=== PATIENT | female | born 2005 | race Caucasian/White ===

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

== ENCOUNTER → 2023-04-06 13:23 | Outpatient (BNVA) | payer OTHER, SELFPAY | PROVIDERS: Family Provider Family Medicine; Visit Provider Nurse Practitioner Family | DX: Z34.90 Encounter for supervision of normal pregnancy, unspecified, unspecified trimester (principal) | CPT/HCPCS: 81000; 81025 ==

== ENCOUNTER → 2023-04-10 14:50 | Outpatient (BNVA) | payer OTHER, SELFPAY | PROVIDERS: Family Provider Family Medicine; Visit Provider Obstetrics & Gynecology | DX: Z34.90 Encounter for supervision of normal pregnancy, unspecified, unspecified trimester (principal) | CPT/HCPCS: 84315; 84702 ==

== ENCOUNTER 2023-04-11 13:20 | Emergency (ER) | payer OTHER, SELFPAY ==
[2023-04-11 13:36] VITALS: BP 162/80; PULSE 99; RESP 15; TEMP 36.9; O2SAT 98
[2023-04-11 14:45] LABS: Basophils % 0.2 %; Eosinophils # 0.1 10^3/uL (0.0-0.8); Hematocrit 36.1 % (36-47); Lymphocytes # 2.1 10^3/uL (1.5-6.5); Lymphocytes % 22.2 %; Mean Corpuscular HGB Conc 30.5 g/dL (30-55); Mean Platelet Volume 10.9 fL (7.4-10.4); Monocytes # 0.6 10^3/uL (0.2-0.9); Monocytes % 6.4 %; Neutrophils # 6.56 10^3/uL (1.8-8.0); Neutrophils % 69.9 %; Nucleated Red Blood Cells % 0 %; Platelet Count 234 10^3/cmm (157-399); Red Cell Distribution Width 14.6 % (12.1-15.1); White Blood Count 9.38 10^3/uL (4.5-13.0)
[2023-04-11 15:22] LABS: Alanine Aminotransferase 22 U/L (0-33); Albumin Level 4.3 g/dL (3.5-5.2); Alkaline Phosphatase 117 U/L (35-105); Anion Gap 13.6 (5-19); Aspartate Amino Transferase 21 U/L (0-32); Blood Urea Nitrogen 9 mg/dL (6-20); Calcium 8.9 mg/dL (8.5-10.5); Carbon Dioxide 25 mmol/L (22-29); Chloride 103 mmol/L (98-107); Globulin 2.5 g/dL (1.3-4.6); Glomerular Filtration Rate 128.8 mL/min (90-130); Glucose 122 mg/dL (65-115); Osmolality Calculated 286 mOsm/kg (285-295); Potassium 3.6 mmol/L (3.5-5.1); Sodium 138 mmol/L (136-145); Total Bilirubin 0.2 mg/dL (0.15-1.2); Total Protein 6.8 g/dL (6.6-8.7)
[2023-04-11 17:58] VITALS: BP 153/109; PULSE 96; O2SAT 99
--- NOTE | 2023-04-11 18:07 | W.ED.PREGNAN ---
HPI - General: Chief complaint: Vaginal Bleeding Stated complaint: , bleeding, abd pain Time Seen by Provider: 04/11/23 17:59 History of Present Illness: 17-year-old female comes in today with vaginal bleeding in early . Patient reports has been spotting for about 1 week but bleeding has increased today. Patient still reports that the bleeding is less than 1 pad an hour. Patient was seen at [facility] yesterday and had a hCG done which review of the records noted that it was at 200. Patient was recommended to come to the ER due to increased bleeding. Patient denies any other complaints except some lower pelvic cramping. This is patient's first with no prior miscarriages or intentional abortions. Patient denies any chronic medical problems. Related Data: : 1 Review of Systems Const: Denies: fever(s) : Reports: vaginal bleeding (Less than 1 pad an hour) and pelvic pain PFS ED PFSH: Family History Denies family history of Cervical cancer Colon cancer Ovarian cancer Diabetes Breast cancer Hypertension Uterine cancer Thyroid disease Stroke Social History Smoking and tobacco status: never smoked Female Reproductive History: : 1 Physical Exam Const: COMMON NORMALS: alert HENMT: COMMON NORMALS: normocephalic HEAD & SCALP: normocephalic Neck/C-Spine: COMMON NORMALS: full ROM Resp: COMMON NORMALS: normal respiratory effort Cardio: COMMON NORMALS: regular rate RATE: regular rate Back/Pelvis: COMMON NORMALS: thoracic and lumbar spine normal to inspection Extremity: COMMON NORMALS: normal to inspection Neuro: SENSORIUM/ORIENTATION: Yes alert Skin: COMMON NORMALS: turgor normal GENERAL SKIN EXAM: turgor normal Course Vital Signs: Vital signs: Vital Signs Temperature 98.4 F 04/11/23 13:36 Pulse Rate 96 04/11/23 17:58 Respiratory Rate 15 04/11/23 13:36 Blood Pressure 153/109 04/11/23 17:58 Pulse Oximetry 99 04/11/23 17:58 Oxygen Delivery Me thod Room Air 04/11/23 17:58 MDM - OB/Uterine Contractions Medical Decision Making 17-year-old female comes in today with increased vaginal bleeding in early . Patient reports spotting for about 1 week that has increased today but remains less than 1 pad an hour. Patient had hCG done yesterday that showed a level of 200. Patient denies any fever and mild abdominal cramping. Differential diagnosis includes miscarriage, threatened , urinary tract infection, subchorionic bleed. hCG levels have declined since yesterday dropping from 200 to 109. This is most likely a miscarriage and patient should follow-up with [facility] in 3 days for recheck of lab levels. Discussed need to return to the ER for worsening bleeding or fever. Patient reported understanding and agreed to plan and need for follow-up appointment. Lab Data 04/11/23 14:28 04/11/23 14:28 Laboratory Results WBC 9.38 10^3/uL (4.5-13.0) 04/11/23 14: RBC 4.40 10^6/uL (3.85-5.65) 04/11/23 14: Hgb 11.00 g/dL (12.4-14.8) L 04/11/23 14:28 Hct 36.1 % (36-47) 04/11/23 14:28 MCV 82.0 fl (85-98) L 04/11/23 14: MCH 25.0 pg (27-33) L 04/11/23 14:28 MCHC 30.5 g/dL (30-55) 04/11/23 14: RDW 14.6 % (12.1-15.1) 04/11/23 14: Plt Count 234 10^3/cmm (157-399) 04/11/23 14:28 MPV 10.9 fL (7.4-10.4) H 04/11/23 14:28 Neut % (Auto) 69.9 % 04/11/23 14:28 Lymph % (Auto) 22.2 % 04/11/23 14:28 Harding % (Auto) 6.4 % 04/11/23 14:28 Eos % (Auto) 1.0 % 04/11/23 14:28 Baso % (Auto) 0.2 % 04/11/23 14:28 Neut # (Auto) 6.56 10^3/uL (1.8-8.0) 04/11/23 14:28 Lymph # (Auto) 2.1 10^3/uL (1.5-6.5) 04/11/23 14:28 Harding # (Auto) 0.6 10^3/uL (0.2-0.9) 04/11/23 14:28 Eos # (Auto) 0.1 10^3/uL (0.0-0.8) 04/11/23 14:28 Baso # (Auto) 0.0 10^3/uL (0.0-0.1) 04/11/23 14:28 Nucleated RBC % (auto) 0 % 04/11/23 14:28 Nucleated RBCs # 0.0 /100WBC 04/11/23 14:28 Sodium 138 mmol/L (136-145) 04/11/23 14:28 Potassium 3.6 mmol/L (3.5-5.1) 04/11/23 14:28 Chloride 103 mmol/L (98-107) 04/11/23 14:28 Carbon Dioxide 25 mmol/L (22-29) 04/11/23 14:28 Anion Gap 13.6 (5-19) 04/11/23 14:28 BUN 9 mg/dL (6-20) 04/11/23 14:28 Creatinine 0.6 mg/dL (0.5-0.9) 04/11/23 14:28 GFR Calculation 128.8 mL/min (90-130) 04/11/23 14:28 Glucose 122 mg/dL (65-115) H 04/11/23 14:28 Calculated Osmolality 286 mOsm/kg (285-295) 04/11/23 14:28 Calcium 8.9 mg/dL (8.5-10.5) 04/11/23 14:28 Total Bilirubin 0.2 mg/dL (0.15-1.2) 04/11/23 14:28 AST 21 U/L (0-32) 04/11/23 14:28 ALT 22 U/L (0-33) 04/11/23 14:28 Alkaline Phosphatase 117 U/L (35-105) H 04/11/23 14:28 Total Protein 6.8 g/dL (6.6-8.7) 04/11/23 14:28 Albumin 4.3 g/dL (3.5-5.2) 04/11/23 14:28 Globulin 2.5 g/dL (1.3-4.6) 04/11/23 14:28 Ser , Semi-Qnt 109.70 mIU/mL 04/11/23 14:28 Discharge Plan Discharge Patient Disposition: Home Clinical Impression: Miscarriage Condition: Stable Prescriptions: No Action Gummies 400 mcg-35 mg- 25 mg-5 mg tablet,chewable PO DAILY Discharge Orders: Discharge ED (Routine); Ordered 04/11/23 Ordered By: Bryce Fisher Discharge Diet: Usual diet Discharge Activity: Increase activity as tolerated Patient Instructions: Miscarriage (ED) Activity Restrictions/Additional Instructions: Drink plenty of water and fluids. Healthy diet. Use acetaminophen and ibuprofen for pain. Return to ER for worsening symptoms such as a high fever greater than 100.4, bleeding greater than 1 pad an hour, or feeling of passing out. Follow-up with [facility] in 2 to 3 days for recheck. Coding Level of Care Code ED [employer] Specialist for Jose Solano
[2023-04-11 18:18] VITALS: BP 138/99; PULSE 86; O2SAT 99
== END 2023-04-11 18:20 | disposition home or self-care (01) ==
PROVIDERS: Physician Assistant; Emergency Provider Nurse Practitioner Family
DX: O03.9 Complete or unspecified spontaneous abortion without complication (principal)
CPT/HCPCS: 36415; 80053; 84702; 85025; 99283

== ENCOUNTER → 2023-04-13 08:00 | Outpatient (BNVA) | payer OTHER, SELFPAY | PROVIDERS: Visit Provider Obstetrics & Gynecology | DX: O03.9 Complete or unspecified spontaneous abortion without complication (principal) | CPT/HCPCS: 84702 ==

== ENCOUNTER → 2024-12-12 08:40 | Outpatient (BNVA) | payer OTHER, SELFPAY | PROVIDERS: Visit Provider Nurse Practitioner Women's Health | DX: N91.2 Amenorrhea, unspecified (principal) | CPT/HCPCS: 81025 ==

== ENCOUNTER → 2024-12-16 08:43 | Outpatient (BNVA) | payer OTHER, SELFPAY | PROVIDERS: Visit Provider Nurse Practitioner Women's Health | DX: Z36.87 Encounter for antenatal screening for uncertain dates (principal) | CPT/HCPCS: 76817; 84702; 85025; 86850; 86900 ==

== ENCOUNTER → 2024-12-30 08:03 | Outpatient (BNVA) | payer OTHER, SELFPAY | PROVIDERS: Visit Provider Nurse Practitioner Women's Health | DX: Z36.9 Encounter for antenatal screening, unspecified (principal); N83.12 Corpus luteum cyst of left ovary | CPT/HCPCS: 76817 ==

== ENCOUNTER → 2025-01-27 10:15 | Outpatient (BNVA) | payer OTHER, SELFPAY | PROVIDERS: Visit Provider Nurse Practitioner Women's Health | DX: Z34.90 Encounter for supervision of normal pregnancy, unspecified, unspecified trimester (principal) | CPT/HCPCS: 80307; 84315; 87086 ==

== ENCOUNTER → 2025-01-28 10:12 | Outpatient (BNVA) | payer OTHER, SELFPAY | PROVIDERS: Visit Provider Nurse Practitioner Women's Health | DX: Z34.90 Encounter for supervision of normal pregnancy, unspecified, unspecified trimester (principal); E66.01 Morbid (severe) obesity due to excess calories; Z34.80 Encounter for supervision of other normal pregnancy, unspecified trimester | CPT/HCPCS: 83036; 85025; 86592; 86762; 86803; 87340; 87806 ==

== ENCOUNTER → 2025-02-04 10:26 | Outpatient (BNVA) | payer OTHER, SELFPAY | PROVIDERS: Visit Provider Nurse Practitioner Women's Health | DX: Z34.80 Encounter for supervision of other normal pregnancy, unspecified trimester (principal); Z34.90 Encounter for supervision of normal pregnancy, unspecified, unspecified trimester | CPT/HCPCS: 80307; 84315; 87086; 87491; 87591; 87624; 87661 ==

== ENCOUNTER 2025-03-05 20:35 | Inpatient (IN) | payer OTHER, SELFPAY ==
--- OUTSIDE RECORDS SUMMARY | 2025-03-01 06:56 | XMS_ITS | Encounter Summary ---
Author Organization [facility] Address [address] [place] [address] Care Team Providers Care Office Automation Clerk Name Role Phone Unavailable Primary Care Provider Unavailabl e Reason for Visit * Reason Comments Flank Pain Right Vomiting Encounter Details Date Type Department Care Team ([facility] st Contact Info) Description 03/01/2025 6:56 AM CDT - 03/01/2025 10:27 AM CDT Emergency [facility] Emergency Medicine [address] [phone] Alissa Winter MD [address] [phone] Acute right flank pain (Primary Dx); Intractable vomiting with nausea; Dede-Nunes tear; 15 weeks gestation of ; Acute cystitis with hematuria Discharge Disposition: Short term general hospital Social History Tobacco Use Types Packs/Day Years Used Date Smoking Tobacco: Never Smokeless Tobacco: Never Alcohol Use Standard Drinks/Week Comments Not Currently 0 (1 standard drink = 0.6 oz pur e alcohol) Estimated Date of Delivery Comme nts Yes 08/18/2025 Sex and Gender Information Value Date Recorded Sex Assigned at Not on file Legal Sex Female 4:32 PM CDT Gender Identity Not on file Sexual Orientation Not on file documented as of this encounter Last Filed Vital Signs Vital Sign Reading Time Taken Comments Blood Pressure 124/86 03/01/2025 10:23 AM CDT Pulse 58 03/01/2025 10:23 AM CDT Temperature 36.6 C (97.8 F) 03/01/2025 10:23 AM CDT Respiratory Rate 16 03/01/2025 10:2 3 AM CDT Oxygen Saturation 98% 03/01/2025 10: 15 AM CDT Inhaled Oxygen Concentration - - Weight 129.5 kg (285 lb 9.6 oz) 03/01/2025 7:05 AM CDT Height 167.6 cm (5' 6 ) 03/01/2025 7:05 AM CDT Body Mass Index 46.1 03/01/2025 7:05 AM CDT documented in this encounter Medications at Time of Discharge famotidine (PEPCID) 20 mg tablet Take 1 Tablet (20 mg) by mouth 2 times daily for 14 days. 28 Tablet 03/03/2025 03/17/2025 cefdinir (OMNICEF) 300 mg capsule Take 1 Capsule (300 mg) by mouth every 12 hours for 12 days. 24 Capsule 03/03/2025 03/15/2025 escitalopram oxalate (LEXAPRO) 5 mg tablet Take 5 mg by mouth daily. vits15/iron/folic /dss ( VIT 73-LXRG-NERGN-DSS ORAL) Take by mouth. cefdinir (OMNICEF) 300 mg capsule Take 1 Capsule (300 mg) by mouth every 12 hours for 10 days. 20 Capsule 03/03/2025 03/03/2025 documented as of this encounter ED Notes * Clay Thornton RN - 03/01/2025 10:27 AM CDT POV transfer information and directions provided to patient and spouse. IV removed. Patient exited ED with and all belongings at 1027. Update called to LUZ MARIA Bernabe at [facility] at 1028. * Clay Thornton RN - 03/01/2025 10:08 AM CDT Report called to LUZ MARIA Bernabe at [facility] at 1000. * Clay Thornton RN - 03/01/2025 7:17 AM CDT Hemalatha De La Torre 19 y.o. female, arrived to the ED via TRANSPORTATION: private vehicle for complaints of Chief Complaint Patient presents with Flank Pain Right Vomiting This patient arrives with her for complaints of Right Flank Pain and Vomiting. Patient ambulates well to room without signs of distress, is holding a bucket with emesis in it. States she wokeup at 0400 this morning with Right Flank Pain without radiation and then began Vomiting after. Reports taking Tylenol around 0430 without any relief. Reports she is 15 weeks and 5 days , seeBrittanyr Suzanne Jaramillo at [facility] in [place]. Denies any injury or history of stones. Vitals taken, patient placed on monitor, clothing removed as needed per policy, privacy provided to patient. Respiratory: WDL - Regular rhythm, symmetrical chest expansion, no dyspnea , Cardiac/Circulatory: WDL - No numbness or tingling, no chest pain , Skin: WDL - Normal color for ethnicity, skin intact, patient isAlert and Oriented x4, pain scale: 9/10, findings; bleeding: without any bleeding noted. Behavior during evaluation: appropriate. Belongings secured, patient Weapons assessment: denied possession of any weapons or firearms at this time. Patient comforted, all questions answered to the best of the staff's ability, education performed, and left patient in the room with the call light in reach, bed in lowest position, wheels locked, side rails up. * Alissa Winter MD - 03/01/2025 6:55 AM CDT HISTORY OF PRESENT ILLNESS Hemalatha De La Torre, a 19 y.o. female presents to the ED with a Chief Complaint of Flank Pain and Vomiting Subjective Patient is a at approximately 15w 5d GA, presented to ED with complaint of severe right flank pain associated with nausea and vomiting that started around 4:30am this morning. Denied any pelvic pain, vaginal bleeding, contractions or discharge. Denies any medical conditions or allergies. Denies any history of nephrolithiasis. History provided by: The patient and the spouse Arrived by: Private vehicle Arrived from: Home REVIEW OF SYSTEMS Review of Systems All other systems reviewed and are negative. PAST MEDICAL HISTORY REVIEWED MEDICAL: Patient has a past medical history of Depression. SURGICAL: Patient has a past surgical history that includes knee surgery. FAMILY: Patient's family history is not on file. SOCIAL: reports that she has never smoked. She has never used smokeless tobacco. She reports that she does not currently use alcohol. She reports that she does not use drugs. No history on file. Social History Other Topics Concern Not on file ALLERGIES Patient has no known allergies. HOME MEDICATIONS Patient's Home Medications Current Home Medications ESCITALOPRAM OXALATE (LEXAPRO) 5 MG TABLET VITS15/IRON/FOLIC/DSS ( VIT 80-WNCI-PCBJJ-DSS ORAL) Medications Modified during this Encounter No medications on file Medications Discontinued during this Encounter No medications on file Objective PHYSICAL EXAM INITIAL VS BP: 121/55 (03/01/25704), Heart Rate: 71 bpm (03/01/25704), Resp: 18 (03/01/25704), Pulse: (!) 59 (03/01/25729), Temp: 97.1 ??F (36.2 ??C) (03/01/25704), Temp src: Temporal (03/01/25704),SpO2: 98 % (03/01/25704), Height: 5' 6 (167.6 cm) (03/01/25704), Weight: 129.5 kg (285 lb 9.6 oz) (03/01/25704), BMI (Calculated): (!) 46.1 (03/01/25704) No LMP recorded. Patient is . Physical Exam Vitals and nursing note reviewed. Constitutional: General: She is in acute distress. Appearance: She is obese. She is ill-appearing. HENT: Mouth/Throat: Mouth: Mucous membranes are moist. Eyes: Extraocular Movements: Extraocular movements intact. Pupils: Pupils are equal, round, and reactive to light. Cardiovascular: Rate and Rhythm: Normal rate and regular rhythm. Pulses: Normal pulses. Heart sounds: Normal heart sounds. Pulmonary: Effort: Pulmonary effort is normal. No respiratory distress. Breath sounds: Normal breath sounds. Abdominal: Palpations: Abdomen is soft. Tenderness: There is no abdominal tenderness. There is right CVA tenderness. There is no left CVA tenderness, guarding or rebound. Skin: General: Skin is warm and dry. Capillary Refill: Capillary refill takes less than 2 seconds. Coloration: Skin is not pale. Findings: No erythema or rash. Neurological: General: No focal deficit present. Mental Status: She is alert and oriented to person, place, and time. Mental status is at baseline. Cranial Nerves: No cranial nerve deficit. Psychiatric: Mood and Affect: Mood normal. Behavior: Behavior normal. DIAGNOSTICS LAB: URINALYSIS WITH REFLEX MICROSCOPIC - Abnormal Result Value COLOR UA Yellow CLARITY UA Cloudy (*) SPECIFIC GRAVITY UA >=1.030 PH UA 6.0 LEUKOCYTE ESTERASE UA 1+ (*) NITRITE UA Negative PROTEIN UA 2+ (*) GLUCOSE UA Negative KETONES UA Negative UROBILINOGEN UA 0.2 BILIRUBIN UA Negative BLOOD UA 3+ (*) CBC WITH DIFFERENTIAL - Abnormal WBC 13.2 (*) RBC 4.10 HEMOGLOBIN 11.3 HEMATOCRIT 34.4 MCV 83.9 MCH 27.6 MCHC 32.8 RDW 18.3 (*) RDW-STDEV 55.3 PLATELETS 169 MPV 11.9 NEUTROPHILS 79 (*) LYMPHOCYTES 14 (*) MONOCYTES 5 EOSINOPHILS 0 (*) BASOPHILS 0 IMMATURE GRANULOCYTES 1 NEUTROPHIL ABSOLUTE 10.45 (*) LYMPHOCYTE ABSOLUTE 1.86 MONOCYTE ABSOLUTE 0.67 (*) EOSINOPHIL ABSOLUTE 0.04 BASOPHILS ABSOLUTE 0.02 IMMATURE GRANULOCYTES ABSOLUTE 0.13 COMPREHENSIVE METABOLIC PANEL - Abnormal SODIUM 136 POTASSIUM 3.7 CHLORIDE 103 CO2 21 (*) CALCIUM 9.6 BUN 8 CREATININE 0.61 GLUCOSE 112 (*) TOTAL PROTEIN 6.4 (*) ALBUMIN 3.7 BILIRUBIN TOTAL <0.2 ALKALINE PHOSPHATASE 108 (*) AST 22 ALT 34 GFR >60 ANION GAP 12 C-REACTIVE PROTEIN - Abnormal CRP 16.0 (*) SEDIMENTATION RATE - Abnormal ESR (SEDIMENTATION RATE) 31 (*) URINALYSIS MICROSCOPY ONLY - Abnormal WBC UA 26-50 (*) RBC UA >100 (*) BACTERIA UA 2+ (*) EPITHELIAL CELLS, URINE >25 (*) HYALINE CAST 0-2 OCCULT BLOOD, GASTRIC FLUID - Abnormal OCCULT BLOOD, GASTRIC FLUID Positive (*) PH, GASTRIC FLD <1 (*) URINALYSIS WITH REFLEX MICROSCOPIC - Abnormal COLOR UA Yellow CLARITY UA Cloudy (*) SPECIFIC GRAVITY UA >=1.030 PH UA 6.0 LEUKOCYTE ESTERASE UA 1+ (*) NITRITE UA Negative PROTEIN UA 2+ (*) GLUCOSE UA Negative KETONES UA Negative UROBILINOGEN UA 0.2 BILIRUBIN UA Negative BLOOD UA 3+ (*) URINALYSIS MICROSCOPY ONLY - Abnormal WBC UA 26-50 (*) RBC UA 51-100 (*) BACTERIA UA 2+ (*) EPITHELIAL CELLS, URINE 6-10 (*) HYALINE CAST 0-2 CALCIUM OXALATE, URINE Present (*) LIPASE - Normal LIPASE 31 LACTIC ACID - Normal LACTIC ACID 1.9 URINE CULTURE RADIOLOGY: No orders to display EKG: PROCEDURES Procedures MEDICAL DECISION MAKING AND PLAN OF CARE Medical Decision Making Patient who is currently with GA of 15w5d, presented to ED with nausea and vomiting that started suddenly. Provided with initial SL zofran, which didn't work at all, as unsure if patient has kept the medication in mouth long enough to let it absorb. Placed IV and provided with 1L IV NS fluid bolus, reglan, benadryl, which didn't help either. Provided with morphine 1mg Ivpush that helped slightly, but patient wasn't able to tolerate taking PO acetaminophen. Provided also with IV Zofran dose 4mg. UA initially was contaminated, so will obtain another one, however 3+ blood noted. Higher suspicion for Urolithiasis, however don't have US or MRI here for further evaluation. Will obtain another UA and provide with Ceftriaxone 2g IVPB once right now. Will likely need to transfer to an able facility for US/MRI for evaluation, and where there is Urologist/Ob, GI possibly available as well. Blood work revealed leukocytosis. Renal function, lipase, LFTs, and electrolytes are wnl. Patient also began to have bloody streaks in her vomit and provided with Pantoprazole 40mg Ivpush to start with and check gastric occult. Concern for dede debby tear. Continue on PPI drip. Will attempt to transfer to [facility] ED for further evaluation. Discussed the case with ER physician in [facility] and patient has been accepted for ER to ER transfer. Prior to patient's departure from the emergency department provided patient with dose of IV acetaminophen 500 mg, morphine 1 mg IV push, Compazine 5 mg and Benadryl 12.5 mg IV push. Due to shortage of ambulances in the area and no ability to fly due to weather conditions, patient opting that she will go by POV directly to [facility]. Patient's will be driving. Amount and/or Complexity of Data Reviewed Labs: ordered. Risk OTC drugs. Prescription drug management. Clinical Scoring & Consults Medications Administered During the ED Stay from 03/01/2025 0655 to 03/01/2025 1002 Date/Time Order Dose Route Action 03/01/2025 0716 CDT ondansetron (ZOFRAN ODT) tablet 4 mg 4 mg Sublingual Given 03/01/2025 0829 CDT sodium chloride flush injection 10 mL 10 mL IV Given 03/01/2025 0946 CDT sodium chloride flush injection 10 mL 10 mL IV Given 03/01/2025 0921 CDT sodium chloride flush injection 10 mL 10 mL IV Given 03/01/2025 0749 CDT sodium chloride flush injection 10 mL 10 mL IV Given 03/01/2025 0817 CDT sodium chloride 0.9 % bolus solution 1,000 mL 0 mL IV Stopped 03/01/2025 0747 CDT sodium chloride 0.9 % bolus solution 1,000 mL 1,000 mL IV New Bag 03/01/2025 0748 CDT metoclopramide (REGLAN) 5 mg/mL injection 5 mg 5 mg IV Given 03/01/2025 0749 CDT diphenhydrAMINE (BENADRYL) injection 12.5 mg 12.5 mg IV Given 03/01/2025 0828 CDT morphine 2 mg/mL injection 1 mg 1 mg IV Given 03/01/2025 0829 CDT acetaminophen (TYLENOL) tablet 650 mg 650 mg Oral Not Given 03/01/2025 0834 CDT ondansetron (ZOFRAN) 4 mg/2 mL injection 4 mg 4 mg IV Given 03/01/2025 0950 CDT cefTRIAXone (ROCEPHIN) 2,000 mg in sodium chloride 0.9% 50 mL IVPB (MBP) 0 mg IV Stopped 03/01/2025 0920 CDT cefTRIAXone (ROCEPHIN) 2,000 mg in sodium chloride 0.9% 50 mL IVPB (MBP) 2,000 mg IV New Bag 03/01/2025 0918 CDT pantoprazole (PROTONIX) 40 mg in sodium chloride 0.9% 10 mL injection 40 mg IV Given 03/01/2025 0947 CDT pantoprazole (PROTONIX) 40 mg in sodium chloride 0.9% 50 mL infusion (MBP) 8 mg/hr IV New Bag . New Prescriptions for this Encounter LAST VS BP: 130/78 (03/01/25944), Heart Rate: 71 bpm (03/01/25704), Resp: 16 (03/01/25917), Pulse: (!) 58 (03/01/25944), Temp: 97.1 ??F (36.2 ??C) (03/01/25704), Temp src: Temporal (03/01/25704),SpO2: 97 % (03/01/25944) CLINICAL IMPRESSION Final diagnoses: [R11.2] Intractable vomiting with nausea [K22.6] Dede-Nunes tear [R10.9] Acute right flank pain (Primary) [Z3A.15] 15 weeks gestation of [N30.01] Acute cystitis with hematuria DISPOSITION, EDUCATION AND MEDICATION RECONCILIATION Medications reconciled. See after visit summary for patient education on discharged patients. ED Disposition ED Disposition Transfer Condition Stable User Alissa Winter MD Date/Time Sun Mar 01, 2025 9:58 AM Comment -- ATTESTATION STATEMENTS Diagnoses Diagnosis Comment Added By Time Added Intractable vomiting with nausea [R11.2] Alissa Winter MD 03/01/2025 9:43 AM Dede-Nunes tear [K22.6] Alissa Winter MD 03/01/2025 9:43 AM Acute right flank pain [R10.9] Alissa Winter MD 03/01/2025 9:43 AM 15 weeks gestation of [Z3A.15] Alissa Winter MD 03/01/2025 9:44 AM Acute cystitis with hematuria [N30.01] Alissa Winter MD 03/01/2025 10:00 AM documented in this encounter Plan of Treatment Not on file documented as of this encounter Procedures Procedure Name Priority Date/Time Associated Diagnosis Comments URINALYSIS MICROSCOPY ONLY Stat 03/01/2025 9:14 AM CDT URINALYSIS W/REFLEX MICROSCOPIC Stat 03/01/2025 9:14 AM CDT URINE CULTURE Stat 03/01/2025 9:14 AM CDT OCCULT BLOOD, GASTRIC FLUID Stat 03/01/2025 9:10 AM CDT LACTIC ACID Stat 03/01/2025 7:38 AM CDT CBC WITH DIFFERENTIAL Stat 03/01/2025 7:38 AM CDT SEDIMENTATION RATE Stat 03/01/2025 7: 38 AM CDT C-REACTIVE PROTEIN Stat 03/01/2025 7: 38 AM CDT LIPASE Stat 03/01/2025 7:38 AM CDT COMPREHENSIVE METABOLIC PANEL Stat 03/01/2025 7:38 AM CDT URINALYSIS MICROSCOPY ONLY Stat 03/01/2025 7:10 AM CDT URINALYSIS W/REFLEX MICROSCOPIC Stat 03/01/2025 7:10 AM CDT documented in this encounter Results * (ABNORMAL) URINE CULTURE (03/01/2025 9:14 AM CDT) [facility] CULTURE ESCHERICHIA COLI(A) CHYNA MCG/ML 03/03/2025 7:21 AM CDT [facility] Urine URINE SPECIMEN OBTAINED BY CLEAN CATCH PROCEDURE / Unknown 03/01/2025 9:14 AM CDT 03/01/2025 9:28 AM CDT Narrative Organism Antibiotic Method Susceptibility Escherichia coli CEFAZOLIN CHYNA MCG/ML <=4 mcg/mL: Susceptible Comment:Cefazolin beltrán sceptible interpretation applies to uncomplicated urinary tract infections (UTI) only. If patient has a complicated UTI consider either using a 3rd generation cephalosporin (ie- ceftriaxone). If cefazolin susceptibility testing is necessary for treatment of this patient, contact Microbiology for additional testing. Escherichia coli CEFTRIAXONE CHYNA MCG/ML <=1 mcg/mL: Susceptible Escherichia coli GENTAMICIN CHYNA MCG/ML <=1 mcg/mL: Susceptible Escherichia coli TOBRAMYCIN CHYNA MCG/ML <=1 mcg/mL: Susceptible Escherichia coli CIPROFLOXACIN CHYNA MCG/ML <=0.25 mcg/mL: Susceptible Escherichia coli LEVOFLOXACIN CHYNA MCG/ML <=0.12 mcg/mL: Susceptible Escherichia coli TRIMETHOPRIM/ SULFAMETHOXAZOLE CHYNA MCG/ML <=20 mcg/mL: Susceptible Escherichia coli NITROFURANTOIN CHYNA MCG/ML 32 mcg/mL: Susceptible Escherichia coli AMPICILLIN CHYNA MCG/ML >=32 mcg/mL: Resistant Escherichia coli AMPICILLIN/ SULBACTAM CHYNA MCG/ML 16 mcg/mL: Intermediate Escherichia coli PIPERACILLIN/ TAZOBACTAM CHYNA MCG/ML <=4 mcg/mL: Susceptible Comment:Aminoglycosides shou ld not be used as monotherapy for infections outside the urinary tract. Consultation with an infectious diseases specialist is recommended. us Alissa Winter MD MICROBIOLOGY - GENERAL ORDERABL ES Final Result [facility] # [id number] [address] [place] [address] * (ABNORMAL) URINALYSIS MICROSCOPY ONLY (03/01/2025 9:14 AM CDT) WBC UA 26-50(A) 0 - 2 /hpf 03/01/2025 9:51 AM CDT [facility] RBC UA 51-100(A) 0 - 2 /hpf 03/01/2025 9:51 AM [facility] BACTERIA UA 2+(A) Negative /hpf [facility] EPIT[facility] URINE 6-10(A) 0 - 5 /hpf 03/01/2025 9:51 AM T [facility] HYALINE CAST 0-2 None Seen, 0-2 /lpf 03/01/2025 9:51 AM [facility] CALCIUM OXALATE, URINE Present(A ) Absent 03/01/2025 9:51 AM [facility] Urine URINE SPECIMEN OBTAINED BY CLEAN CATCH PROCEDURE / Unknown 03/01/2025 9:14 AM CDT 03/01/2025 9:28 AM CDT us Alissa Winter MD URINE ORDERABLES Final Result [facility] CLIA # [id number] [address] [place] [address] * (ABNORMAL) URINALYSIS WITH REFLEX MICROSCOPIC (03/01/2025 9:14 AM CDT) COLOR UA Yellow Pale to Dark Yellow 03/01/2025 9:51 AM CDT [facility] CLARITY UA Cloudy(A) Clear 03/01/2025 9:51 AM T [facility] SPECIFIC GRAVITY UA >=1.030 1.003 - 1.035 03/01/2025 9:51 AM T [facility] PH UA 6.0 5.0 - 8.0 03/01/2025 9:51 AM T [facility] LEUKOCYTE ESTERASE UA 1+(A) Negative 03/01/2025 9:51 AM T [facility] NITRITE UA Negative Negative 03/01/2025 9:51 AM T [facility] PROTEIN UA 2+(A) Negative 03/01/2025 9:51 AM T [facility] GLUCOSE UA Negative Negative 03/01/2025 9:51 AM T [facility] KETONES UA Negative Negative 03/01/2025 9:51 AM T [facility] UROBILINOGEN UA 0.2 <2.0 mg/dL 9:51 AM T [facility] BILIRUBIN UA Negative Negative 03/01/2025 9:51 AM T [facility] BLOOD UA 3+(A) Negative 03/01/2025 9:51 AM T [facility] Urine URINE SPECIMEN OBTAINED BY CLEAN CATCH PROCEDURE / Unknown 03/01/2025 9:14 AM CDT 03/01/2025 9:28 AM CDT us Alissa Winter MD URINE ORDERABLES Final Result [facility] CLIA # [id number] [address] [place] [address] * (ABNORMAL) OCCULT BLOOD, GASTRIC FLUID (03/01/2025 9:10 AM CDT) OCCULT BLOOD, GASTRIC FLUID Positive(A ) Negative 03/01/2025 9:43 AM CDT [facility] PH, GASTRIC FLD <1(L) 2 - 4 03/01/2025 9:43 AM CDT [facility] Body fluid ENTIRE STOMACH / Unknown Collection / Unknown 03/01/2025 9:10 AM CDT 03/01/2025 9:28 AM CDT [facility] - 03/01/2025 9:43 AM CDT Lot exp 03-13 Developer [id number] exp 425 us Alissa Winter MD BODY FLUIDS AND STOOLS Final Re sult [facility] CLIA # [id number] [address] [place] [address] * (ABNORMAL) SEDIMENTATION RATE (03/01/2025 7:38 AM CDT) ESR (SEDIMENTATION RATE) 31(H) 0 - 20 mm/Hr 03/01/2025 8:52 AM CDT [facility] Blood Venipuncture / Unknown 03/01/2025 7:38 AM CDT 03/01/2025 8:27 AM CDT [facility] - 03/01/2025 8:52 AM CDT Tube Lot: #[id number] Exp Date: 08/19/2026 QC1 LOT [id number] EXP.08/24/2025 QC2 LOT [id number] EXP.08/24/2025 us Alissa Winter MD HEMATOLOGY ORDERABLES Final Res ult Performing Organization Address [facility] Co de Phone Number [facility] CLIA # [id number] [address] [place] [address] * (ABNORMAL) C-REACTIVE PROTEIN (03/01/2025 7:38 AM CDT) CRP 16.0(H) <5.0 mg/L 03/01/2025 8:51 AM CDT [facility] Blood Venipuncture / Unknown 03/01/2025 7:38 AM CDT 03/01/2025 8:27 AM CDT us Alissa Winter MD CHEMISTRY ORDERABLES Final Resu lt Performing Organization Address [facility] Co de Phone Number [facility] CLIA # [id number] [address] [place] [address] * LACTIC ACID (03/01/2025 7:38 AM CDT) LACTIC ACID 1.9 <=2.0 mmol/L 03/01/2025 8:51 AM CDT [facility] Blood BLOOD SPECIMEN / Unknown Venipuncture / Unknown 03/01/2025 7:38 AM CDT 03/01/2025 8:27 AM CDT us Alissa Winter MD CHEMISTRY ORDERABLES Final Resu lt Performing Organization Address City/[facility]/ZIP Co de Phone Number [facility] CLIA # [id number] [address] [place] [address] * LIPASE (03/01/2025 7:38 AM CDT) LIPASE 31 13 - 60 U/L 03/01/2025 8:51 AM CDT [facility] Blood Venipuncture / Unknown 03/01/2025 7:38 AM CDT 03/01/2025 8:27 AM CDT us Alissa Winter MD CHEMISTRY ORDERABLES Final Resu lt [facility] # [id number] [address] [place] [address] * (ABNORMAL) COMPREHENSIVE METABOLIC PANEL (03/01/2025 7:38 AM CDT) SODIUM 136 136 - 145 mmol/L 03/01/2025 8:51 AM [facility] POTASSIUM 3.7 3.5 - 5.1 mmol/L 03/01/2025 8:51 AM [facility] CHLORIDE 103 98 - 107 mmol/L 03/01/2025 8:51 AM [facility] CO2 21(L) 22 - 29 mmol/L 03/01/2025 8:51 AM [facility] CALCIUM 9.6 8.6 - 10.0 mg/dL 03/01/2025 8:51 AM [facility] BUN 8 6 - 20 mg/dL 03/01/2025 8:51 AM [facility] CREATININE 0.61 0.51 - 0.95 mg/dL 03/01/2025 8:51 AM [facility] GLUCOSE 112(H) 74 - 99 mg/dL 03/01/2025 8:51 AM [facility] TOTAL PROTEIN 6.4(L) 6.6 - 8.7 g/dL 03/01/2025 8:51 AM [facility] ALBUMIN 3.7 3.5 - 5.2 g/dL 03/01/2025 8:51 AM [facility] BILIRUBIN TOTAL <0.2 0.0 - 1.2 mg/dL 03/01/2025 8:51 AM [facility] ALKALINE PHOSPHATASE 108(H) 35 - 104 U/L 03/01/2025 8:51 AM [facility] AST 22 0 - 35 U/L 03/01/2025 8:51 AM [facility] ALT 34 0 - 35 U/L 03/01/2025 8:51 AM [facility] GFR >60 >=60 mL/min/1.7 3 sq meter 03/01/2025 8:51 AM [facility] Comment:eGFR calculated with 2020 CKD-EPI equation. Vegetarian diet, extremely high or low muscle mass, and may affect results. Cystatin C with Glomerular Filtration Rate is a suitable alternative for these patients. ANION GAP 12 5 - 20 mmol/L 03/01/2025 8:51 AM [facility] Blood Venipuncture / Unknown 03/01/2025 7:38 AM CDT 03/01/2025 8:27 AM CDT us Alissa Winter MD CHEMISTRY ORDERABLES Final Resu lt [facility] CLIA # [id number] [address] [place] [address] * (ABNORMAL) CBC WITH DIFFERENTIAL (03/01/2025 7:38 AM CDT) WBC 13.2(H) 4.0 - 10.0 K/uL 03/01/2025 8:44 AM [facility] RBC 4.10 3.93 - 5.22 M/uL 03/01/2025 8:44 AM [facility] HEMOGLOBIN 11.3 11.2 - 15.7 g/dL 03/01/2025 8:44 AM [facility] HEMATOCRIT 34.4 34.1 - 44.9 % 03/01/2025 8:44 AM [facility] MCV 83.9 79.4 - 94.8 fL 03/01/2025 8:44 AM [facility] MCH 27.6 25.6 - 32.2 pg 03/01/2025 8:44 AM [facility] MCHC 32.8 32.2 - 35.5 g/dL 03/01/2025 8:44 AM [facility] RDW 18.3(H) 11.0 - 14.5 % 03/01/2025 8:44 AM [facility] RDW-STDEV 55.3 36.9 - 56.9 fL 03/01/2025 8:44 AM [facility] PLATELETS 169 163 - 337 K/uL 03/01/2025 8:44 AM [facility] - [place] MPV 11.9 10.0 - 14.8 fL 03/01/2025 8:44 AM [facility] NEUTROPHILS 79(H) 34 - 71 % 03/01/2025 8:44 AM [facility] LYMPHOCYTES 14(L) 19 - 52 % 03/01/2025 8:44 AM [facility] MONOCYTES 5 5 - 13 % 03/01/2025 8:44 AM [facility] EOSINOPHILS 0(L) 1 - 6 % 03/01/2025 8:44 AM [facility] BASOPHILS 0 0 - 1 % 03/01/2025 8:44 AM [facility] IMMATURE GRANULOCYTES 1 % 03/01/2025 8:44 AM [facility] NEUTROPHIL ABSOLUTE 10.45(H) 1.56 - 6.13 K/uL 03/01/2025 8:44 AM [facility] LYMPHOCYTE ABSOLUTE 1.86 1.20 - 3.40 K/uL 03/01/2025 8:44 AM [facility] MONOCYTE ABSOLUTE 0.67(H) 0.24 - 0.36 K/uL 03/01/2025 8:44 AM [facility] EOSINOPHIL ABSOLUTE 0.04 0.04 - 0.36 K/uL 03/01/2025 8:44 AM [facility] BASOPHILS ABSOLUTE 0.02 0.01 - 0.08 K/uL 03/01/2025 8:44 AM [facility] IMMATURE GRANULOCYTES ABSOLUTE 0.13 K/uL 03/01/2025 8:44 AM [facility] Blood Venipuncture / Unknown 03/01/2025 7:38 AM CDT 03/01/2025 8:27 AM CDT us Alissa Winter MD HEMATOLOGY ORDERABLES Final Res ult Performing Organization Address [facility]/ZIP Co de Phone Number [facility] CLIA # [id number] [address] [place] [phone] * (ABNORMAL) URINALYSIS MICROSCOPY ONLY (03/01/2025 7:10 AM CDT) WBC UA 26-50(A) 0 - 2 /hpf 03/01/2025 8:51 AM CDT [facility] RBC UA >100(A) 0 - 2 /hpf 03/01/2025 8:51 AM CDT [facility] BACTERIA UA 2+(A) Negative /hpf 03/01/2025 8:51 AM CDT [facility] EPITHELIAL CELLS, URINE >25(A) 0 - 5 /hpf 03/01/2025 8:51 AM CDT [facility] Comment:Specimen not suitabl e for culture HYALINE CAST 0-2 None Seen, 0-2 /lpf 03/01/2025 8:51 AM T [facility] Urine URINE SPECIMEN OBTAINED BY CLEAN CATCH PROCEDURE / Unknown Collection / Unknown 03/01/2025 7:10 AM CDT 03/01/2025 8:30 AM CDT us Alissa Winter MD URINE ORDERABLES Final Result Performing Organization Address [facility]/ZIP Co de Phone Number [facility] CLIA # [id number] [address] [place] [phone] * (ABNORMAL) URINALYSIS WITH REFLEX MICROSCOPIC (03/01/2025 7:10 AM CDT) COLOR UA Yellow Pale to Dark Yellow 03/01/2025 8:51 AM CDT [facility] CLARITY UA Cloudy(A) Clear 03/01/2025 8:51 AM CDT [facility] SPECIFIC GRAVITY UA >=1.030 1.003 - 1.035 03/01/2025 8:51 AM CDT [facility] PH UA 6.0 5.0 - 8.0 03/01/2025 8:51 AM [facility] LEUKOCYTE ESTERASE UA 1+(A) Negative 03/01/2025 8:51 AM T [facility] NITRITE UA Negative Negative 03/01/2025 8:51 AM T [facility] PROTEIN UA 2+(A) Negative 03/01/2025 8:51 AM T [facility] GLUCOSE UA Negative Negative 03/01/2025 8:51 AM T [facility] KETONES UA Negative Negative 03/01/2025 8:51 AM T [facility] UROBILINOGEN UA 0.2 <2.0 mg/dL 8:51 AM [facility] BILIRUBIN UA Negative Negative 03/01/2025 8:51 AM [facility] BLOOD UA 3+(A) Negative 03/01/2025 8:51 AM [facility] Urine URINE SPECIMEN OBTAINED BY CLEAN CATCH PROCEDURE / Unknown Collection / Unknown 03/01/2025 7:10 AM CDT 03/01/2025 8:30 AM CDT Alissa Winter MD URINE ORDERABLES Final Result [facility] # [id number] [address] [place] [id number] documented in this encounter Visit Diagnoses Diagnosis Acute right flank pain- Primary Abdominal pain, unspecified site Intractable vomiting with nausea Dede-Nunes tear Gastroesophageal laceration-hemorrhage syndrome Acute right flank pain Abdominal pain, unspecified site 15 weeks gestation of state, incidental Acute cystitis with hematuria Acute cystitis 15 weeks gestation of state, incidental Dede-Nunes tear Gastroesophageal laceration-hemorrhage syndrome Intractable vomiting with nausea Acute cystitis with hematuria Acute cystitis documented in this encounter Administered Medications Inactive Administered Medications - up to 3 most recent administrations Medication Order MAR Action Action Date Dose Rate Site acetaminophen (OFIRMEV) 10 mg/mL injection 500 mg 500 mg, IV, ONE TIME ONLY, 1 dose, On 03/01/25 at 1000, Routine New Bag 03/01/2025 10:09 AM CDT 500 mg 200 mL/hr cefTRIAXone (ROCEPHIN) 2,000 mg in sodium chloride 0.9% 50 mL IVPB (MBP) 2,000 mg, IV, ONE TIME ONLY, 1 dose, On 03/01/25 at 0915, Routine, Antibiotic Indication: Urinary Tract Infection(UTI) / Infection New Bag 03/01/2025 9:20 AM CDT 2,000 mg 118 mL/hr diphenhydrAMINE (BENADRYL) injection 12.5 mg 12.5 mg, IV, ONE TIME ONLY, 1 dose, On 03/01/25 at 0745, Routine Given 03/01/2025 7:49 AM CDT 12.5 mg diphenhydrAMINE (BENADRYL) injection 12.5 mg 12.5 mg, IV, ONE TIME ONLY, 1 dose, On 03/01/25 at 1000, Routine Given 03/01/2025 10:03 AM CDT 12.5 mg metoclopramide (REGLAN) 5 mg/mL injection 5 mg 5 mg, IV, ONE TIME ONLY, 1 dose, On 03/01/25 at 0745, Routine Given 03/01/2025 7:48 AM CDT 5 mg morphine 2 mg/mL injection 1 mg 1 mg, IV, ONE TIME ONLY, 1 dose, On 03/01/25 at 0830, Routine Given 03/01/2025 8:28 AM CDT 1 mg morphine 2 mg/mL injection 1 mg 1 mg, IV, ONE TIME ONLY, 1 dose, On 03/01/25 at 1000, Routine Given 03/01/2025 10:24 AM CDT 1 mg ondansetron (ZOFRAN ODT) tablet 4 mg 4 mg, Sublingual, ONE TIME ONLY, 1 dose, On 03/01/25 at 0715, Routine Given 03/01/2025 7:16 AM CDT 4 mg ondansetron (ZOFRAN) 4 mg/2 mL injection 4 mg 4 mg, IV, ONE TIME ONLY, 1 dose, On 03/01/25 at 0845, Routine Given 03/01/2025 8:34 AM CDT 4 mg pantoprazole (PROTONIX) 40 mg in sodium chloride 0.9% 10 mL injection 40 mg, IV, ONE TIME ONLY, 1 dose, On Sun03/01/25 at 0915, Routine, For vial+diluent: 10 mL NS is needed to reconstitute pantoprazole vial. For doses less than 40 mg Epic may default less than 10 mL NS. Pharmacist to change NS dispense amount to 10 mL., Indication: Upper gastrointestinal (GI) bleed Given 03/01/2025 9:18 AM CDT 40 mg pantoprazole (PROTONIX) 40 mg in sodium chloride 0.9% 50 mL infusion (MBP) 8 mg/hr (10 mL/hr), IV, CONTINUOUS, Starting on Sun03/01/25 at 0945, Until Sun03/01/25 at 1216, Indication: Upper gastrointestinal (GI) bleed New Bag 03/01/2025 9:47 AM CDT 8 mg/hr 10 mL/hr prochlorperazine (COMPAZINE) injection 5 mg 5 mg, IV, ONE TIME ONLY, 1 dose, On Sun03/01/25 at 1000, Routine Given 03/01/2025 10:06 AM CDT 5 mg sodium chloride 0.9 % bolus solution 1,000 mL 1,000 mL, IV, ONE TIME ONLY, 1 dose, On Sun03/01/25 at 0745, at 2,000 mL/hr, Administer over 30 Minutes, Routine New Bag 03/01/2025 7:47 AM CDT 1,000 mL 2000 mL/hr sodium chloride flush injection 10 mL 10 mL, IV, EVERY 12 HOURS (BlD), First dose on Sun03/01/25 at 0900, Until Discontinued, Routine Given 03/01/2025 8:29 AM CDT 10 mL sodium chloride flush injection 10 mL 10 mL, IV, SEE ADMIN INSTRUCTIONS, Starting on Sun03/01/25 at 0730, Until Sun03/01/25 at 1216, Routine Given 03/01/2025 10:22 AM CDT 10 mL Given 03/01/2025 10:09 AM CDT 10 mL Given 03/01/2025 10:06 AM CDT 10 mL documented in this encounter Active and Recently Administered Medications Times are shown in CDT. Scheduled Medication Order 02/27/2025 02/28/2025 03/01/2025 acetaminophen (OFIRMEV) 10 mg/mL injection 500 mg (COMPLETED) 500 mg, IV, ONE TIME ONLY, 1 dose, On 03/01/25 at 1000, Routine 1009 (New Bag - Prov ider: Phyllis Maldonado, LUZ MARIA)1024 (Stopped - Provider: Clay Thornton RN) acetaminophen (TYLENOL) tablet 650 mg 650 mg, Oral, ONE TIME ONLY, 1 dose, On 03/01/25 at 0830, Routine 0829 (Not Given - Pr ovider: Clay Thornton RN - Reason: Patient nauseated - Comment: Attempted to administer, patient nauseous/vomiting. Not given.) cefTRIAXone (ROCEPHIN) 2,000 mg in sodium chloride 0.9% 50 mL IVPB (MBP) (COMPLETED) 2,000 mg, IV, ONE TIME ONLY, 1 dose, On 03/01/25 at 0915, Routine, Antibiotic Indication: Urinary Tract Infection(UTI) / Infection 0920 (New Bag - Prov ider: Clay Thornton RN)0950 (Stopped - Provider: Clay Thornton RN) diphenhydrAMINE (BENADRYL) injection 12.5 mg (COMPLETED) 12.5 mg, IV, ONE TIME ONLY, 1 dose, On 03/01/25 at 0745, Routine 0749 (Given - Provid er: Clay Thornton RN) diphenhydrAMINE (BENADRYL) injection 12.5 mg (COMPLETED) 12.5 mg, IV, ONE TIME ONLY, 1 dose, On 03/01/25 at 1000, Routine 1003 (Given - Provid er: Phyllis Maldonado, LUZ MARIA) metoclopramide (REGLAN) 5 mg/mL injection 5 mg (COMPLETED) 5 mg, IV, ONE TIME ONLY, 1 dose, On 03/01/25 at 0745, Routine 0748 (Given - Provid er: Clay Thornton RN) morphine 2 mg/mL injection 1 mg (COMPLETED) 1 mg, IV, ONE TIME ONLY, 1 dose, On 03/01/25 at 0830, Routine 0828 (Given - Provid er: Clay Thornton RN) morphine 2 mg/mL injection 1 mg (COMPLETED) 1 mg, IV, ONE TIME ONLY, 1 dose, On 03/01/25 at 1000, Routine 1024 (Given - Provid er: Clay Thornton RN) ondansetron (ZOFRAN ODT) tablet 4 mg (COMPLETED) 4 mg, Sublingual, ONE TIME ONLY, 1 dose, On 03/01/25 at 0715, Routine 0716 (Given - Provid er: Clay Thornton RN) ondansetron (ZOFRAN) 4 mg/2 mL injection 4 mg (COMPLETED) 4 mg, IV, ONE TIME ONLY, 1 dose, On 03/01/25 at 0845, Routine 0834 (Given - Provid er: Clay Thornton RN) pantoprazole (PROTONIX) 40 mg in sodium chloride 0.9% 10 mL injection (COMPLETED) 40 mg, IV, ONE TIME ONLY, 1 dose, On 03/01/25 at 0915, Routine, For vial+diluent: 10 mL NS is needed to reconstitute pantoprazole vial. For doses less than 40 mg Epic may default less than 10 mL NS. Pharmacist to change NS dispense amount to 10 mL., Indication: Upper gastrointestinal (GI) bleed 0918 (Given - Provid er: Clay Thornton RN) prochlorperazine (COMPAZINE) injection 5 mg (COMPLETED) 5 mg, IV, ONE TIME ONLY, 1 dose, On 03/01/25 at 1000, Routine 1006 (Given - Provid er: Phyllis Maldonado RN) sodium chloride 0.9 % bolus solution 1,000 mL (COMPLETED) 1,000 mL, IV, ONE TIME ONLY, 1 dose, On 03/01/25 at 0745, at 2,000 mL/hr, Administer over 30 Minutes, Routine 0747 (New Bag - Prov ider: Clay Thornton RN)0817 (Stopped - Provider: Clay Thornton RN) sodium chloride flush injection 10 mL 10 mL, IV, EVERY 12 HOURS (BlD), First dose on 03/01/25 at 0900, Until Discontinued, Routine 0829 (Given - Provid er: Clay Thornton RN) sodium chloride flush injection 10 mL 10 mL, IV, SEE ADMIN INSTRUCTIONS, Starting on 03/01/25 at 0730, Until 03/01/25 at 1216, Routine 0749 (Given - Provid er: Clay Thornton RN)0921 (Given - Provider: Clay Thornton RN)0946 (Given - Provider: Clay Thornton RN)1006 (Given - Provider: Phyllis Maldonado, LUZ MARIA)1009 (Given - Provider: Phyllis Maldonado, RN)1022 (Given - Provider: Clay Thornton RN) Continuous Medication Order 02/27/2025 02/28/2025 03/01/2025 pantoprazole (PROTONIX) 40 mg in sodium chloride 0.9% 50 mL infusion (MBP) 8 mg/hr (10 mL/hr), IV, CONTINUOUS, Starting on 03/01/25 at 0945, Until 03/01/25 at 1216, Indication: Upper gastrointestinal (GI) bleed 0947 (New Bag - Prov ider: Clay Thornton RN)1003 (Stopped - Provider: Phyllis Maldonado, LUZ MARIA) documented in this encounter Additional Health Concerns Assessment Noted Time PHQ-9 Depression Total Score: 4 03/01/20 25 11:00 PM CDT documented as of this encounter
--- OUTSIDE RECORDS SUMMARY | 2025-03-01 06:56 | XMS_ITS | Encounter Summary ---
Author Organization [facility] Address [address] [place] [address] Care Team Providers Care Buggy Ladle Tender Name Role Phone Unavailable Primary Care Provider Unavailabl e Reason for Visit * Reason Comments Flank Pain Right Vomiting Encounter Details Date Type Department Care Team ([facility] st Contact Info) Description 03/01/2025 6:56 AM CDT - 03/01/2025 10:27 AM CDT Emergency [facility] Emergency Medicine [address] [phone] Alissa Winter MD [address] [phone] Acute right flank pain (Primary Dx); Intractable [...] by mouth daily. vits15/iron/folic /dss ( VIT 37-SRMY-HPIHT-DSS ORAL) Take by mouth. cefdinir (OMNICEF) 300 [...] Update called to LUZ MARIA Bernabe at [facility] at 1028. * Clay Thornton RN - 03/01/2025 10:08 AM CDT Report called to LUZ MARIA Bernabe at [facility] at 1000. * Clay Thornton RN - [...] 5 days , seeBrittanyr Suzanne Jaramillo at [facility] in [place]. Denies any injury or history of stones. [...] (LEXAPRO) 5 MG TABLET VITS15/IRON/FOLIC/DSS ( VIT 74-VKXU-XFEGA-DSS ORAL) Medications Modified during this Encounter No [...] PPI drip. Will attempt to transfer to [facility] ED for further evaluation. Discussed the case with ER physician in [facility] and patient has been accepted for ER [...] she will go by POV directly to [facility]. Patient's will be driving. Amount and/or Complexity [...] (ABNORMAL) URINE CULTURE (03/01/2025 9:14 AM CDT) [facility] CULTURE ESCHERICHIA COLI(A) CHYNA MCG/ML 03/03/2025 7:21 AM CDT [facility] Urine URINE SPECIMEN OBTAINED BY CLEAN CATCH [...] MICROBIOLOGY - GENERAL ORDERABL ES Final Result [facility] # [id number] [address] [place] [address] * (ABNORMAL) URINALYSIS MICROSCOPY ONLY (03/01/2025 9:14 AM CDT) WBC UA 26-50(A) 0 - 2 /hpf 03/01/2025 9:51 AM CDT [facility] RBC UA 51-100(A) 0 - 2 /hpf 03/01/2025 9:51 AM [facility] BACTERIA UA 2+(A) Negative /hpf 03/[facility], [facility]INE 6-10(A) 0 - 5 /hpf 03/01/2025 9:51 AM T [facility] HYALINE CAST 0-2 None Seen, 0-2 /lpf 03/01/2025 9:51 AM [facility] CALCIUM OXALATE, URINE Present(A ) Absent 03/01/2025 9:51 AM [facility] Urine URINE SPECIMEN OBTAINED BY CLEAN CATCH PROCEDURE / Unknown 03/01/2025 9:14 AM CDT 03/01/2025 9:28 AM CDT us Alissa Winter MD URINE ORDERABLES Final Result [facility] CLIA # [id number] [address] [place] [address] * (ABNORMAL) URINALYSIS WITH REFLEX MICROSCOPIC (03/01/2025 9:14 AM CDT) COLOR UA Yellow Pale to Dark Yellow 03/01/2025 9:51 AM CDT [facility] CLARITY UA Cloudy(A) Clear 03/01/2025 9:51 AM T [facility] SPECIFIC GRAVITY UA >=1.030 1.003 - 1.035 03/01/2025 9:51 AM T [facility] PH UA 6.0 5.0 - 8.0 03/01/2025 9:51 AM T [facility] LEUKOCYTE ESTERASE UA 1+(A) Negative 03/01/2025 9:51 AM T [facility] NITRITE UA Negative Negative 03/01/2025 9:51 AM T [facility] PROTEIN UA 2+(A) Negative 03/01/2025 9:51 AM T [facility] GLUCOSE UA Negative Negative 03/01/2025 9:51 AM T [facility] KETONES UA Negative Negative 03/01/2025 9:51 AM T [facility] UROBILINOGEN UA 0.2 <2.0 mg/dL 9:51 AM T [facility] BILIRUBIN UA Negative Negative 03/01/2025 9:51 AM T [facility] BLOOD UA 3+(A) Negative 03/01/2025 9:51 AM T [facility] Urine URINE SPECIMEN OBTAINED BY CLEAN CATCH PROCEDURE / Unknown 03/01/2025 9:14 AM CDT 03/01/2025 9:28 AM CDT us Alissa Winter MD URINE ORDERABLES Final Result [facility] CLIA # [id number] [address] [place] [address] * (ABNORMAL) OCCULT BLOOD, GASTRIC FLUID (03/01/2025 9:10 AM CDT) OCCULT BLOOD, GASTRIC FLUID Positive(A ) Negative 03/01/2025 9:43 AM CDT [facility] PH, GASTRIC FLD <1(L) 2 - 4 03/01/2025 9:43 AM CDT [facility] Body fluid ENTIRE STOMACH / Unknown Collection / Unknown 03/01/2025 9:10 AM CDT 03/01/2025 9:28 AM CDT [facility] - 03/01/2025 9:43 AM CDT Lot exp 03-13 Developer [id number] exp 425 us Alissa Winter MD BODY FLUIDS AND STOOLS Final Re sult [facility] CLIA # [id number] [address] [place] [address] * (ABNORMAL) SEDIMENTATION RATE (03/01/2025 7:38 AM CDT) ESR (SEDIMENTATION RATE) 31(H) 0 - 20 mm/Hr 03/01/2025 8:52 AM CDT [facility] Blood Venipuncture / Unknown 03/01/2025 7:38 AM CDT 03/01/2025 8:27 AM CDT [facility] - 03/01/2025 8:52 AM CDT Tube Lot: [id number] Exp Date: 08/19/2026 QC1 LOT [id number] EXP.08/24/2025 QC2 LOT [id number] EXP.08/24/2025 us Alissa Winter MD HEMATOLOGY ORDERABLES Final Res ult Performing Organization Address [facility] Co de Phone Number [facility] CLIA # [id number] [address] [place] [address] * (ABNORMAL) C-REACTIVE PROTEIN (03/01/2025 7:38 AM CDT) CRP 16.0(H) <5.0 mg/L 03/01/2025 8:51 AM CDT [facility] Blood Venipuncture / Unknown 03/01/2025 7:38 AM CDT 03/01/2025 8:27 AM CDT us Alissa Winter MD CHEMISTRY ORDERABLES Final Resu lt Performing Organization Address [facility] Co de Phone Number [facility] CLIA # [id number] [address] [place] [phone] * LACTIC ACID (03/01/2025 7:38 AM CDT) LACTIC ACID 1.9 <=2.0 mmol/L 03/01/2025 8:51 AM CDT [facility] Blood BLOOD SPECIMEN / Unknown Venipuncture / Unknown 03/01/2025 7:38 AM CDT 03/01/2025 8:27 AM CDT us Alissa Winter MD CHEMISTRY ORDERABLES Final Resu lt Performing Organization Address City/[facility]/ZIP Co de Phone Number [facility] CLIA # [id number] [address] [place] [phone] * LIPASE (03/01/2025 7:38 AM CDT) LIPASE 31 13 - 60 U/L 03/01/2025 8:51 AM CDT [facility] Blood Venipuncture / Unknown 03/01/2025 7:38 AM CDT 03/01/2025 8:27 AM CDT us Alissa Winter MD CHEMISTRY ORDERABLES Final [facility] lt [facility] # [id number] [address] [place] [address] * (ABNORMAL) COMPREHENSIVE METABOLIC PANEL (03/01/2025 7:38 AM CDT) SODIUM 136 136 - 145 mmol/L 03/01/2025 8:51 AM [facility] POTASSIUM 3.7 3.5 - 5.1 mmol/L 03/01/2025 8:51 AM [facility] CHLORIDE 103 98 - 107 mmol/L 03/01/2025 8:51 AM [facility] CO2 21(L) 22 - 29 mmol/L 03/01/2025 8:51 AM [facility] CALCIUM 9.6 8.6 - 10.0 mg/dL 03/01/2025 8:51 AM [facility] BUN 8 6 - 20 mg/dL 03/01/2025 8:51 AM [facility] CREATININE 0.61 0.51 - 0.95 mg/dL 03/01/2025 8:51 AM [facility] GLUCOSE 112(H) 74 - 99 mg/dL 03/01/2025 8:51 AM [facility] TOTAL PROTEIN 6.4(L) 6.6 - 8.7 g/dL 03/01/2025 8:51 AM [facility] ALBUMIN 3.7 3.5 - 5.2 g/dL 03/01/2025 8:51 AM [facility] BILIRUBIN TOTAL <0.2 0.0 - 1.2 mg/dL 03/01/2025 8:51 AM [facility] ALKALINE PHOSPHATASE 108(H) 35 - 104 U/L 03/01/2025 8:51 AM [facility] AST 22 0 - 35 U/L 03/01/2025 8:51 AM [facility] ALT 34 0 - 35 U/L 03/01/2025 8:51 AM [facility] GFR >60 >=60 mL/min/1.7 3 sq meter 03/01/2025 8:51 AM [facility] Comment:eGFR calculated with 2020 CKD-EPI equation. Vegetarian diet, extremely high or low muscle mass, and may affect results. Cystatin C with Glomerular Filtration Rate is a suitable alternative for these patients. ANION GAP 12 5 - 20 mmol/L 03/01/2025 8:51 AM [facility] Blood Venipuncture / Unknown 03/01/2025 7:38 AM CDT 03/01/2025 8:27 AM CDT us Alissa Winter MD CHEMISTRY ORDERABLES Final Resu lt [facility] CLIA # [id number] [address] [place] [address] * (ABNORMAL) CBC WITH DIFFERENTIAL (03/01/2025 7:38 AM CDT) WBC 13.2(H) 4.0 - 10.0 K/uL 03/01/2025 8:44 AM [facility] RBC 4.10 3.93 - 5.22 M/uL 03/01/2025 8:44 AM [facility] HEMOGLOBIN 11.3 11.2 - 15.7 g/dL 03/01/2025 8:44 AM [facility] HEMATOCRIT 34.4 34.1 - 44.9 % 03/01/2025 8:44 AM [facility] MCV 83.9 79.4 - 94.8 fL 03/01/2025 8:44 AM [facility] MCH 27.6 25.6 - 32.2 pg 03/01/2025 8:44 AM [facility] MCHC 32.8 32.2 - 35.5 g/dL 03/01/2025 8:44 AM [facility] RDW 18.3(H) 11.0 - 14.5 % 03/01/2025 8:44 AM [facility] RDW-STDEV 55.3 36.9 - 56.9 fL 03/01/2025 8:44 AM [facility] PLATELETS 169 163 - 337 K/uL 03/01/2025 8:44 AM [facility] MPV 11.9 10.0 - 14.8 fL 03/01/2025 8:44 AM [facility] NEUTROPHILS 79(H) 34 - 71 % 03/01/2025 8:44 AM [facility] LYMPHOCYTES 14(L) 19 - 52 % 03/01/2025 8:44 AM [facility] MONOCYTES 5 5 - 13 % 03/01/2025 8:44 AM [facility] EOSINOPHILS 0(L) 1 - 6 % 03/01/2025 8:44 AM [facility] BASOPHILS 0 0 - 1 % 03/01/2025 8:44 AM [facility] IMMATURE GRANULOCYTES 1 % 03/01/2025 8:44 AM [facility] NEUTROPHIL ABSOLUTE 10.45(H) 1.56 - 6.13 K/uL 03/01/2025 8:44 AM [facility] LYMPHOCYTE ABSOLUTE 1.86 1.20 - 3.40 K/uL 03/01/2025 8:44 AM [facility] MONOCYTE ABSOLUTE 0.67(H) 0.24 - 0.36 K/uL 03/01/2025 8:44 AM [facility] EOSINOPHIL ABSOLUTE 0.04 0.04 - 0.36 K/uL 03/01/2025 8:44 AM [facility] BASOPHILS ABSOLUTE 0.02 0.01 - 0.08 K/uL 03/01/2025 8:44 AM [facility] IMMATURE GRANULOCYTES ABSOLUTE 0.13 K/uL 03/01/2025 8:44 AM [facility] Blood Venipuncture / Unknown 03/01/2025 7:38 AM CDT 03/01/2025 8:27 AM CDT us Alissa Winter MD HEMATOLOGY ORDERABLES Final Res ult Performing Organization Address [facility]/ZIP Co de Phone Number [facility] CLIA # [id number] [address] [place] [phone] * (ABNORMAL) URINALYSIS MICROSCOPY ONLY (03/01/2025 7:10 AM CDT) WBC UA 26-50(A) 0 - 2 /hpf 03/01/2025 8:51 AM CDT [facility] RBC UA >100(A) 0 - 2 /hpf 03/01/2025 8:51 AM CDT [facility] BACTERIA UA 2+(A) Negative /hpf 03/01/2025 8:51 AM CDT [facility] EPITHELIAL CELLS, URINE >25(A) 0 - 5 /hpf 03/01/2025 8:51 AM CDT [facility] Comment:Specimen not suitabl e for culture HYALINE CAST 0-2 None Seen, 0-2 /lpf 03/01/2025 8:51 AM T [facility] Urine URINE SPECIMEN OBTAINED BY CLEAN CATCH PROCEDURE / Unknown Collection / Unknown 03/01/2025 7:10 AM CDT 03/01/2025 8:30 AM CDT us Alissa Winter MD URINE ORDERABLES Final Result Performing Organization Address [facility]/ZIP Co de Phone Number [facility] CLIA # [id number] [address] [place] [phone] * (ABNORMAL) URINALYSIS WITH REFLEX MICROSCOPIC (03/01/2025 7:10 AM CDT) COLOR UA Yellow Pale to Dark Yellow 03/01/2025 8:51 AM CDT [facility] CLARITY UA Cloudy(A) Clear 03/01/2025 8:51 AM CDT [facility] SPECIFIC GRAVITY UA >=1.030 1.003 - 1.035 03/01/2025 8:51 AM CDT [facility] PH UA 6.0 5.0 - 8.0 03/01/2025 8:51 AM [facility] LEUKOCYTE ESTERASE UA 1+(A) Negative 03/01/2025 8:51 AM T [facility] NITRITE UA Negative Negative 03/01/2025 8:51 AM T [facility] PROTEIN UA 2+(A) Negative 03/01/2025 8:51 AM T [facility] GLUCOSE UA Negative Negative 03/01/2025 8:51 AM T [facility] KETONES UA Negative Negative 03/01/2025 8:51 AM T [facility] UROBILINOGEN UA 0.2 <2.0 mg/dL 8:51 AM [facility] BILIRUBIN UA Negative Negative 03/01/2025 8:51 AM [facility] BLOOD UA 3+(A) Negative 03/01/2025 8:51 AM [facility] Urine URINE SPECIMEN OBTAINED BY CLEAN CATCH PROCEDURE / Unknown Collection / Unknown 03/01/2025 7:10 AM CDT 03/01/2025 8:30 AM CDT Alissa Winter MD URINE ORDERABLES Final Result [facility] # [id number] [address] [place] [phone] documented in this encounter Visit Diagnoses [...]
--- OUTSIDE RECORDS SUMMARY | 2025-03-01 16:18 | XMS_ITS | Encounter Summary ---
Author Organization [facility] Address [address] [place] [address] Care Team Providers Care Freight Handler Name Role Phone Unavailable Primary Care Provider Unavailabl e Reason for Visit * Reason Comments Flank Pain Vomiting Right flank pain, he maturia, and vomiting. Patient is 15 weeks . Patient sent from [place]. * Auth/Cert (Routine) Specialty Diagnoses / Procedures Referred By Contac t Referred To Contact Obstetrics and Gynecology Diagnoses Right flank pain GI Bleed Brigido Hines MD [address] [place] [phone] Phone: tel: fax: [address] Gynecology [address] [place] [phone] Phone: tel: fax: Referral ID Status Reason Start Date Expiration Date Visits Re quested Visits Authorized [id number] 1 1 Encounter Details Date Type Department Care Team (Latest Contact Info) Description 03/01/2025 4:18 PM CDT - 03/03/2025 6:31 PM CDT Hospital Encounter [address] Gyne[address] [place] [id number] May Dobbins MD [facility] [place] [address] Brigido Hines MD [facility] [place] [address] Mela Flores MD [address] [place] [id number] Acute pyelonephritis Discharge Disposition: Home or Self Care Social History Tobacco Use Types Packs/Day Years [...] Sign Reading Time Taken Comments Blood Pressure 122/80 03/03/2025 11:40 AM CDT Pulse 67 03/03/2025 11:40 AM CDT Temperature 36.2 C (97.2 F) 03/03/2025 11:40 AM CDT Respiratory Rate 18 03/03/2025 11:4 0 AM CDT Oxygen Saturation 97% 03/03/2025 11: 40 AM CDT Inhaled Oxygen Concentration - - Weight 101 kg (222 lb 10.6 oz) 03/01/2025 11:33 PM CDT bed zeroed will verify with standing Height 167.6 cm (5' 6 ) 03/01/2025 12:2 4 PM CDT Body Mass Index 35.94 03/01/2025 12:24 PM CDT documented in this encounter Discharge Summaries * Mela Flores MD - 03/03/2025 5:40 PM CDT [facility]- Discharge Summary Hemalatha De La Torre 19 y.o. female 2005 CSN: [id number] Date of Admission: 03/01/2025 Date of Discharge: 03/03/2025 LOS: 2 days Discharging Physician: Mela Flores MD PCP: No primary care provider on file. Code Status at Discharge: Prior Dispo: Home Labs and studies from this hospitalization needing follow up: CBC and Basic Metabolic Panel (BMP) in 3-5 days Pending Labs Order Current Status BLOOD CULTURE Preliminary result BLOOD CULTURE Preliminary result BLOOD CULTURE Preliminary result BLOOD CULTURE Preliminary result Abnormal Imaging: MRI abdomen and pelvis: IMPRESSION: 1. No evidence of acute appendicitis. 2.. Right adnexal trace free fluid, nonspecific 3. Mild right renal pelvocaliectasis without overt hydroureter, nonspecific. This may be secondary to compression of the right ureter by the gravid uterus. However, clinical correlation is requested as an obstructing calculus cannot be completely excluded. Follow up with PCP: Follow-up: You must follow up with No primary care provider on file. in 3-5 days Follow up with Consultants: With OB- Motor Vehicle License Clerk in 1 weeks. Discharge Condition: improved to baseline Primary Discharge Diagnosis: Acute pyelonephritis Other Active medical issues also addressed during this admission: Active Hospital Problems Diagnosis 15 weeks gestation of Intractable vomiting with nausea Acute pyelonephritis Morbid obesity with body mass index of 40.0-49.9 (CMS/[facility]) Resolved Hospital Problems No resolved problems to display. HOSPITAL COURSE: Please see H and P for full details on admission, symptoms and initial care. Hemalatha De La Torre is a 19 y.o. female who is being admitted for further evaluation of vomiting and flankpain. She is a direct admit from [facility] ED. She presented to outside facility complaining of nausea, vomiting and right flank pain. She was found to have a urinary tract infection, leukocytosis of 13.2, ultrasound renal was unremarkable. She was given IV fluids, analgesics, antiemeticsand Rocephin. She is being transferred to [facility] for higher level of care. Took over patient's care today 03/02: Nausea and vomiting improved. Remains on IV Rocephin. OB consulted. - Start oxycodone as needed for pain along with Tylenol. Next 24 hours: The patient continued to do well. No further episodes of nausea or vomiting. Tolerating oral intake well. Did not require any oxycodone for pain. Hemoglobin remained fairly stable. Discussed with GI and OB. At this time, would not recommend EGD unless absolutely indicated. Okay to use Pepcid for 2 weeks-discussed with Dr. Virk. Urine culture grew 10,000-50,000 E. coli sensitive to cephalosporins. Blood cultures negative at 48hours. The patient be discharged on Omnicef to complete the treatment for 2 weeks. The patient feels comfortable with the discharge plan. The patient states that she does not want pain medication upon discharge and can use Tylenol as needed. She is not having any abdominal pain, nausea or vomiting for more than 24 hours now. -Advised to eat yogurt with antibiotics. Also check with OB and start probiotics which is safe in . She verbalized understanding. PCP COMMUNICATION : No primary care provider on file. via [employer] communication MEDICATION CHANGES (significant): See below MEDICATION RECONCILIATION: Current and discharge medications reviewed and reconciled: Yes Consultants: IP CONSULT TO IV TEAM Procedures performed: 03/02 1641 Note By: Kathrin Martinez DISCHARGE MEDICATIONS: Medication List START taking these medications cefdinir 300 mg capsule Commonly known as: OMNICEF Take 1 Capsule (300 mg) by mouth every 12 hours for 12 days. Signed by: Dr. Edson Flores Quantity: 24 Capsule Refills: 0 famotidine 20 mg tablet Commonly known as: PEPCID Take 1 Tablet (20 mg) by mouth 2 times daily for 14 days. Signed by: Dr. Edson Flores Quantity: 28 Tablet Refills: 0 CONTINUE taking these medications escitalopram oxalate 5 mg tablet Commonly known as: LEXAPRO Take 5 mg by mouth daily. Refills: 0 VIT [id number] ORAL Take by mouth. Refills: 0 Where to Get Your Medications These medications were sent to [id number] - [place], [place] - [address] [facility] [address], [facility] [id number] Hours: M-F 1620-2877 Sat [id number] Sun 7531-3044 cefdinir 300 mg capsule famotidine 20 mg tablet No future appointments. Activity level: up as tolerated Diet: No diet orders on file Wound Care: Not Applicable DISCHARGE EXAM: BP 122/80 (BP Location: Right arm, Patient Position (BP): Sitting) Pulse 67 Temp 97.2 ??F (36.2??C) (Temporal) Resp 18 Ht 5' 6 (1.676 m) Wt 101 kg (222 lb 10.6 oz) Comment: bed zeroed will verify with standing SpO2 97% BMI 35.94 kg/m?? Last documented weight: Weight: 101 kg (222 lb 10.6 oz) (bed zeroed will verify with standing) (03/01/25 9283) General: alert, in no distress Neurologic: Grossly normal HEENT: atraumatic, Normocephalic, without obvious abnormality Lungs: clear to auscultation bilaterally, normal respiratory effort Heart: normal rate, regular rhythm, normal S1, S2, no murmurs, rubs, clicks or gallops Abdomen: Soft, non-tender. Bowel sounds normal. No masses, no organomegaly. Extremities: intact distal pulses, moves all extremities equally, no edema, redness or tenderness in the calves or thighs Skin: negative Home Healthcare Is this patient being discharged with Home Health? No Total time spent on discharge services today including examining and educating the patient and available family members, writing prescriptions and reviewing the discharge medication list, documentingthis discharge summary and coordinating outpatient care and follow up required more than 30 minutes. documented in this encounter Discharge Instructions * Discharge Instructions* Casie Mccann RN - 03/03/2025 11:59 AM CDT [facility] Discharge Instructions Discharge & Transfer patient to: Home Symptoms/Diagnosis: Acute pyelonephritis Procedures Performed, if any: 03/02 1641 Note By: Kathrin Martinez Follow up PCP Your physician, No primary care provider on file., has been notified of this hospitalization. Follow-up: You must follow up with No primary care provider on file. in 3-5 days. Follow up consultants With SPANISH LECTURER as scheduled on March 06. No future appointments. If the office does not reach you to make a follow up appointment, please call [phone]. Activity level: up as tolerated DIET: DIET GENERAL Effective Now Follow up in the Emergency Room For any recurrence or worsening of admission concerns, chest pain, palpitations, shortness of breath, coughing blood, nausea, vomiting, diarrhea, pain, fever, chills, bleeding, bloody or tarry stools, change to urine or bowel output, Contact hospitalist office [phone] for questions if patients are [facility]. On 5B???..We care about Your care!!! Our team believes we provide EXCELLENT care! We hope you agree! Share your opinion by completing our important survey. In the near future you may receive a survey from [employer]. This survey helps us plan care so that we can better meet the expectations of our patients. Thank you for allowing us to participate in your healthcare and we hope you the best in your recovery. * Attachments The following attachments cannot be sent through Care Everywhere. * Pyelonephritis (Georgian) * : Weeks 14 to 18 (Georgian) * : When to Call (Up to 20 Weeks): General Info (Georgian) * Cefdinir (Georgian) * Famotidine (Georgian) documented in this encounter Medications at Time [...] by mouth daily. vits15/iron/folic /dss ( VIT [id number]-DSS ORAL) Take by mouth. documented as of this encounter Progress Notes * Mela Flores MD - 03/04/2025 5:44 PM CDT Notified by charge nurse on 5B, the patient called on the floor, requesting oxycodone to be called for pain. - I called the patient. She stated that she started complaining of abdominal pain at the same location in the last 1 to 2 hours. Some nausea but denies any vomiting. -Advised the patient to go to nearest emergency room for further evaluation. The patient stated that she may come to [facility] in [place] as she forgot her purse here. I have spoken with yoko Hairston over the phone and advised that it would be in her best interest to go to the nearestemergency room instead of driving to [facility] in [place] which is almost 90 minutes away.He verbalized understanding. * Gloria Louis GN - 03/03/2025 6:30 PM CDT Hemalatha De La Torre will be discharged via ambulatory to home. Hemalatha De La Torre is accompanied by family member(s) and will be transported via private vehicle. Provided verbal and written home care, medications(including side effects), and follow up instructions. Patient verbalized understanding. * Drea Eldridge RN - 03/03/2025 4:13 PM CDT This RN precepting LUZ MARIA Fraser. Reviewed and agree with charting and assessments. * Drea Eldridge RN - 03/02/2025 5:46 PM CDT This RN precepting LUZ MARIA Fraser. Reviewed and agree with charting and assessments. * Mela Flores MD - 03/02/2025 5:05 PM CDT Images from the original note were not included. Your life is our life's work [facility] Hospitalist/Hospital Medicine Progress Note LOS: 1 day Room/Bed: [facility]/ Patient name: Hemalatha De La Torre Date of : 2005 HOSPITAL COURSE SUMMARY: Hemalatha De La Torre is a 19 y.o. female who is being admitted for further evaluation of vomiting and flankpain. She is a direct admit from [facility] ED. She presented to outside facility complaining of nausea, vomiting and right flank pain. She was found to have a urinary tract infection, leukocytosis of 13.2, ultrasound renal was unremarkable. She was given IV fluids, analgesics, antiemeticsand Rocephin. She is being transferred to [facility] for higher level of care. Took over patient's care today 03/02: Nausea and vomiting improved. Remains on IV Rocephin. OB consulted. - Start oxycodone as needed for pain along with Tylenol. Consultants: IP CONSULT TO ACTIVITY COORDINATOR IP CONSULT TO IV TEAM SUBJECTIVE: The patient is seen and examined at bedside. OBJECTIVE: Temp (24hrs), Av.3 ??F (36.8 ??C), Min:97.9 ??F (36.6 ??C), Max:98.7 ??F (37.1 ??C) BP 131/70 (BP Location: Right arm, Patient Position (BP): Supine) Pulse 88 Temp 98.2 ??F (36.8 ??C) (Temporal) Resp 18 Ht 5' 6 (1.676 m) Wt 101 kg (222 lb 10.6 oz) Comment: bed zeroed willverify with standing SpO2 97% BMI 35.94 kg/m?? Intake/Output Summary (Last 24 hours) at 03/02/2025 1805 Last data filed at 03/02/2025 1700 Gross per 24 hour Intake 678.07 ml Output 1550 ml Net -871.93 ml Last documented weight: Weight: 101 kg (222 lb 10.6 oz) (bed zeroed will verify with standing) (03/01/25 5153) EXAM: General: alert, in no distress Neurologic: Grossly normal HEENT: atraumatic, Normocephalic, without obvious abnormality Lungs: clear to auscultation bilaterally, normal respiratory effort Heart: normal rate, regular rhythm, normal S1, S2, no murmurs, rubs, clicks or gallops Abdomen: Soft, non-tender. Bowel sounds normal. No masses, no organomegaly. Extremities: intact distal pulses, moves all extremities equally, no edema, redness or tenderness in the calves or thighs Skin: negative LABORATORY: Recent Labs 03/01/25 0738 03/01/25 1353 03/02/25 0626 WBC 13.2* 17.1* 12.3* HGB 11.3 10.9* 10.9* HCT 34.4 33.5* 33.7* PLT 169 177 149 Recent Labs 03/01/25 0738 03/01/25 1353 03/02/25 0626 NA 136 138 138 K 3.7 4.5 3.9 CL 103 107 105 CO2 21* 19* 21* CA 9.6 9.1 9.0 BUN 8 8 7 CREAT 0.61 0.73 0.89 GLUCOSE 112* 106* 100* Recent Labs 03/01/25 0738 03/01/25 1353 TOTALPROTEIN 6.4* 6.3* ALBUMIN 3.7 3.4* BILITOTAL <0.2 <0.2 ALKPHOS 108* 115* AST 22 23 ALT 34 34 No results for input(s): INR , PT in the last 72 hours. Invalid input(s): PTT No results for input(s): BASETROP , 2HRTROP , DELTA , 6HRTROP in the last 72 hours. Diagnostic testing reviewed by me: Medications were reviewed by me. Current Facility-Administered Medications: [COMPLETED] morphine 4 mg/mL injection 2 mg, 2 mg, IV, ONE time only, Kristy Rdz, FELT COVERER, 2mg at 03/02/25 0511 [COMPLETED] LORazepam (ATIVAN) tablet 0.5 mg, 0.5 mg, Oral, ONE time only, Kristy Rdz FNP, 0.5 mg at 03/02/25 0512 oxyCODONE (ROXICODONE) tablet 5 mg, 5 mg, Oral, every 6 hours PRN, Mela Flores MD, 5 mg at 03/02/25 1251 [COMPLETED] ondansetron (ZOFRAN) 4 mg/2 mL injection 4 mg, 4 mg, IV, ONE time only, Carito Zapien FELT COVERER, 4 mg at 03/02/25 0305 [COMPLETED] LORazepam (ATIVAN) tablet 0.5 mg, 0.5 mg, Oral, ONE time only, May Dobbins MD, 0.5 mg at 03/02/25 0442 sodium chloride flush injection 10 mL, 10 mL, IV, every 12 hours (2 times daily), Brigido Hines MD,10 mL at 03/02/25 0829 sodium chloride flush injection 10 mL, 10 mL, IV, see admin instructions, Brigido Hines MD, 10 mL at 03/02/25 1159 sodium chloride 0.9 % flush bag 25 mL, 25 mL, IV, see admin instructions, Brigido Hines MD dextrose 5 % in water 250 mL flush bag 25 mL, 25 mL, IV, see admin instructions, Brigido Hines MD naloxone (NARCAN) 0.4 mg/mL injection 0.1-0.4 mg, 0.1-0.4 mg, IV, see admin instructions, Brigido Hines MD acetaminophen (TYLENOL) tablet 650 mg, 650 mg, Oral, every 6 hours PRN, Brigido Hines MD, 650 mg at03/02/25 0823 ondansetron (ZOFRAN) 4 mg/2 mL injection 4 mg, 4 mg, IV, every 6 hours PRN, Brigido Hines MD, 4 mg at 03/02/25 1158 enoxaparin (LOVENOX) injection 40 mg, 40 mg, subCUT, every 24 hours, 40 mg at 03/02/25 0829 ANDPlace Intermittent Pneumatic Compression Device, , , Ongoing, Brigido Hines MD [COMPLETED] morphine 4 mg/mL injection 2 mg, 2 mg, IV, ONE time PRN, Brigido Hines MD, 2 mg at 03/01/25 1945 cefTRIAXone (ROCEPHIN) 2,000 mg in sodium chloride 0.9% 50 mL IVPB (MBP), 2,000 mg, IV, every 24 hours (daily), Brigido Hines MD, Stopped at 03/02/25 0908 [DISCONTINUED] lactated ringers infusion, , IV, continuous, Brigido Hines MD, Stopped at 03/02/25 1545 Primary discharge diagnosis: Acute pyelonephritis Other active medical issues also addressed during this admission: Active Hospital Problems Diagnosis 15 weeks gestation of Intractable vomiting with nausea Acute pyelonephritis Morbid obesity with body mass index of 40.0-49.9 ([facility]) Resolved Hospital Problems No resolved problems to display. ASSESSMENT AND PLAN: Acute pyelonephritis Leukocytosis Intractable nausea and vomiting - Secondary to above. White count is slightly worse today at 17. - Continue empiric antibiotics IV Rocephin. - Follow-up on urine culture and blood culture. - MRI abdomen results reviewed. No signs of stones. - OB following Gastric occult blood positive - The patient reported throwing up dark blood after intractable vomiting for several hours. - Likely ? Dede-Nunes tear versus minimal esophagitis. - No further episodes of vomiting or hematemesis. Hemoglobin is stable. - Discussed with GI, no indication for endoscopy at this point. - Will start H2 nehemias versus PPI based on risk after consulting with OB. 15 weeks gestation - Plan per OB. DVT prophylaxis: SCDs Code status: Full Code Anticipated Disposition Location: Home Timeframe: 03/03/2025 MDM complexity: [] Mild [x] Moderate [] High Mela Flores MD 03/02/2025, 6:05 PM * Gabriela Dietz PA - 03/02/2025 4:56 PM CDT GI PROGRESS NOTE Hospitalist Dr. Flores called to discuss patient. Reports that patient is currently 15 weeks and has been admitted for right pyelonephritis with associated N/V. OB hospitalist on board. Reports that patient has been having nausea and vomiting frequently and has had some dark colored emesis, no kwan blood. Gastric occult yesterday was positive. Hemoglobin 11.3 on arrival yesterday and is stable today at 10.9. BUN is not elevated and within normal limits. Patient possibly with some esophagitis, minor Dede-Nunes tear that could be contributing to dark emesis and gastric occult being positive. This nausea, vomiting likely related to pyelonephritis. However given patient is without kwan hematemesis, hemoglobin is stable no indication for endoscopic evaluation. Especially would defer endoscopic evaluation given she is in her second trimester. Would manage medically at this time with antiemetics (as approved by OB) and consider course of H2 nehemias or perhaps PPI given these medications are deemed appropriate for this 2nd trimester patient. Trend H&H. Keepactive type and screen. Transfuse to keep Hgb >7. Promptly page GI hauling contractor if patient experiences any brisk GI bleeding, especially if accompanied by hemodynamic compromise. Cosigned by Mariano Nielsen MD at 03/02/2025 5:06 PM CDT * Mayuri Gamble PHARMACIST - 03/01/2025 6:00 PM CDT RX ANTICOAG MONITORING ORDERS Pharmacy to order, review, and report clinically significant changes in lab per [facility] Anticoagulation Protocol as follows: Orders for dosing changes and follow-up labs will be signed ???Per Protocol?? in Epic. The name ofthe provider signed on the follow-up orders for cosignature will be assigned as follows: Orders placed by members of the Hearing Dog Trainer or Hospitalist physician groups: If the original ordering provider is no longer the attending physician for the patient, responsibility for cosignature of the follow-up medication orders and labs will transfer from the original ordering provider to the current attending physician. Orders placed by any other provider: Responsibility for cosignature of the follow-up medication orders and labs will remain with the original ordering provider of the anticoagulant order. Pharmacy will order appropriate labs as indicated by the [facility] Anticoagulation Monitoring policy located on [facility] intranet, unless already ordered. The medications that will be monitored include (but are not limited to): Low molecular weight heparin, heparin, and fondaparinux Direct Thrombin Inhibiors (argatroban, bivalirudin dabigatran lepirudin) Warfarin Direct oral anticoagulants (rivaroxaban, apixaban, edoxaban) Pharmacy will order labs for patients not on a heparin protocol, warfarin protocol, or anticoagulant protocol. Nursing to order labs required as indicated by those protocols. This policy is in compliance with the [employer] National Patient Safety Goal 3E and authorized by the [facility] Pharmacy and Therapeutics Committee. Cosigned by Brigido Hines MD at 03/01/2025 6:05 PM CDT documented in this encounter H&P Notes * Brigido Hines MD - 03/01/2025 5:54 PM CDT [facility] Hospitalist-Brigido Hines MD History and physical- date of admission: 03/01/2025 Patient name: Hemalatha De La Torre Date of : 2005 CSN number: [id number] PCP: No primary care provider on file. Chief Complaint: Chief Complaint Patient presents with Flank Pain Vomiting Right flank pain, hematuria, and vomiting. Patient is 15 weeks . Patient sent from [place]. History of present illness: Pt seen and examined at the bedside Hemalatha De La Torre is a 19 y.o. female who is being admitted for further evaluation of vomiting and flankpain. She is a direct admit from [facility] ED. She presented to outside facility complaining of nausea, vomiting and right flank pain. She was found to have a urinary tract infection, leukocytosis of 13.2, ultrasound renal was unremarkable. She was given IV fluids, analgesics, antiemeticsand Rocephin. She is being transferred to [facility] for higher level of care. Past medical history: Past Medical History: Diagnosis Date Depression Active chronic medical issues that patient has been followed for as outpatient: Patient Active Problem List Diagnosis Code 15 weeks gestation of Z3A.15 Acute right flank pain R10.9 Intractable vomiting with nausea R11.2 Acute cystitis with hematuria N30.01 Acute pyelonephritis N10 Morbid obesity with body mass index of 40.0-49.9 ([facility]) E66.01 Past surgical history: Past Surgical History: Procedure Laterality Date HX KNEE SURGERY Current medications: Prior to Admission Medications Prescriptions Last Dose Informant Patient Reported? Taking? escitalopram oxalate (LEXAPRO) 5 mg tablet Yes No Sig: Take 5 mg by mouth daily. vits15/iron/folic/dss ( VIT [id number]-DSS ORAL) Yes No Sig: Take by mouth. Facility-Administered Medications: None Allergies and intolerances: No Known Allergies Social history: Social History Socioeconomic History Marital status: Spouse name: Not on file Number of children: Not on file Years of education: Not on file Highest education level: Not on file Occupational History Not on file Tobacco Use Smoking status: Never Smokeless tobacco: Never Vaping Use Vaping status: Never Used Substance and Sexual Activity Alcohol use: Not Currently Drug use: Never Sexual activity: Not on file Other Topics Concern Not on file Social History Narrative Not on file Social Drivers of Health Financial Resource Strain: Not on file Food Insecurity: Not on file Transportation Needs: Not on file Social Connections: Not on file Feeling Safe: Not At Risk (03/01/2025) Feeling Safe Patient has indicated abuse: : No Housing Stability: Not on file Family History: No family history on file. ROS: Negative except as mentioned in HPI OBJECTIVE: Temp (24hrs), Av.8 ??F (36.6 ??C), Min:97.1 ??F (36.2 ??C), Max:98.6 ??F (37 ??C) BP (!) 133/91 (BP Location: Left arm, Patient Position (BP): Sitting) Temp 98.6 ??F (37 ??C) (Oral) Resp 16 Ht 5' 6 (1.676 m) Wt 129.3 kg (285 lb) SpO2 97% BMI 46.00 kg/m?? No intake or output data in the 24 hours ending 03/01/25 1755 Last documented weight: Weight: 129.3 kg (285 lb) (03/01/25 1224) EXAM: General: Lying in bed, not in distress Mental exam: Alert oriented x 3 Neurologic: Grossly normal HEENT: Normocephalic, atraumatic Lungs: Normal respiratory effort Heart: Normal rate and regular rhythm Abdomen: right CVA tenderness Extremities: No edema Lab Data: Recent Labs 03/01/25 0738 03/01/25 1353 WBC 13.2* 17.1* HGB 11.3 10.9* HCT 34.4 33.5* PLT 169 177 Recent Labs 03/01/25 0738 03/01/25 1353 NA 136 138 K 3.7 4.5 CL 103 107 CO2 21* 19* CA 9.6 9.1 BUN 8 8 CREAT 0.61 0.73 GLUCOSE 112* 106* Recent Labs 03/01/25 0738 03/01/25 1353 TOTALPROTEIN 6.4* 6.3* ALBUMIN 3.7 3.4* BILITOTAL <0.2 <0.2 ALKPHOS 108* 115* AST 22 23 ALT 34 34 No results for input(s): INR , PT in the last 72 hours. Invalid input(s): PTT No results for input(s): CPK , CKMB , TROPONIN in the last 72 hours. Primary diagnosis: Acute pyelonephritis Other active medical issues Active Hospital Problems Diagnosis 15 weeks gestation of Intractable vomiting with nausea Acute pyelonephritis Morbid obesity with body mass index of 40.0-49.9 ([facility]) Resolved Hospital Problems No resolved problems to display. ASSESSMENT AND PLAN: Acute pyelonephritis UA is positive for UTI Follow blood and urine cultures Continue with Rocephin empirically Intractable nausea and vomiting As needed Zofran for nausea/vomiting Monitor electrolytes and replace as needed Start on clear liquid diet, advance as tolerated 15 weeks gestation US OB fetus is done, result is pending Obesity BMI is 46.0 DVT Pharmacologic Prophylaxis: enoxaparin (LOVENOX) injection 40 mg [[id number]] Current diet : DIET CLEAR LIQUID Code Status: Full Code Admission status -admit to telemetry This patient is admitted as inpatient. I have a reasonable expectation that this patient requires hospital care that crosses 2 midnights supported by complex medical factors documented in the medicalrecord. Brigido Hines MD 03/01/2025 5:55 PM documented in this encounter Procedure Notes * Kathrin Martinez - 03/02/2025 4:41 PM CDT VASCULAR ACCESS TEAM Peripheral IV insertion PATIENT NAME: Hemalatha De La Torre DATE OF : 2005 CSN: [id number] DATE: 03/02/2025 Room: [address] [place] [address] Admit Date: 03/01/2025 Hospital day: LOS: 1 day PERIPHERAL IV INSERTION Ultrasound assessment was performed to assess adequacy of vascular anatomy Adequate vessel was located Insertion site cleansed for 30 seconds with Chlora-prep. Allowed to dry before initial needle stick. A 20 Gauge 2 Inch peripheral IV was successfully placed using ultrasound guidance in the left, lower Arm Secure port adhesive used Yes 1 attempts 30 minutes required to complete procedure Positive blood return noted Neutral pressure cap applied Catheter Flushed with 5ml of Normal Saline Transparent dressing applied with date, time and initials of cowoker inserting. LDA documentation is contained in EMR flowsheet Patient tolerated well. Kathrin Martinez documented in this encounter Consult Notes * Debra Virk MD - 03/02/2025 12:34 PM CDT Obstetrics Consult 03/02/2025 Consult requested by: Brigido Hines MD for OPINION & ADVICE Chief Complaint: Right pyelo History: Hemalatha De La Torre is a 19 y.o. female at 15w6d with Estimated Date of Delivery: 08/18/25. The patient has received care from [place], Suzanne Jaramillo NP The is complicated by new diagnosis of right pyelonephritis.She started with sudden right flank pain at 0400 yesterday then started with N/V. OB History Para Term AB Living 2 1 SAB IAB Ectopic Multiple Live Births # Outcome Date GA Lbr Rakesh/2nd Weight Sex Type Anes PTL Lv 2 Current 1 AB Patient Active Problem List Diagnosis Code 15 weeks gestation of Z3A.15 Acute right flank pain R10.9 Intractable vomiting with nausea R11.2 Acute cystitis with hematuria N30.01 Acute pyelonephritis N10 Morbid obesity with body mass index of 40.0-49.9 (CMS/HCC) E66.01 Past Medical History: Diagnosis Date Depression Past Surgical History: Procedure Laterality Date HX KNEE SURGERY No family history on file. Social History Socioeconomic History Marital status: Spouse name: Not on file Number of children: Not on file Years of education: Not on file Highest education level: Not on file Occupational History Not on file Tobacco Use Smoking status: Never Smokeless tobacco: Never Vaping Use Vaping status: Never Used Substance and Sexual Activity Alcohol use: Not Currently Drug use: Never Sexual activity: Not on file Other Topics Concern Not on file Social History Narrative Not on file Social Drivers of Health Financial Resource Strain: Not on file Food Insecurity: Not on file (03/01/2025) Transportation Needs: No Transportation Needs (03/01/2025) Transportation Needs Patient needs follow up regarding:: 1 Social Connections: Not on file Feeling Safe: Not At Risk (03/01/2025) Feeling Safe Patient has indicated abuse: : No Housing Stability: Not on file Current Facility-Administered Medications: [COMPLETED] morphine 4 mg/mL injection 2 mg, 2 mg, IV, ONE time only, Kristy Rdz, FELT COVERER, 2mg at 03/02/25 0511 [COMPLETED] LORazepam (ATIVAN) tablet 0.5 mg, 0.5 mg, Oral, ONE time only, Kristy Rdz, FELT COVERER, 0.5 mg at 03/02/25 0512 oxyCODONE (ROXICODONE) tablet 5 mg, 5 mg, Oral, every 6 hours PRN, Mela Flores MD [COMPLETED] ondansetron (ZOFRAN) 4 mg/2 mL injection 4 mg, 4 mg, IV, ONE time only, Carito Zapien FELT COVERER, 4 mg at 03/02/25 0305 [COMPLETED] lactated ringers bolus solution 1,000 mL, 1,000 mL, IV, ONE time only, May Dobbins MD, Stopped at 03/01/25 1727 [COMPLETED] morphine 4 mg/mL injection 4 mg, 4 mg, IV, ONE time only, May Dobbins MD, 4 mg at 03/01/25 1657 [COMPLETED] LORazepam (ATIVAN) tablet 0.5 mg, 0.5 mg, Oral, ONE time only, May Dobbins MD, 0.5 mg at 03/02/25 0442 sodium chloride flush injection 10 mL, 10 mL, IV, every 12 hours (2 times daily), Brigido Hines MD,10 mL at 03/02/25 0829 sodium chloride flush injection 10 mL, 10 mL, IV, see admin instructions, Brigido Hines MD, 10 mL at 03/02/25 1159 sodium chloride 0.9 % flush bag 25 mL, 25 mL, IV, see admin instructions, Brigido Hines MD dextrose 5 % in water 250 mL flush bag 25 mL, 25 mL, IV, see admin instructions, Brigido Hines MD naloxone (NARCAN) 0.4 mg/mL injection 0.1-0.4 mg, 0.1-0.4 mg, IV, see admin instructions, Brigido Hines MD acetaminophen (TYLENOL) tablet 650 mg, 650 mg, Oral, every 6 hours PRN, Brigido Hines MD, 650 mg at03/02/25 0823 ondansetron (ZOFRAN) 4 mg/2 mL injection 4 mg, 4 mg, IV, every 6 hours PRN, Brigido Hines MD, 4 mg at 03/02/25 1158 enoxaparin (LOVENOX) injection 40 mg, 40 mg, subCUT, every 24 hours, 40 mg at 03/02/25 0829 ANDPlace Intermittent Pneumatic Compression Device, , , Ongoing, Brigido Hines MD lactated ringers infusion, , IV, continuous, Brigido Hines MD, Last Rate: 100 mL/hr at 03/02/25 1200, New Bag at 03/02/25 1200 [COMPLETED] morphine 4 mg/mL injection 2 mg, 2 mg, IV, ONE time PRN, Brigido Hines MD, 2 mg at 03/01/25 1945 cefTRIAXone (ROCEPHIN) 2,000 mg in sodium chloride 0.9% 50 mL IVPB (MBP), 2,000 mg, IV, every 24 hours (daily), Brigido Hines MD, Stopped at 03/02/25 0908 [DISCONTINUED] sodium chloride 0.9 % bolus solution 500 mL, 500 mL, IV, ONE time only, Carito Zapien FNP [DISCONTINUED] ketorolac (TORADOL) injection 15 mg, 15 mg, IV, ONE time only, Carito Zapien, FELT COVERER Allergies: No Known Allergies Review of Systems: General: negative for unexpected weight change, fever, chills Psychological: negative for anxiety and depressive symptoms Breast: negative for breast lumps or pain Respiratory: negative for cough, shortness of breath, wheezing Cardiovascular: negative for chest pain or dyspnea on exertion Gastrointestinal: as above Genitourinary: hematuria Musculoskeletal : negative for back pain, neck pain, joint pain or swelling + flank pain Neurological ROS: negative for TIA or stroke symptoms Physical Exam: BP 133/70 (BP Location: Right arm, Patient Position (BP): Supine) Pulse 70 Temp 98.2 ??F (36.8 ??C) (Temporal) Resp 18 Ht 5' 6 (1.676 m) Wt 101 kg (222 lb 10.6 oz) Comment: bed zeroed willverify with standing SpO2 97% BMI 35.94 kg/m?? General: alert, well appearing, in no apparent distress Psych: Alert, oriented, thought content appropriate; mood and affect appropriate HEENT: external ears and nose normal appearance, conjuctiva normal to inspection Dentition good Chest: clear to auscultation, no wheezes, rales, or rhonchi; normal respiratory effort Heart: regular rate and rhythm, no murmurs Abdomen: soft, gravid, non-tender/no masses, no hepatosplenomegaly FHT present Extremities: no redness or tenderness in the calves or thighs, no edema Radiology/Laboratory: Hospital Encounter on 03/01/25 (from the past 72 hours) US RENAL AND BLADDER Collection Time: 03/01/25 1:16 PM Impression IMPRESSION: Please see below. Exam: US RENAL AND BLADDER Date/Time of Exam: 03/01/2025 1:16 PM Reason For Exam: Other - Please see comments. Diagnosis: See Reason for Exam. Comparison: None. FINDINGS: Right Kidney: The right kidney measures 14.6 cm in length. The renal cortical thickness and echogenicity are within normal limits. There are no focal renal lesions. There is no hydronephrosis. Left Kidney: The left kidney measures 11.8 cm in length. The renal cortical thickness and echogenicity are within normal limits. There are no focal renal lesions. There is no hydronephrosis. Bladder: There is no evidence of significant wall thickening or focal mass. IMPRESSION: Normal sonographic appearance of the kidneys and bladder. CBC WITH DIFFERENTIAL Collection Time: 03/01/25 1:53 PM Result Value Ref Range WBC 17.1 (H) 4.5 - 11.0 K/uL RBC 3.94 (L) 4.20 - 5.40 M/uL HEMOGLOBIN 10.9 (L) 12.0 - 16.0 g/dL HEMATOCRIT 33.5 (L) 36.0 - 46.0 % MCV 85.0 84.0 - 103.0 fL MCH 27.7 27.0 - 34.0 pg MCHC 32.5 30.0 - 35.0 g/dL PLATELETS 177 140 - 440 K/uL MPV 11.3 8.9 - 12.8 fL RDW 18.4 (H) 11.0 - 14.5 % RDW-STDEV 57.1 (H) 37.0 - 54.0 fL NEUTROPHILS 88 (H) 42 - 75 % LYMPHOCYTES 7 (L) 24 - 44 % MONOCYTES 4 2 - 10 % EOSINOPHILS 0 0 - 7 % BASOPHILS 0 0 - 1 % IMMATURE GRANULOCYTES 1 0 - 2 % NEUTROPHIL ABSOLUTE 15.09 (H) 2.00 - 8.00 K/uL LYMPHOCYTE ABSOLUTE 1.13 (L) 1.20 - 4.00 K/uL MONOCYTE ABSOLUTE 0.72 (H) 0.10 - 0.60 K/uL EOSINOPHIL ABSOLUTE 0.01 0.00 - 0.70 K/uL BASOPHILS ABSOLUTE 0.03 0.00 - 0.20 K/uL IMMATURE GRANULOCYTES ABSOLUTE 0.10 0.00 - 0.10 K/uL SMEAR REVIEWED: NA - Not Applicable COMPREHENSIVE METABOLIC PANEL Collection Time: 03/01/25 1:53 PM Result Value Ref Range SODIUM 138 136 - 145 mmol/L POTASSIUM 4.5 3.5 - 5.1 mmol/L CHLORIDE 107 98 - 107 mmol/L CO2 19 (L) 22 - 29 mmol/L CALCIUM 9.1 8.6 - 10.0 mg/dL BUN 8 6 - 20 mg/dL CREATININE 0.73 0.51 - 0.95 mg/dL GLUCOSE 106 (H) 74 - 99 mg/dL TOTAL PROTEIN 6.3 (L) 6.4 - 8.3 g/dL ALBUMIN 3.4 (L) 3.5 - 5.2 g/dL BILIRUBIN TOTAL <0.2 0.0 - 1.0 mg/dL ALKALINE PHOSPHATASE 115 (H) 35 - 104 U/L AST 23 10 - 35 U/L ALT 34 <=35 U/L GFR >60 >=60 mL/min/1.73 sq meter ANION GAP 12 9 - 20 mmol/L LIPASE Collection Time: 03/01/25 1:53 PM Result Value Ref Range LIPASE 25 13 - 60 U/L BLOOD CULTURE Collection Time: 03/01/25 4:42 PM Specimen: Peripheral; Blood Narrative The following orders were created for panel order BLOOD CULTURE. Procedure Abnormality Status --------- ------ BLOOD CULTURE[[id number]] In process Please view results for these tests on the individual orders. BLOOD CULTURE Collection Time: 03/01/25 4:51 PM Specimen: Peripheral; Blood Narrative The following orders were created for panel order BLOOD CULTURE. Procedure Abnormality Status --------- ------ BLOOD CULTURE[[id number]] In process Please view results for these tests on the individual orders. LACTIC ACID Collection Time: 03/01/25 4:51 PM Result Value Ref Range LACTIC ACID 1.2 <=2.0 mmol/L US OB LTD 1 OR MORE FETUSES Collection Time: 03/01/25 6:08 PM Narrative [facility] Pat. Name: HEMALATHA DE LA TORRE Study Date: 03/01/2025 5:39pm Pat. NO: [id number] Referring MD: Site: [facility] [employer] Machine Operator: Nataliia Mckeon : 2005 Age: 19 INDICATION Other Specified Complications of viability scan through the ER CODING Diagnoses Z3A.15: Weeks of gestation Z3A.15: Weeks of gestation O26.892: Other specified related conditions Procedures 29689: Ultrasound, uterus, real time with image documentation, limited one or more fetuses HISTORY OB History 2. Para 0 METHOD Transabdominal ultrasound examination Monge . Number of fetuses: 1 DATING LMP on: 10/26/2024 GA by LMP 18 w + 0 d MICHELL by LMP: 08/02/2025 Method of dating: based on stated MICHELL GA by prior assessment 15 w + 5 d MICHELL by prior assessment: 08/18/2025 Assigned: based on stated MICHELL, selected on 03/01/2025 Assigned GA 15 w + 5 d Assigned MICHELL: 08/18/2025 GENERAL EVALUATION Cardiac activity present. FHR 149 bpm. movements: visualized. Presentation: cephalic Placenta: anterior IMPRESSION Findings Comment Intrauterine Limited examination URINALYSIS WITH REFLEX MICROSCOPIC Collection Time: 03/01/25 7:08 PM Result Value Ref Range COLOR UA Yellow Pale to Dark Yellow CLARITY UA Cloudy (A) Clear SPECIFIC GRAVITY UA 1.025 1.003 - 1.035 PH UA 5.5 5.0 - 8.0 LEUKOCYTE ESTERASE UA 3+ (A) Negative NITRITE UA Negative Negative PROTEIN UA Negative Negative GLUCOSE UA Negative Negative KETONES UA 3+ (A) Negative UROBILINOGEN UA <2.0 <2.0 mg/dL BILIRUBIN UA Negative Negative BLOOD UA Negative Negative WBC UA 11-25 (A) 0 - 2 /hpf RBC UA 0-2 0 - 2 /hpf BACTERIA UA 1+ (A) Negative /hpf EPITHELIAL CELLS, URINE 11-25 (A) 0 - 5 /hpf MRI ABDOMEN PELVIS WO CONTRAST Collection Time: 03/02/25 6:21 AM Narrative THIS IS A PRELIMINARY REPORT FROM [facility] PROCEDURE INFORMATION: Exam: MR Abdomen Without Contrast And MR Pelvis Without Contrast Exam date and time: 03/02/2025 5:13 AM Age: 19 years old Clinical indication: Acute pyelonephritis; Unspecified abdominal pain; 15 weeks gestation of ; Additional info: Right flank pain, ? stone, preg TECHNIQUE: Imaging protocol: Magnetic resonance imaging of the abdomen and pelvis without contrast. COMPARISON: US RENAL AND BLADDER 03/01/2025 12:56 PM FINDINGS: ABDOMEN: Liver: No mass. Gallbladder and biliary ducts: Unremarkable. No stones. No ductal dilation. Pancreas: Unremarkable. No ductal dilation. Spleen: The spleen measures approximately 14 cm in span (image 18, series 3). No focal splenic lesion. Adrenal glands: Unremarkable. No mass. Kidneys and ureters: Mild right-sided hydronephrosis with right perinephric edema. No perinephric collection. No left-sided hydronephrosis. Stomach and bowel: Unremarkable. Intraperitoneal space: No significant free fluid. No collection. PELVIS: Appendix: A normal appendix is visualized. Urinary bladder: Unremarkable as visualized. Reproductive: A gravid uterus with single intrauterine gestation in breech presentation right fundal placenta. Unremarkable right ovary. A 2.9 cm left ovarian simple cyst (image 35, series 19). Lymph nodes: No enlarged nodes. Vasculature: No abdominal aortic aneurysm. Bones/joints: Unremarkable. No suspicious lesions. Soft tissues: Unremarkable. IMPRESSION: 1. Mild right-sided hydronephrosis with right perinephric edema. No perinephric collection. Please correlate with urinalysis. 2. No evidence of appendicitis. DICTATED BY: Gayr Cai on Sunday03/02/2025 06:35AM CDT CBC WITH DIFFERENTIAL Collection Time: 03/02/25 6:26 AM Result Value Ref Range WBC 12.3 (H) 4.5 - 11.0 K/uL RBC 3.95 (L) 4.20 - 5.40 M/uL HEMOGLOBIN 10.9 (L) 12.0 - 16.0 g/dL HEMATOCRIT 33.7 (L) 36.0 - 46.0 % MCV 85.3 84.0 - 103.0 fL MCH 27.6 27.0 - 34.0 pg MCHC 32.3 30.0 - 35.0 g/dL PLATELETS 149 140 - 440 K/uL MPV 10.9 8.9 - 12.8 fL RDW 18.5 (H) 11.0 - 14.5 % RDW-STDEV 57.8 (H) 37.0 - 54.0 fL NEUTROPHILS 78 (H) 42 - 75 % LYMPHOCYTES 13 (L) 24 - 44 % MONOCYTES 8 2 - 10 % EOSINOPHILS 0 0 - 7 % BASOPHILS 0 0 - 1 % IMMATURE GRANULOCYTES 1 0 - 2 % NEUTROPHIL ABSOLUTE 9.61 (H) 2.00 - 8.00 K/uL LYMPHOCYTE ABSOLUTE 1.63 1.20 - 4.00 K/uL MONOCYTE ABSOLUTE 0.92 (H) 0.10 - 0.60 K/uL EOSINOPHIL ABSOLUTE 0.02 0.00 - 0.70 K/uL BASOPHILS ABSOLUTE 0.02 0.00 - 0.20 K/uL IMMATURE GRANULOCYTES ABSOLUTE 0.08 0.00 - 0.10 K/uL SMEAR REVIEWED: NA - Not Applicable MAGNESIUM LEVEL Collection Time: 03/02/25 6:26 AM Result Value Ref Range MAGNESIUM 1.6 1.6 - 2.6 mg/dL BASIC METABOLIC PANEL Collection Time: 03/02/25 6:26 AM Result Value Ref Range SODIUM 138 136 - 145 mmol/L POTASSIUM 3.9 3.5 - 5.1 mmol/L CHLORIDE 105 98 - 107 mmol/L CO2 21 (L) 22 - 29 mmol/L CALCIUM 9.0 8.6 - 10.0 mg/dL BUN 7 6 - 20 mg/dL CREATININE 0.89 0.51 - 0.95 mg/dL GLUCOSE 100 (H) 74 - 99 mg/dL GFR >60 >=60 mL/min/1.73 sq meter ANION GAP 12 9 - 20 mmol/L Hospital Encounter on 03/01/25 (from the past 72 hours) URINALYSIS WITH REFLEX MICROSCOPIC Collection Time: 03/01/25 7:10 AM Result Value Ref Range COLOR UA Yellow Pale to Dark Yellow CLARITY UA Cloudy (A) Clear SPECIFIC GRAVITY UA >=1.030 1.003 - 1.035 PH UA 6.0 5.0 - 8.0 LEUKOCYTE ESTERASE UA 1+ (A) Negative NITRITE UA Negative Negative PROTEIN UA 2+ (A) Negative GLUCOSE UA Negative Negative KETONES UA Negative Negative UROBILINOGEN UA 0.2 <2.0 mg/dL BILIRUBIN UA Negative Negative BLOOD UA 3+ (A) Negative URINALYSIS MICROSCOPY ONLY Collection Time: 03/01/25 7:10 AM Result Value Ref Range WBC UA 26-50 (A) 0 - 2 /hpf RBC UA >100 (A) 0 - 2 /hpf BACTERIA UA 2+ (A) Negative /hpf EPITHELIAL CELLS, URINE >25 (A) 0 - 5 /hpf HYALINE CAST 0-2 None Seen, 0-2 /lpf CBC WITH DIFFERENTIAL Collection Time: 03/01/25 7:38 AM Result Value Ref Range WBC 13.2 (H) 4.0 - 10.0 K/uL RBC 4.10 3.93 - 5.22 M/uL HEMOGLOBIN 11.3 11.2 - 15.7 g/dL HEMATOCRIT 34.4 34.1 - 44.9 % MCV 83.9 79.4 - 94.8 fL MCH 27.6 25.6 - 32.2 pg MCHC 32.8 32.2 - 35.5 g/dL RDW 18.3 (H) 11.0 - 14.5 % RDW-STDEV 55.3 36.9 - 56.9 fL PLATELETS 169 163 - 337 K/uL MPV 11.9 10.0 - 14.8 fL NEUTROPHILS 79 (H) 34 - 71 % LYMPHOCYTES 14 (L) 19 - 52 % MONOCYTES 5 5 - 13 % EOSINOPHILS 0 (L) 1 - 6 % BASOPHILS 0 0 - 1 % IMMATURE GRANULOCYTES 1 % NEUTROPHIL ABSOLUTE 10.45 (H) 1.56 - 6.13 K/uL LYMPHOCYTE ABSOLUTE 1.86 1.20 - 3.40 K/uL MONOCYTE ABSOLUTE 0.67 (H) 0.24 - 0.36 K/uL EOSINOPHIL ABSOLUTE 0.04 0.04 - 0.36 K/uL BASOPHILS ABSOLUTE 0.02 0.01 - 0.08 K/uL IMMATURE GRANULOCYTES ABSOLUTE 0.13 K/uL COMPREHENSIVE METABOLIC PANEL Collection Time: 03/01/25 7:38 AM Result Value Ref Range SODIUM 136 136 - 145 mmol/L POTASSIUM 3.7 3.5 - 5.1 mmol/L CHLORIDE 103 98 - 107 mmol/L CO2 21 (L) 22 - 29 mmol/L CALCIUM 9.6 8.6 - 10.0 mg/dL BUN 8 6 - 20 mg/dL CREATININE 0.61 0.51 - 0.95 mg/dL GLUCOSE 112 (H) 74 - 99 mg/dL TOTAL PROTEIN 6.4 (L) 6.6 - 8.7 g/dL ALBUMIN 3.7 3.5 - 5.2 g/dL BILIRUBIN TOTAL <0.2 0.0 - 1.2 mg/dL ALKALINE PHOSPHATASE 108 (H) 35 - 104 U/L AST 22 0 - 35 U/L ALT 34 0 - 35 U/L GFR >60 >=60 mL/min/1.73 sq meter ANION GAP 12 5 - 20 mmol/L LIPASE Collection Time: 03/01/25 7:38 AM Result Value Ref Range LIPASE 31 13 - 60 U/L LACTIC ACID Collection Time: 03/01/25 7:38 AM Result Value Ref Range LACTIC ACID 1.9 <=2.0 mmol/L C-REACTIVE PROTEIN Collection Time: 03/01/25 7:38 AM Result Value Ref Range CRP 16.0 (H) <5.0 mg/L SEDIMENTATION RATE Collection Time: 03/01/25 7:38 AM Result Value Ref Range ESR (SEDIMENTATION RATE) 31 (H) 0 - 20 mm/Hr Narrative Tube Lot: #[id number] Exp Date: 08/19/2026 QC1 LOT [id number] EXP.08/24/2025 QC2 LOT [id number] EXP.08/24/2025 OCCULT BLOOD, GASTRIC FLUID Collection Time: 03/01/25 9:10 AM Result Value Ref Range OCCULT BLOOD, GASTRIC FLUID Positive (A) Negative PH, GASTRIC FLD <1 (L) 2 - 4 Narrative Lot [id number] 042 URINALYSIS WITH REFLEX MICROSCOPIC Collection Time: 03/01/25 9:14 AM Result Value Ref Range COLOR UA Yellow Pale to Dark Yellow CLARITY UA Cloudy (A) Clear SPECIFIC GRAVITY UA >=1.030 1.003 - 1.035 PH UA 6.0 5.0 - 8.0 LEUKOCYTE ESTERASE UA 1+ (A) Negative NITRITE UA Negative Negative PROTEIN UA 2+ (A) Negative GLUCOSE UA Negative Negative KETONES UA Negative Negative UROBILINOGEN UA 0.2 <2.0 mg/dL BILIRUBIN UA Negative Negative BLOOD UA 3+ (A) Negative URINALYSIS MICROSCOPY ONLY Collection Time: 03/01/25 9:14 AM Result Value Ref Range WBC UA 26-50 (A) 0 - 2 /hpf RBC UA 51-100 (A) 0 - 2 /hpf BACTERIA UA 2+ (A) Negative /hpf EPITHELIAL CELLS, URINE 6-10 (A) 0 - 5 /hpf HYALINE CAST 0-2 None Seen, 0-2 /lpf CALCIUM OXALATE, URINE Present (A) Absent Impression: 15w6d . Admitted for r pyelo, diagnosis seems appropriate. Established care with outside provider Discussion and Recommendations: 1. at 15w6d with pyelo - 48 hrs iv abx, symptoms should improve then out pt treatment to complete 2 weeks 2. FU her provider 7-10 days after discharge Debra Virk MD Approximately 30 minutes and the majority of the patient visit is spent reviewing the findings and direct patient counseling. documented in this encounter ED Notes * Moris Bernal RN - 03/01/2025 9:09 PM CDT Attempted to call report to , report sent, transport arranged * Moris Bernal RN - 03/01/2025 5:38 PM CDT MRI form faxed * Carito Zapien FNP - 03/01/2025 12:34 PM CDT Pt was evaluated in triage at 12:34 PM with complaint of right flank pain. Pt is a 19 y.o. female who presented today with a complaint of right flank pain that started 0 400.Patient is a G2, P0 that is approximately 15 weeks 5 days gestation. Pain reportedly woke her up. She was evaluated at [facility] emergency department and given IV fluids and pain medication. Discharged home. At 0 630 patient returned to the ER and it was recommended she transfer to [facility] for further evaluation via private vehicle. Significant medical history includes flank pain, Dede-Nunes tear, IV, labs, ultrasound obtained were ordered at this time. Vitals: Vitals: 03/01/25 1224 BP: (!) 133/91 BP Location: Left arm Patient Position (BP): Sitting Resp: 16 Temp: 98.6 ??F (37 ??C) TempSrc: Oral SpO2: 97% Weight: 129.3 kg (285 lb) Height: 5' 6 (1.676 m) Pain Scale: 10 Physical Exam: General appearance: Alert, in moderate to severe distress Neck: supple, trachea midline Lungs: normal respiratory effort Abdomen: Right flank pain. No radiation. Extremities: moves all extremities Skin: pink, warm, dry Neurologic: Grossly normal Discussed patient's pain and/or nausea management. Offered oral medication per triage protocols. Zofran given at triage A medical screening exam was initiated in our triage area tailored to the patient's chief complaint. Focused diagnostics and therapies have been initiated, will continue and expand as appropriate to help identify any life or limb threatening conditions while awaiting an exam room in the main area of the ED. Continued care, evaluation and management of this patient will be performed throughout their stay. The patient's evaluation and anticipated ongoing care plan was discussed in detail with them to make sure they are aware of what to expect during their stay. Portions of this documentation may have been created by an artificial neurology teacher software. Effort has been done to assure accuracy of neurology teacher. Any obvious errors or omissions should be clarified with the author of the document. REINALDO Holcomb * May Dobbins MD - 03/01/2025 12:15 PM CDT History of Present Illness This is a patient presenting with vomiting and back pain. The patient began experiencing back pain around 4:00 AM on 03/01/2025, which was intense enough to disrupt her sleep. The pain extends slightly to the front. She also reported an episode of sweating followed by cooling down during a hospital visit. She has no history of kidney stones but reports that her father had them. The patient has been experiencing vomiting since the morning of 03/01/2025. Her has been progressing well without any complications. She has a history of urinary tract infections and kidneyinfections. She reports no current urinary symptoms such as burning, stinging, or pain during urination. She has been started on antibiotics. FAMILY HISTORY Her father had kidney stones. PAST MEDICAL HISTORY REVIEWED MEDICAL: Patient has a past medical history of Depression. SURGICAL: Patient has a past surgical history that includes knee surgery. ALLERGIES Patient has no known allergies. PHYSICAL EXAM INITIAL VS BP: (!) 133/91 (03/01/25 1224), Heart Rate: 74 bpm (03/01/25 122), Resp: 16 (03/01/25 122), Pulse: (not recorded), Temp: 98.6 ??F (37 ??C) (03/01/25 1224), Temp src: Oral (03/01/25 122), SpO2: 97 % (03/01/25 122), Height: 5' 6 (167.6 cm) (03/01/25 122), Weight: 129.3 kg (285 lb) (03/01/25 122), BMI (Calculated): (!) 46.03 (03/01/25 122) No LMP recorded. Patient is . Physical Exam Vitals and nursing note reviewed. Constitutional: General: She is not in acute distress. Appearance: She is not diaphoretic. HENT: Head: Normocephalic and atraumatic. Right Ear: External ear normal. Left Ear: External ear normal. Eyes: Conjunctiva/sclera: Conjunctivae normal. Pupils: Pupils are equal, round, and reactive to light. Cardiovascular: Rate and Rhythm: Normal rate and regular rhythm. Heart sounds: Normal heart sounds. No murmur heard. No friction rub. No gallop. Pulmonary: Effort: Pulmonary effort is normal. No respiratory distress. Breath sounds: Normal breath sounds. No wheezing or rales. Abdominal: General: Abdomen is flat. Palpations: Abdomen is soft. Tenderness: There is no abdominal tenderness. There is no guarding or rebound. Comments: Right CVA TTP Musculoskeletal: General: Normal range of motion. Cervical back: Normal range of motion and neck supple. Skin: General: Skin is warm and dry. Findings: No rash. Neurological: Mental Status: She is alert and oriented to person, place, and time. Cranial Nerves: No cranial nerve deficit. Psychiatric: Mood and Affect: Mood normal. Behavior: Behavior normal. Thought Content: Thought content normal. Judgment: Judgment normal. DIAGNOSTICS LAB: CBC WITH DIFFERENTIAL - Abnormal Result Value WBC 17.1 (*) RBC 3.94 (*) HEMOGLOBIN 10.9 (*) HEMATOCRIT 33.5 (*) MCV 85.0 MCH 27.7 MCHC 32.5 PLATELETS 177 MPV 11.3 RDW 18.4 (*) RDW-STDEV 57.1 (*) NEUTROPHILS 88 (*) LYMPHOCYTES 7 (*) MONOCYTES 4 EOSINOPHILS 0 BASOPHILS 0 IMMATURE GRANULOCYTES 1 NEUTROPHIL ABSOLUTE 15.09 (*) LYMPHOCYTE ABSOLUTE 1.13 (*) MONOCYTE ABSOLUTE 0.72 (*) EOSINOPHIL ABSOLUTE 0.01 BASOPHILS ABSOLUTE 0.03 IMMATURE GRANULOCYTES ABSOLUTE 0.10 SMEAR REVIEWED: NA - Not Applicable COMPREHENSIVE METABOLIC PANEL - Abnormal SODIUM 138 POTASSIUM 4.5 CHLORIDE 107 CO2 19 (*) CALCIUM 9.1 BUN 8 CREATININE 0.73 GLUCOSE 106 (*) TOTAL PROTEIN 6.3 (*) ALBUMIN 3.4 (*) BILIRUBIN TOTAL <0.2 ALKALINE PHOSPHATASE 115 (*) AST 23 ALT 34 GFR >60 ANION GAP 12 URINALYSIS WITH REFLEX MICROSCOPIC - Abnormal COLOR UA Yellow CLARITY UA Cloudy (*) SPECIFIC GRAVITY UA 1.025 PH UA 5.5 LEUKOCYTE ESTERASE UA 3+ (*) NITRITE UA Negative PROTEIN UA Negative GLUCOSE UA Negative KETONES UA 3+ (*) UROBILINOGEN UA <2.0 BILIRUBIN UA Negative BLOOD UA Negative WBC UA 11-25 (*) RBC UA 0-2 BACTERIA UA 1+ (*) EPITHELIAL CELLS, URINE 11-25 (*) LIPASE - Normal LIPASE 25 LACTIC ACID - Normal LACTIC ACID 1.2 BLOOD CULTURE BLOOD CULTURE BLOOD CULTURE BLOOD CULTURE RADIOLOGY: US OB LTD 1 OR MORE FETUSES Radiologist Impression US RENAL AND BLADDER Radiologist Impression IMPRESSION: Please see below. Exam: US RENAL AND BLADDER Date/Time of Exam: 03/01/2025 1:16 PM Reason For Exam: Other - Please see comments. Diagnosis: See Reason for Exam. Comparison: None. FINDINGS: Right Kidney: The right kidney measures 14.6 cm in length. The renal cortical thickness and echogenicity are within normal limits. There are no focal renal lesions. There is no hydronephrosis. Left Kidney: The left kidney measures 11.8 cm in length. The renal cortical thickness and echogenicity are within normal limits. There are no focal renal lesions. There is no hydronephrosis. Bladder: There is no evidence of significant wall thickening or focal mass. IMPRESSION: Normal sonographic appearance of the kidneys and bladder. EKG: PROCEDURES Procedures MEDICAL DECISION MAKING AND PLAN OF CARE Please see above for interpretations of EKG and/or XRAY if performed. Additional Information obtained (if noted): Outside records are reviewed. If reviewed, they are summarized in the HPI or below. Hx of obesity, , migraine, anxiety 12/08/2024: Patient seen at an outside ED for shoulder pain Emergency Department Course and DDx: SUMMARY: The patient presents with right flank pain and vomiting. DDX: (includes but is not limited to) Pyelonephritis, kidney stone, dehydration, sepsis, UTI, electrolyte disturbance ER PLAN: Labs, imaging REVIEW OF DATA: UA 3+ leukocyte esterase, 3+ ketones, 11-25 white blood cells, 1+ bacteria, 0-2 redblood cells, lactate 1.2, CBC with a white count of 17.1, hemoglobin is 10.9, CMP with a bicarb of 19, alk phos is mildly elevated, lipase is normal, ultrasound of the fetus reveals a 15-week 5-day fetus, there is cardiac activity present and movements present, ultrasound of the kidneys do not reveal hydronephrosis REVIEW OF ED COURSE AND DECISION MAKING: The patient is a 19-year-old female who presents with right flank pain and vomiting. She is approximately 15 weeks 5 days . Her right flank pain beganovernight and woke her up out of sleep. No fevers. She had persistent vomiting until she went to [facility] ED and received antiemetics, IV fluids and IV Rocephin. Due to their limited ability to evaluate for kidney stones in , the patient was sent to our ED for further workup and evaluation. My exam as detailed above. Ultrasound of the kidneys does not reveal hydronephrosis. I discussedoptions with the patient. It is unclear to me at this point whether or not she has a kidney stone. She does have some blood in her urine and her flank pain was somewhat sudden in onset. She also has an elevated white blood cell count and persistent vomiting to suggest pyelonephritis. Given the unclear etiology at this time, I think it is reasonable to admit the patient while we obtain MRI imagingof her abdomen to rule in or rule out kidney stone. She has already received Rocephin. Will continue IV fluids. The case was discussed with the hospitalist will admit for further care. DISPOSITION: Admit to telemetry Medical Decision Making Amount and/or Complexity of Data Reviewed Labs: ordered. Radiology: ordered. Risk Prescription drug management. Decision regarding hospitalization. Clinical Scoring & Consults Medications Administered During the ED Stay from 03/01/2025 1216 to 03/01/2025 2211 Date/Time Order Dose Route Action 03/01/2025 1727 CDT lactated ringers bolus solution 1,000 mL 0 mL IV Stopped 03/01/2025 1657 CDT lactated ringers bolus solution 1,000 mL 1,000 mL IV New Bag 03/01/2025 1657 CDT morphine 4 mg/mL injection 4 mg 4 mg IV Given 03/01/2025 1945 CDT morphine 4 mg/mL injection 2 mg 2 mg IV Given . New Prescriptions for this Encounter LAST VS BP: 128/72 (03/01/252016), Heart Rate: 78 bpm (03/01/252016), Resp: 16 (03/01/252016), Pulse: (not recorded), Temp: 98.6 ??F (37 ??C) (03/01/25 1224), Temp src: Oral (03/01/25 1224), SpO2: 98 % (03/01/252016) CLINICAL IMPRESSION Final diagnoses: [N10] Acute pyelonephritis (Primary) [R10.9] Acute right flank pain [Z3A.15] 15 weeks gestation of DISPOSITION, EDUCATION AND MEDICATION RECONCILIATION Medications reconciled. See after visit summary for patient education on discharged patients. ED Disposition ED Disposition Admit Condition Stable User May Dobbins MD Date/Time Sun Mar 01, 2025 5:35 PM Comment -- ATTESTATION STATEMENTS Diagnoses Diagnosis Comment Added By Time Added Acute pyelonephritis [N10] May Dobbins MD 03/01/2025 10:06 PM Acute right flank pain [R10.9] May Dobbins MD 03/01/2025 10:06 PM 15 weeks gestation of [Z3A.15] May Dobbins MD 03/01/2025 10:06 PM documented in this encounter Miscellaneous Notes * Gen AI ED Handoff - GENERATIVE AI HANDOFF NOTE - 03/01/2025 10:14 PM CDT SITUATION: Patient ( ) is a 19-year-old female who has been in the ER for 9 hours. She came to the ER due to flank pain vomiting. The patient's most recent care team on record included: Moris Bernal. BACKGROUND: This patient has no known allergies. ASSESSMENT: Patient's most recent vitals recorded in flowsheets were as follows: BP: 128/72 T: 98.6 F RR: 16 SPO2: 98% HR: 78 WT: 285.0 LBS BMI: 46.0 Lines most recently placed include: angiocath at 2025-03-01 13:53. Last recorded oxygen source was room air. The patient is a 19-year-old female, 15 weeks , presenting with acute pyelonephritis, right flank pain, hematuria, and intractable vomiting. She has a history of depression, morbid obesity with a BMI of 46.0, and past knee surgery. Lab results show leukocytosis, anemia, and abnormal urinalysis indicating a urinary tract infection. The patient has no known allergies. RECOMMENDATION: Admit to telemetry for further evaluation and management. Continue IV fluids and Rocephin empirically for pyelonephritis. Monitor electrolytes and replace as needed. Administer Zofran for nausea/vomiting as needed. Start on a clear liquid diet and advance as tolerated. Obtain MRI imaging of the abdomen to rule in or rule out kidney stones. DVT prophylaxis with enoxaparin (LOVENOX) injection 40 mg. Pharmacy to monitor anticoagulation per protocol. Follow blood and urine cultures. Ensure appropriate pain management with morphine as administered during the ED stay. *This summary was created by polly MOTA. The responses are meant to enhance, not replace normal workflow. Please contact the ED nurse for any additional information.* documented in this encounter Plan of Treatment Pending Results Name Type Priority Associated Diagnoses Date /Time BLOOD CULTURE Microbiology Stat 5 4:51 PM CDT BLOOD CULTURE Microbiology Stat 5 4:42 PM CDT BLOOD CULTURE Microbiology Stat 5 4:51 PM CDT BLOOD CULTURE Microbiology Stat 5 4:42 PM CDT Scheduled Orders Name Type Priority Associated Diagnoses Orde r Schedule BLOOD CULTURE Microbiology Routine ONE TIME for 1 Occurrences starting 03/01/2025 until 03/01/2025 BLOOD CULTURE Microbiology Routine ONE TIME for 1 Occurrences starting 03/01/2025 until 03/01/2025 CBC WITH DIFFERENTIAL Lab Routine Acute pyelonephritis Expected: 03/10/2025, Expires: 03/03/2026 documented as of this encounter Procedures Procedure Name Priority Date/Time Associated Diagnosis Comments TELEMETRY REPORT 03/04/2025 9:56 AM CDT HEMOGLOBIN AND HEMATOCRIT Routine 03/03/2025 2:12 PM CDT CBC WITH DIFFERENTIAL Routine 03/03/2025 4:25 AM CDT BASIC METABOLIC PANEL Routine 03/03/2025 4:25 AM CDT CBC WITH DIFFERENTIAL Routine 03/02/2025 6:26 AM CDT MAGNESIUM LEVEL Routine 03/02/2025 6:26 AM CDT BASIC METABOLIC PANEL Routine 03/02/2025 6:26 AM CDT MRI ABDOMEN PELVIS WO CONTRAST Stat 03/02/2025 6:21 AM CDT URINALYSIS W/REFLEX MICROSCOPIC Stat 03/01/2025 7:08 PM CDT US OB LTD 1 OR MORE FETUSES Stat 03/01/2025 6:08 PM CDT LACTIC ACID Stat 03/01/2025 4:51 PM CDT BLOOD CULTURE Stat 03/01/2025 4:51 PM CDT BLOOD CULTURE Stat 03/01/2025 4:42 PM CDT CBC WITH DIFFERENTIAL Stat 03/01/2025 1:53 PM CDT LIPASE Stat 03/01/2025 1:53 PM CDT COMPREHENSIVE METABOLIC PANEL Stat 03/01/2025 1:53 PM CDT US RENAL AND BLADDER Stat 03/01/2025 1:16 PM CDT documented in this encounter Results * TELEMETRY REPORT (03/04/2025 9:56 AM CDT) Provider Scanning ECG ORDERABLES Final Result * (ABNORMAL) HEMOGLOBIN AND HEMATOCRIT (03/03/2025 2:12 PM CDT) [facility] HEMOGLOBIN 9.8(L) 12.0 - 16.0 g/dL 03/03/2025 2:39 PM CDT [facility] HEMATOCRIT 29.8(L) 36.0 - 46.0 % 03/03/2025 2:39 PM CDT [facility] Blood Venipuncture / Unknown 03/03/2025 2:12 PM CDT 03/03/2025 2:26 PM CDT Mela Flores MD HEMATOLOGY ORDERABLES Final Result [facility] CLIA # [id number] [address] [address] [place] [address] * (ABNORMAL) BASIC METABOLIC PANEL (03/03/2025 4:25 AM CDT) SODIUM 136 136 - 145 mmol/L 03/03/2025 5:25 AM CDT [facility] POTASSIUM 4.0 3.5 - 5.1 mmol/L 03/03/2025 5:25 AM T [facility] Comment:Moderate hemolysis p resent. Can cause significant falsely elevated result. Redraw if indicated. CHLORIDE 105 98 - 107 mmol/L 03/03/2025 5:25 AM T [facility] CO2 21(L) 22 - 29 mmol/L 03/03/2025 5:25 AM CDT [facility] CALCIUM 8.9 8.6 - 10.0 mg/dL 03/03/2025 5:25 AM CDT [facility] BUN 7 6 - 20 mg/dL 03/03/2025 5:25 AM [facility] CREATININE 0.62 0.51 - 0.95 mg/dL 03/03/2025 5:25 AM T [facility] GLUCOSE 93 74 - 99 mg/dL 03/03/2025 5:25 AM [facility] GFR >60 >=60 mL/min/1.7 3 sq meter 03/03/2025 5:25 AM T [facility] Comment:eGFR calculated with 2020 CKD-EPI equation. Vegetarian diet, extremely high or low muscle mass, and may affect results. Cystatin C with Glomerular Filtration Rate is a suitable alternative for these patients. ANION GAP 10 9 - 20 mmol/L 03/03/2025 5:25 AM T [facility] Blood Venipuncture / Unknown 03/03/2025 4:25 AM CDT 03/03/2025 4:48 AM CDT us Mela Flores MD CHEMISTRY ORDERABLES F inal Result [facility] CLIA # [id number] [address] [address] [place] [address] * (ABNORMAL) CBC WITH DIFFERENTIAL (03/03/2025 4:25 AM CDT) [facility] WBC 9.6 4.5 - 11.0 K/uL 03/03/2025 5:00 AM CDT [facility] RBC 3.50(L) 4.20 - 5.40 M/uL 03/03/2025 5:00 AM CDT [facility] HEMOGLOBIN 9.6(L) 12.0 - 16.0 g/dL 03/03/2025 5:00 AM CDT [facility] HEMATOCRIT 30.3(L) 36.0 - 46.0 % 03/03/2025 5:00 AM CDT [facility] MCV 86.6 84.0 - 103.0 fL 03/03/2025 5:00 AM CDT [facility] MCH 27.4 27.0 - 34.0 pg 03/03/2025 5:00 AM CDT [facility] MCHC 31.7 30.0 - 35.0 g/dL 03/03/2025 5:00 AM CDT [facility] PLATELETS 141 140 - 440 K/uL 03/03/2025 5:00 AM CDT [facility] MPV 11.5 8.9 - 12.8 fL 03/03/2025 5:00 AM T [facility] RDW 18.6(H) 11.0 - 14.5 % 03/03/2025 5:00 AM T [facility] RDW-STDEV 58.9(H) 37.0 - 54.0 fL 03/03/2025 5:00 AM CDT [facility] NEUTROPHILS 70 42 - 75 % 03/03/2025 5:00 AM T [facility] LYMPHOCYTES 21(L) 24 - 44 % 03/03/2025 5:00 AM T [facility] MONOCYTES 8 2 - 10 % 03/03/2025 5:00 AM CDT [facility] EOSINOPHILS 1 0 - 7 % 03/03/2025 5:00 AM T [facility] BASOPHILS 0 0 - 1 % 03/03/2025 5:00 AM CDT [facility] IMMATURE GRANULOCYTES 1 0 - 2 % 03/03/2025 5:00 AM T [facility] NEUTROPHIL ABSOLUTE 6.67 2.00 - 8.00 K/uL 03/03/2025 5:00 AM T [facility] LYMPHOCYTE ABSOLUTE 2.03 1.20 - 4.00 K/uL 03/03/2025 5:00 AM T [facility] MONOCYTE ABSOLUTE 0.73(H) 0.10 - 0.60 K/uL 03/03/2025 5:00 AM CDT [facility] EOSINOPHIL ABSOLUTE 0.07 0.00 - 0.70 K/uL 03/03/2025 5:00 AM CDT [facility] BASOPHILS ABSOLUTE 0.02 0.00 - 0.20 K/uL 03/03/2025 5:00 AM [facility] IMMATURE GRANULOCYTES ABSOLUTE 0.05 0.00 - 0.10 K/uL 03/03/2025 5:00 AM T [facility] SMEAR REVIEWED: NA - Not Applicable 03/03/2025 5:00 AM [facility] Blood Venipuncture / Unknown 03/03/2025 4:25 AM CDT 03/03/2025 4:48 AM CDT us Mela Flores MD HEMATOLOGY ORDERABLES Final Result [facility] CLIA # [id number] [facility] [address] [address] [place] [address] * (ABNORMAL) BASIC METABOLIC PANEL (03/02/2025 6:26 AM CDT) SODIUM 138 136 - 145 mmol/L 03/02/2025 7:23 AM T [facility] POTASSIUM 3.9 3.5 - 5.1 mmol/L 03/02/2025 7:23 AM [facility] CHLORIDE 105 98 - 107 mmol/L 03/02/2025 7:23 AM T [facility] CO2 21(L) 22 - 29 mmol/L 03/02/2025 7:23 AM [facility] CALCIUM 9.0 8.6 - 10.0 mg/dL 03/02/2025 7:23 AM [facility] BUN 7 6 - 20 mg/dL 03/02/2025 7:23 AM [facility] CREATININE 0.89 0.51 - 0.95 mg/dL 03/02/2025 7:23 AM [facility] GLUCOSE 100(H) 74 - 99 mg/dL 03/02/2025 7:23 AM [facility] GFR >60 >=60 mL/min/1.7 3 sq meter 03/02/2025 7:23 AM [facility] Comment:eGFR calculated with 2020 CKD-EPI equation. Vegetarian diet, extremely high or low muscle mass, and may affect results. Cystatin C with Glomerular Filtration Rate is a suitable alternative for these patients. ANION GAP 12 9 - 20 mmol/L 03/02/2025 7:23 AM [facility] Blood Venipuncture / Unknown 03/02/2025 6:26 AM CDT 03/02/2025 6:34 AM CDT us Brigido Hines MD CHEMISTRY ORDERABLES Final Resul t [facility] CLIA # [id number] [address] [address] * MAGNESIUM LEVEL (03/02/2025 6:26 AM CDT) [facility] MAGNESIUM 1.6 1.6 - 2.6 mg/dL 03/02/2025 7:23 AM CDT [facility] Blood Venipuncture / Unknown 03/02/2025 6:26 AM CDT 03/02/2025 6:34 AM CDT us Brigido Hines MD CHEMISTRY ORDERABLES Final Resul t [facility] CLIA # [id number] [address] [place] [address] * (ABNORMAL) CBC WITH DIFFERENTIAL (03/02/2025 6:26 AM CDT) [facility] WBC 12.3(H) 4.5 - 11.0 K/uL 03/02/2025 6:39 AM CDT [facility] RBC 3.95(L) 4.20 - 5.40 M/uL 03/02/2025 6:39 AM CDT [facility] HEMOGLOBIN 10.9(L) 12.0 - 16.0 g/dL 03/02/2025 6:39 AM CDT [facility] HEMATOCRIT 33.7(L) 36.0 - 46.0 % 03/02/2025 6:39 AM CDT [facility] MCV 85.3 84.0 - 103.0 fL 03/02/2025 6:39 AM CDT [facility] MCH 27.6 27.0 - 34.0 pg 03/02/2025 6:39 AM CDT [facility] MCHC 32.3 30.0 - 35.0 g/dL 03/02/2025 6:39 AM CDT [facility] PLATELETS 149 140 - 440 K/uL 03/02/2025 6:39 AM [facility] MPV 10.9 8.9 - 12.8 fL 03/02/2025 6:39 AM [facility] RDW 18.5(H) 11.0 - 14.5 % 03/02/2025 6:39 AM [facility] RDW-STDEV 57.8(H) 37.0 - 54.0 fL 03/02/2025 6:39 AM [facility] NEUTROPHILS 78(H) 42 - 75 % 03/02/2025 6:39 AM [facility] LYMPHOCYTES 13(L) 24 - 44 % 03/02/2025 6:39 AM [facility] MONOCYTES 8 2 - 10 % 03/02/2025 6:39 AM [facility] EOSINOPHILS 0 0 - 7 % 03/02/2025 6:39 AM [facility] BASOPHILS 0 0 - 1 % 03/02/2025 6:39 AM [facility] IMMATURE GRANULOCYTES 1 0 - 2 % 03/02/2025 6:39 AM [facility] NEUTROPHIL ABSOLUTE 9.61(H) 2.00 - 8.00 K/uL 03/02/2025 6:39 AM [facility] LYMPHOCYTE ABSOLUTE 1.63 1.20 - 4.00 K/uL 03/02/2025 6:39 AM [facility] MONOCYTE ABSOLUTE 0.92(H) 0.10 - 0.60 K/uL 03/02/2025 6:39 AM [facility] EOSINOPHIL ABSOLUTE 0.02 0.00 - 0.70 K/uL 03/02/2025 6:39 AM [facility] BASOPHILS ABSOLUTE 0.02 0.00 - 0.20 K/uL 03/02/2025 6:39 AM [facility] IMMATURE GRANULOCYTES ABSOLUTE 0.08 0.00 - 0.10 K/uL 03/02/2025 6:39 AM [facility] SMEAR REVIEWED: NA - Not Applicable 03/02/2025 6:39 AM [facility] Blood Venipuncture / Unknown 03/02/2025 6:26 AM CDT 03/02/2025 6:34 AM CDT us Brigido Hines MD HEMATOLOGY ORDERABLES Final Resu lt [facility] CLIA # [id number] [address] [address] [place] [address] * MRI ABDOMEN PELVIS WO CONTRAST (03/02/2025 6:21 AM CDT) Anatomical Region Laterality Modality Abdomen Magnetic Resonan ce 03/02/2025 5:13 AM CDT Impressions 03/02/2025 2:26 PM CDT IMPRESSION: 1. No evidence of acute appendicitis. 2.. Right adnexal trace free fluid, nonspecific 3. Mild right renal pelvocaliectasis without overt hydroureter, nonspecific. This may be secondary to compression of the right ureter by the gravid uterus. However, clinical correlation is requested as an obstructing calculus cannot be completely excluded. Narrative 03/02/2025 2:26 PM CDT MRI ABDOMEN PELVIS WO CONTRAST Reason For Exam: right flank pain, ?stone, preg. Diagnosis: Acute pyelonephritis; Acute right flank pain; 15 weeks gestation of . COMPARISON: 03/01/2025 ultrasound FINDINGS: MRI ABDOMEN: LIVER: The liver is normal in size and intrinsic signal. No suspicious hepatic lesion is seen. The portal vein is patent. BILIARY AND GALLBLADDER: Fluid sensitive images do not reveal biliary dilatation, filling defect, or a cholangitic pattern. SPLEEN: The spleen is not enlarged. PERITONEUM: No ascites is seen. PANCREAS: The pancreas demonstrates normal intrinsic signal. The pancreatic duct is not dilated. KIDNEYS: No left hydronephrosis. No overt renal lesion given lack of IV contrast. Mild right renal pelvocaliectasis without overt hydroureter ADRENAL GLANDS: The adrenal glands are unremarkable. BOWEL: Bowel caliber is within normal limits without evidence of obstruction. LYMPH NODES: No retroperitoneal enlarged lymph nodes are seen. LUNG BASES: The included lung bases demonstrate no large focal lesions. MRI PELVIS: Gravid uterus. Placenta is anterior. No retroplacental hemorrhage is noted. This exam was not tailored for evaluation, however. Bilateral ovaries show multiple follicles. Trace right adnexal free fluid is noted. The appendix measures 6 mm in diameter and does not show evidence of acute appendicitis otherwise. Urinary bladder is grossly unremarkable. Procedure Note Antione Brown MD - 03/02/2025 MRI ABDOMEN PELVIS WO CONTRAST Reason For Exam: right flank pain, ?stone, preg. Diagnosis: Acute pyelonephritis; Acute right flank pain; 15 weeks gestation of . COMPARISON: 03/01/2025 ultrasound FINDINGS: MRI ABDOMEN: LIVER: The liver is normal in size and intrinsic signal. No suspicious hepatic lesion is seen. The portal vein is patent. BILIARY AND GALLBLADDER: Fluid sensitive images do not reveal biliary dilatation, filling defect, or a cholangitic pattern. SPLEEN: The spleen is not enlarged. PERITONEUM: No ascites is seen. PANCREAS: The pancreas demonstrates normal intrinsic signal. The pancreatic duct is not dilated. KIDNEYS: No left hydronephrosis. No overt renal lesion given lack of IV contrast. Mild right renal pelvocaliectasis without overt hydroureter ADRENAL GLANDS: The adrenal glands are unremarkable. BOWEL: Bowel caliber is within normal limits without evidence of obstruction. LYMPH NODES: No retroperitoneal enlarged lymph nodes are seen. LUNG BASES: The included lung bases demonstrate no large focal lesions. MRI PELVIS: Gravid uterus. Placenta is anterior. No retroplacental hemorrhage is noted. This exam was not tailored for evaluation, however. Bilateral ovaries show multiple follicles. Trace right adnexal free fluid is noted. The appendix measures 6 mm in diameter and does not show evidence of acute appendicitis otherwise. Urinary bladder is grossly unremarkable. IMPRESSION: 1. No evidence of acute appendicitis. 2.. Right adnexal trace free fluid, nonspecific 3. Mild right renal pelvocaliectasis without overt hydroureter, nonspecific. This may be secondary to compression of the right ureter by the gravid uterus. However, clinical correlation is requested as an obstructing calculus cannot be completely excluded. May Dobbins MD MR ORDERABLES Kerri l Result * (ABNORMAL) URINALYSIS WITH REFLEX MICROSCOPIC (03/01/2025 7:08 PM CDT) COLOR UA Yellow Pale to Dark Yellow 03/01/2025 7:37 PM [facility] CLARITY UA Cloudy(A) Clear 03/01/2025 7:37 PM [facility] SPECIFIC GRAVITY UA 1.025 1.003 - 1.035 03/01/2025 7:37 PM [facility] PH UA 5.5 5.0 - 8.0 03/01/2025 7:37 PM [facility] LEUKOCYTE ESTERASE UA 3+(A) Negative 03/01/2025 7:37 PM [facility] NITRITE UA Negative Negative 03/01/2025 7:37 PM [facility] PROTEIN UA Negative Negative 03/01/2025 7:37 PM [facility] GLUCOSE UA Negative Negative 03/01/2025 7:37 PM [facility] KETONES UA 3+(A) Negative 03/01/2025 7:37 PM [facility] UROBILINOGEN UA <2.0 <2.0 mg/dL 7:37 PM [facility] BILIRUBIN UA Negative Negative 03/01/2025 7:37 PM [facility] BLOOD UA Negative Negative 03/01/2025 7:37 PM [facility] WBC UA 11-25(A) 0 - 2 /hpf 03/01/2025 7:37 PM [facility] RBC UA 0-2 0 - 2 /hpf 03/01/2025 7:37 PM [facility] BACTERIA UA 1+(A) Negative /hpf 03/01/2025 7:37 PM [facility] EPITHELIAL CELLS, URINE 11-25(A) 0 - 5 /hpf 03/01/2025 7:37 PM [facility] Urine URINE SPECIMEN OBTAINED BY CLEAN CATCH PROCEDURE / Unknown Collection / Unknown 03/01/2025 7:08 PM CDT 03/01/2025 7:14 PM CDT Carito Ybarra McTeer FELT COVERER URINE ORDERABLES Final Result [facility] # [id number] [address] [facility] [place] [address] * US OB LTD 1 OR MORE FETUSES (03/01/2025 6:08 PM CDT) Anatomical Region Laterality Modality Pelvis Ultrasound 03/01/2025 5:39 PM CDT Narrative 03/01/2025 9:34 PM CDT [facility] OBUS ----- Pat. Name: HEMALATHA DE LA TORRE Study Date: 03/01/2025 5:39pm Pat. NO: [id number] Referring MD: Site: [facility] Hobbing Machine Operator: Nataliia Mckeon : 2005 Age: 19 ----- INDICATION ----- Other Specified Complications of viability scan through the ER CODING ----- Diagnoses Z3A.15: Weeks of gestation Z3A.15: Weeks of gestation O26.892: Other specified related conditions Procedures 15751: Ultrasound, uterus, real time with image documentation, limited one or more fetuses HISTORY ----- OB History 2. Para 0 METHOD ----- Transabdominal ultrasound examination ----- Monge . Number of fetuses: 1 DATING ----- LMP on: 10/26/2024 GA by LMP 18 w + 0 d MICHELL by LMP: 08/02/2025 Method of dating: based on stated MICHELL GA by prior assessment 15 w + 5 d MICHELL by prior assessment: 08/18/2025 Assigned: based on stated MICHELL, selected on 03/01/2025 Assigned GA 15 w + 5 d Assigned MICHELL: 08/18/2025 GENERAL EVALUATION ----- Cardiac activity present. FHR 149 bpm. movements: visualized. Presentation: cephalic Placenta: anterior IMPRESSION ----- Findings Comment Intrauterine Limited examination Procedure Note Radhames CORRIGAN, Jhon Sandhu MD - 03/01/2025 [facility] OBUS ----- Pat. Name:Lucy DE LA TORRE Date:03/01/2025 5:39pm Pat. NO: [id number] MD: [facility] Mckeon :2005Age:19 ----- INDICATION ----- Other Specified Complications of viability scanthrough the ER CODING ----- Diagnoses Z3A.15: Weeks of gestation Z3A.15: Weeks of gestation O26.892: Other specified relatedconditions Procedures 06255: Ultrasound, uterus, real time withimage documentation, limited one or more fetuses HISTORY ----- OB History 2. Para 0 METHOD ----- Transabdominal ultrasound examination ----- Monge . Number of fetuses: 1 DATING ----- LMP on:10/26/2024 GA by LMP18 w + 0 d MICHELL by LMP:08/02/2025 Method of dating:based on stated MICHELL GA by prior [id number] w + 5 d MICHELL by prior assessment:08/18/2025 Assigned:based on stated MICHELL, selected on 03/01/2025 Assigned GA15 w + 5 d Assigned MICHELL:08/18/2025 GENERAL EVALUATION ----- Cardiac activity present. FHR 149 bpm. movements: visualized.Presentation: cephalic Placenta: anterior IMPRESSION ----- Findings Comment Intrauterine Limited examination May Dobbins MD US ORDERABLES Kerri l Result * LACTIC ACID (03/01/2025 4:51 PM CDT) LACTIC ACID 1.2 <=2.0 mmol/L 03/01/2025 5:20 PM CDT [facility] Blood Venipuncture / Unknown 03/01/2025 4:51 PM CDT 03/01/2025 4:57 PM CDT May Dobbins MD CHEMISTRY ORDERABLES Final Result Performing Organization Address City/State/[facility] Co de Phone Number [facility] CLIA # [id number] [address] [id number] * LIPASE (03/01/2025 1:53 PM CDT) LIPASE 25 13 - 60 U/L 03/01/2025 2:34 PM CDT [facility] Blood Venipuncture / Unknown 03/01/2025 1:53 PM CDT 03/01/2025 1:58 PM CDT Carito Zapien F[employer] CHEMISTRY ORDERABLES Fi nal Result Performing Organization Address [facility] Co de Phone Number [facility] CLIA # [id number] [facility] [id number] * (ABNORMAL) COMPREHENSIVE METABOLIC PANEL (03/01/2025 1:53 PM CDT) SODIUM 138 136 - 145 mmol/L 03/01/2025 2:34 PM CDT [facility] POTASSIUM 4.5 3.5 - 5.1 mmol/L 03/01/2025 2:34 PM CDT [facility] CHLORIDE 107 98 - 107 mmol/L 03/01/2025 2:34 PM CDT [facility] CO2 19(L) 22 - 29 mmol/L 03/01/2025 2:34 PM CDT [facility] CALCIUM 9.1 8.6 - 10.0 mg/dL 03/01/2025 2:34 PM CDT [facility] BUN 8 6 - 20 mg/dL 03/01/2025 2:34 PM CDT [facility] CREATININE 0.73 0.51 - 0.95 mg/dL 03/01/2025 2:34 PM CDT [facility] GLUCOSE 106(H) 74 - 99 mg/dL 03/01/2025 2:34 PM CDT [facility] TOTAL PROTEIN 6.3(L) 6.4 - 8.3 g/dL 03/01/2025 2:34 PM CDT [facility] ALBUMIN 3.4(L) 3.5 - 5.2 g/dL 03/01/2025 2:34 PM CDT [facility] BILIRUBIN TOTAL <0.2 0.0 - 1.0 mg/dL 03/01/2025 2:34 PM CDT [facility] ALKALINE PHOSPHATASE 115(H) 35 - 104 U/L 03/01/2025 2:34 PM CDT [facility] AST 23 10 - 35 U/L 03/01/2025 2:34 PM CDT [facility] ALT 34 <=35 U/L 03/01/2025 2:34 PM CDT [facility] GFR >60 >=60 mL/min/1.7 3 sq meter 03/01/2025 2:34 PM CDT [facility] Comment:eGFR calculated with 2020 CKD-EPI equation. Vegetarian diet, extremely high or low muscle mass, and may affect results. Cystatin C with Glomerular Filtration Rate is a suitable alternative for these patients. ANION GAP 12 9 - 20 mmol/L 03/01/2025 2:34 PM CDT [facility] Blood Venipuncture / Unknown 03/01/2025 1:53 PM CDT 03/01/2025 1:58 PM CDT Carito Zapien [employer] CHEMISTRY ORDERABLES Fi nal Result [facility] CLIA # [id number] [address] [place] [id number] * (ABNORMAL) CBC WITH DIFFERENTIAL (03/01/2025 1:53 PM CDT) Pathologist [facility] [place] WBC 17.1(H) 4.5 - 11.0 K/uL 03/01/2025 2:01 PM [facility] RBC 3.94(L) 4.20 - 5.40 M/uL 03/01/2025 2:01 PM [facility] HEMOGLOBIN 10.9(L) 12.0 - 16.0 g/dL 03/01/2025 2:01 PM [facility] HEMATOCRIT 33.5(L) 36.0 - 46.0 % 03/01/2025 2:01 PM [facility] MCV 85.0 84.0 - 103.0 fL 03/01/2025 2:01 PM [facility] MCH 27.7 27.0 - 34.0 pg 03/01/2025 2:01 PM [facility] MCHC 32.5 30.0 - 35.0 g/dL 03/01/2025 2:01 PM [facility] PLATELETS 177 140 - 440 K/uL 03/01/2025 2:01 PM [facility] MPV 11.3 8.9 - 12.8 fL 03/01/2025 2:01 PM [facility] RDW 18.4(H) 11.0 - 14.5 % 03/01/2025 2:01 PM [facility] RDW-STDEV 57.1(H) 37.0 - 54.0 fL 03/01/2025 2:01 PM [facility] NEUTROPHILS 88(H) 42 - 75 % 03/01/2025 2:01 PM [facility] LYMPHOCYTES 7(L) 24 - 44 % 03/01/2025 2:01 PM [facility] MONOCYTES 4 2 - 10 % 03/01/2025 2:01 PM [facility] EOSINOPHILS 0 0 - 7 % 03/01/2025 2:01 PM [facility] BASOPHILS 0 0 - 1 % 03/01/2025 2:01 PM [facility] IMMATURE GRANULOCYTES 1 0 - 2 % 03/01/2025 2:01 PM CDT [facility] NEUTROPHIL ABSOLUTE 15.09(H) 2.00 - 8.00 K/uL 03/01/2025 2:01 PM CDT [facility] LYMPHOCYTE ABSOLUTE 1.13(L) 1.20 - 4.00 K/uL 03/01/2025 2:01 PM CDT [facility] MONOCYTE ABSOLUTE 0.72(H) 0.10 - 0.60 K/uL 03/01/2025 2:01 PM CDT [facility] EOSINOPHIL ABSOLUTE 0.01 0.00 - 0.70 K/uL 03/01/2025 2:01 PM CDT [facility] BASOPHILS ABSOLUTE 0.03 0.00 - 0.20 K/uL 03/01/2025 2:01 PM CDT [facility] IMMATURE GRANULOCYTES ABSOLUTE 0.10 0.00 - 0.10 K/uL 03/01/2025 2:01 PM CDT [facility] SMEAR REVIEWED: NA - Not Applicable 03/01/2025 2:01 PM CDT [facility] Blood Venipuncture / Unknown 03/01/2025 1:53 PM CDT 03/01/2025 1:58 PM CDT Carito Zapien [employer] HEMATOLOGY ORDERABLES F inal Result [facility] # [id number] [address] [place] [address] [place] [address] * US RENAL AND BLADDER (03/01/2025 1:16 PM CDT) Anatomical Region Laterality Modality Abdomen Ultrasound 03/01/2025 1:16 PM CDT Impressions 03/01/2025 1:23 PM CDT IMPRESSION: Please see below. Exam: US RENAL AND BLADDER Date/Time of Exam: 03/01/2025 1:16 PM Reason For Exam: Other - Please see comments. Diagnosis: See Reason for Exam. Comparison: None. FINDINGS: Right Kidney: The right kidney measures 14.6 cm in length. The renal cortical thickness and echogenicity are within normal limits. There are no focal renal lesions. There is no hydronephrosis. Left Kidney: The left kidney measures 11.8 cm in length. The renal cortical thickness and echogenicity are within normal limits. There are no focal renal lesions. There is no hydronephrosis. Bladder: There is no evidence of significant wall thickening or focal mass. IMPRESSION: Normal sonographic appearance of the kidneys and bladder. Narrative Procedure Note Eddie Cortez, DO - 03/01/2025 IMPRESSION: Please see below. Exam: US RENAL AND BLADDER Date/Time of Exam: 03/01/2025 1:16 PM Reason For Exam: Other - Please see comments. Diagnosis: See Reason for Exam. Comparison: None. FINDINGS: Right Kidney: The right kidney measures 14.6 cm in length. The renal cortical thickness and echogenicity are within normal limits. There are no focal renal lesions. There is no hydronephrosis. Left Kidney: The left kidney measures 11.8 cm in length. The renal cortical thickness and echogenicity are within normal limits. There are no focal renal lesions. There is no hydronephrosis. Bladder: There is no evidence of significant wall thickening or focal mass. IMPRESSION: Normal sonographic appearance of the kidneys and bladder. Carito Ybarra McTeeabner [facility] US ORDERABLES Final R esult documented in this encounter Visit Diagnoses Diagnosis Acute pyelonephritis- Primary Acute pyelonephritis without lesion of renal medullary necrosis Acute pyelonephritis Acute pyelonephritis without lesion of renal medullary necrosis Acute right flank pain Abdominal pain, unspecified site 15 weeks gestation of state, incidental 15 weeks gestation of state, incidental Intractable vomiting with nausea Morbid obesity with body mass index of 40.0-49.9 (CMS/HCC) documented in this encounter Administered Medications Inactive Administered Medications - up to 3 most recent administrations Medication Order MAR Action Action Date Dose Rate Site acetaminophen (TYLENOL) tablet 650 mg 650 mg, Oral, EVERY 6 HOURS PRN, Starting on 03/01/25 at 1748, Until Tu03/03/25 at 2030, Other (See Comment), See admin instructions, Routine Given 03/03/2025 9:24 AM CDT 650 mg Given 03/02/2025 6:12 PM CDT 650 mg Given 03/02/2025 8:23 AM CDT 650 mg cefTRIAXone (ROCEPHIN) 2,000 mg in sodium chloride 0.9% 50 mL IVPB (MBP) 2,000 mg, IV, EVERY 24 HOURS (DAILY), First dose on Sun03/02/25 at 0900, Until Discontinued, Routine, Antibiotic Indication: Urinary Tract Infection(UTI) / Infection New Bag 03/03/2025 9:16 AM CDT 2,000 mg 1 18 mL/hr New Bag 03/02/2025 8:38 AM CDT 2,000 mg 118 mL/hr dextrose 5 % in water 250 mL flush bag 25 mL 25 mL, IV, SEE ADMIN INSTRUCTIONS, Starting on Sun03/01/25 at 1748, Until Sun03/03/25 at 203, Routine enoxaparin (LOVENOX) injection 40 mg 40 mg, subCUT, EVERY 24 HOURS, First dose on Sun03/02/25 at 0900, Until Discontinued, Routine, Indication: Prophylaxis of VTE, Dose to be adjusted per facility protocol? Yes, On hold since Sun03/02/2025 at 1808 until manually unheld Given 03/02/2025 8:29 AM CDT 40 mg Abdomen, Right Lower Quadrant famotidine (PEPCID) tablet 20 mg 20 mg, Oral, TWO TIMES DAILY, First dose on Sun03/03/25 at 1200, Until Discontinued, Routine lactated ringers bolus solution 1,000 mL 1,000 mL, IV, ONE TIME ONLY, 1 dose, On Sun03/01/25 at 1645, at 2,000 mL/hr, Administer over 30 Minutes, Routine New 03/01/2025 4:57 PM CDT 1,000 mL 2000 mL/hr lactated ringers infusion IV, at 100 mL/hr, CONTINUOUS, Starting on Sun03/01/25 at 1800, Until Sun03/02/25 at 1648, Routine New Bag 03/02/2025 12:00 PM CDT 100 mL/hr Restarted 03/02/2025 9:25 AM CDT 100 mL/hr New Bag 03/01/2025 11:17 PM CDT 100 mL/hr LORazepam (ATIVAN) tablet 0.5 mg 0.5 mg, Oral, ONE TIME ONLY, 1 dose, On Sun03/01/25 at 1745, Routine Given 03/02/2025 4:42 AM CDT 0.5 mg LORazepam (ATIVAN) tablet 0.5 mg 0.5 mg, Oral, ONE TIME ONLY, 1 dose, On Sun03/02/25 at 0515, RoutineIndications:for MRI only Given 03/02/2025 5:12 AM CDT 0.5 mg morphine 4 mg/mL injection 2 mg 2 mg, IV, ONE TIME PRN, 1 dose, Starting on Sun03/01/25 at 1750, Until Sun03/01/25 at 1945, Pain, Break-Through, Routine Given 03/01/2025 7:45 PM CDT 2 mg morphine 4 mg/mL injection 2 mg 2 mg, IV, ONE TIME ONLY, 1 dose, On Sun03/02/25 at 0515, Routine Given 03/02/2025 5:11 AM CDT 2 mg morphine 4 mg/mL injection 4 mg 4 mg, IV, ONE TIME ONLY, 1 dose, On Sun03/01/25 at 1645, Routine Given 03/01/2025 4:57 PM CDT 4 mg naloxone (NARCAN) 0.4 mg/mL injection 0.1-0.4 mg 0.1-0.4 mg, IV, SEE ADMIN INSTRUCTIONS, Starting on Sun03/01/25 at 1748, Until Sun03/03/25 at 2030, Routine ondansetron (ZOFRAN) 4 mg/2 mL injection 4 mg 4 mg, IV, ONE TIME ONLY, 1 dose, On Sun03/01/25 at 1245, Routine Given 03/02/2025 3:05 AM CDT 4 mg ondansetron (ZOFRAN) 4 mg/2 mL injection 4 mg 4 mg, IV, EVERY 6 HOURS PRN, Starting on Sun03/01/25 at 1749, Until Sun03/03/25 at 2030, Nausea/Emesis, Routine Given 03/02/2025 11:58 AM CDT 4 mg oxyCODONE (ROXICODONE) tablet 5 mg 5 mg, Oral, EVERY 6 HOURS PRN, Starting on Sun03/02/25 at 1229, Until Sun03/03/25 at 2030, Pain (See admin instructions), Routine Given 03/03/2025 2:02 PM CDT 5 mg Given 03/02/2025 12:51 PM CDT 5 mg sodium chloride 0.9 % flush bag 25 mL 25 mL, IV, SEE ADMIN INSTRUCTIONS, Starting on Sun03/01/25 at 1748, Until Sun03/03/25 at 2030, Routine sodium chloride flush injection 10 mL 10 mL, IV, EVERY 12 HOURS (BlD), First dose on Sun03/01/25 at 2100, Until Discontinued, Routine Given 03/03/2025 9:16 AM CDT 10 mL Given 03/02/2025 10:07 PM CDT 10 mL Given 03/02/2025 8:29 AM CDT 10 mL sodium chloride flush injection 10 mL 10 mL, IV, SEE ADMIN INSTRUCTIONS, Starting on Sun03/01/25 at 1748, Until Sun03/03/25 at 2030, Routine Given 03/02/2025 11:59 AM CDT 10 mL Given 03/02/2025 9:25 AM CDT 10 mL documented in this encounter Active and Recently Administered Medications Times are shown in CDT. Scheduled Medication Order 03/01/2025 03/02/2025 03/03/2025 cefTRIAXone (ROCEPHIN) 2,000 mg in sodium chloride 0.9% 50 mL IVPB (MBP) 2,000 mg, IV, EVERY 24 HOURS (DAILY), First dose on Sun03/02/25 at 0900, Until Discontinued, Routine, Antibiotic Indication: Urinary Tract Infection(UTI) / Infection 0838 (New Bag - Provider: JANIE Lucio)0908 (Stopped - Provider: JANIE Lucio)1200 (Canceled Entry - Provider: JANIE Lucio - Comment: Wrong medication documented, see Mar for correction.) 0916 (New Bag - Provider: JANIE Lucio)0945 (Stopped - Provider: JANIE Lucio) dextrose 5 % in water 250 mL flush bag 25 mL 25 mL, IV, SEE ADMIN INSTRUCTIONS, Starting on Sun03/01/25 at 1748, Until Sun03/03/25 at 2030, Routine enoxaparin (LOVENOX) injection 40 mg(Linked Group 1) 40 mg, subCUT, EVERY 24 HOURS, First dose on Sun03/02/25 at 0900, Until Discontinued, Routine, Indication: Prophylaxis of VTE, Dose to be adjusted per facility protocol? Yes, On hold since Sun03/02/2025 at 1808 until manually unheld 08 (Given - Provider: JANIE Lucio)1808 (Held by Provider - Provider: Mela Flores MD - Reason: Lab results / vitals) 0900 (Automatically Held - Provider: Mela Flores MD)2030 (Order Unhold - Provider: PROVIDER, DISCHARGE PATIENT) famotidine (PEPCID) tablet 20 mg 20 mg, Oral, TWO TIMES DAILY, First dose on Sun03/03/25 at 1200, Until Discontinued, Routine 1200 (Not Given - Provider: Drea Eldridge RN - Reason: Other - See Comment - Comment: standard admin times) lactated ringers bolus solution 1,000 mL (COMPLETED) 1,000 mL, IV, ONE TIME ONLY, 1 dose, On Sun03/01/25 at 1645, at 2,000 mL/hr, Administer over 30 Minutes, Routine 1657 (New Bag - Provider: Moris Bernal RN)1727 (Stopped - Provider: Moris Bernal RN) LORazepam (ATIVAN) tablet 0.5 mg (COMPLETED) 0.5 mg, Oral, ONE TIME ONLY, 1 dose, On Sun03/01/25 at 1745, Routine 0442 (Given - Provider: Ana Laura Weiss RN) LORazepam (ATIVAN) tablet 0.5 mg (COMPLETED) 0.5 mg, Oral, ONE TIME ONLY, 1 dose, On Sun03/02/25 at 0515, Routine 0512 (Given - Provider: Ana Laura Weiss RN) morphine 4 mg/mL injection 2 mg (COMPLETED) 2 mg, IV, ONE TIME ONLY, 1 dose, On Sun03/02/25 at 0515, Routine 0511 (Given - Provider: Ana Laura Weiss RN) morphine 4 mg/mL injection 4 mg (COMPLETED) 4 mg, IV, ONE TIME ONLY, 1 dose, On Sun03/01/25 at 1645, Routine 1657 (Given - Provider: Moris Bernal RN) naloxone (NARCAN) 0.4 mg/mL injection 0.1-0.4 mg 0.1-0.4 mg, IV, SEE ADMIN INSTRUCTIONS, Starting on Sun03/01/25 at 1748, Until Sun03/03/25 at 2030, Routine ondansetron (ZOFRAN) 4 mg/2 mL injection 4 mg (COMPLETED) 4 mg, IV, ONE TIME ONLY, 1 dose, On Sun03/01/25 at 1245, Routine 0305 (Given - Provider: Ana Laura Weiss RN) sodium chloride 0.9 % flush bag 25 mL 25 mL, IV, SEE ADMIN INSTRUCTIONS, Starting on Sun03/01/25 at 1748, Until Sun03/03/25 at 2030, Routine sodium chloride flush injection 10 mL 10 mL, IV, EVERY 12 HOURS (BlD), First dose on Sun03/01/25 at 2100, Until Discontinued, Routine 2243 (Given - Provider: Ana Laura Weiss RN) 0829 (Given - Provider: JANIE Lucio)2207 (Given - Provider: Dori Robbins RN) 0916 (Given - Provider: JANIE Lucio) sodium chloride flush injection 10 mL 10 mL, IV, SEE ADMIN INSTRUCTIONS, Starting on Sun03/01/25 at 1748, Until Sun03/03/25 at 2030, Routine 0925 (Given - Provider: JANIE Lucio)1159 (Given - Provider: JANIE Lcuio) Continuous Medication Order 03/01/2025 03/02/2025 03/03/2025 lactated ringers infusion (CANCELED) IV, at 100 mL/hr, CONTINUOUS, Starting on Sun03/01/25 at 1800, Until Sun03/02/25 at 1648, Routine 2317 (New Bag - Provider: Ana Laura Weiss RN) 0925 (Restarted - Provider: JANIE Lucio)1200 (New Bag - Provider: JANIE Lucio)1545 (Stopped - Provider: JANIE Lucio - Comment: PIV went bad)1759 (Stopped - Provider: Drea Eldridge RN - Comment: [Order ends at this time. Document the following action when infusion is complete: Stopped]) PRN Medication Order 03/01/2025 03/02/2025 03/03/2025 acetaminophen (TYLENOL) tablet 650 mg 650 mg, Oral, EVERY 6 HOURS PRN, Starting on Sun03/01/25 at 1748, Until Sun03/03/25 at 2030, Other (See Comment), See admin instructions, Routine 2238 (Feeding Started - Provider: Ana Laura Weiss RN) 0823 (Given - Provider: JANIE Lucio)181 (Given - Provider: JANIE Lucio) 0924 (Given - Provider: JANIE Lucio) morphine 4 mg/mL injection 2 mg (COMPLETED) 2 mg, IV, ONE TIME PRN, 1 dose, Starting on Sun03/01/25 at 1750, Until Sun03/01/25 at 1945, Pain, Break-Through, Routine 1945 (Given - Provider: Moris Bernal RN) ondansetron (ZOFRAN) 4 mg/2 mL injection 4 mg 4 mg, IV, EVERY 6 HOURS PRN, Starting on Sun03/01/25 at 1749, Until Sun03/03/25 at 2030, Nausea/Emesis, Routine 1013 (Not Given - Provider: JANIE Lucio - Reason: Patient condition)1158 (Given - Provider: JANIE Lucio) oxyCODONE (ROXICODONE) tablet 5 mg 5 mg, Oral, EVERY 6 HOURS PRN, Starting on Sun03/02/25 at 1229, Until Sun03/03/25 at 2030, Pain (See admin instructions), Routine 1251 (Given - Provider: JANIE Lucio) 1402 (Given - Provider: JANIE Lucio) Linked Groups Order Group 1: enoxaparin (LOVENOX) injection 40 mgJump to med 40 mg, subCUT, EVERY 24 HOURS, First dose on Sun03/02/25 at 0900, Until Discontinued, Routine, Indication: Prophylaxis of VTE, Dose to be adjusted per facility protocol? Yes, On hold since Sun03/02/2025 at 1808 until manually unheld And Place Intermittent Pneumatic Compression Device (CANCELED) Routine, ONGOING, Starting on 03/01/25 at 1750, Until Specified, Where: [facility], If calf circumference exceeds 26 inches, contact physician for alternative therapy order. Intermittent pneumatic compression devices should be utilized at least 18 hours per day. documented in this encounter Additional Health Concerns Assessment Noted Time PHQ-9 Depression Total Score: 4 03/01/20 25 11:00 PM CDT documented as of this encounter
--- OUTSIDE RECORDS SUMMARY | 2025-03-01 16:18 | XMS_ITS | Encounter Summary ---
Author Organization [facility] Address [address] [place] [address] Care Team Providers Care Service Learning Coordinator Name Role Phone Unavailable Primary Care Provider Unavailabl e Reason for Visit * Reason Comments Flank Pain Vomiting Right flank pain, he maturia, and vomiting. Patient is 15 weeks . Patient sent from [place]. * Auth/Cert (Routine) Specialty Diagnoses / Procedures Referred By Contac t Referred To Contact Obstetrics and Gynecology Diagnoses Right flank pain GI Bleed Brigido Hines MD [address] [place] [phone] Phone: tel: fax: [address] Gynecology [address] [place] [phone] Phone: tel: fax: Referral ID Status Reason Start Date Expiration Date Visits Re quested Visits Authorized [id number] 1 1 Encounter Details Date Type Department Care Team (Latest Contact Info) Description 03/01/2025 4:18 PM CDT - 03/03/2025 6:31 PM CDT Hospital Encounter [facility] 5B Gynecology [address] [place] [phone] May Dobbins MD [facility] [place] [address] Brigido Hines MD [address] [place] [phone] Mela Flores MD [address] [place] [address] Acute pyelonephritis Discharge Disposition: Home or Self [...] Flores MD - 03/03/2025 5:40 PM CDT [facility]- Discharge Summary eHmalatha De La Torre 19 y.o. female 2005 CSN: [id number] Date of Admission: 03/01/2025 Date of Discharge: [...] days Follow up with Consultants: With OB- Enrollment Processor in 1 weeks. Discharge Condition: improved to baseline Primary Discharge Diagnosis: Acute pyelonephritis Other Active medical issues also addressed during this admission: Active Hospital Problems Diagnosis 15 weeks gestation of Intractable vomiting with nausea Acute pyelonephritis Morbid obesity with body mass index of 40.0-49.9 (CMS/HCC) Resolved Hospital Problems No resolved problems to display. HOSPITAL COURSE: Please see H and P for full details on admission, symptoms and initial care. Hemalatha De La Torre is a 19 y.o. female who is being admitted for further evaluation of vomiting and flankpain. She is a direct admit from [facility] ED. She presented to outside facility complaining of nausea, vomiting and right flank pain. She was found to have a urinary tract infection, leukocytosis of 13.2, ultrasound renal was unremarkable. She was given IV fluids, analgesics, antiemeticsand Rocephin. She is being transferred to [facility] for higher level of care. Took over [...] vomiting for more than 24 hours now. In case of recurrence of flank pain, nausea or vomiting, fever-the patient is advised to seek medical attention and come back to the emergency room. She verbalized understanding. -Advised to eat yogurt with antibiotics. Also check with OB and start probiotics which is safe in . She verbalized understanding. PCP COMMUNICATION : No primary care provider on file. via [employer] communication MEDICATION CHANGES (significant): See below MEDICATION [...] mg by mouth daily. Refills: 0 VIT 44-SUHX-MDFYO-DSS ORAL Take by mouth. Refills: 0 Where to Get Your Medications These medications were sent to [id number] - [place], [place] - [address] [facility] [address], [facility] [phone] Hours: M-F [phone] Sat [phone] Sun [phone] cefdinir 300 mg capsule famotidine 20 mg [...] (bed zeroed will verify with standing) (03/01/25 4673) General: alert, in no distress Neurologic: Grossly [...] Mccann RN - 03/03/2025 11:59 AM CDT Cyn Discharge Instructions Discharge & Transfer patient to: Home Symptoms/Diagnosis: Acute pyelonephritis Procedures Performed, if any: 03/02 1641 Note By: Kathrin Martinez Follow up PCP Your physician, No primary care provider on file., has been notified of this hospitalization. Follow-up: You must follow up with No primary care provider on file. in 3-5 days. Follow up consultants With DOOR PERSON as scheduled on March 06. No future appointments. If the office does not reach you to make a follow up appointment, please call [phone]. Activity level: up as tolerated DIET: DIET GENERAL Effective Now Follow up in the Emergency Room For any recurrence or worsening of admission concerns, chest pain, palpitations, shortness of breath, coughing blood, nausea, vomiting, diarrhea, pain, fever, chills, bleeding, bloody or tarry stools, change to urine or bowel output, Contact hospitalist office [phone] for questions if patients are discharged by [facility]. On 5B???..We care about Your care!!! Our [...] be sent through Care Everywhere. * Pyelonephritis (Citizen Of [place]) * : Weeks 14 to 18 (Citizen Of [place]) * : When to Call (Up to 20 Weeks): General Info (Citizen Of [place]) * Cefdinir (Citizen Of [place]) * Famotidine (Citizen Of [place]) documented in this encounter Medications at Time [...] by mouth daily. vits15/iron/folic /dss ( VIT 88-MTHF-VTGIC-DSS ORAL) Take by mouth. documented as of [...] patient stated that she may come to [facility] in [place] as she forgot her purse here. I have spoken with yoko Hairston over the phone and advised that it would be in her best interest to go to the nearestemergency room instead of driving to [facility] in [place] which is almost 90 minutes away.He verbalized [...] included. Your life is our life's work [facility] Hospitalist/Hospital Medicine Progress Note LOS: 1 day Room/Bed: 5162/01 Patient name: Hemalatha De La Torre Date of : 2005 HOSPITAL COURSE SUMMARY: Hemalatha De La Torre is a 19 y.o. female who is being admitted for further evaluation of vomiting and flankpain. She is a direct admit from [facility] ED. She presented to outside facility complaining of nausea, vomiting and right flank pain. She was found to have a urinary tract infection, leukocytosis of 13.2, ultrasound renal was unremarkable. She was given IV fluids, analgesics, antiemeticsand Rocephin. She is being transferred to [facility] for higher level of care. Took over patient's care today 03/02: Nausea and vomiting improved. Remains on IV Rocephin. OB consulted. - Start oxycodone as needed for pain along with Tylenol. Consultants: IP CONSULT TO DIGITAL MEDIA BUYER IP CONSULT TO IV TEAM SUBJECTIVE: The [...] (bed zeroed will verify with standing) (03/01/25 6533) EXAM: General: alert, in no distress Neurologic: [...] 2 mg, IV, ONE time only, Kristy Rdz FNP, 2mg at 03/02/25 0511 [COMPLETED] LORazepam (ATIVAN) tablet 0.5 mg, 0.5 mg, Oral, ONE time only, Kristy Rdz FNP, 0.5 mg at 03/02/25 0512 oxyCODONE (ROXICODONE) tablet 5 mg, 5 mg, Oral, every 6 hours PRN, Mela Flores MD, 5 mg at 03/02/25 1251 [COMPLETED] ondansetron (ZOFRAN) 4 mg/2 mL injection 4 mg, 4 mg, IV, ONE time only, Carito Zapien, CHANGE PERSON, 4 mg at 03/02/25 0305 [COMPLETED] LORazepam [...] Brigido Hines MD, 2 mg at 03/01/25 194 cefTRIAXone (ROCEPHIN) 2,000 mg in sodium chloride 0.9% 50 mL IVPB (MBP), 2,000 mg, IV, every 24 hours (daily), Brigido Hines MD, Stopped at 03/02/25 0908 [DISCONTINUED] lactated ringers infusion, , IV, continuous, Brigido Hines MD, Stopped at 03/02/25 7493 Primary discharge diagnosis: Acute pyelonephritis Other active medical issues also addressed during this admission: Active Hospital Problems Diagnosis 15 weeks gestation of Intractable vomiting with nausea Acute pyelonephritis Morbid obesity with body mass index of 40.0-49.9 (CMS/HCC) Resolved Hospital Problems No resolved problems to [...] to keep Hgb >7. Promptly page GI english as a second language instructor if patient experiences any brisk GI bleeding, especially if accompanied by hemodynamic compromise. Cosigned by Mraiano Nielsen MD at 03/02/2025 5:06 PM CDT * Mayuri Gamble PHARMACIST - 03/01/2025 6:00 PM CDT RX ANTICOAG MONITORING ORDERS Pharmacy to order, review, and report clinically significant changes in lab per [facility] Anticoagulation Protocol as follows: Orders for dosing changes and follow-up labs will be signed ???Per Protocol?? in [facility]. The name ofthe provider signed on the follow-up orders for cosignature will be assigned as follows: Orders placed by members of the Chief Jailer or Hospitalist physician groups: If the original [...] order appropriate labs as indicated by the [facility] Anticoagulation Monitoring policy located on [employer] intranet, unless already ordered. The medications that [...] This policy is in compliance with the [facility] National Patient Safety Goal 3E and authorized by the [facility] Pharmacy and Therapeutics Committee. Cosigned by Brigido Hines MD at 03/01/2025 6:05 PM CDT documented in this encounter H&P Notes * Brigido Hines MD - 03/01/2025 5:54 PM CDT [facility] Hospitalist-Brigido Hines MD History and physical- date of admission: 03/01/2025 Patient name: Hemalatha De La Torre Date of : 2005 CSN number: [id number] PCP: No primary care provider on file. Chief Complaint: Chief Complaint Patient presents with Flank Pain Vomiting Right flank pain, hematuria, and vomiting. Patient is 15 weeks . Patient sent from [place]. History of present illness: Pt seen and examined at the bedside Hemalatha De La Torre is a 19 y.o. female who is being admitted for further evaluation of vomiting and flankpain. She is a direct admit from [facility] ED. She presented to outside facility complaining of nausea, vomiting and right flank pain. She was found to have a urinary tract infection, leukocytosis of 13.2, ultrasound renal was unremarkable. She was given IV fluids, analgesics, antiemeticsand Rocephin. She is being transferred to [facility] for higher level of care. Past medical history: Past Medical History: Diagnosis Date Depression Active chronic medical issues that patient has been followed for as outpatient: Patient Active Problem List Diagnosis Code 15 weeks gestation of Z3A.15 Acute right flank pain R10.9 Intractable vomiting with nausea R11.2 Acute cystitis with hematuria N30.01 Acute pyelonephritis N10 Morbid obesity with body mass index of 40.0-49.9 ([facility]/HCC) E66.01 Past surgical history: Past Surgical History: Procedure Laterality Date HX KNEE SURGERY Current medications: Prior to Admission Medications Prescriptions Last Dose Informant Patient Reported? Taking? escitalopram oxalate (LEXAPRO) 5 mg tablet Yes No Sig: Take 5 mg by mouth daily. vits15/iron/folic/dss ( VIT 84-ZCIP-PCSEO-DSS ORAL) Yes No Sig: Take by mouth. [...] data in the 24 hours ending 03/01/25 3475 Last documented weight: Weight: 129.3 kg (285 [...] with body mass index of 40.0-49.9 (CMS/HCC) Resolved Hospital Problems No resolved problems to [...] Pharmacologic Prophylaxis: enoxaparin (LOVENOX) injection 40 mg [[id number]] Current diet : DIET CLEAR LIQUID Code Status: Full Code Admission status -admit to telemetry This patient is admitted as inpatient. I have a reasonable expectation that this patient requires hospital care that crosses 2 midnights supported by complex medical factors documented in the medicalrecord. Brigido Hines MD 03/01/2025 5:55 PM documented in this encounter Procedure Notes * Juan Kathrin - 03/02/2025 4:41 PM CDT VASCULAR ACCESS TEAM Peripheral IV insertion PATIENT NAME: Hemalatha De La Torre DATE OF : 2005 CSN: [id number] DATE: 03/02/2025 Room: [address] [place] [address] Admit Date: 03/01/2025 Hospital day: LOS: 1 [...] 08/18/25. The patient has received care from Suzanne Spear NP The is complicated by new diagnosis [...] 2 mg, IV, ONE time only, Kristy Rdz CHANGE PERSON, 2mg at 03/02/25 0511 [COMPLETED] LORazepam (ATIVAN) tablet 0.5 mg, 0.5 mg, Oral, ONE time only, Kristy Rdz FNP, 0.5 mg at 03/02/25 0512 oxyCODONE (ROXICODONE) tablet 5 mg, 5 mg, Oral, every 6 hours PRN, Mela Flores MD [COMPLETED] ondansetron (ZOFRAN) 4 mg/2 mL injection 4 mg, 4 mg, IV, ONE time only, Carito Zapien CHANGE PERSON, 4 mg at 03/02/25 0305 [COMPLETED] lactated [...] Brigido Hines MD, 2 mg at 03/01/25 194 cefTRIAXone (ROCEPHIN) 2,000 mg in sodium chloride 0.9% 50 mL IVPB (MBP), 2,000 mg, IV, every 24 hours (daily), Brigido Hines MD, Stopped at 03/02/25 0908 [DISCONTINUED] sodium chloride 0.9 % bolus solution 500 mL, 500 mL, IV, ONE time only, Carito Zapien, CHANGE PERSON [DISCONTINUED] ketorolac (TORADOL) injection 15 mg, 15 mg, IV, ONE time only, Carito Zapien, CHANGE PERSON Allergies: No Known Allergies Review of Systems: [...] CULTURE. Procedure Abnormality Status --------- ------ BLOOD CULTURE[[id number]] In process Please view results for these tests on the individual orders. BLOOD CULTURE Collection Time: 03/01/25 4:51 PM Specimen: Peripheral; Blood Narrative The following orders were created for panel order BLOOD CULTURE. Procedure Abnormality Status --------- ------ BLOOD CULTURE[[id number]] In process Please view results for these tests on the individual orders. LACTIC ACID Collection Time: 03/01/25 4:51 PM Result Value Ref Range LACTIC ACID 1.2 <=2.0 mmol/L US OB LTD 1 OR MORE FETUSES Collection Time: 03/01/25 6:[address] [facility] OBUS Pat. Name: HEMALATHA DE LA TORRE Study Date: 03/01/2025 5:39pm Pat. NO: [id number] Referring MD: Site: [facility] Composition Floor Layer: Nataliia Mckeon : 2005 Age: 19 INDICATION Other Specified Complications of viability scan through the ER CODING Diagnoses Z3A.15: Weeks of gestation Z3A.15: Weeks of gestation O26.892: Other specified related conditions Procedures 32749: Ultrasound, uterus, real time with image documentation, [...] Narrative THIS IS A PRELIMINARY REPORT FROM AD PROCEDURE INFORMATION: Exam: MR Abdomen Without Contrast [...] 2. No evidence of appendicitis. DICTATED BY: Gary Cia on Sunday03/02/2025 06:35AM CDT CBC WITH DIFFERENTIAL [...] 0 - 20 mm/Hr Narrative Tube Lot: #[id number] Exp Date: 08/19/2026 QC1 LOT [id number] EXP.08/24/2025 QC2 LOT [id number] EXP.08/24/2025 OCCULT BLOOD, GASTRIC FLUID Collection Time: 03/01/25 9:10 AM Result Value Ref Range OCCULT BLOOD, GASTRIC FLUID Positive (A) Negative PH, GASTRIC FLD <1 (L) 2 - 4 Narrative Lot [id number] [id number] Developer [id number] exp 042 URINALYSIS WITH [...] in this encounter ED Notes * Moris Bernal, RN - 03/01/2025 9:09 PM CDT Attempted to call report to , report sent, transport arranged * Moris Bernal RN - 03/01/2025 5:38 PM CDT MRI form faxed * BrandenCarito ji CHANGE PERSON - 03/01/2025 12:34 PM CDT Pt was evaluated in triage at 12:34 PM with complaint of right flank pain. Pt is a 19 y.o. female who presented today with a complaint of right flank pain that started 0 400.Patient is a G2, P0 that is approximately 15 weeks 5 days gestation. Pain reportedly woke her up. She was evaluated at [place] emergency department and given IV fluids and pain medication. Discharged home. At 0 630 patient returned to the ER and it was recommended she transfer to [facility] for further evaluation via private vehicle. Significant [...] may have been created by an artificial bladder cleaner software. Effort has been done to assure accuracy of bladder cleaner. Any obvious errors or omissions should be [...] (not recorded), Temp: 98.6 ??F (37 ??C) (03/01/251223), Temp src: Oral (03/01/251223), SpO2: 97 % (03/01/251223), Height: 5' 6 (167.6 cm) (03/01/25 122), Weight: 129.3 kg (285 lb) (03/01/25 122), BMI (Calculated): (!) 46.03 (03/01/25 1224) No LMP recorded. Patient is . Physical [...] had persistent vomiting until she went to [facility] ED and received antiemetics, IV fluids [...] injection 4 mg 4 mg IV Given 03/01/20251944 CDT morphine 4 mg/mL injection 2 mg [...] documented in this encounter Miscellaneous Notes * Query - Mela Flores MD - 03/06/2025 12:29 PM CDT Answer: Remains suspected or probable at the time of discharge * Gen AI ED Handoff - GENERATIVE [...] documented in this encounter Plan of Treatment Scheduled Orders Name Type Priority Associated Diagnoses Orde r Schedule CBC WITH DIFFERENTIAL Lab Routine Acute pyelonephritis [...] MORE FETUSES Stat 03/01/2025 6:08 PM CDT BLOOD CULTURE Stat 03/01/2025 4:51 PM CDT LACTIC ACID Stat 03/01/2025 4:51 PM CDT BLOOD CULTURE Stat 03/01/2025 4:51 PM CDT BLOOD CULTURE Stat 03/01/2025 4:42 PM CDT BLOOD CULTURE Stat 03/01/2025 4:42 PM CDT CBC WITH DIFFERENTIAL Stat 03/01/2025 1:53 PM CDT LIPASE Stat 03/01/2025 1:53 PM CDT COMPREHENSIVE METABOLIC PANEL Stat 03/01/2025 1:53 PM CDT US RENAL AND BLADDER Stat 03/01/2025 1:16 PM CDT documented in this encounter Results * TELEMETRY REPORT (03/04/2025 9:56 AM CDT) us Provider Scanning ECG ORDERABLES Final Result * (ABNORMAL) HEMOGLOBIN AND HEMATOCRIT (03/03/2025 2:12 PM CDT) HEMOGLOBIN 9.8(L) 12.0 - 16.0 g/dL 03/03/2025 2:39 PM CDT [facility] HEMATOCRIT 29.8(L) 36.0 - 46.0 % 03/03/2025 2:39 PM T [facility] Blood Venipuncture / Unknown 03/03/2025 2:12 PM CDT 03/03/2025 2:26 PM CDT Mela Flores MD HEMATOLOGY ORDERABLES Final Result [facility] CLIA # [id number] [facility] [address] * (ABNORMAL) BASIC METABOLIC PANEL (03/03/2025 4:25 AM CDT) SODIUM 136 136 - 145 mmol/L 03/03/2025 5:25 AM T [facility] POTASSIUM 4.0 3.5 - 5.1 mmol/L 03/03/2025 5:25 AM T [facility] Comment:Moderate hemolysis p resent. Can cause significant falsely elevated result. Redraw if indicated. CHLORIDE 105 98 - 107 mmol/L 03/03/2025 5:25 AM T [facility] CO2 21(L) 22 - 29 mmol/L 03/03/2025 5:25 AM T [facility] CALCIUM 8.9 8.6 - 10.0 mg/dL 03/03/2025 5:25 AM CDT [facility] BUN 7 6 - 20 mg/dL 03/03/2025 5:25 AM CDT [facility] CREATININE 0.62 0.51 - 0.95 mg/dL 03/03/2025 5:25 AM T [facility] GLUCOSE 93 74 - 99 mg/dL 03/03/2025 5:25 AM T [facility] GFR >60 >=60 mL/min/1.7 3 sq meter 03/03/2025 5:25 AM T [facility] Comment:eGFR calculated with 2020 CKD-EPI equation. Vegetarian diet, extremely high or low muscle mass, and may affect results. Cystatin C with Glomerular Filtration Rate is a suitable alternative for these patients. ANION GAP 10 9 - 20 mmol/L 03/03/2025 5:25 AM T [facility] Blood Venipuncture / Unknown 03/03/2025 4:25 AM CDT 03/03/2025 4:48 AM CDT us Mela Flores MD CHEMISTRY ORDERABLES F inal Result [facility] CLIA # [id number] [address] [place] [address] * (ABNORMAL) CBC WITH DIFFERENTIAL (03/03/2025 4:25 AM CDT) WBC 9.6 4.5 - 11.0 K/uL 03/03/2025 5:00 AM [facility] RBC 3.50(L) 4.20 - 5.40 M/uL 03/03/2025 5:00 AM [facility] HEMOGLOBIN 9.6(L) 12.0 - 16.0 g/dL 03/03/2025 5:00 AM [facility] HEMATOCRIT 30.3(L) 36.0 - 46.0 % 03/03/2025 5:00 AM [facility] MCV 86.6 84.0 - 103.0 fL 03/03/2025 5:00 AM [facility] MCH 27.4 27.0 - 34.0 pg 03/03/2025 5:00 AM [facility] MCHC 31.7 30.0 - 35.0 g/dL 03/03/2025 5:00 AM [facility] PLATELETS 141 140 - 440 K/uL 03/03/2025 5:00 AM [facility] MPV 11.5 8.9 - 12.8 fL 03/03/2025 5:00 AM [facility] RDW 18.6(H) 11.0 - 14.5 % 03/03/2025 5:00 AM [facility] RDW-STDEV 58.9(H) 37.0 - 54.0 fL 03/03/2025 5:00 AM [facility] NEUTROPHILS 70 42 - 75 % 03/03/2025 5:00 AM [facility] LYMPHOCYTES 21(L) 24 - 44 % 03/03/2025 5:00 AM [facility] MONOCYTES 8 2 - 10 % 03/03/2025 5:00 AM [facility] EOSINOPHILS 1 0 - 7 % 03/03/2025 5:00 AM [facility] BASOPHILS 0 0 - 1 % 03/03/2025 5:00 AM [facility] IMMATURE GRANULOCYTES 1 0 - 2 % 03/03/2025 5:00 AM [facility] NEUTROPHIL ABSOLUTE 6.67 2.00 - 8.00 K/uL 03/03/2025 5:00 AM [facility] LYMPHOCYTE ABSOLUTE 2.03 1.20 - 4.00 K/uL 03/03/2025 5:00 AM [facility] MONOCYTE ABSOLUTE 0.73(H) 0.10 - 0.60 K/uL 03/03/2025 5:00 AM [facility] EOSINOPHIL ABSOLUTE 0.07 0.00 - 0.70 K/uL 03/03/2025 5:00 AM [facility] BASOPHILS ABSOLUTE 0.02 0.00 - 0.20 K/uL 03/03/2025 5:00 AM [facility] IMMATURE GRANULOCYTES ABSOLUTE 0.05 0.00 - 0.10 K/uL 03/03/2025 5:00 AM [facility] SMEAR REVIEWED: NA - Not Applicable 03/03/2025 5:00 AM [facility] Blood Venipuncture / Unknown 03/03/2025 4:25 AM CDT 03/03/2025 4:48 AM CDT Mela Flores MD HEMATOLOGY ORDERABLES Final Result [facility] CLIA # [id number] [address] [place] [address] * (ABNORMAL) BASIC METABOLIC PANEL (03/02/2025 6:26 AM CDT) SODIUM 138 136 - 145 mmol/L 03/02/2025 7:23 AM [facility] POTASSIUM 3.9 3.5 - 5.1 mmol/L 03/02/2025 7:23 AM [facility] CHLORIDE 105 98 - 107 mmol/L 03/02/2025 7:23 AM [facility] CO2 21(L) 22 - 29 mmol/L 03/02/2025 7:23 AM [facility] CALCIUM 9.0 8.6 - 10.0 mg/dL 03/02/2025 7:23 AM [facility] BUN 7 6 - 20 mg/dL 03/02/2025 7:23 AM [facility] CREATININE 0.89 0.51 - 0.95 mg/dL 03/02/2025 7:23 AM [facility] GLUCOSE 100(H) 74 - 99 mg/dL 03/02/2025 7:23 AM [facility] GFR >60 >=60 mL/min/1.7 3 sq meter 03/02/2025 7:23 AM [facility] Comment:eGFR calculated with 2020 CKD-EPI equation. Vegetarian diet, extremely high or low muscle mass, and may affect results. Cystatin C with Glomerular Filtration Rate is a suitable alternative for these patients. ANION GAP 12 9 - 20 mmol/L 03/02/2025 7:23 AM [facility] Blood Venipuncture / Unknown 03/02/2025 6:26 AM CDT 03/02/2025 6:34 AM CDT Brigido Hines MD CHEMISTRY ORDERABLES Final Resul t Performing Organization Address [facility] de Phone Number [facility] CLIA # [id number] [address] [address] * MAGNESIUM LEVEL (03/02/2025 6:26 AM CDT) Pathologist [facility] MAGNESIUM 1.6 1.6 - 2.6 mg/dL 03/02/2025 7:23 AM CDT [facility] Blood Venipuncture / Unknown 03/02/2025 6:26 AM CDT 03/02/2025 6:34 AM CDT Brigido Hines MD CHEMISTRY ORDERABLES Final Resul t Performing Organization Address [facility] de Phone Number [facility] CLIA # [id number] [facility] [address] * (ABNORMAL) CBC WITH DIFFERENTIAL (03/02/2025 6:26 AM CDT) WBC 12.3(H) 4.5 - 11.0 K/uL 03/02/2025 6:39 AM CDT [facility] RBC 3.95(L) 4.20 - 5.40 M/uL 03/02/2025 6:39 AM CDT [facility] HEMOGLOBIN 10.9(L) 12.0 - 16.0 g/dL 03/02/2025 6:39 AM CDT [facility] HEMATOCRIT 33.7(L) 36.0 - 46.0 % 03/02/2025 6:39 AM CDT [facility] MCV 85.3 84.0 - 103.0 fL 03/02/2025 6:39 AM [facility] MCH 27.6 27.0 - 34.0 pg 03/02/2025 6:39 AM [facility] MCHC 32.3 30.0 - 35.0 g/dL 03/02/2025 6:39 AM [facility] PLATELETS 149 140 - 440 K/uL 03/02/2025 6:39 AM [facility] MPV 10.9 8.9 - 12.8 fL 03/02/2025 6:39 AM [facility] RDW 18.5(H) 11.0 - 14.5 % 03/02/2025 6:39 AM [facility] RDW-STDEV 57.8(H) 37.0 - 54.0 fL 03/02/2025 6:39 AM [facility] NEUTROPHILS 78(H) 42 - 75 % 03/02/2025 6:39 AM [facility] LYMPHOCYTES 13(L) 24 - 44 % 03/02/2025 6:39 AM [facility] MONOCYTES 8 2 - 10 % 03/02/2025 6:39 AM [facility] EOSINOPHILS 0 0 - 7 % 03/02/2025 6:39 AM [facility] BASOPHILS 0 0 - 1 % 03/02/2025 6:39 AM [facility] IMMATURE GRANULOCYTES 1 0 - 2 % 03/02/2025 6:39 AM [facility] NEUTROPHIL ABSOLUTE 9.61(H) 2.00 - 8.00 K/uL 03/02/2025 6:39 AM [facility] LYMPHOCYTE ABSOLUTE 1.63 1.20 - 4.00 K/uL 03/02/2025 6:39 AM [facility] MONOCYTE ABSOLUTE 0.92(H) 0.10 - 0.60 K/uL 03/02/2025 6:39 AM [facility] EOSINOPHIL ABSOLUTE 0.02 0.00 - 0.70 K/uL 03/02/2025 6:39 AM CDT [facility] BASOPHILS ABSOLUTE 0.02 0.00 - 0.20 K/uL 03/02/2025 6:39 AM CDT [facility] IMMATURE GRANULOCYTES ABSOLUTE 0.08 0.00 - 0.10 K/uL 03/02/2025 6:39 AM CDT [facility] SMEAR REVIEWED: NA - Not Applicable 03/02/2025 6:39 AM CDT [facility] Blood Venipuncture / Unknown 03/02/2025 6:26 AM CDT 03/02/2025 6:34 AM CDT us Brigido Hines MD HEMATOLOGY ORDERABLES Final Resu lt [facility] CLIA # [id number] [address] [address] [place] [address] * MRI ABDOMEN PELVIS WO CONTRAST (03/02/2025 [...] Pale to Dark Yellow 03/01/2025 7:37 PM CDT [facility] CLARITY UA Cloudy(A) Clear 03/01/2025 7:37 PM [facility] SPECIFIC GRAVITY UA 1.025 1.003 - 1.035 03/01/2025 7:37 PM CDT [facility] PH UA 5.5 5.0 - 8.0 03/01/2025 7:37 PM [facility] LEUKOCYTE ESTERASE UA 3+(A) Negative 03/01/2025 7:37 PM CDT [facility] NITRITE UA Negative Negative 03/01/2025 7:37 PM CDT [facility] PROTEIN UA Negative Negative 03/01/2025 7:37 PM [facility] GLUCOSE UA Negative Negative 03/01/2025 7:37 PM [facility] KETONES UA 3+(A) Negative 03/01/2025 7:37 PM [facility] UROBILINOGEN UA <2.0 <2.0 mg/dL 7:37 PM T [facility] BILIRUBIN UA Negative Negative 03/01/2025 7:37 PM CDT [facility] BLOOD UA Negative Negative 03/01/2025 7:37 PM [facility] WBC UA 11-25(A) 0 - 2 /hpf 03/01/2025 7:37 PM CDT [facility] RBC UA 0-2 0 - 2 /hpf 03/01/2025 7:37 PM [facility] BACTERIA UA 1+(A) Negative /hpf 03/01/2025 7:37 PM CDT [facility] EPITHELIAL CELLS, URINE 11-25(A) 0 - 5 /hpf 03/01/2025 7:37 PM CDT [facility] Urine URINE SPECIMEN OBTAINED BY CLEAN CATCH PROCEDURE / Unknown Collection / Unknown 03/01/2025 7:08 PM CDT 03/01/2025 7:14 PM CDT Carito Zapien CHANGE PERSON URINE ORDERABLES Final Result [facility] CLIA # [id number] [address] [place] [address] * US OB LTD 1 OR MORE FETUSES (03/01/2025 6:08 PM CDT) Anatomical Region Laterality Modality Pelvis Ultrasound 03/01/2025 5:39 PM CDT Narrative 03/01/2025 9:[address] [facility] OBUS ----- Pat. Name: HEMALATHA DE LA TORRE Study Date: 03/01/2025 5:39pm Pat. NO: [id number] Referring MD: Site: [facility] Composition Floor Layer: Nataliia Mckeon : 2005 Age: 19 ----- INDICATION ----- Other Specified Complications of viability scan through the ER CODING ----- Diagnoses Z3A.15: Weeks of gestation Z3A.15: Weeks of gestation O26.892: Other specified related conditions Procedures 55008: Ultrasound, uterus, real time with image documentation, [...] Findings Comment Intrauterine Limited examination Procedure Note Jhon Ricci II, MD - 03/01/2025 [place] LIMITED OBUS ----- Pat. Name:Lucy DE LA TORRE Date:03/01/2025 5:39pm Pat. NO: [id number] MD: [facility] Mckeon :2005Age:19 ----- INDICATION ----- Other Specified Complications of viability scanthrough the ER CODING ----- Diagnoses Z3A.15: Weeks of gestation Z3A.15: Weeks of gestation O26.892: Other specified relatedconditions Procedures 55185: Ultrasound, uterus, real time withimage documentation, limited one or more fetuses HISTORY ----- OB History 2. Para 0 METHOD ----- Transabdominal ultrasound examination ----- Monge . Number of fetuses: 1 DATING ----- LMP on:10/26/2024 GA by [email or web address] w + 0 d MICHELL by LMP:08/02/2025 Method of dating:based on stated MICHELL GA by prior [id number] w + 5 d MICHELL by prior assessment:08/18/2025 Assigned:based on stated MICHELL, selected on 03/01/2025 Assigned [id number] w + 5 d Assigned MICHELL:08/18/2025 GENERAL EVALUATION ----- Cardiac activity present. FHR 149 bpm. movements: visualized.Presentation: cephalic Placenta: anterior IMPRESSION ----- Findings Comment Intrauterine Limited examination May Dobbins MD VIVI basilio Result * BLOOD CULTURE (03/01/2025 4:51 PM CDT) BLOOD CULTURE No growth 03/06/2025 6:19 PM CDT [facility] Blood (Peripheral) Venipuncture / Unknown 03/01/2025 4:51 PM CDT 03/01/2025 4:57 PM CDT May Dobbins MD MICROBIOLOGY - GENER AL ORDERABLES Final Result Performing Organization Address [facility] Co de Phone Number [facility] CLIA # [id number] [address] [place] [address] * LACTIC ACID (03/01/2025 4:51 PM CDT) LACTIC ACID 1.2 <=2.0 mmol/L 03/01/2025 5:20 PM CDT [facility] Blood Venipuncture / Unknown 03/01/2025 4:51 PM CDT 03/01/2025 4:57 PM CDT May Dobbins MD CHEMISTRY ORDERABLES Final Result Performing Organization Address [facility] de Phone Number [facility] CLIA # [id number] [address] [place] [address] * BLOOD CULTURE (03/01/2025 4:42 PM CDT) BLOOD CULTURE No growth 03/06/2025 6:19 PM CDT [facility] Blood (Peripheral) Venipuncture / Unknown 03/01/2025 4:42 PM CDT 03/01/2025 4:57 PM CDT May Dobbins MD MICROBIOLOGY - GENER AL ORDERABLES Final Result Performing Organization Address [facility] Co de Phone Number [facility] CLIA # [id number] [address] [address] * LIPASE (03/01/2025 1:53 PM CDT) [facility] LIPASE 25 13 - 60 U/L 03/01/2025 2:34 PM CDT [facility] Blood Venipuncture / Unknown 03/01/2025 1:53 PM CDT 03/01/2025 1:58 PM CDT Carito Zapien CHANGE PERSON CHEMISTRY ORDERABLES Fi nal Result [facility] CLIA # [id number] [facility] [address] * (ABNORMAL) COMPREHENSIVE METABOLIC PANEL (03/01/2025 1:53 PM CDT) [facility] SODIUM 138 136 - 145 mmol/L 03/01/2025 2:34 PM CDT [facility] POTASSIUM 4.5 3.5 - 5.1 mmol/L 03/01/2025 2:34 PM CDT [facility] CHLORIDE 107 98 - 107 mmol/L 03/01/2025 2:34 PM CDT [facility] CO2 19(L) 22 - 29 mmol/L 03/01/2025 2:34 PM CDT [facility] CALCIUM 9.1 8.6 - 10.0 mg/dL 03/01/2025 2:34 PM CDT [facility] BUN 8 6 - 20 mg/dL 03/01/2025 2:34 PM CDT [facility] CREATININE 0.73 0.51 - 0.95 mg/dL 03/01/2025 2:34 PM CDT [facility] GLUCOSE 106(H) 74 - 99 mg/dL 03/01/2025 2:34 PM CDT [facility] TOTAL PROTEIN 6.3(L) 6.4 - 8.3 g/dL 03/01/2025 2:34 PM CDT [facility] ALBUMIN 3.4(L) 3.5 - 5.2 g/dL 03/01/2025 2:34 PM CDT [facility] BILIRUBIN TOTAL <0.2 0.0 - 1.0 mg/dL 03/01/2025 2:34 PM CDT [facility] ALKALINE PHOSPHATASE 115(H) 35 - 104 U/L 03/01/2025 2:34 PM CDT [facility] AST 23 10 - 35 U/L 03/01/2025 2:34 PM CDT [facility] ALT 34 <=35 U/L 03/01/2025 2:34 PM CDT [facility] GFR >60 >=60 mL/min/1.7 3 sq meter 03/01/2025 2:34 PM CDT [facility] Comment:eGFR calculated with 2020 CKD-EPI equation. Vegetarian diet, extremely high or low muscle mass, and may affect results. Cystatin C with Glomerular Filtration Rate is a suitable alternative for these patients. ANION GAP 12 9 - 20 mmol/L 03/01/2025 2:34 PM CDT [facility] Blood Venipuncture / Unknown 03/01/2025 1:53 PM CDT 03/01/2025 1:58 PM CDT Carito Zapien CHANGE PERSON CHEMISTRY ORDERABLES Fi nal Result [facility] CLIA # [id number] [facility] [address] * (ABNORMAL) CBC WITH DIFFERENTIAL (03/01/2025 1:53 PM CDT) [facility] WBC 17.1(H) 4.5 - 11.0 K/uL 03/01/2025 2:01 PM CDT [facility] RBC 3.94(L) 4.20 - 5.40 M/uL 03/01/2025 2:01 PM [facility] HEMOGLOBIN 10.9(L) 12.0 - 16.0 g/dL 03/01/2025 2:01 PM [facility] HEMATOCRIT 33.5(L) 36.0 - 46.0 % 03/01/2025 2:01 PM [facility] MCV 85.0 84.0 - 103.0 fL 03/01/2025 2:01 PM [facility] MCH 27.7 27.0 - 34.0 pg 03/01/2025 2:01 PM [facility] MCHC 32.5 30.0 - 35.0 g/dL 03/01/2025 2:01 PM [facility] PLATELETS 177 140 - 440 K/uL 03/01/2025 2:01 PM [facility] MPV 11.3 8.9 - 12.8 fL 03/01/2025 2:01 PM [facility] RDW 18.4(H) 11.0 - 14.5 % 03/01/2025 2:01 PM [facility] RDW-STDEV 57.1(H) 37.0 - 54.0 fL 03/01/2025 2:01 PM [facility] NEUTROPHILS 88(H) 42 - 75 % 03/01/2025 2:01 PM [facility] LYMPHOCYTES 7(L) 24 - 44 % 03/01/2025 2:01 PM [facility] MONOCYTES 4 2 - 10 % 03/01/2025 2:01 PM [facility] EOSINOPHILS 0 0 - 7 % 03/01/2025 2:01 PM [facility] BASOPHILS 0 0 - 1 % 03/01/2025 2:01 PM [facility] IMMATURE GRANULOCYTES 1 0 - 2 % 03/01/2025 2:01 PM [facility] NEUTROPHIL ABSOLUTE 15.09(H) 2.00 - 8.00 K/uL 03/01/2025 2:01 PM CDT [facility] LYMPHOCYTE ABSOLUTE 1.13(L) 1.20 - 4.00 K/uL 03/01/2025 2:01 PM CDT [facility] MONOCYTE ABSOLUTE 0.72(H) 0.10 - 0.60 K/uL 03/01/2025 2:01 PM CDT [facility] EOSINOPHIL ABSOLUTE 0.01 0.00 - 0.70 K/uL 03/01/2025 2:01 PM CDT [facility] BASOPHILS ABSOLUTE 0.03 0.00 - 0.20 K/uL 03/01/2025 2:01 PM CDT [facility] IMMATURE GRANULOCYTES ABSOLUTE 0.10 0.00 - 0.10 K/uL 03/01/2025 2:01 PM CDT [facility] SMEAR REVIEWED: NA - Not Applicable 03/01/2025 2:01 PM CDT [facility] Blood Venipuncture / Unknown 03/01/2025 1:53 PM CDT 03/01/2025 1:58 PM CDT Carito Zapien CHANGE PERSON HEMATOLOGY ORDERABLES F inal Result [facility] CLIA # [id number] [address] [place] [address] * US RENAL AND BLADDER (03/01/2025 1:16 [...] appearance of the kidneys and bladder. Carito Zapien [facility] US ORDERABLES Final R esult documented in [...] PRN, Starting on 03/01/25 at 1748, Until Sun03/03/25 at 2030, Other [...] over 30 Minutes, Routine New Bag 03/01/2025 4:57 PM CDT 1,000 mL 2000 [...] on Sun03/02/25 at 1229, Until Sun03/03/25 at 203, Pain (See admin instructions), Routine Given 03/03/2025 [...] since Sun03/02/2025 at 1808 until manually unheld 0829 (Given - Provider: JANIE Lucio)1808 (Held by [...] Provider: JANIE Lucio)1159 (Given - Provider: JANIE Lucio) Continuous Medication Order 03/01/2025 03/02/2025 03/03/2025 lactated [...] Until Sun03/01/25 at 1945, Pain, Break-Through, Routine 194 (Given - Provider: Moris Bernal RN) ondansetron [...] on Sun03/02/25 at 1229, Until Sun03/03/25 at 203, Pain (See admin instructions), Routine 1251 (Given [...] Compression Device (CANCELED) Routine, ONGOING, Starting on Sun03/01/25 at 1750, Until Specified, Where: [facility], [...]
--- OUTSIDE RECORDS SUMMARY | 2025-03-01 16:18 | XMS_ITS | Encounter Summary ---
Author Organization [facility] Address [address] [place] [address] Care Team Providers Care Electronic Equipment Installer Name Role Phone Unavailable Primary Care Provider Unavailabl e Reason for Visit * Reason Comments Flank Pain Vomiting Right flank pain, he maturia, and vomiting. Patient is 15 weeks . Patient sent from [place]. * Auth/Cert (Routine) Specialty Diagnoses / Procedures Referred By Contac t Referred To Contact Obstetrics and Gynecology Diagnoses Right flank pain GI Bleed Brigido Hines MD [address] [place] [phone] Phone: tel: fax: [address] Gynecology [address] [place] [phone] Phone: tel: fax: Referral ID Status Reason Start Date Expiration Date Visits Re quested Visits Authorized [id number] 1 1 Encounter Details Date Type Department Care Team (Latest Contact Info) Description 03/01/2025 4:18 PM CDT - 03/03/2025 6:31 PM CDT Hospital Encounter [address] Gyne[address] [place] [phone] May Dobbins MD [facility] [place] [address] Brigido Hines MD [facility] [place] [address] Mela Flores MD [address] [place] [phone] Acute pyelonephritis Discharge Disposition: Home or Self [...] Flores MD - 03/03/2025 5:40 PM CDT [facility] Hemalatha De La Torre 19 y.o. female 2005 CSN: [id number] Date of Admission: 03/01/2025 Date of Discharge: [...] days Follow up with Consultants: With OB- Cash Controller in 1 weeks. Discharge Condition: improved to baseline Primary Discharge Diagnosis: Acute pyelonephritis Other Active medical issues also addressed during this admission: Active Hospital Problems Diagnosis 15 weeks gestation of Intractable vomiting with nausea Acute pyelonephritis Morbid obesity with body mass index of 40.0-49.9 (CMS/FORMERLY [facility]) Resolved Hospital Problems No resolved problems to display. HOSPITAL COURSE: Please see H and P for full details on admission, symptoms and initial care. Hemalatha De La Torre is a 19 y.o. female who is being admitted for further evaluation of vomiting and flankpain. She is a direct admit from [facility] ED. She presented to outside facility complaining of nausea, vomiting and right flank pain. She was found to have a urinary tract infection, leukocytosis of 13.2, ultrasound renal was unremarkable. She was given IV fluids, analgesics, antiemeticsand Rocephin. She is being transferred to [facility] for higher level of care. Took [...] No primary care provider on file. via [facility] communication MEDICATION CHANGES (significant): See below MEDICATION [...] mg by mouth daily. Refills: 0 VIT [id number] ORAL Take by mouth. Refills: 0 Where to Get Your Medications These medications were sent to [id number] - [place], [place] - [address] [facility] [address], [facility] [id number] Hours: M-F [phone] Sat [phone] Sun [phone] cefdinir 300 mg capsule famotidine 20 mg [...] (bed zeroed will verify with standing) (03/01/25 7353) General: alert, in no distress Neurologic: Grossly [...] in 3-5 days. Follow up consultants With SENIOR INSIGHT MANAGER [employer]ATIONAL as scheduled on March 06. No future appointments. If the office does not reach you to make a follow up appointment, please call [phone]. Activity level: up as tolerated DIET: DIET GENERAL Effective Now Follow up in the Emergency Room For any recurrence or worsening of admission concerns, chest pain, palpitations, shortness of breath, coughing blood, nausea, vomiting, diarrhea, pain, fever, chills, bleeding, bloody or tarry stools, change to urine or bowel output, Contact hospitalist office [phone] for questions if patients are [facility] [place]. On 5B???..We care about Your care!!! Our [...] be sent through Care Everywhere. * Pyelonephritis (South African) * : Weeks 14 to 18 (South African) * : When to Call (Up to 20 Weeks): General Info (South African) * Cefdinir (South African) * Famotidine (South African) documented in this encounter Medications at Time [...] by mouth daily. vits15/iron/folic /dss ( VIT [id number]-DSS ORAL) Take by mouth. documented as of [...] patient stated that she may come to [facility] in [place] as she forgot her purse here. I have spoken with yoko Hairston over the phone and advised that it would be in her best interest to go to the nearestemergency room instead of driving to [facility] in [place] which is almost 90 minutes away.He verbalized [...] included. Your life is our life's work [facility] Hospitalist/Hospital Medicine Progress Note LOS: 1 day Room/Bed: [facility]/ Patient name: Hemalatha De La Torre Date of : 2005 HOSPITAL COURSE SUMMARY: Hemalatha De La Torre is a 19 y.o. female who is being admitted for further evaluation of vomiting and flankpain. She is a direct admit from [facility] ED. She presented to outside facility complaining of nausea, vomiting and right flank pain. She was found to have a urinary tract infection, leukocytosis of 13.2, ultrasound renal was unremarkable. She was given IV fluids, analgesics, antiemeticsand Rocephin. She is being transferred to [facility] for higher level of care. Took over patient's care today 03/02: Nausea and vomiting improved. Remains on IV Rocephin. OB consulted. - Start oxycodone as needed for pain along with Tylenol. Consultants: IP CONSULT TO ENERGY SYSTEMS ENGINEER IP CONSULT TO IV TEAM SUBJECTIVE: The [...] (bed zeroed will verify with standing) (03/01/25 3873) EXAM: General: alert, in no distress Neurologic: [...] mg, IV, ONE time only, Kristy Rdz, GLOST PLACER, 2mg at 03/02/25 0511 [COMPLETED] LORazepam (ATIVAN) tablet 0.5 mg, 0.5 mg, Oral, ONE time only, Kristy Rdz FNP, 0.5 mg at 03/02/25 0512 oxyCODONE (ROXICODONE) tablet 5 mg, 5 mg, Oral, every 6 hours PRN, Mela Flores MD, 5 mg at 03/02/25 1251 [COMPLETED] ondansetron (ZOFRAN) 4 mg/2 mL injection 4 mg, 4 mg, IV, ONE time only, Carito Zapien GLOST PLACER, 4 mg at 03/02/25 0305 [COMPLETED] LORazepam [...] obesity with body mass index of 40.0-49.9 ([facility]/FORMERLY [facility]) Resolved Hospital Problems No resolved problems to [...] to keep Hgb >7. Promptly page GI cartoon designer if patient experiences any brisk GI bleeding, especially if accompanied by hemodynamic compromise. Cosigned by Mariano Nielsen MD at 03/02/2025 5:06 PM CDT * Mayuri Gamble PHARMACIST - 03/01/2025 6:00 PM CDT RX ANTICOAG MONITORING ORDERS Pharmacy to order, review, and report clinically significant changes in lab per [facility] Anticoagulation Protocol as follows: Orders for dosing changes and follow-up labs will be signed ???Per Protocol?? in Epic. The name ofthe provider signed on the follow-up orders for cosignature will be assigned as follows: Orders placed by members of the [facility] or Hospitalist physician groups: If the original [...] order appropriate labs as indicated by the [facility] Anticoagulation Monitoring policy located on [facility] intranet, unless already ordered. The medications that [...] Safety Goal 3E and authorized by the [facility] Pharmacy and Therapeutics Committee. Cosigned by Brigido Hines MD at 03/01/2025 6:05 PM CDT documented in this encounter H&P Notes * Brigido Hines MD - 03/01/2025 5:54 PM CDT [facility] Hospitalist-Brigido Hines MD History and physical- date of admission: 03/01/2025 Patient name: Hemalatha De La Torre Date of : 2005 CSN number: [id number] PCP: No primary care provider on file. Chief Complaint: Chief Complaint Patient presents with Flank Pain Vomiting Right flank pain, hematuria, and vomiting. Patient is 15 weeks . Patient sent from [place]. History of present illness: Pt seen and examined at the bedside Hemalatha De La Torre is a 19 y.o. female who is being admitted for further evaluation of vomiting and flankpain. She is a direct admit from [facility] ED. She presented to outside facility complaining of nausea, vomiting and right flank pain. She was found to have a urinary tract infection, leukocytosis of 13.2, ultrasound renal was unremarkable. She was given IV fluids, analgesics, antiemeticsand Rocephin. She is being transferred to [facility] for higher level of care. Past [...] obesity with body mass index of 40.0-49.9 ([facility]/HCC) E66.01 Past surgical history: Past Surgical History: Procedure Laterality Date HX KNEE SURGERY Current medications: Prior to Admission Medications Prescriptions Last Dose Informant Patient Reported? Taking? escitalopram oxalate (LEXAPRO) 5 mg tablet Yes No Sig: Take 5 mg by mouth daily. vits15/iron/folic/dss ( VIT [id number]-DSS ORAL) Yes No Sig: Take by mouth. [...] obesity with body mass index of 40.0-49.9 ([facility]/FORMERLY [facility]) Resolved Hospital Problems No resolved problems to [...] Pharmacologic Prophylaxis: enoxaparin (LOVENOX) injection 40 mg [[id number]] Current diet : DIET CLEAR LIQUID Code [...] La Torre DATE OF : 2005 CSN: [id number] DATE: 03/02/2025 Room: [address] [place] [address] Admit Date: 03/01/2025 Hospital day: LOS: 1 [...] 08/18/25. The patient has received care from Imler, Suzanne Jaramillo NP The is complicated by [...] mg, IV, ONE time only, Kristy Rdz, GLOST PLACER, 2mg at 03/02/25 0511 [COMPLETED] LORazepam (ATIVAN) tablet 0.5 mg, 0.5 mg, Oral, ONE time only, Kristy Rdz, GLOST PLACER, 0.5 mg at 03/02/25 0512 oxyCODONE (ROXICODONE) tablet 5 mg, 5 mg, Oral, every 6 hours PRN, Mela Flores MD [COMPLETED] ondansetron (ZOFRAN) 4 mg/2 mL injection 4 mg, 4 mg, IV, ONE time only, Carito Zapien GLOST PLACER, 4 mg at 03/02/25 0305 [COMPLETED] lactated [...] mg, IV, ONE time only, Carito Zapien, GLOST PLACER Allergies: No Known Allergies Review of Systems: [...] CULTURE. Procedure Abnormality Status --------- ------ BLOOD CULTURE[[id number]] In process Please view results for these tests on the individual orders. BLOOD CULTURE Collection Time: 03/01/25 4:51 PM Specimen: Peripheral; Blood Narrative The following orders were created for panel order BLOOD CULTURE. Procedure Abnormality Status --------- ------ BLOOD CULTURE[[id number]] In process Please view results for these tests on the individual orders. LACTIC ACID Collection Time: 03/01/25 4:51 PM Result Value Ref Range LACTIC ACID 1.2 <=2.0 mmol/L US OB LTD 1 OR MORE FETUSES Collection Time: 03/01/25 6:08 PM Narrative [facility] OBUS Pat. Name: HEMALATHA DE LA TORRE Study Date: 03/01/2025 5:39pm Pat. NO: [id number] Referring MD: Site: [facility] Hops Farmworker: Nataliia Mckeon : 2005 Age: 19 INDICATION Other Specified Complications of viability scan through the ER CODING Diagnoses Z3A.15: Weeks of gestation Z3A.15: Weeks of gestation O26.892: Other specified related conditions Procedures 71617: Ultrasound, uterus, real time with image documentation, [...] IS A PRELIMINARY REPORT FROM [facility] PROCEDURE INFORMATION: Exam: MR Abdomen Without Contrast [...] No evidence of appendicitis. DICTATED BY: Gary Cai on Sunday03/02/2025 06:35AM CDT CBC WITH [...] 0 - 20 mm/Hr Narrative Tube Lot: #[id number] Exp Date: 08/19/2026 QC1 LOT [id number] EXP.08/24/2025 QC2 LOT [id number] EXP.08/24/2025 OCCULT BLOOD, GASTRIC FLUID Collection Time: [...] woke her up. She was evaluated at [place] emergency department and given IV fluids and pain medication. Discharged home. At 0 630 patient returned to the ER and it was recommended she transfer to [facility] for further evaluation via private vehicle. [...] may have been created by an artificial trackman software. Effort has been done to assure accuracy of trackman. Any obvious errors or omissions should be [...] had persistent vomiting until she went to [facility] ED and received antiemetics, IV fluids [...] HEMOGLOBIN AND HEMATOCRIT (03/03/2025 2:12 PM CDT) [facility] HEMOGLOBIN 9.8(L) 12.0 - 16.0 g/dL 03/03/2025 2:39 PM CDT [facility] HEMATOCRIT 29.8(L) 36.0 - 46.0 % 03/03/2025 2:39 PM CDT [facility] Blood Venipuncture / Unknown 03/03/2025 2:12 PM CDT 03/03/2025 2:26 PM CDT Mela Flores MD HEMATOLOGY ORDERABLES Final Result [facility] CLIA # [id number] [address] [address] [place] [address] * (ABNORMAL) BASIC METABOLIC PANEL (03/03/2025 4:25 AM CDT) SODIUM 136 136 - 145 mmol/L 03/03/2025 5:25 AM CDT [facility] POTASSIUM 4.0 3.5 - 5.1 mmol/L 03/03/2025 5:25 AM T [facility] Comment:Moderate hemolysis p resent. Can cause significant falsely elevated result. Redraw if indicated. CHLORIDE 105 98 - 107 mmol/L 03/03/2025 5:25 AM T [facility] CO2 21(L) 22 - 29 mmol/L 03/03/2025 5:25 AM CDT [facility] CALCIUM 8.9 8.6 - 10.0 mg/dL 03/03/2025 5:25 AM CDT [facility] BUN 7 6 - 20 mg/dL 03/03/2025 5:25 AM [facility] CREATININE 0.62 0.51 - 0.95 mg/dL 03/03/2025 5:25 AM T [facility] GLUCOSE 93 74 - 99 mg/dL 03/03/2025 5:25 AM [facility] GFR >60 >=60 mL/min/1.7 3 sq meter 03/03/2025 5:25 AM T [facility] Comment:eGFR calculated with 2020 CKD-EPI equation. Vegetarian diet, extremely high or low muscle mass, and may affect results. Cystatin C with Glomerular Filtration Rate is a suitable alternative for these patients. ANION GAP 10 9 - 20 mmol/L 03/03/2025 5:25 AM T [facility] Blood Venipuncture / Unknown 03/03/2025 4:25 AM CDT 03/03/2025 4:48 AM CDT us Mela Flores MD CHEMISTRY ORDERABLES F inal Result [facility] CLIA # [id number] [address] [address] [place] [address] * (ABNORMAL) CBC WITH DIFFERENTIAL (03/03/2025 4:25 AM CDT) [facility] WBC 9.6 4.5 - 11.0 K/uL 03/03/2025 5:00 AM CDT [facility] RBC 3.50(L) 4.20 - 5.40 M/uL 03/03/2025 5:00 AM CDT [facility] HEMOGLOBIN 9.6(L) 12.0 - 16.0 g/dL 03/03/2025 5:00 AM CDT [facility] HEMATOCRIT 30.3(L) 36.0 - 46.0 % 03/03/2025 5:00 AM CDT [facility] MCV 86.6 84.0 - 103.0 fL 03/03/2025 5:00 AM CDT [facility] MCH 27.4 27.0 - 34.0 pg 03/03/2025 5:00 AM CDT [facility] MCHC 31.7 30.0 - 35.0 g/dL 03/03/2025 5:00 AM CDT [facility] PLATELETS 141 140 - 440 K/uL 03/03/2025 5:00 AM CDT [facility] MPV 11.5 8.9 - 12.8 fL 03/03/2025 5:00 AM T [facility] RDW 18.6(H) 11.0 - 14.5 % 03/03/2025 5:00 AM T [facility] RDW-STDEV 58.9(H) 37.0 - 54.0 fL 03/03/2025 5:00 AM CDT [facility] NEUTROPHILS 70 42 - 75 % 03/03/2025 5:00 AM T [facility] LYMPHOCYTES 21(L) 24 - 44 % 03/03/2025 5:00 AM T [facility] MONOCYTES 8 2 - 10 % 03/03/2025 5:00 AM CDT [facility] EOSINOPHILS 1 0 - 7 % 03/03/2025 5:00 AM T [facility] BASOPHILS 0 0 - 1 % 03/03/2025 5:00 AM CDT [facility] IMMATURE GRANULOCYTES 1 0 - 2 % 03/03/2025 5:00 AM T [facility] NEUTROPHIL ABSOLUTE 6.67 2.00 - 8.00 K/uL 03/03/2025 5:00 AM T [facility] LYMPHOCYTE ABSOLUTE 2.03 1.20 - 4.00 K/uL 03/03/2025 5:00 AM T [facility] MONOCYTE ABSOLUTE 0.73(H) 0.10 - 0.60 K/uL 03/03/2025 5:00 AM CDT [facility] EOSINOPHIL ABSOLUTE 0.07 0.00 - 0.70 K/uL 03/03/2025 5:00 AM CDT [facility] BASOPHILS ABSOLUTE 0.02 0.00 - 0.20 K/uL 03/03/2025 5:00 AM [facility] IMMATURE GRANULOCYTES ABSOLUTE 0.05 0.00 - 0.10 K/uL 03/03/2025 5:00 AM T [facility] SMEAR REVIEWED: NA - Not Applicable 03/03/2025 5:00 AM [facility] Blood Venipuncture / Unknown 03/03/2025 4:25 AM CDT 03/03/2025 4:48 AM CDT us Mela Flores MD HEMATOLOGY ORDERABLES Final Result [facility] CLIA # [id number] [facility] [address] [address] [place] [address] * (ABNORMAL) BASIC METABOLIC PANEL (03/02/2025 6:26 AM CDT) SODIUM 138 136 - 145 mmol/L 03/02/2025 7:23 AM T [facility] POTASSIUM 3.9 3.5 - 5.1 mmol/L 03/02/2025 7:23 AM [facility] CHLORIDE 105 98 - 107 mmol/L 03/02/2025 7:23 AM T [facility] CO2 21(L) 22 - 29 mmol/L 03/02/2025 7:23 AM [facility] CALCIUM 9.0 8.6 - 10.0 mg/dL 03/02/2025 7:23 AM [facility] BUN 7 6 - 20 mg/dL 03/02/2025 7:23 AM [facility] CREATININE 0.89 0.51 - 0.95 mg/dL 03/02/2025 7:23 AM [facility] GLUCOSE 100(H) 74 - 99 mg/dL 03/02/2025 7:23 AM [facility] GFR >60 >=60 mL/min/1.7 3 sq meter 03/02/2025 7:23 AM [facility] Comment:eGFR calculated with 2020 CKD-EPI equation. Vegetarian diet, extremely high or low muscle mass, and may affect results. Cystatin C with Glomerular Filtration Rate is a suitable alternative for these patients. ANION GAP 12 9 - 20 mmol/L 03/02/2025 7:23 AM [facility] Blood Venipuncture / Unknown 03/02/2025 6:26 AM CDT 03/02/2025 6:34 AM CDT us Brigido Hines MD CHEMISTRY ORDERABLES Final Resul t [facility] CLIA # [id number] [address] [address] * MAGNESIUM LEVEL (03/02/2025 6:26 AM CDT) [facility] MAGNESIUM 1.6 1.6 - 2.6 mg/dL 03/02/2025 7:23 AM CDT [facility] Blood Venipuncture / Unknown 03/02/2025 6:26 AM CDT 03/02/2025 6:34 AM CDT us Brigido Hines MD CHEMISTRY ORDERABLES Final Resul t [facility] CLIA # [id number] [address] [place] [address] * (ABNORMAL) CBC WITH DIFFERENTIAL (03/02/2025 6:26 AM CDT) [facility] WBC 12.3(H) 4.5 - 11.0 K/uL 03/02/2025 6:39 AM CDT [facility] RBC 3.95(L) 4.20 - 5.40 M/uL 03/02/2025 6:39 AM CDT [facility] HEMOGLOBIN 10.9(L) 12.0 - 16.0 g/dL 03/02/2025 6:39 AM CDT [facility] HEMATOCRIT 33.7(L) 36.0 - 46.0 % 03/02/2025 6:39 AM CDT [facility] MCV 85.3 84.0 - 103.0 fL 03/02/2025 6:39 AM CDT [facility] MCH 27.6 27.0 - 34.0 pg 03/02/2025 6:39 AM CDT [facility] MCHC 32.3 30.0 - 35.0 g/dL 03/02/2025 6:39 AM CDT [facility] PLATELETS 149 140 - 440 K/uL 03/02/2025 6:39 AM [facility] MPV 10.9 8.9 - 12.8 fL 03/02/2025 6:39 AM [facility] RDW 18.5(H) 11.0 - 14.5 % 03/02/2025 6:39 AM [facility] RDW-STDEV 57.8(H) 37.0 - 54.0 fL 03/02/2025 6:39 AM [facility] NEUTROPHILS 78(H) 42 - 75 % 03/02/2025 6:39 AM [facility] LYMPHOCYTES 13(L) 24 - 44 % 03/02/2025 6:39 AM [facility] MONOCYTES 8 2 - 10 % 03/02/2025 6:39 AM [facility] EOSINOPHILS 0 0 - 7 % 03/02/2025 6:39 AM [facility] BASOPHILS 0 0 - 1 % 03/02/2025 6:39 AM [facility] IMMATURE GRANULOCYTES 1 0 - 2 % 03/02/2025 6:39 AM [facility] NEUTROPHIL ABSOLUTE 9.61(H) 2.00 - 8.00 K/uL 03/02/2025 6:39 AM [facility] LYMPHOCYTE ABSOLUTE 1.63 1.20 - 4.00 K/uL 03/02/2025 6:39 AM [facility] MONOCYTE ABSOLUTE 0.92(H) 0.10 - 0.60 K/uL 03/02/2025 6:39 AM [facility] EOSINOPHIL ABSOLUTE 0.02 0.00 - 0.70 K/uL 03/02/2025 6:39 AM [facility] BASOPHILS ABSOLUTE 0.02 0.00 - 0.20 K/uL 03/02/2025 6:39 AM [facility] IMMATURE GRANULOCYTES ABSOLUTE 0.08 0.00 - 0.10 K/uL 03/02/2025 6:39 AM [facility] SMEAR REVIEWED: NA - Not Applicable 03/02/2025 6:39 AM [facility] Blood Venipuncture / Unknown 03/02/2025 6:26 AM CDT 03/02/2025 6:34 AM CDT us Brigido Hines MD HEMATOLOGY ORDERABLES Final Resu lt [facility] CLIA # [id number] [address] [address] [place] [address] * MRI ABDOMEN PELVIS WO CONTRAST (03/02/2025 [...] Pale to Dark Yellow 03/01/2025 7:37 PM [facility] CLARITY UA Cloudy(A) Clear 03/01/2025 7:37 PM [facility] SPECIFIC GRAVITY UA 1.025 1.003 - 1.035 03/01/2025 7:37 PM [facility] PH UA 5.5 5.0 - 8.0 03/01/2025 7:37 PM [facility] LEUKOCYTE ESTERASE UA 3+(A) Negative 03/01/2025 7:37 PM [facility] NITRITE UA Negative Negative 03/01/2025 7:37 PM [facility] PROTEIN UA Negative Negative 03/01/2025 7:37 PM [facility] GLUCOSE UA Negative Negative 03/01/2025 7:37 PM [facility] KETONES UA 3+(A) Negative 03/01/2025 7:37 PM [facility] UROBILINOGEN UA <2.0 <2.0 mg/dL 7:37 PM [facility] BILIRUBIN UA Negative Negative 03/01/2025 7:37 PM [facility] BLOOD UA Negative Negative 03/01/2025 7:37 PM [facility] WBC UA 11-25(A) 0 - 2 /hpf 03/01/2025 7:37 PM [facility] RBC UA 0-2 0 - 2 /hpf 03/01/2025 7:37 PM [facility] BACTERIA UA 1+(A) Negative /hpf 03/01/2025 7:37 PM [facility] EPITHELIAL CELLS, URINE 11-25(A) 0 - 5 /hpf 03/01/2025 7:37 PM [facility] Urine URINE SPECIMEN OBTAINED BY CLEAN CATCH PROCEDURE / Unknown Collection / Unknown 03/01/2025 7:08 PM CDT 03/01/2025 7:14 PM CDT Carito Ybarra McTeer GLOST PLACER URINE ORDERABLES Final Result [facility] # [id number] [address] [facility] [place] [address] * US OB LTD 1 OR MORE FETUSES (03/01/2025 6:08 PM CDT) Anatomical Region Laterality Modality Pelvis Ultrasound 03/01/2025 5:39 PM CDT Narrative 03/01/2025 9:34 PM CDT [facility] OBUS ----- Pat. Name: HEMALATHA DE LA TORRE Study Date: 03/01/2025 5:39pm Pat. NO: [id number] Referring MD: Site: [facility] Hops Farmworker: Nataliia Mckeon : 2005 Age: 19 ----- INDICATION ----- Other Specified Complications of viability scan through the ER CODING ----- Diagnoses Z3A.15: Weeks of gestation Z3A.15: Weeks of gestation O26.892: Other specified related conditions Procedures [id number]: Ultrasound, uterus, real time with image documentation, [...] Radhames CORRIGAN, Jhon Sandhu MD - 03/01/2025 [facility] OBUS ----- Pat. Name:Lucy DE LA TORRE Date:03/01/2025 5:39pm Pat. NO: [id number] MD: [facility]Natali[facility] Mckeon :2005Age:19 ----- INDICATION ----- Other Specified Complications of viability scanthrough the ER CODING ----- Diagnoses Z3A.15: Weeks of gestation Z3A.15: Weeks of gestation O26.892: Other specified relatedconditions Procedures 93916: Ultrasound, uterus, real time withimage documentation, limited one or more fetuses HISTORY ----- OB History 2. Para 0 METHOD ----- Transabdominal ultrasound examination ----- Monge . Number of fetuses: 1 DATING ----- LMP on:10/26/2024 GA by [id number] w + 0 d MICHELL by LMP:08/02/2025 Method of dating:based on stated MICHELL GA by prior [id number] w + 5 d MICHELL by prior [...] 1.2 <=2.0 mmol/L 03/01/2025 5:20 PM CDT [facility] Blood Venipuncture / Unknown 03/01/2025 4:51 PM CDT 03/01/2025 4:57 PM CDT May Dobbins MD CHEMISTRY ORDERABLES Final Result Performing Organization Address City/State/[facility] Co de Phone Number [facility] CLIA # [id number] [address] [address] [id number] * LIPASE (03/01/2025 1:53 PM CDT) LIPASE 25 13 - 60 U/L 03/01/2025 2:34 PM CDT [facility] Blood Venipuncture / Unknown 03/01/2025 1:53 PM CDT 03/01/2025 1:58 PM CDT Carito Zapien [employer] CHEMISTRY ORDERABLES Fi nal Result Performing Organization Address [facility] Co de Phone Number [facility] CLIA # [id number] [facility] [id number] * (ABNORMAL) COMPREHENSIVE METABOLIC PANEL (03/01/2025 1:53 PM CDT) SODIUM 138 136 - 145 mmol/L 03/01/2025 2:34 PM CDT [facility] POTASSIUM 4.5 3.5 - 5.1 mmol/L 03/01/2025 2:34 PM CDT [facility] CHLORIDE 107 98 - 107 mmol/L 03/01/2025 2:34 PM CDT [facility] CO2 19(L) 22 - 29 mmol/L 03/01/2025 2:34 PM CDT [facility] CALCIUM 9.1 8.6 - 10.0 mg/dL 03/01/2025 2:34 PM CDT [facility] BUN 8 6 - 20 mg/dL 03/01/2025 2:34 PM CDT [facility] CREATININE 0.73 0.51 - 0.95 mg/dL 03/01/2025 2:34 PM CDT [facility] GLUCOSE 106(H) 74 - 99 mg/dL 03/01/2025 2:34 PM CDT [facility] TOTAL PROTEIN 6.3(L) 6.4 - 8.3 g/dL 03/01/2025 2:34 PM CDT [facility] ALBUMIN 3.4(L) 3.5 - 5.2 g/dL 03/01/2025 2:34 PM CDT [facility] BILIRUBIN TOTAL <0.2 0.0 - 1.0 mg/dL 03/01/2025 2:34 PM CDT [facility] ALKALINE PHOSPHATASE 115(H) 35 - 104 U/L 03/01/2025 2:34 PM CDT [facility] AST 23 10 - 35 U/L 03/01/2025 2:34 PM CDT [facility] ALT 34 <=35 U/L 03/01/2025 2:34 PM CDT [facility] GFR >60 >=60 mL/min/1.7 3 sq meter 03/01/2025 2:34 PM CDT [facility] Comment:eGFR calculated with 2020 CKD-EPI equation. Vegetarian diet, extremely high or low muscle mass, and may affect results. Cystatin C with Glomerular Filtration Rate is a suitable alternative for these patients. ANION GAP 12 9 - 20 mmol/L 03/01/2025 2:34 PM CDT [facility] Blood Venipuncture / Unknown 03/01/2025 1:53 PM CDT 03/01/2025 1:58 PM CDT Carito Zapien [employer] CHEMISTRY ORDERABLES Fi nal Result [facility] CLIA # [id number] [address] [place] [id number] * (ABNORMAL) CBC WITH DIFFERENTIAL (03/01/2025 1:53 PM CDT) Pathologist [facility] WBC 17.1(H) 4.5 - 11.0 K/uL 03/01/2025 2:01 PM [facility] RBC 3.94(L) 4.20 - 5.40 M/uL 03/01/2025 2:01 PM [facility] HEMOGLOBIN 10.9(L) 12.0 - 16.0 g/dL 03/01/2025 2:01 PM [facility] HEMATOCRIT 33.5(L) 36.0 - 46.0 % 03/01/2025 2:01 PM [facility] MCV 85.0 84.0 - 103.0 fL 03/01/2025 2:01 PM [facility] MCH 27.7 27.0 - 34.0 pg 03/01/2025 2:01 PM [facility] MCHC 32.5 30.0 - 35.0 g/dL 03/01/2025 2:01 PM [facility] PLATELETS 177 140 - 440 K/uL 03/01/2025 2:01 PM [facility] MPV 11.3 8.9 - 12.8 fL 03/01/2025 2:01 PM [facility] RDW 18.4(H) 11.0 - 14.5 % 03/01/2025 2:01 PM [facility] RDW-STDEV 57.1(H) 37.0 - 54.0 fL 03/01/2025 2:01 PM [facility] NEUTROPHILS 88(H) 42 - 75 % 03/01/2025 2:01 PM [facility] LYMPHOCYTES 7(L) 24 - 44 % 03/01/2025 2:01 PM [facility] MONOCYTES 4 2 - 10 % 03/01/2025 2:01 PM [facility] EOSINOPHILS 0 0 - 7 % 03/01/2025 2:01 PM [facility] BASOPHILS 0 0 - 1 % 03/01/2025 2:01 PM [facility] IMMATURE GRANULOCYTES 1 0 - 2 % 03/01/2025 2:01 PM CDT [facility] NEUTROPHIL ABSOLUTE 15.09(H) 2.00 - 8.00 K/uL 03/01/2025 2:01 PM CDT [facility] LYMPHOCYTE ABSOLUTE 1.13(L) 1.20 - 4.00 K/uL 03/01/2025 2:01 PM CDT [facility] MONOCYTE ABSOLUTE 0.72(H) 0.10 - 0.60 K/uL 03/01/2025 2:01 PM CDT [facility] EOSINOPHIL ABSOLUTE 0.01 0.00 - 0.70 K/uL 03/01/2025 2:01 PM CDT [facility] BASOPHILS ABSOLUTE 0.03 0.00 - 0.20 K/uL 03/01/2025 2:01 PM CDT [facility] IMMATURE GRANULOCYTES ABSOLUTE 0.10 0.00 - 0.10 K/uL 03/01/2025 2:01 PM CDT [facility] SMEAR REVIEWED: NA - Not Applicable 03/01/2025 2:01 PM CDT [facility] Blood Venipuncture / Unknown 03/01/2025 1:53 PM CDT 03/01/2025 1:58 PM CDT Carito Zapien [employer] HEMATOLOGY ORDERABLES F inal Result [facility] # [id number] [address] [place] [address] [place] [address] * US RENAL AND BLADDER (03/01/2025 1:16 [...] the kidneys and bladder. Carito Ybarra McTee[facility]ner [facility] US ORDERABLES Final R esult documented [...]
--- OUTSIDE RECORDS SUMMARY | 2025-03-04 18:56 | XMS_ITS | Encounter Summary ---
Author Organization [facility] Address [address] [place] [address] Care Team Providers Care Chicken Dresser Name Role Phone Unavailable Primary Care Provider Unavailabl e Reason for Visit * Reason Comments Flank Pain Encounter Details Date Type Department Care Team ([facility] st Contact Info) Description 03/04/2025 6:56 PM CDT - 03/04/2025 10:10 PM CDT Emergency [facility] Emergency Medicine [address] [place] [phone] Petar Brice MD [address] [place] [address] [place] [phone] Flank pain (Primary Dx) Discharge Disposition: Home or Self Care Social [...] Sign Reading Time Taken Comments Blood Pressure 124/98 03/04/2025 10:00 PM CDT Pulse 71 03/04/2025 10:00 PM CDT Temperature 36.3 C (97.3 F) 03/04/2025 7:00 PM CDT Respiratory Rate 16 03/04/2025 9:30 PM CDT Oxygen Saturation 97% 03/04/2025 10:00 PM CDT Inhaled Oxygen Concentration - - Weight 127 kg (280 lb) 03/04/2025 7:00 PM CDT Height 167.6 cm (5' 6 ) 03/04/2025 7:00 PM CDT Body Mass Index 45.19 03/04/2025 7:00 PM CDT documented in this encounter Discharge Instructions * Attachments The following attachments cannot be sent through Care Everywhere. * Flank Pain (Cymraes) * Hydrocodone (Cymraes) documented in this encounter Medications at Time of Discharge HYDROcodone-aceta minophen (NORCO) 5-325 mg tabletIndications :Flank pain Take 1-2 Tablets by mouth every 6 hours as needed for Pain. Max Daily Amount: 8 Tablets 30 Tablet 03/04/2025 famotidine (PEPCID) 20 mg tablet Take 1 Tablet (20 mg) by mouth 2 times daily for 14 days. 28 Tablet 03/03/2025 03/17/2025 cefdinir (OMNICEF) 300 mg capsule Take 1 Capsule (300 mg) by mouth every 12 hours for 12 days. 24 Capsule 03/03/2025 03/15/2025 escitalopram oxalate (LEXAPRO) 5 mg tablet Take 5 mg by mouth daily. vits15/iron/folic /dss ( VIT 13-QPVX-JGJOJ-DSS ORAL) Take by mouth. documented as of this encounter Progress Notes * Kristy Rdz, REINALDO - 03/05/2025 8:25 PM CDT [facility] Hospitalist Cross Cover Call Two patient identifier: Hemalatha De La Torre 2005 Called for: recurrent flank pain Last Recorded Vitals: BP (!) 124/98 Pulse 71 Temp 97.3 ??F (36.3 ??C) (Temporal) Resp 16 Ht5' 6 (1.676 m) Wt 127 kg (280 lb) SpO2 97% BMI 45.19 kg/m?? Pain Rating: Rest: 5 (03/04/252129) This is a 19 year old female recently seen at [facility] for acute pyelonephritis with discharge on oralantibiotics. Patient had recurrent acute flank pain, spoke to Dr. Flores then went to ER for further evaluation where she was given IV fluids, was told the antibiotics seem to be working, and was discharged with [place] script. Tonight, patient took a [place] with minimal improvement of acute flank pain and family stated that she continues to have vomiting with nausea. I spoke to Dr. Flores then to family and encouraged her to go to ER for further evaluation which they agreed to do. Family noted that they plan to go to a hospital with more resources since last ER could not follow up on US or any imaging. Documentation/Intervention/Outcome: Chart reviewed. Updated MD Please call back any time if I can be of more assistance. REINALDO Lucio Cosigned by Mela Flores MD at 03/06/2025 7:32 AM CDT documented in this encounter ED Notes * Soraida Murphy RN - 03/04/2025 8:48 PM CDT Updated pt on wait. Pt sitting up in bed. Reports pain is about 7/10 in that position. Family remains at bedside. * Soraida Murphy RN - 03/04/2025 7:45 PM CDT Ua collected. Pt tearful due to pain * Soraida Murphy RN - 03/04/2025 7:03 PM CDT Pt arrived via pov. C/O of right flank pain, radiating into right mid abdomen. Pt [facility] with [facility]. Discharged to home yesterday. States she was feeling fine until around 1400 today, started having severe right flank pain. [facility] and they instructed her to be seen here in the ED, that she might need to be admitted for IV antibiotics. Pt is 16 weeks . Denies vaginal bleeding. Pt ambulatory to room, grimacing in pain. Denies nausea, vomiting, diarrhea. Pt tearful during triage. Family at bedside. Call light in reach. * Petar Brice MD - 03/04/2025 6:27 PM CDT HISTORY OF PRESENT ILLNESS Hemalatha De La Torre, a 19 y.o. female presents to the ED with a Chief Complaint of Flank Pain Subjective This patient is a 19-year-old white female who presents to the emergency department with left flankpain. Patient was just recently admitted at [facility] for pyelonephritis. She was treated with Rocephin for several days. Her pain was treated with oxycodone and morphine. Patient states she was just discharged from the hospital yesterday. She has been taking Tylenol for pain at home which is not effective. Patient is 16 weeks . She did have an MRI at [facility] which did not reveal any kidney stones. She was discharged on Omnicef. REVIEW OF SYSTEMS Review of Systems Constitutional: Negative for activity change, appetite change, chills, diaphoresis, fatigue and fever. HENT: Negative for congestion, dental problem, ear pain, postnasal drip, rhinorrhea, sinus pressure, sore throat, tinnitus and trouble swallowing. Eyes: Negative for photophobia, pain, discharge, redness and visual disturbance. Respiratory: Negative for cough, chest tightness, shortness of breath and wheezing. Cardiovascular: Negative for chest pain, palpitations and leg swelling. Gastrointestinal: Negative for abdominal distention, abdominal pain, blood in stool, constipation, diarrhea, nausea and vomiting. Genitourinary: Positive for flank pain. Negative for decreased urine volume, difficulty urinating, dyspareunia, dysuria, frequency, hematuria, menstrual problem, pelvic pain, urgency, vaginal bleeding and vaginal discharge. Musculoskeletal: Negative for arthralgias, back pain, gait problem, joint swelling, myalgias, neck pain and neck stiffness. Skin: Negative for color change and rash. Neurological: Negative for dizziness, seizures, speech difficulty, weakness, light-headedness, numbness and headaches. Hematological: Negative for adenopathy. Psychiatric/Behavioral: Negative for agitation, behavioral problems, confusion, dysphoric mood, hallucinations, self-injury, sleep disturbance and suicidal ideas. The patient is not nervous/anxious. All other systems reviewed and are negative. [...] MEDICATIONS Patient's Home Medications Current Home Medications CEFDINIR (OMNICEF) 300 MG CAPSULE ESCITALOPRAM OXALATE (LEXAPRO) 5 MG TABLET FAMOTIDINE (PEPCID) 20 MG TABLET VITS15/IRON/FOLIC/DSS ( VIT 25-KMJU-WNZRE-DSS ORAL) Medications Modified during this Encounter No medications on file Medications Discontinued during this Encounter No medications on file Objective PHYSICAL EXAM INITIAL VS BP: (!) 145/84 (03/04/251899), Heart Rate: 84 bpm (03/04/251899), Resp: 18 (03/04/251899), Pulse: 80 (03/04/251899), Temp: 97.3 ??F (36.3 ??C) (03/04/251899), Temp src: Temporal (03/04/251899),SpO2: 95 % (03/04/251899), Height: 5' 6 (167.6 cm) (03/04/251899), Weight: 127 kg (280 lb) (03/04/251899), BMI (Calculated): (!) 45.21 (03/04/251899) No LMP recorded. Patient is . Physical Exam Vitals and nursing note reviewed. Constitutional: General: She is in acute distress (mild). Appearance: She is well-developed. HENT: Head: Normocephalic and atraumatic. Eyes: Conjunctiva/sclera: Conjunctivae normal. Pupils: Pupils are equal, round, and reactive to light. Cardiovascular: Rate and Rhythm: Normal rate and regular rhythm. Heart sounds: Normal heart sounds. Pulmonary: Effort: Pulmonary effort is normal. No respiratory distress. Breath sounds: Normal breath sounds. Abdominal: General: Bowel sounds are normal. Palpations: Abdomen is soft. Tenderness: There is no abdominal tenderness. Musculoskeletal: General: No tenderness. Normal range of motion. Cervical back: Normal range of motion and neck supple. Skin: General: Skin is warm and dry. Neurological: Mental Status: She is alert and oriented to person, place, and time. Cranial Nerves: No cranial nerve deficit. Psychiatric: Behavior: Behavior normal. Thought Content: Thought content normal. DIAGNOSTICS LAB: URINALYSIS WITH REFLEX MICROSCOPIC - Abnormal Result Value COLOR UA Yellow CLARITY UA Clear SPECIFIC GRAVITY UA 1.020 PH UA 6.5 LEUKOCYTE ESTERASE UA 1+ (*) NITRITE UA Negative PROTEIN UA 1+ (*) GLUCOSE UA Negative KETONES UA 4+ (*) UROBILINOGEN UA 0.2 BILIRUBIN UA 1+ (*) BLOOD UA 2+ (*) CBC WITH DIFFERENTIAL - Abnormal WBC 12.8 (*) RBC 4.03 HEMOGLOBIN 11.2 HEMATOCRIT 33.8 (*) MCV 83.9 MCH 27.8 MCHC 33.1 RDW 18.3 (*) RDW-STDEV 55.8 PLATELETS 170 MPV 11.3 NEUTROPHILS 77 (*) LYMPHOCYTES 16 (*) MONOCYTES 6 EOSINOPHILS 0 (*) BASOPHILS 0 IMMATURE GRANULOCYTES 1 NEUTROPHIL ABSOLUTE 9.85 (*) LYMPHOCYTE ABSOLUTE 2.03 MONOCYTE ABSOLUTE 0.73 (*) EOSINOPHIL ABSOLUTE 0.05 BASOPHILS ABSOLUTE 0.02 IMMATURE GRANULOCYTES ABSOLUTE 0.07 COMPREHENSIVE METABOLIC PANEL - Abnormal SODIUM 138 POTASSIUM 3.9 CHLORIDE 103 CO2 21 (*) CALCIUM 9.7 BUN 9 CREATININE 0.65 GLUCOSE 81 TOTAL PROTEIN 6.5 (*) ALBUMIN 3.6 BILIRUBIN TOTAL <0.2 ALKALINE PHOSPHATASE 106 (*) AST 26 ALT 37 (*) GFR >60 ANION GAP 14 URINALYSIS MICROSCOPY ONLY - Abnormal WBC UA 6-10 (*) RBC UA 6-10 (*) BACTERIA UA Negative EPITHELIAL CELLS, URINE 11-25 (*) RADIOLOGY: No orders to display EKG: PROCEDURES Procedures MEDICAL DECISION MAKING AND PLAN OF CARE Medical Decision Making CBC reveals a white blood cell count of 12.8. CMP was normal. Urine analysis reveals 4+ ketones. Patient was given a bolus of normal saline, morphine and Zofran. She was discharged in stable condition with prescription for hydrocodone. Recommended she continue the Omnicef. Follow-up with her primary care physician in 5 days for recheck. Amount and/or Complexity of Data Reviewed Labs: ordered. Risk Prescription drug management. Clinical Scoring & Consults Medications Administered During the ED Stay from 03/04/2025 1828 to 03/04/20252155 Date/Time Order Dose Route Action 03/04/20252101 CDT sodium chloride flush injection 10 mL 10 mL IV Given 03/04/20252058 CDT sodium chloride 0.9 % bolus solution 1,000 mL 1,000 mL IV New Bag 03/04/20252101 CDT morphine 4 mg/mL injection 4 mg 4 mg IV Given 03/04/20252058 CDT ondansetron (ZOFRAN) 4 mg/2 mL injection 4 mg 4 mg IV Given . New Prescriptions for this Encounter HYDROCODONE-ACETAMINOPHEN (NORCO) 5-325 MG TABLET Take 1-2 Tablets by mouth every 6 hours as neededfor Pain. Max Daily Amount: 8 Tablets LAST VS BP: 113/80 (03/04/252129), Heart Rate: 84 bpm (03/04/251899), Resp: 16 (03/04/252129), Pulse: 65(03/04/252129), Temp: 97.3 ??F (36.3 ??C) (03/04/251899), Temp src: Temporal (03/04/251899), SpO2: 97 % (03/04/252129) CLINICAL IMPRESSION Final diagnoses: [R10.9] Flank pain (Primary) DISPOSITION, EDUCATION AND MEDICATION RECONCILIATION Medications reconciled. See after visit summary for patient education on discharged patients. ED Disposition ED Disposition Discharge Condition Stable User Petar Brice MD Date/Time SunMar 04, 2025 9:54 PM Comment -- ATTESTATION STATEMENTS Diagnosis Diagnosis Comment Added By Time Added Flank pain [R10.9] Petar Brice MD 03/04/2025 9:54 PM documented in this encounter Plan of Treatment Not on file documented as of this encounter Procedures Procedure Name Priority Date/Time Associated Diagnosis Comments URINALYSIS MICROSCOPY ONLY Stat 03/04/2025 7:48 PM CDT CBC WITH DIFFERENTIAL Stat 03/04/2025 7:48 PM CDT URINALYSIS W/REFLEX MICROSCOPIC Stat 03/04/2025 7:48 PM CDT COMPREHENSIVE METABOLIC PANEL Stat 03/04/2025 7:48 PM CDT documented in this encounter Results * (ABNORMAL) URINALYSIS MICROSCOPY ONLY (03/04/2025 7:48 PM CDT) WBC UA 6-10(A) 0 - 2 /hpf 03/04/2025 8:14 PM CDT [facility] RBC UA 6-10(A) 0 - 2 /hpf 03/04/2025 8:14 PM CDT [facility] BACTERIA UA Negative Negative /hpf 03/04/2025 8:14 PM CDT [facility] EPITHELIAL CELLS, URINE 11-25(A) 0 - 5 /hpf 03/04/2025 8:14 PM CDT [facility] Urine URINE SPECIMEN OBTAINED BY CLEAN CATCH PROCEDURE / Unknown Collection / Unknown 03/04/2025 7:48 PM CDT 03/04/2025 7:56 PM CDT Narrative [facility] - 03/04/2025 8:14 PM CDT Must recollect sample if Culture is ordered. [facility] us Petar Brice MD URINE ORDERABLES Final R esult [facility] CLIA # [id number] [address] [place] [address] * (ABNORMAL) COMPREHENSIVE METABOLIC PANEL (03/04/2025 7:48 PM CDT) SODIUM 138 136 - 145 mmol/L 03/04/2025 8:14 PM CDT [facility] POTASSIUM 3.9 3.5 - 5.1 mmol/L 03/04/2025 8:14 PM [facility] CHLORIDE 103 98 - 107 mmol/L 03/04/2025 8:14 PM [facility] CO2 21(L) 22 - 29 mmol/L 03/04/2025 8:14 PM [facility] CALCIUM 9.7 8.6 - 10.0 mg/dL 03/04/2025 8:14 PM [facility] BUN 9 6 - 20 mg/dL 03/04/2025 8:14 PM [facility] CREATININE 0.65 0.51 - 0.95 mg/dL 03/04/2025 8:14 PM [facility] GLUCOSE 81 74 - 99 mg/dL 03/04/2025 8:14 PM [facility] TOTAL PROTEIN 6.5(L) 6.6 - 8.7 g/dL 03/04/2025 8:14 PM [facility] ALBUMIN 3.6 3.5 - 5.2 g/dL 03/04/2025 8:14 PM [facility] BILIRUBIN TOTAL <0.2 0.0 - 1.2 mg/dL 03/04/2025 8:14 PM [facility] ALKALINE PHOSPHATASE 106(H) 35 - 104 U/L 03/04/2025 8:14 PM [facility] AST 26 0 - 35 U/L 03/04/2025 8:14 PM [facility] ALT 37(H) 0 - 35 U/L 03/04/2025 8:14 PM [facility] GFR >60 >=60 mL/min/1.7 3 sq meter 03/04/2025 8:14 PM [facility] Comment:eGFR calculated with 2020 CKD-EPI equation. Vegetarian diet, extremely high or low muscle mass, and may affect results. Cystatin C with Glomerular Filtration Rate is a suitable alternative for these patients. ANION GAP 14 5 - 20 mmol/L 03/04/2025 8:14 PM [facility] Blood Collection / Unknown 03/04/2025 7:48 PM CDT 03/04/2025 7:56 PM CDT Petar Brice MD CHEMISTRY ORDERABLES Fin al Result [facility] CLIA # [id number] [address] [place] [address] * (ABNORMAL) CBC WITH DIFFERENTIAL (03/04/2025 7:48 PM CDT) Pathologist [facility] WBC 12.8(H) 4.0 - 10.0 K/uL 03/04/2025 8:02 PM [facility] RBC 4.03 3.93 - 5.22 M/uL 03/04/2025 8:02 PM [facility] HEMOGLOBIN 11.2 11.2 - 15.7 g/dL 03/04/2025 8:02 PM [facility] HEMATOCRIT 33.8(L) 34.1 - 44.9 % 03/04/2025 8:02 PM [facility] MCV 83.9 79.4 - 94.8 fL 03/04/2025 8:02 PM [facility] MCH 27.8 25.6 - 32.2 pg 03/04/2025 8:02 PM [facility] MCHC 33.1 32.2 - 35.5 g/dL 03/04/2025 8:02 PM [facility] RDW 18.3(H) 11.0 - 14.5 % 03/04/2025 8:02 PM [facility] RDW-STDEV 55.8 36.9 - 56.9 fL 03/04/2025 8:02 PM [facility] PLATELETS 170 163 - 337 K/uL 03/04/2025 8:02 PM [facility] MPV 11.3 10.0 - 14.8 fL 03/04/2025 8:02 PM [facility] NEUTROPHILS 77(H) 34 - 71 % 03/04/2025 8:02 PM [facility] LYMPHOCYTES 16(L) 19 - 52 % 03/04/2025 8:02 PM [facility] MONOCYTES 6 5 - 13 % 03/04/2025 8:02 PM [facility] EOSINOPHILS 0(L) 1 - 6 % 03/04/2025 8:02 PM [facility] BASOPHILS 0 0 - 1 % 03/04/2025 8:02 PM [facility] IMMATURE GRANULOCYTES 1 % 03/04/2025 8:02 PM [facility] NEUTROPHIL ABSOLUTE 9.85(H) 1.56 - 6.13 K/uL 03/04/2025 8:02 PM [facility] LYMPHOCYTE ABSOLUTE 2.03 1.20 - 3.40 K/uL 03/04/2025 8:02 PM [facility] MONOCYTE ABSOLUTE 0.73(H) 0.24 - 0.36 K/uL 03/04/2025 8:02 PM [facility] EOSINOPHIL ABSOLUTE 0.05 0.04 - 0.36 K/uL 03/04/2025 8:02 PM [facility] BASOPHILS ABSOLUTE 0.02 0.01 - 0.08 K/uL 03/04/2025 8:02 PM [facility] IMMATURE GRANULOCYTES ABSOLUTE 0.07 K/uL 03/04/2025 8:02 PM [facility] Blood Collection / Unknown 03/04/2025 7:48 PM CDT 03/04/2025 7:56 PM CDT us Petar Brice MD HEMATOLOGY ORDERABLES Fi nal Result [id number] [address] [place] [id number] * (ABNORMAL) URINALYSIS WITH REFLEX MICROSCOPIC (03/04/2025 7:48 PM CDT) COLOR UA Yellow Pale to Dark Yellow 03/04/2025 8:14 PM T [facility] CLARITY UA Clear Clear 03/04/2025 8:14 PM T [facility] SPECIFIC GRAVITY UA 1.020 1.003 - 1.035 03/04/2025 8:14 PM [facility] PH UA 6.5 5.0 - 8.0 03/04/2025 8:14 PM T [facility] LEUKOCYTE ESTERASE UA 1+(A) Negative 03/04/2025 8:14 PM T [facility] NITRITE UA Negative Negative 03/04/2025 8:14 PM T [facility] PROTEIN UA 1+(A) Negative 03/04/2025 8:14 PM [facility] GLUCOSE UA Negative Negative 03/04/2025 8:14 PM [facility] KETONES UA 4+(A) Negative 03/04/2025 8:14 PM [facility] UROBILINOGEN UA 0.2 <2.0 mg/dL 8:14 PM [facility] BILIRUBIN UA 1+(A) Negative 03/04/2025 8:14 PM [facility] BLOOD UA 2+(A) Negative 03/04/2025 8:14 PM [facility] Urine URINE SPECIMEN OBTAINED BY CLEAN CATCH PROCEDURE / Unknown Collection / Unknown 03/04/2025 7:48 PM CDT 03/04/2025 7:56 PM CDT Petar Brice MD URINE ORDERABLES Final R esult [facility] [id number] [address] [place] [id number] documented in this encounter Visit Diagnoses Diagnosis Flank pain- Primary Abdominal pain, unspecified site documented in this encounter Administered Medications Inactive Administered Medications - up to 3 most recent administrations Medication Order MAR Action Action Date Dose Rate Site morphine 4 mg/mL injection 4 mg 4 mg, IV, ONE TIME ONLY, 1 dose, On Sun03/04/25 at 2100, Routine Given 03/04/2025 9:02 PM CDT 4 mg ondansetron (ZOFRAN) 4 mg/2 mL injection 4 mg 4 mg, IV, ONE TIME ONLY, 1 dose, On Sun03/04/25 at 2100, Stat Given 03/04/2025 8:59 PM CDT 4 mg sodium chloride 0.9 % bolus solution 1,000 mL 1,000 mL, IV, ONE TIME ONLY, 1 dose, On Sun03/04/25 at 2100, at 2,000 mL/hr, Administer over 30 Minutes, Routine New Bag 03/04/2025 8:59 PM CDT 1,000 mL 2000 mL/hr sodium chloride flush injection 10 mL 10 mL, IV, SEE ADMIN INSTRUCTIONS, Starting on Sun03/04/25 at 1943, Until Sol 03/05/25 at 001, Routine Given 03/04/2025 9:02 PM CDT 10 mL documented in this encounter Active and Recently Administered Medications Times are shown in CDT. Scheduled Medication Order 03/02/2025 03/03/2025 03/04/2025 morphine 4 mg/mL injection 4 mg (COMPLETED) 4 mg, IV, ONE TIME ONLY, 1 dose, On Sun03/04/25 at 2100, Routine 2101 (Given - Provid er: Soraida Murphy RN) ondansetron (ZOFRAN) 4 mg/2 mL injection 4 mg (COMPLETED) 4 mg, IV, ONE TIME ONLY, 1 dose, On Sun03/04/25 at 2100, Stat 2058 (Given - Provid er: Soraida Murphy RN) sodium chloride 0.9 % bolus solution 1,000 mL (COMPLETED) 1,000 mL, IV, ONE TIME ONLY, 1 dose, On Sun03/04/25 at 2100, at 2,000 mL/hr, Administer over 30 Minutes, Routine 2058 (New Bag - Prov ider: Soraida Murphy RN)2200 (Stopped - Provider: Marycarmen Adkins RN) sodium chloride flush injection 10 mL 10 mL, IV, SEE ADMIN INSTRUCTIONS, Starting on Sun03/04/25 at 1943, Until Sol 03/05/25 at 001, Routine 2101 (Given - Provid er: Soraida Murphy RN) documented in this encounter Additional Health Concerns Assessment Noted Time PHQ-9 Depression Total Score: 4 03/01/20 25 11:00 PM CDT documented as of this encounter
--- OUTSIDE RECORDS SUMMARY | 2025-03-04 18:56 | XMS_ITS | Encounter Summary ---
Author Organization [facility] Address [address] [place] [address] Care Team Providers Care Paraprofessional Aide Name Role Phone Unavailable Primary Care Provider Unavailabl e Reason for Visit * Reason Comments Flank Pain Encounter Details Date Type Department Care Team ([facility] st Contact Info) Description 03/04/2025 6:56 PM CDT - 03/04/2025 10:10 PM CDT Emergency [facility] Emergency Medicine [address] [facility] [address] [place] [address] Petar Brice MD [address] [place] [address] [place] [address] Flank pain (Primary Dx) Discharge Disposition: [...] sent through Care Everywhere. * Flank Pain (Bruneian) * Hydrocodone (Bruneian) documented in this encounter Medications at Time [...] by mouth daily. vits15/iron/folic /dss ( VIT 21-PDJJ-HZZSQ-DSS ORAL) Take by mouth. documented as of this encounter Progress Notes * Kristy Rdz, REINALDO - 03/05/2025 8:25 PM CDT [facility] Hospitalist Cross Cover Call Two patient identifier: Hemalatha De La Torre 2005 Called for: recurrent flank pain Last Recorded Vitals: BP (!) 124/98 Pulse 71 Temp 97.3 ??F (36.3 ??C) (Temporal) Resp 16 Ht5' 6 (1.676 m) Wt 127 kg (280 lb) SpO2 97% BMI 45.19 kg/m?? Pain Rating: Rest: 5 (03/04/252129) This is a 19 year old female recently seen at [facility] for acute pyelonephritis with discharge on oralantibiotics. Patient had recurrent acute flank pain, spoke to Dr. Flores then went to ER for further evaluation where she was given IV fluids, was told the antibiotics seem to be working, and was discharged with [place] script. Tonight, patient took a [place] with minimal improvement of acute flank pain [...] Pt was seen here Sunday, transferred to [facility] was diagnosed with UTI. Discharged to home [...] flankpain. Patient was just recently admitted at [facility] for pyelonephritis. She was treated with Rocephin for several days. Her pain was treated with oxycodone and morphine. Patient states she was just discharged from the hospital yesterday. She has been taking Tylenol for pain at home which is not effective. Patient is 16 weeks . She did have an MRI at [place] which did not reveal any kidney stones. [...] (PEPCID) 20 MG TABLET VITS15/IRON/FOLIC/DSS ( VIT 95-RCRR-VBXQT-DSS ORAL) Medications Modified during this Encounter No [...] - 2 /hpf 03/04/2025 8:14 PM CDT [facility] RBC UA 6-10(A) 0 - 2 /hpf 03/04/2025 8:14 PM CDT [facility] BACTERIA UA Negative Negative /hpf 03/04/2025 8:14 PM CDT [facility] EPITHELIAL CELLS, URINE 11-25(A) 0 - 5 /hpf 03/04/2025 8:14 PM CDT [facility] Urine URINE SPECIMEN OBTAINED BY CLEAN CATCH PROCEDURE / Unknown Collection / Unknown 03/04/2025 7:48 PM CDT 03/04/2025 7:56 PM CDT Narrative [facility] - 03/04/2025 8:14 PM CDT Must recollect sample if Culture is ordered. [facility] Petar Brice MD URINE ORDERABLES Final R esult [facility] CLIA # [id number] [address] [place] [address] * (ABNORMAL) COMPREHENSIVE METABOLIC PANEL (03/04/2025 7:48 PM CDT) SODIUM 138 136 - 145 mmol/L 03/04/2025 8:14 PM CDT [facility] POTASSIUM 3.9 3.5 - 5.1 mmol/L 03/04/2025 8:14 PM [facility] CHLORIDE 103 98 - 107 mmol/L 03/04/2025 8:14 PM [facility] CO2 21(L) 22 - 29 mmol/L 03/04/2025 8:14 PM [facility] CALCIUM 9.7 8.6 - 10.0 mg/dL 03/04/2025 8:14 PM [facility] BUN 9 6 - 20 mg/dL 03/04/2025 8:14 PM [facility] CREATININE 0.65 0.51 - 0.95 mg/dL 03/04/2025 8:14 PM [facility] GLUCOSE 81 74 - 99 mg/dL 03/04/2025 8:14 PM [facility] TOTAL PROTEIN 6.5(L) 6.6 - 8.7 g/dL 03/04/2025 8:14 PM [facility] ALBUMIN 3.6 3.5 - 5.2 g/dL 03/04/2025 8:14 PM [facility] BILIRUBIN TOTAL <0.2 0.0 - 1.2 mg/dL 03/04/2025 8:14 PM [facility] ALKALINE PHOSPHATASE 106(H) 35 - 104 U/L 03/04/2025 8:14 PM [facility] AST 26 0 - 35 U/L 03/04/2025 8:14 PM [facility] ALT 37(H) 0 - 35 U/L 03/04/2025 8:14 PM [facility] GFR >60 >=60 mL/min/1.7 3 sq meter 03/04/2025 8:14 PM [facility] Comment:eGFR calculated with 2020 CKD-EPI equation. Vegetarian diet, extremely high or low muscle mass, and may affect results. Cystatin C with Glomerular Filtration Rate is a suitable alternative for these patients. ANION GAP 14 5 - 20 mmol/L 03/04/2025 8:14 PM [facility] Blood Collection / Unknown 03/04/2025 7:48 PM CDT 03/04/2025 7:56 PM CDT Petar Brice MD CHEMISTRY ORDERABLES Fin al Result [facility] CLIA # [id number] [address] [place] [phone] * (ABNORMAL) CBC WITH DIFFERENTIAL (03/04/2025 7:48 PM CDT) WBC 12.8(H) 4.0 - 10.0 K/uL 03/04/2025 8:02 PM [facility] RBC 4.03 3.93 - 5.22 M/uL 03/04/2025 8:02 PM [facility] HEMOGLOBIN 11.2 11.2 - 15.7 g/dL 03/04/2025 8:02 PM [facility] HEMATOCRIT 33.8(L) 34.1 - 44.9 % 03/04/2025 8:02 PM [facility] MCV 83.9 79.4 - 94.8 fL 03/04/2025 8:02 PM [facility] MCH 27.8 25.6 - 32.2 pg 03/04/2025 8:02 PM [facility] MCHC 33.1 32.2 - 35.5 g/dL 03/04/2025 8:02 PM [facility] RDW 18.3(H) 11.0 - 14.5 % 03/04/2025 8:02 PM [facility] RDW-STDEV 55.8 36.9 - 56.9 fL 03/04/2025 8:02 PM [facility] PLATELETS 170 163 - 337 K/uL 03/04/2025 8:02 PM [facility] MPV 11.3 10.0 - 14.8 fL 03/04/2025 8:02 PM [facility] NEUTROPHILS 77(H) 34 - 71 % 03/04/2025 8:02 PM [facility] LYMPHOCYTES 16(L) 19 - 52 % 03/04/2025 8:02 PM [facility] MONOCYTES 6 5 - 13 % 03/04/2025 8:02 PM [facility] EOSINOPHILS 0(L) 1 - 6 % 03/04/2025 8:02 PM [facility] BASOPHILS 0 0 - 1 % 03/04/2025 8:02 PM [facility] IMMATURE GRANULOCYTES 1 % 03/04/2025 8:02 PM [facility] NEUTROPHIL ABSOLUTE 9.85(H) 1.56 - 6.13 K/uL 03/04/2025 8:02 PM [facility] LYMPHOCYTE ABSOLUTE 2.03 1.20 - 3.40 K/uL 03/04/2025 8:02 PM [facility] MONOCYTE ABSOLUTE 0.73(H) 0.24 - 0.36 K/uL 03/04/2025 8:02 PM [facility] EOSINOPHIL ABSOLUTE 0.05 0.04 - 0.36 K/uL 03/04/2025 8:02 PM [facility] BASOPHILS ABSOLUTE 0.02 0.01 - 0.08 K/uL 03/04/2025 8:02 PM [facility] IMMATURE GRANULOCYTES ABSOLUTE 0.07 K/uL 03/04/2025 8:02 PM [facility] Blood Collection / Unknown 03/04/2025 7:48 PM CDT 03/04/2025 7:56 PM CDT us Petar Brice MD HEMATOLOGY ORDERABLES Fi nal Result [facility] CLIA # [id number] [address] [place] [address] * (ABNORMAL) URINALYSIS WITH REFLEX MICROSCOPIC (03/04/2025 7:48 PM CDT) COLOR UA Yellow Pale to Dark Yellow 03/04/2025 8:14 PM CDT [facility] CLARITY UA Clear Clear 03/04/2025 8:14 PM T [facility] SPECIFIC GRAVITY UA 1.020 1.003 - 1.035 03/04/2025 8:14 PM T [facility] PH UA 6.5 5.0 - 8.0 03/04/2025 8:14 PM T [facility] LEUKOCYTE ESTERASE UA 1+(A) Negative 03/04/2025 8:14 PM T [facility] NITRITE UA Negative Negative 03/04/2025 8:14 PM T [facility] PROTEIN UA 1+(A) Negative 03/04/2025 8:14 PM [facility] GLUCOSE UA Negative Negative 03/04/2025 8:14 PM [facility] KETONES UA 4+(A) Negative 03/04/2025 8:14 PM [facility] UROBILINOGEN UA 0.2 <2.0 mg/dL 8:14 PM [facility] BILIRUBIN UA 1+(A) Negative 03/04/2025 8:14 PM [facility] BLOOD UA 2+(A) Negative 03/04/2025 8:14 PM [facility] Urine URINE SPECIMEN OBTAINED BY CLEAN CATCH PROCEDURE / Unknown Collection / Unknown 03/04/2025 7:48 PM CDT 03/04/2025 7:56 PM CDT Petar Brice MD URINE ORDERABLES Final R esult [facility] CLIA # [id number] [address] [place] [phone] documented in this encounter Visit Diagnoses Diagnosis [...]
--- OUTSIDE RECORDS SUMMARY | 2025-03-04 18:56 | XMS_ITS | Encounter Summary ---
Author Organization [facility] Address [address] [place] [address] Care Team Providers Care Auto Battery Builder Name Role Phone Unavailable Primary Care Provider Unavailabl e Reason for Visit * Reason Comments Flank Pain Encounter Details Date Type Department Care Team ([facility] st Contact Info) Description 03/04/2025 6:56 PM CDT - 03/04/2025 10:10 PM CDT Emergency [facility] Emergency Medicine [address] [facility] [address] [place] [id number] Petar Brice MD [address] [place] [address] [place] [address] Flank pain (Primary Dx) Discharge Disposition: [...] sent through Care Everywhere. * Flank Pain (Mosotho) * Hydrocodone (Mosotho) documented in this encounter Medications at Time [...] by mouth daily. vits15/iron/folic /dss ( VIT 08-ANWH-GSSCQ-DSS ORAL) Take by mouth. documented as of this encounter ED Notes * Soraida Murphy [...] right mid abdomen. Pt was seen here [place], transferred to [facility] was diagnosed with UTI. Discharged to home yesterday. States she was feeling fine until around 1400 today, started having severe right flank pain. Called [place] and they instructed her to be seen [...] flankpain. Patient was just recently admitted at [facility] for pyelonephritis. She was treated with Rocephin for several days. Her pain was treated with oxycodone and morphine. Patient states she was just discharged from the hospital yesterday. She has been taking Tylenol for pain at home which is not effective. Patient is 16 weeks . She did have an MRI at [place] which did not reveal any kidney stones. [...] (PEPCID) 20 MG TABLET VITS15/IRON/FOLIC/DSS ( VIT 76-TYAQ-UDVAM-DSS ORAL) Medications Modified during this Encounter No [...] (280 lb) (03/04/251899), BMI (Calculated): (!) 45.21 (03/04/25 1900) No LMP recorded. Patient is . Physical [...] Medications Administered During the ED Stay from 03/04/20251827 to 03/04/20252155 Date/Time Order Dose Route Action [...] - 2 /hpf 03/04/2025 8:14 PM CDT [facility] RBC UA 6-10(A) 0 - 2 /hpf 03/04/2025 8:14 PM CDT [facility] BACTERIA UA Negative Negative /hpf 03/04/2025 8:14 PM CDT [facility] EPITHELIAL CELLS, URINE 11-25(A) 0 - 5 /hpf 03/04/2025 8:14 PM CDT [facility] Urine URINE SPECIMEN OBTAINED BY CLEAN CATCH PROCEDURE / Unknown Collection / Unknown 03/04/2025 7:48 PM CDT 03/04/2025 7:56 PM CDT Narrative [facility] - 03/04/2025 8:14 PM CDT Must recollect sample if Culture is ordered. [facility] Petar Brice MD URINE ORDERABLES Final R esult [facility] CLIA # [id number] [address] [place] [address] * (ABNORMAL) COMPREHENSIVE METABOLIC PANEL (03/04/2025 7:48 PM CDT) SODIUM 138 136 - 145 mmol/L 03/04/2025 8:14 PM [facility] POTASSIUM 3.9 3.5 - 5.1 mmol/L 03/04/2025 8:14 PM [facility] CHLORIDE 103 98 - 107 mmol/L 03/04/2025 8:14 PM [facility] CO2 21(L) 22 - 29 mmol/L 03/04/2025 8:14 PM [facility] CALCIUM 9.7 8.6 - 10.0 mg/dL 03/04/2025 8:14 PM [facility] BUN 9 6 - 20 mg/dL 03/04/2025 8:14 PM [facility] CREATININE 0.65 0.51 - 0.95 mg/dL 03/04/2025 8:14 PM [facility] GLUCOSE 81 74 - 99 mg/dL 03/04/2025 8:14 PM [facility] TOTAL PROTEIN 6.5(L) 6.6 - 8.7 g/dL 03/04/2025 8:14 PM [facility] ALBUMIN 3.6 3.5 - 5.2 g/dL 03/04/2025 8:14 PM [facility] BILIRUBIN TOTAL <0.2 0.0 - 1.2 mg/dL 03/04/2025 8:14 PM [facility] ALKALINE PHOSPHATASE 106(H) 35 - 104 U/L 03/04/2025 8:14 PM [facility] AST 26 0 - 35 U/L 03/04/2025 8:14 PM [facility] ALT 37(H) 0 - 35 U/L 03/04/2025 8:14 PM [facility] GFR >60 >=60 mL/min/1.7 3 sq meter 03/04/2025 8:14 PM [facility] Comment:eGFR calculated with 2020 CKD-EPI equation. Vegetarian diet, extremely high or low muscle mass, and may affect results. Cystatin C with Glomerular Filtration Rate is a suitable alternative for these patients. ANION GAP 14 5 - 20 mmol/L 03/04/2025 8:14 PM [facility] Blood Collection / Unknown 03/04/2025 7:48 PM CDT 03/04/2025 7:56 PM CDT us Petar Brice MD CHEMISTRY ORDERABLES Fin al Result [facility] CLIA # [id number] [address] [place] [address] * (ABNORMAL) CBC WITH DIFFERENTIAL (03/04/2025 7:48 PM CDT) WBC 12.8(H) 4.0 - 10.0 K/uL 03/04/2025 8:02 PM [facility] RBC 4.03 3.93 - 5.22 M/uL 03/04/2025 8:02 PM [facility] HEMOGLOBIN 11.2 11.2 - 15.7 g/dL 03/04/2025 8:02 PM [facility] HEMATOCRIT 33.8(L) 34.1 - 44.9 % 03/04/2025 8:02 PM [facility] MCV 83.9 79.4 - 94.8 fL 03/04/2025 8:02 PM [facility] MCH 27.8 25.6 - 32.2 pg 03/04/2025 8:02 PM [facility] MCHC 33.1 32.2 - 35.5 g/dL 03/04/2025 8:02 PM [facility] RDW 18.3(H) 11.0 - 14.5 % 03/04/2025 8:02 PM [facility] RDW-STDEV 55.8 36.9 - 56.9 fL 03/04/2025 8:02 PM [facility] PLATELETS 170 163 - 337 K/uL 03/04/2025 8:02 PM [facility] MPV 11.3 10.0 - 14.8 fL 03/04/2025 8:02 PM [facility] NEUTROPHILS 77(H) 34 - 71 % 03/04/2025 8:02 PM [facility] LYMPHOCYTES 16(L) 19 - 52 % 03/04/2025 8:02 PM [facility] MONOCYTES 6 5 - 13 % 03/04/2025 8:02 PM [facility] EOSINOPHILS 0(L) 1 - 6 % 03/04/2025 8:02 PM [facility] BASOPHILS 0 0 - 1 % 03/04/2025 8:02 PM [facility] IMMATURE GRANULOCYTES 1 % 03/04/2025 8:02 PM [facility] NEUTROPHIL ABSOLUTE 9.85(H) 1.56 - 6.13 K/uL 03/04/2025 8:02 PM [facility] LYMPHOCYTE ABSOLUTE 2.03 1.20 - 3.40 K/uL 03/04/2025 8:02 PM [facility] MONOCYTE ABSOLUTE 0.73(H) 0.24 - 0.36 K/uL 03/04/2025 8:02 PM [facility] EOSINOPHIL ABSOLUTE 0.05 0.04 - 0.36 K/uL 03/04/2025 8:02 PM [facility] BASOPHILS ABSOLUTE 0.02 0.01 - 0.08 K/uL 03/04/2025 8:02 PM [facility] IMMATURE GRANULOCYTES ABSOLUTE 0.07 K/uL 03/04/2025 8:02 PM [facility] Blood Collection / Unknown 03/04/2025 7:48 PM CDT 03/04/2025 7:56 PM CDT us Petar Brice MD HEMATOLOGY ORDERABLES Fi nal Result [facility] CLIA # [id number] [address] [place] [address] [id number] * (ABNORMAL) URINALYSIS WITH REFLEX MICROSCOPIC (03/04/2025 7:48 PM CDT) COLOR UA Yellow Pale to Dark Yellow 03/04/2025 8:14 PM CDT [facility] CLARITY UA Clear Clear 03/04/2025 8:14 PM CDT [facility] SPECIFIC GRAVITY UA 1.020 1.003 - 1.035 03/04/2025 8:14 PM CDT [facility] PH UA 6.5 5.0 - 8.0 03/04/2025 8:14 PM CDT [facility] LEUKOCYTE ESTERASE UA 1+(A) Negative 03/04/2025 8:14 PM CDT [facility] NITRITE UA Negative Negative 03/04/2025 8:14 PM CDT [facility] PROTEIN UA 1+(A) Negative 03/04/2025 8:14 PM CDT [facility] GLUCOSE UA Negative Negative 03/04/2025 8:14 PM CDT [facility] KETONES UA 4+(A) Negative 03/04/2025 8:14 PM CDT [facility] UROBILINOGEN UA 0.2 <2.0 mg/dL 8:14 PM CDT [facility] BILIRUBIN UA 1+(A) Negative 03/04/2025 8:14 PM CDT [facility] BLOOD UA 2+(A) Negative 03/04/2025 8:14 PM CDT [facility] Urine URINE SPECIMEN OBTAINED BY CLEAN CATCH PROCEDURE / Unknown Collection / Unknown 03/04/2025 7:48 PM CDT 03/04/2025 7:56 PM CDT us Petar Brice MD URINE ORDERABLES Final R esult [facility] CLIA # [id number] [address] [place] [phone] documented in this encounter Visit Diagnoses Diagnosis [...] Sun03/04/25 at 1943, Until Sol 03/05/25 at 0011, Routine Given 03/04/2025 9:02 PM CDT 10 [...]
--- OUTSIDE RECORDS SUMMARY | 2025-03-05 20:40 | XMS_ITS | Clinical Summary ---
Author Organization [facility] Address [address] [place] [address] Phone Care Team Providers Care Track Repair Worker Name Role Phone Unavailable Primary Care Provider Unavailabl e Allergies No known active allergies Medications vits15/iron/fo lic/dss ( VIT 50-[id number]-[id number]- DSS ORAL) Take by mouth. Active escitalopram oxalate (LEXAPRO) 5 mg tablet Take 5 mg by mouth daily. Active famotidine (PEPCID) 20 mg tablet Take 1 Tablet (20 mg) by mouth 2 times daily for 14 days. 28 Tablet 5 03/17/20 25 Active cefdinir (OMNICEF) 300 mg capsule Take 1 Capsule (300 mg) by mouth every 12 hours for 12 days. 24 Capsule 5 03/15/20 25 Active HYDROcodone-ac etaminophen (NORCO) 5-325 mg tabletIndicati ons:Flank pain Take 1-2 Tablets by mouth every 6 hours as needed for Pain. Max Daily Amount: 8 Tablets 30 Tablet 5 Active cefdinir (OMNICEF) 300 mg capsule Take 1 Capsule (300 mg) by mouth every 12 hours for 10 days. 20 Capsule 5 03/03/20 25 Discontinued Active Problems Problem Noted Date Diagnosed Date 15 weeks gestation of 03/01/2025 Acute right flank pain 03/01/2025 Intractable vomiting with nausea 03/01/2025 Acute cystitis with hematuria 03/01/2025 Acute pyelonephritis 03/01/2025 Morbid obesity with body mass index of 40.0-49.9 03/01/2025 Estimated Date of Delivery Comme nts Yes 08/18/2025 Encounters Date Type Department Care Team Description 03/04/2025 6:56 PM CDT - 03/04/2025 10:10 PM CDT Emergency [address] [phone] Petar Brice MD Flank pain (Primary Dx) Discharge Disposition: Home or Self Care 03/04/2025 External Device Data STL ABSTRACTION Provider, Abstract 03/04/2025 External Device Data STL ABSTRACTION Provider, Abstract 03/04/2025 Travel 03/04/2025 External Device Data STL ABSTRACTION Provider, Abstract 03/02/2025 Results Follow-Up [address] [phone] Phyllis Maldonado RN URINE CULTURE 03/01/2025 4:18 PM CDT - 03/03/2025 6:31 PM CDT Hospital Encounter [facility] 5B Gynecology [address] [place] [address] May Dobbins MD Patel, Taksh, MD Shah, Foram Ashwinkumar, MD Acute pyelonephritis Discharge Disposition: Home or Self Care 03/01/2025 6:56 AM CDT - 03/01/2025 10:27 AM CDT Emergency [address] [address] Alissa Winter MD Acute right flank pain (Primary Dx); Intractable vomiting with nausea; Dede-Nunes tear; 15 weeks gestation of ; Acute cystitis with hematuria Discharge Disposition: [facility] 03/01/2025 Travel 12/08/2024 4:32 PM CDT - 12/08/2024 5:17 PM CDT Emergency [address] [address] Dom Chacon MD Acute pain of left shoulder (Primary Dx) Discharge Disposition: Home or Self Care 12/08/2024 Travel from Last 3 Months Social History Tobacco Use Types Packs/Day Years Used Date Smoking Tobacco: Never Smokeless Tobacco: Never Tobacco Cessation:Counseling Given: Not Answered Alcohol Use Standard Drinks/Week Comments Not Currently 0 (1 standard drink = 0.6 oz pur e alcohol) Estimated Date of Delivery Comme nts Yes 08/18/2025 Sex and Gender Information Value Date Recorded Sex Assigned at Not on file Legal Sex Female 4:32 PM CDT Gender Identity Not on file Sexual Orientation Not on file Last Filed Vital Signs Vital Sign Reading [...] Mass Index 45.19 03/04/2025 7:00 PM CDT Plan of Treatment Health Maintenance Due Date Last Done Comments HEPATITIS B VACCINES (2 of 3 - 3-dose series) 07/09/20 03 2003 CHLAMYDIA SCREENING (ANNUAL) 11-24 YEARS 2014 HPV VACCINES (1 - 3-dose series) 2018 DTAP/TDAP/TD VACCINES (1 - Tdap) 2022 CERVICAL CANCER SCREENING 2024 HPV/Cotest (21-29) 2024 PAP SMEAR 2024 Preventative Visit- Commercial 08/20/2024 INFLUENZA VACCINE (#1) 2025 RSV VACCINE (60+ or ) (1 - Risk 1-dose series) 06/23/2025 Procedures Procedure Name Priority Date/Time Associated Diagnosis Comments URINALYSIS MICROSCOPY ONLY Stat 03/04/2025 7:48 PM CDT COMPREHENSIVE METABOLIC PANEL Stat 03/04/2025 7:48 PM CDT CBC WITH DIFFERENTIAL Stat 03/04/2025 7:48 PM CDT URINALYSIS W/REFLEX MICROSCOPIC Stat 03/04/2025 7:48 PM CDT TELEMETRY REPORT 03/04/2025 9:56 AM CDT HEMOGLOBIN AND HEMATOCRIT Routine 03/03/2025 2:12 PM CDT BASIC METABOLIC PANEL Routine 03/03/2025 4:25 AM CDT CBC WITH DIFFERENTIAL Routine 03/03/2025 4:25 AM CDT BASIC METABOLIC PANEL Routine 03/02/2025 6:26 AM CDT MAGNESIUM LEVEL Routine 03/02/2025 6:26 AM CDT CBC WITH DIFFERENTIAL Routine 03/02/2025 6:26 AM CDT MRI ABDOMEN PELVIS WO CONTRAST Stat 03/02/2025 6:21 AM CDT URINALYSIS W/REFLEX MICROSCOPIC Stat 03/01/2025 7:08 PM CDT US OB LTD 1 OR MORE FETUSES Stat 03/01/2025 6:08 PM CDT LACTIC ACID Stat 03/01/2025 4:51 PM CDT BLOOD CULTURE Stat 03/01/2025 4:51 PM CDT BLOOD CULTURE Stat 03/01/2025 4:42 PM CDT LIPASE Stat 03/01/2025 1:53 PM CDT COMPREHENSIVE METABOLIC PANEL Stat 03/01/2025 1:53 PM CDT CBC WITH DIFFERENTIAL Stat 03/01/2025 1:53 PM CDT US RENAL AND BLADDER Stat 03/01/2025 1:16 PM CDT URINALYSIS MICROSCOPY ONLY Stat 03/01/2025 9:14 AM CDT URINALYSIS W/REFLEX MICROSCOPIC Stat 03/01/2025 9:14 AM CDT URINE CULTURE Stat 03/01/2025 9:14 AM CDT OCCULT BLOOD, GASTRIC FLUID Stat 03/01/2025 9:10 AM CDT SEDIMENTATION RATE Stat 03/01/2025 7: 38 AM CDT C-REACTIVE PROTEIN Stat 03/01/2025 7: 38 AM CDT LACTIC ACID Stat 03/01/2025 7:38 AM CDT LIPASE Stat 03/01/2025 7:38 AM CDT COMPREHENSIVE METABOLIC PANEL Stat 03/01/2025 7:38 AM CDT CBC WITH DIFFERENTIAL Stat 03/01/2025 7:38 AM CDT URINALYSIS MICROSCOPY ONLY Stat 03/01/2025 7:10 AM CDT URINALYSIS W/REFLEX MICROSCOPIC Stat 03/01/2025 7:10 AM CDT from Last 3 Months Results * (ABNORMAL) URINALYSIS MICROSCOPY ONLY (03/04/2025 7:48 PM CDT) Only the most recent of3 resultswithin the time period is included. WBC UA 6-10(A) 0 - 2 /hpf 03/04/2025 8:14 PM CDT [facility] RBC UA 6-10(A) 0 - 2 /hpf 03/04/2025 8:14 PM CDT [facility] BACTERIA UA Negative Negative /hpf 03/04/2025 8:14 PM CDT [facility] EPITHELIAL CELLS, URINE 11-25(A) 0 - 5 /hpf 03/04/2025 8:14 PM [facility] Urine URINE SPECIMEN OBTAINED BY CLEAN CATCH PROCEDURE / Unknown Collection / Unknown 03/04/2025 7:48 PM CDT 03/04/2025 7:56 PM CDT [facility] - 03/04/2025 8:14 PM CDT Must recollect sample if Culture is ordered. [facility] Petar Brice MD URINE ORDERABLES Final R esult [facility] CLIA # [id number] [address] [place] [address] * (ABNORMAL) CBC WITH DIFFERENTIAL (03/04/2025 7:48 PM CDT) Only the most recent of5 resultswithin the time period is included. WBC 12.8(H) 4.0 - 10.0 K/uL 03/04/2025 8:02 PM [facility] RBC 4.03 3.93 - 5.22 M/uL 03/04/2025 8:02 PM [facility] HEMOGLOBIN 11.2 11.2 - 15.7 g/dL 03/04/2025 8:02 PM [facility] HEMATOCRIT 33.8(L) 34.1 - 44.9 % 03/04/2025 8:02 PM [facility] MCV 83.9 79.4 - 94.8 fL 03/04/2025 8:02 PM [facility] MCH 27.8 25.6 - 32.2 pg 03/04/2025 8:02 PM [facility] MCHC 33.1 32.2 - 35.5 g/dL 03/04/2025 8:02 PM [facility] RDW 18.3(H) 11.0 - 14.5 % 03/04/2025 8:02 PM [facility] RDW-STDEV 55.8 36.9 - 56.9 fL 03/04/2025 8:02 PM [facility] PLATELETS 170 163 - 337 K/uL 03/04/2025 8:02 PM [facility] MPV 11.3 10.0 - 14.8 fL 03/04/2025 8:02 PM [facility] NEUTROPHILS 77(H) 34 - 71 % 03/04/2025 8:02 PM [facility] LYMPHOCYTES 16(L) 19 - 52 % 03/04/2025 8:02 PM [facility] MONOCYTES 6 5 - 13 % 03/04/2025 8:02 PM [facility] EOSINOPHILS 0(L) 1 - 6 % 03/04/2025 8:02 PM [facility] BASOPHILS 0 0 - 1 % 03/04/2025 8:02 PM [facility] IMMATURE GRANULOCYTES 1 % 03/04/2025 8:02 PM [facility] NEUTROPHIL ABSOLUTE 9.85(H) 1.56 - 6.13 K/uL 03/04/2025 8:02 PM [facility] LYMPHOCYTE ABSOLUTE 2.03 1.20 - 3.40 K/uL 03/04/2025 8:02 PM [facility] MONOCYTE ABSOLUTE 0.73(H) 0.24 - 0.36 K/uL 03/04/2025 8:02 PM [facility] EOSINOPHIL ABSOLUTE 0.05 0.04 - 0.36 K/uL 03/04/2025 8:02 PM [facility] BASOPHILS ABSOLUTE 0.02 0.01 - 0.08 K/uL 03/04/2025 8:02 PM [facility] IMMATURE GRANULOCYTES ABSOLUTE 0.07 K/uL 03/04/2025 8:02 PM [facility] Blood Collection / Unknown 03/04/2025 7:48 PM CDT 03/04/2025 7:56 PM CDT us Petar Brice MD HEMATOLOGY ORDERABLES Fi nal Result [facility] CLIA # [id number] [address] [place] [id number] * (ABNORMAL) URINALYSIS WITH REFLEX MICROSCOPIC (03/04/2025 7:48 PM CDT) Only the most recent of4 resultswithin the time period is included. COLOR UA Yellow Pale to Dark Yellow 03/04/2025 8:14 PM CDT [facility] CLARITY UA Clear Clear 03/04/2025 8:14 PM CDT [facility] SPECIFIC GRAVITY UA 1.020 1.003 - 1.035 03/04/2025 8:14 PM CDT [facility] PH UA 6.5 5.0 - 8.0 03/04/2025 8:14 PM CDT [facility] LEUKOCYTE ESTERASE UA 1+(A) Negative 03/04/2025 8:14 PM CDT [facility] NITRITE UA Negative Negative 03/04/2025 8:14 PM CDT [facility] PROTEIN UA 1+(A) Negative 03/04/2025 8:14 PM CDT [facility] GLUCOSE UA Negative Negative 03/04/2025 8:14 PM CDT [facility] KETONES UA 4+(A) Negative 03/04/2025 8:14 PM CDT [facility] UROBILINOGEN UA 0.2 <2.0 mg/dL 8:14 PM CDT [facility] BILIRUBIN UA 1+(A) Negative 03/04/2025 8:14 PM CDT [facility] BLOOD UA 2+(A) Negative 03/04/2025 8:14 PM CDT [facility] Urine URINE SPECIMEN OBTAINED BY CLEAN CATCH PROCEDURE / Unknown Collection / Unknown 03/04/2025 7:48 PM CDT 03/04/2025 7:56 PM CDT us Petar Brice MD URINE ORDERABLES Final R esult [facility] CLIA # [id number] [address] [place] [address] * (ABNORMAL) COMPREHENSIVE METABOLIC PANEL (03/04/2025 7:48 PM CDT) Only the most recent of3 resultswithin the time period is included. SODIUM 138 136 - 145 mmol/L 03/04/2025 8:14 PM [facility] POTASSIUM 3.9 3.5 - 5.1 mmol/L 03/04/2025 8:14 PM [facility] CHLORIDE 103 98 - 107 mmol/L 03/04/2025 8:14 PM [facility] CO2 21(L) 22 - 29 mmol/L 03/04/2025 8:14 PM [facility] CALCIUM 9.7 8.6 - 10.0 mg/dL 03/04/2025 8:14 PM [facility] BUN 9 6 - 20 mg/dL 03/04/2025 8:14 PM [facility] CREATININE 0.65 0.51 - 0.95 mg/dL 03/04/2025 8:14 PM [facility] GLUCOSE 81 74 - 99 mg/dL 03/04/2025 8:14 PM [facility] TOTAL PROTEIN 6.5(L) 6.6 - 8.7 g/dL 03/04/2025 8:14 PM [facility] ALBUMIN 3.6 3.5 - 5.2 g/dL 03/04/2025 8:14 PM [facility] BILIRUBIN TOTAL <0.2 0.0 - 1.2 mg/dL 03/04/2025 8:14 PM [facility] ALKALINE PHOSPHATASE 106(H) 35 - 104 U/L 03/04/2025 8:14 PM [facility] AST 26 0 - 35 U/L 03/04/2025 8:14 PM [facility] ALT 37(H) 0 - 35 U/L 03/04/2025 8:14 PM [facility] GFR >60 >=60 mL/min/1.7 3 sq meter 03/04/2025 8:14 PM [facility] Comment:eGFR calculated with 2020 CKD-EPI equation. Vegetarian diet, extremely high or low muscle mass, and may affect results. Cystatin C with Glomerular Filtration Rate is a suitable alternative for these patients. ANION GAP 14 5 - 20 mmol/L 03/04/2025 8:14 PM CDT [facility] Blood Collection / Unknown 03/04/2025 7:48 PM CDT 03/04/2025 7:56 PM CDT us Petar Brice MD CHEMISTRY ORDERABLES Fin al Result [facility] CLIA # [id number] [address] [place] [address] [id number] * TELEMETRY REPORT (03/04/2025 9:56 AM CDT) us Provider Scanning ECG ORDERABLES Final Result * (ABNORMAL) HEMOGLOBIN AND HEMATOCRIT (03/03/2025 2:12 PM CDT) HEMOGLOBIN 9.8(L) 12.0 - 16.0 g/dL 03/03/2025 2:39 PM CDT [facility] HEMATOCRIT 29.8(L) 36.0 - 46.0 % 03/03/2025 2:39 PM CDT [facility] Blood Venipuncture / Unknown 03/03/2025 2:12 PM CDT 03/03/2025 2:26 PM CDT us Mela Flores MD HEMATOLOGY ORDERABLES Final Result Performing Organization Address City/[facility]/ZIP Co de Phone Number [facility] CLIA # [id number] [address] [place] [phone] * (ABNORMAL) BASIC METABOLIC PANEL (03/03/2025 4:25 AM CDT) Only the most recent of2 resultswithin the time period is included. SODIUM 136 136 - 145 mmol/L 03/03/2025 5:25 AM [facility] POTASSIUM 4.0 3.5 - 5.1 mmol/L 03/03/2025 5:25 AM T [facility] Comment:Moderate hemolysis p resent. Can cause significant falsely elevated result. Redraw if indicated. CHLORIDE 105 98 - 107 mmol/L 03/03/2025 5:25 AM T [facility] CO2 21(L) 22 - 29 mmol/L 03/03/2025 5:25 AM T [facility] CALCIUM 8.9 8.6 - 10.0 mg/dL 03/03/2025 5:25 AM T [facility] BUN 7 6 - 20 mg/dL 03/03/2025 5:25 AM [facility] CREATININE 0.62 0.51 - 0.95 mg/dL 03/03/2025 5:25 AM [facility] GLUCOSE 93 74 - 99 mg/dL 03/03/2025 5:25 AM T [facility] GFR >60 >=60 mL/min/1.7 3 sq meter 03/03/2025 5:25 AM [facility] Comment:eGFR calculated with 2020 CKD-EPI equation. Vegetarian diet, extremely high or low muscle mass, and may affect results. Cystatin C with Glomerular Filtration Rate is a suitable alternative for these patients. ANION GAP 10 9 - 20 mmol/L 03/03/2025 5:25 AM [facility] Blood Venipuncture / Unknown 03/03/2025 4:25 AM CDT 03/03/2025 4:48 AM CDT us Mela Flores MD CHEMISTRY ORDERABLES F inal Result [facility] CLIA # [id number] [address] [address] [place] [address] * MAGNESIUM LEVEL (03/02/2025 6:26 AM CDT) MAGNESIUM 1.6 1.6 - 2.6 mg/dL 03/02/2025 7:23 AM CDT [facility] [employer] [facility] Blood Venipuncture / Unknown 03/02/2025 6:26 AM CDT 03/02/2025 6:34 AM CDT us Brigido Hines MD CHEMISTRY ORDERABLES Final Resul t [facility] [employer] [facility] CLIA # [id number] [address] [address] [place] [address] * MRI ABDOMEN PELVIS WO CONTRAST (03/02/2025 [...] an obstructing calculus cannot be completely excluded. us May Dobbins MD MR ORDERABLES Kerri l Result * US OB LTD 1 OR MORE FETUSES (03/01/2025 6:08 PM CDT) Anatomical Region Laterality Modality Pelvis Ultrasound 03/01/2025 5:39 PM CDT Narrative 03/01/2025 9:34 PM CDT [facility] OBUS ----- Pat. Name: HEMALATHA DE LA TORRE Study Date: 03/01/2025 5:39pm Pat. NO: [id number] Referring MD: Site: [facility] Pan Washer Hand: Nataliia Mckeon : 2005 Age: 19 ----- INDICATION ----- Other Specified Complications of viability scan through the ER CODING ----- Diagnoses Z3A.15: Weeks of gestation Z3A.15: Weeks of gestation O26.892: Other specified related conditions Procedures 93848: Ultrasound, uterus, real time with image documentation, [...] Note Jhon Ricci II, MD - 03/01/2025 [place] LIMITED OBUS ----- Pat. Name:Lucy DE LA TORRE Date:03/01/2025 5:39pm Pat. NO: [id number] MD: [facility]atal[facility] Mckeon :2005Age:19 ----- INDICATION ----- Other Specified Complications of viability scanthrough the ER CODING ----- Diagnoses Z3A.15: Weeks of gestation Z3A.15: Weeks of gestation O26.892: Other specified relatedconditions Procedures 19892: Ultrasound, uterus, real time withimage documentation, limited one or more fetuses HISTORY ----- OB History 2. Para 0 METHOD ----- Transabdominal ultrasound examination ----- Monge . Number of fetuses: 1 DATING ----- LMP on:10/26/2024 GA by [id number] w + 0 d MICHELL by LMP:08/02/2025 Method of dating:based on stated MICHELL GA by prior [id number] w + 5 d MICHELL by prior assessment:08/18/2025 Assigned:based on stated MICHELL, selected on 03/01/2025 Assigned [email or web address] w + 5 d Assigned MICHELL:08/18/2025 GENERAL EVALUATION ----- Cardiac activity present. FHR 149 bpm. movements: visualized.Presentation: cephalic Placenta: anterior IMPRESSION ----- Findings Comment Intrauterine Limited examination May Dobbins MD US ORDERABLES Kerri l Result * LACTIC ACID (03/01/2025 4:51 PM CDT) Only the most recent of2 resultswithin the time period is included. LACTIC ACID 1.2 <=2.0 mmol/L 03/01/2025 5:20 PM CDT [facility] [employer] [facility] Blood Venipuncture / Unknown 03/01/2025 4:51 PM CDT 03/01/2025 4:57 PM CDT May Dobbins MD CHEMISTRY ORDERABLES Final Result [facility] [employer] [facility] CLIA # [id number] [address] [facility] [place] [address] * LIPASE (03/01/2025 1:53 PM CDT) Only the most recent of2 resultswithin the time period is included. LIPASE 25 13 - 60 U/L 03/01/2025 2:34 PM CDT [facility] [employer] [facility] Blood Venipuncture / Unknown 03/01/2025 1:53 PM CDT 03/01/2025 1:58 PM CDT us Bryceshannon Ybarra McTeer [employer]PARER CHEMISTRY ORDERABLES Fi nal Result [facility] [employer] [facility] CLIA # [id number] [address] [facility] [place] [address] * US RENAL AND BLADDER (03/01/2025 1:16 [...] kidneys and bladder. Narrative Procedure Note Eddie Cortez DO - 03/01/2025 IMPRESSION: Please see below. [...] sonographic appearance of the kidneys and bladder. us Carito Ybarra McTeer [employer] US ORDERABLES Final R esult * (ABNORMAL) URINE CULTURE (03/01/2025 9:14 AM CDT) CULTURE ESCHERICHIA COLI(A) CHYNA MCG/ML 03/03/2025 7:21 AM CDT [facility] Urine URINE SPECIMEN OBTAINED BY CLEAN [...] MICROBIOLOGY - GENERAL ORDERABL ES Final Result Performing Organization Address [facility] Co de Phone Number [facility] CLIA # [id number] [address] [place] [phone] * (ABNORMAL) OCCULT BLOOD, GASTRIC FLUID (03/01/2025 9:10 AM CDT) OCCULT BLOOD, GASTRIC FLUID Positive(A ) Negative 03/01/2025 9:43 AM CDT [facility] PH, GASTRIC FLD <1(L) 2 - 4 03/01/2025 9:43 AM CDT [facility] Body fluid ENTIRE STOMACH / Unknown Collection / Unknown 03/01/2025 9:10 AM CDT 03/01/2025 9:28 AM CDT [facility] - 03/01/2025 9:43 AM CDT Lot [id number] exp - Developer [id number] exp 0426 us Alissa Winter MD BODY FLUIDS AND STOOLS Final Re sult Performing Organization Address [facility] Co de Phone Number [facility] CLIA # [id number] [address] [place] [phone] * (ABNORMAL) SEDIMENTATION RATE (03/01/2025 7:38 AM CDT) ESR (SEDIMENTATION RATE) 31(H) 0 - 20 mm/Hr 03/01/2025 8:52 AM CDT [facility] Blood Venipuncture / Unknown 03/01/2025 7:38 AM CDT 03/01/2025 8:27 AM CDT [facility] - 03/01/2025 8:52 AM CDT Tube Lot: #[id number] Exp Date: 08/19/2026 QC1 LOT [id number] EXP.08/24/2025 QC2 LOT [id number] EXP.08/24/2025 us Alissa Winter MD HEMATOLOGY ORDERABLES Final Res ult Performing Organization Address [facility] Co de Phone Number [facility] CLIA # [id number] [address] [place] [address] 47950 * (ABNORMAL) C-REACTIVE PROTEIN (03/01/2025 7:38 AM CDT) CRP 16.0(H) <5.0 mg/L 03/01/2025 8:51 AM CDT [facility] Blood Venipuncture / Unknown 03/01/2025 7:38 AM CDT 03/01/2025 8:27 AM CDT us Alissa Winter MD CHEMISTRY ORDERABLES Final Resu lt Performing Organization Address [facility] Co de Phone Number [facility] CLIA # [id number] [address] [place] [address] from Last 3 Months Insurance BENEFIT MANAGEMENT PPO Advance Directives For more information, please contact: [phone] * Full Code (Latest Code Status on File) Date Activated Date Inactivated Comments 03/01/2025 5:49 PM 03/03/2025 8:36 PM
--- OUTSIDE RECORDS SUMMARY | 2025-03-05 20:40 | XMS_ITS | Data Portability ---
Author Organization [facility] Paulino Castillo [facility] Address [address] [address] Care Team Providers Care Laboratory Assistant Name Role Phone JORGE LUIS FOSTER Primary Care Provider Assessment No assessment recorded. Plan of Treatment Reminders Order Date Submit Date Provider Last Modified By Organization Details Last Modified Time Details Appointments None recorded. Lab None recorded. Referral None recorded. Procedures None recorded. Surgeries None recorded. Imaging None recorded. Medication Orders doxycycline hyclate 100 mg capsule 2024 025 [id number], [address], [place], [place], [id number], 16:00:54 Patient TargetsNo targets recorded. Patient Instructions Encounter Date Encounter Id Patient Instructions Last Modified By Organization Details Last Modified Time 11/08/2024 [id number] Follow up for worsening [email or web address] Not available 11/08/2024 16:14:02 Reason for Referral None Reported. Medical Equipment None Reported. Allergies No known drug allergies Medications Name Sig Start Date Stop Date Status Note LastModified by Organization Details LastModified Time buspirone 5 mg tablet TAKE 1 TABLET BY MOUTH TWICE DAILY 11/08 completed Not Available Not Available Not Available doxycycli ne hyclate 100 mg capsule Take 1 capsule twice a day by oral route with meal(s) for 10 days. 2024 active Not Available Not Available Not Avai lable buspirone 10 mg tablet TAKE 1 TABLET BY MOUTH TWICE DAILY active Not Available Not Available No t Available spironola ctone 50 mg tablet TAKE 1 TABLET BY MOUTH ONCE DAILY 11/08 completed Not Available Not Available Not Available neomycin- polymyxin -HC 3 times per day 11/08 completed Recorded 11/26/19 19 5:36PM by REINALDO Good, Office Visit; Refill Quantity : 0; Not Available Not Available Not Available desvenlaf axine succinate ER 50 mg tablet,ex tended release 24 hr TAKE 1 TABLET BY MOUTH EVERY DAY active Not Available Not Available No t Available vilazodon e 20 mg tablet TAKE 1 TABLET BY MOUTH ONCE DAILY 11/08 completed Not Available Not Available Not Available Vitals Date Recorded Body height Body temperature Heart rate Oxygen saturation Oxygen saturation in Arterial blood by Pulse oximetry Systolic And Diastolic Provider Name and Address Organization Details Last Updated DateTime 167.64 cm 98.4 [degF] 128 /min 98 % 98 % 132/80 mm[Hg] Regine Rajan [facility], [facility] 5 15:45:33 Social History None recorded. Functional Status None recorded. Mental Status None recorded. Family History Nothing Reported Notes:Maternal Grandmother; In good health, Mother; In good health, Father; In good health, Paternal Grandfather; In good health, Paternal Grandmother; In good health, Maternal Grandfather; In good health Medical History No medical history recorded. Gynecological HistoryNo gynecological history recorded. Obstetrics History GPAL:G 0 P 0 0 0 0 Immunizations Vaccine Type Date Status Note Provider Nam e and Address Organization Details Recorded Time Hep B, adolescent or pediatric 2003 completed Not Available [facility] 3 02:29:47 Past Encounters Encounter ID Performer Location Encounter Start Date Encounter Closed Date Diagnosis/Indication Diagnosis SNOMED-CT Code Diagnosis ICD10 Code Diagnosis Note [id number] JENNIFER BLUE APRN [facility] [address] [place] [address] 11/08/2024 15:35:10 11/09/2024 07:45:54 Abscess of skin and/or subcutaneous tissue 27873802 L02.91 Health Concerns Section Related Observation LastModified by Organization Detai ls LastModified Time None Recorded Concern Status LastModified by Organization Details LastModified Time None Recorded Advance Directives Directive None Recorded Payers Insurance Date Sequence Insurance Name Policy Number Policy Guzmán Covered Member ID Guzmán Member ID Guarantor Name 11/08/2024 1 BENEFIT MANAGEMENT OSIRIS FIGUEROA (PPO) Hemalatha De La Torre [id number] 2 Richi Childers Notes Date Note Type Note Provider Name and Address Organization Details Recorded Time 11/08/2024 text/html walk in ptPt has a red and swollen area on her right upper leg for 4 days JENNIFER BLUE, ANIMAL CONTROL SUPERVISOR [address] [place], [address], [facility], Gui 11/08/2024 16:14:15 OBGyn Episode No OBEpisode recorded.
--- OUTSIDE RECORDS SUMMARY | 2025-03-05 20:40 | XMS_ITS | Encounter Summary ---
Author Organization [facility] Address [address] [place] [address] Care Team Providers Care Mac Developer Name Role Phone Unavailable Primary Care Provider Unavailabl e Encounter Details Date Type Department Care Team (Late st Contact Info) Description 03/04/2025 External Device Data STL ABSTRACTION Provider, Abstract NO ADDRESS ON FILE Social History Tobacco Use Types Packs/Day Years [...] on file documented as of this encounter Plan of Treatment Not on file documented as of this encounter Visit Diagnoses Not on filedocumented in this encounter Additional Health Concerns Assessment Noted Time PHQ-9 Depression Total Score: 4 03/01/20 25 11:00 PM CDT documented as of this encounter
--- OUTSIDE RECORDS SUMMARY | 2025-03-05 20:40 | XMS_ITS | Encounter Summary ---
Author Organization [facility] Address [address] [place] [address] Care Team Providers Care Shape Carver Name Role Phone Unavailable Primary Care Provider Unavailabl e Encounter Details Date Type Department Care Team (Late st Contact Info) Description 03/02/2025 Results Follow-Up [facility] Emergency Medicine [address] [place] [id number] Phyllis Maldonado, RN URINE CULTURE Social History Tobacco Use Types Packs/Day Years [...]
--- OUTSIDE RECORDS SUMMARY | 2025-03-05 20:40 | XMS_ITS | Encounter Summary ---
Author Organization [facility] Address [address] [facility] Attn: Epic Prelude ADT [place] [address] Care Team Providers Care Ground Services Instructor Name Role Phone Unavailable Primary Care Provider Unavailabl e Encounter Details Date Type Department Care Team (Latest Contact Info) Description 03/04/2025 Travel Social History Tobacco Use Types Packs/Day Years [...]
--- OUTSIDE RECORDS SUMMARY | 2025-03-05 20:40 | XMS_ITS | Encounter Summary ---
Author Organization [facility] Address [address] [place] [address] Care Team Providers Care Vacuum Form Operator Name Role Phone Unavailable Primary Care Provider [...]
--- OUTSIDE RECORDS SUMMARY | 2025-03-05 20:41 | XMS_ITS | Encounter Summary ---
Author Organization [facility] Address [address] [facility] Attn: Epic Prelude ADT [place] [address] Care Team Providers Care Interlibrary Loan Services Librarian Name Role Phone Unavailable Primary Care Provider Unavailabl e Encounter Details Date Type Department Care Team (Latest Contact Info) Description 03/01/2025 Travel Social History Tobacco Use Types Packs/Day [...]
--- OUTSIDE RECORDS SUMMARY | 2025-03-05 20:41 | XMS_ITS | Encounter Summary ---
Author Organization [facility] Address [address] [place] [address] Care Team Providers Care Transfill Technician Name Role Phone Unavailable Primary Care Provider [...]
[2025-03-05 20:51] VITALS: BP 136/81; PULSE 76; RESP 20; TEMP 36.7; O2SAT 98
[2025-03-05 20:53] VITALS: BMI 44.6
[2025-03-05 21:24] LABS: Hematocrit 34.1 % (36-47); Hemoglobin 10.90 g/dL (11.27-16.99); Mean Corpuscular HGB Conc 32.0 g/dL (30-55); Mean Corpuscular Hemoglobin 27.6 pg (27-33); Mean Corpuscular Volume 86.3 fl (85-98); Nucleated Red Blood Cells % 0 %; Platelet Count 169 10^3/cmm (157-399); Red Blood Count 3.95 10^6/uL (3.85-5.65); White Blood Count 12.70 10^3/uL (3.29-11.43)
[2025-03-05] MEDS: ondansetron 2 mg/ML SDV 2 mL 4 MG IVP (21:33)
[2025-03-05 21:54] LABS: Alanine Aminotransferase 36 U/L (0-33); Albumin Level 3.7 g/dL (3.5-5.2); Alkaline Phosphatase 110 U/L (35-105); Anion Gap 19.1 (5-19); Aspartate Amino Transferase 21 U/L (0-32); Blood Urea Nitrogen 7 mg/dL (6-20); Calcium 9.3 mg/dL (8.5-10.5); Carbon Dioxide 22 mmol/L (22-29); Chloride 101 mmol/L (98-107); Creatinine Clr Calc Pharmacy 207.6141; Globulin 3.0 g/dL (1.3-4.6); Glucose 87 mg/dL (65-115); Lipase 35 U/L (13-60); Osmolality Calculated 283 mOsm/kg (285-295); Potassium 4.1 mmol/L (3.5-5.1); Sodium 138 mmol/L (136-145); Total Protein 6.7 g/dL (6.6-8.7)
[2025-03-05] MEDS: morphine 4 mg/mL SDV 1 mL IVP (21:58)
[2025-03-05 22:16] LABS: Glucose Urine UA Negative (Normal); Nitrate Urine Negative (Negative); Specific Gravity, Urine 1.029 (1.005-1.030)
[2025-03-05 22:20] VITALS: BP 120/66; PULSE 60; RESP 16; O2SAT 98
[2025-03-05 22:21] LABS: Add Urine Microscopic? YES
[2025-03-05 22:44] LABS: UA Slide Review UA Slide Review Perf
--- NOTE | 2025-03-05 23:53 | ED_ITS ---
HPI - Abdominal Pain 2 General: Chief Complaint: Abdominal Pain Stated Complaint: R Lower ABD Pain 16 Weeks Preg N/V Time Seen by Provider: 03/05/25 20:56 History of Present Illness: 19-year-old female patient presents to [facility] emergency department complaining of worsening right-sided flank pain. Patient is 17 weeks patient states that she was seen yes this recently at [facility] was diagnosed with pyelonephritis and was discharged patient states pain is worse and patient is nauseated and vomiting patient states she cannot keep anything down patient states that she feels like she has been running a fever. Related Data Home Medications ?Medication ?Instructions ?Recorded ?Confirmed vitamins no.121-iron 28 tab PO DAILY 01/27/25 02/19/25 mg-folic acid 800 mcg tablet Previous Rx's ?Medication ?Instructions ?Recorded ondansetron HCl 4 mg tablet 4 mg PO DAILY #2 tabs 01/18 04/13 amoxicillin 875 mg-potassium 1 tab PO BID 7 days #14 t abs 02/19/25 clavulanate 125 mg tablet Allergies Allergy/AdvReac Type Severity Reaction Status Date / Time No Known Allergies Allergy Verified 02/19/25 18:07 Review of Systems 2 General: Reports: 10 or more systems reviewed and unremarkable except in HPI and below PFSH ED 2 PFSH: Medical History (Updated 03/06/25 @ 00:00 by Mera Michelle NP) No pertinent past medical history neghx: htn, dm, thyroid, dvt/pe PCP: Sanam Kerns Surgical History H/O knee surgery Lipoma suprapatellar down to tib/fib-- benign. She had 2 surgeries w/in 2 years. Family History Denies family history of Cervical cancer Colon cancer Ovarian cancer Diabetes Breast cancer Hypertension Uterine cancer Thyroid disease Stroke Social History Smoking and tobacco/nicotine status: never used tobacco/nicotine Physical Exam 2 Const: COMMON NORMALS: no acute distress, patient oriented x3 and healthy appearing GENERAL APPEARANCE: cooperative and comfortable Resp: COMMON NORMALS: clear to auscultation bilaterally AUSCULTATION: clear to auscultation bilaterally Cardio: COMMON NORMALS: regular rate and regular rhythm RATE: regular rate RHYTHM: regular rhythm : BLADDER/KIDNEY EXAM: Yes CVA tenderness Back/Pelvis: GENERAL BACK: Yes CVA tenderness Neuro: COMMON NORMALS: patient oriented x3 Psych: COMMON NORMALS: speech normal SPEECH: Yes normal speech Skin: NARRATIVE SKIN EXAM: Approx baseball sized area of erythema with central area half dollar sized area of moderated induration-Central dime sized area of fluctuance. Course 2 Vital Signs: Vital signs: Vital Signs Temperature 98.1 F 03/05/25 20:51 Pulse Rate 60 03/05/25 22:20 Respiratory Rate 16 03/05/25 22:20 Blood Pressure 120/66 03/05/25 22:20 Pulse Oximetry 98 03/05/25 22:20 Oxygen Delivery Me thod Room Air 03/05/25 22:20 MDM - Abdominal Pain Medical Decision Making 19-year-old female patient presents to the emergency department complaining of worsening right-sided flank pain. Patient is 17 weeks patient states that she was seen yes this recently at [facility] was diagnosed with pyelonephritis and was discharged patient states pain is worse and patient is nauseated and vomiting patient states she cannot keep anything down patient states that she feels like she has been running a fever. Please see nurses notes for heart tones given patient's pain and nausea vomiting I will plan on bringing her in for IV antibiotics pain control and fluids Dr. temple has admitted patient at [facility] time. Lab Data 03/05/25 21:15 03/05/25 21:15 Labs/Radiology: Laboratory Results WBC 12.70 10^3/uL (3.29-11.43) H 03/05/25 21:15 RBC 3.95 10^6/uL (3.85-5.65) 03/05/25 21:15 Hgb 10.90 g/dL (11.27-16.99) L 03/05/25 21:15 Hct 34.1 % (36-47) L 03/05/25 21:15 MCV 86.3 fl (85-98) 03/05/25 21:15 MCH 27.6 pg (27-33) 03/05/25 21:15 MCHC 32.0 g/dL (30-55) 03/05/25 21:15 RDW 18.0 % (12.1-15.1) H 03/05/25 21:15 Plt Count 169 10^3/cmm (157-399) 03/05/25 21:15 MPV 11.2 fL (7.4-10.4) H 03/05/25 21:15 Neut % (Auto) 77.0 % 03/05/25 21:15 Lymph % (Auto) 15.7 % 03/05/25 21:15 Blaine % (Auto) 6.1 % 03/05/25 21:15 Eos % (Auto) 0.6 % 03/05/25 21:15 Baso % (Auto) 0.2 % 03/05/25 21:15 Neut # (Auto) 9.79 10^3/uL (1.8-7.7) H 03/05/25 21:15 Lymph # (Auto) 2.0 10^3/uL (0.8-4.8) 03/05/25 21:15 Blaine # (Auto) 0.8 10^3/uL (0.2-0.9) 03/05/25 21:15 Eos # (Auto) 0.1 10^3/uL (0.0-0.8) 03/05/25 21:15 Baso # (Auto) 0.0 10^3/uL (0.0-0.1) 03/05/25 21:15 Nucleated RBC % (auto) 0 % 03/05/25 21:15 Nucleated RBCs # 0.0 /100WBC 03/05/25 21:15 Sodium 138 mmol/L (136-145) 03/05/25 21:15 Potassium 4.1 mmol/L (3.5-5.1) 03/05/25 21:15 Chloride 101 mmol/L (98-107) 03/05/25 21:15 Carbon Dioxide 22 mmol/L (22-29) 03/05/25 21:15 Anion Gap 19.1 (5-19) H 03/05/25 21:15 BUN 7 mg/dL (6-20) 03/05/25 21:15 Creatinine 0.6 mg/dL (0.5-0.9) 03/05/25 21:15 GFR Calculation 126.2 mL/min (90-130) 03/05/25 21:15 Glucose 87 mg/dL (65-115) 03/05/25 21:15 Calculated Osmolality 283 mOsm/kg (285-295) L 03/05/25 21:15 Calcium 9.3 mg/dL (8.5-10.5) 03/05/25 21:15 Total Bilirubin 0.2 mg/dL (0.15-1.2) 03/05/25 21:15 AST 21 U/L (0-32) 03/05/25 21:15 ALT 36 U/L (0-33) H 03/05/25 21:15 Alkaline Phosphatase 110 U/L (35-105) H 03/05/25 21:15 Total Protein 6.7 g/dL (6.6-8.7) 03/05/25 21:15 Albumin 3.7 g/dL (3.5-5.2) 03/05/25 21:15 Globulin 3.0 g/dL (1.3-4.6) 03/05/25 21:15 Lipase 35 U/L (13-60) 03/05/25 21:15 Ser , Semi-Qnt 7843.00 mIU/mL 03/05/25 21:15 Urine Color Yellow (Yellow) 03/05/25 22:10 Urine Appearance Cloudy (CLEAR) A 03/05/25 22:10 Urine pH 6.0 (5-7) 03/05/25 22:10 Ur Specific [place] 1.029 (1.005-1.030) 03/05/25 22:10 Urine Protein 1+ (Negative) A 03/05/25 22:10 Urine Glucose (UA) Negative (Normal) 03/05/25 22:10 Urine Ketones 2+ (Negative) H 03/05/25 22:10 Urine Blood 3+ (Negative) A 03/05/25 22:10 Urine Nitrate Negative (Negative) 03/05/25 22:10 Urine Bilirubin Negative (Negative) 03/05/25 22:10 Urine Urobilinogen 1.0 mg/dL (Negative) 03/05/25 22:10 Ur Leukocyte Esterase 1+ (Negative) A 03/05/25 22:10 Urine RBC >100 /hpf (0-2) H 03/05/25 22:10 Urine WBC 21-50 /hpf (0-5) H 03/05/25 22:10 Ur Squamous Epith Cells 11-20 /hpf (0-5) H 03/05/25 22:10 Calcium Oxalate Crystal 15-25 /hpf H 03/05/25 22:10 Amorphous Sediment Not Reportable 03/05/25 22:10 Urine Bacteria Trace /hpf (NONE) 03/05/25 22:10 Hyaline Casts 1.65 /lpf 03/05/25 22:10 Urine Mucus 2+ /hpf 03/05/25 22:10 No radiology studies performed this visit Discharge Plan Discharge Patient Disposition: Admitted As Inpatient Clinical Impression: Pyelonephritis affecting Qualifiers: Trimester: second trimester Qualified Code(s): O23.02 - Infections of kidney in , second trimester Condition: Stable Coding Level of Care Code ED Route Deliverer for Jose Solano
[2025-03-06] VITALS (12 sets, daily range): BP systolic 113–149; BP diastolic 56–90; PULSE 58–78; RESP 16–18; TEMP 36.7–36.9; O2SAT 92–98; BMI 46.7
[2025-03-06] MEDS: cefTRIAXone 1,000 mg SDV 1000 MG IVP (00:38)
--- NOTE | 2025-03-06 01:50 | P.HP_ITS ---
Providers/Chief Complaint 2 Admitting Physician: Jose Alexandra Chief Complaint: R Lower ABD Pain 16 Weeks Preg N/V History of Present Illness 19-year-old female at 16 weeks and 2 days gestation who presents with persistent right-sided flank pain and incomplete resolution of symptoms after recent hospitalization for pyelonephritis. Her symptoms began abruptly on Sunday morning with localized right flank pain that has remained fairly constant without radiation. She reports associated nausea, vomiting (including one episode of dark blood likely from esophageal irritation), chills, subjective fevers, and reduced oral intake. She denies dysuria, urinary frequency, urgency, or hematuria. She initially sought care at [facility] in [place] and was then transferred to [facility] for further evaluation. There, she underwent an MRI that ruled out nephrolithiasis but was consistent with pyelonephritis. She was admitted from Sunday through Sunday and received IV antibiotics and supportive care. She was discharged Sunday evening on oral cefdinir 300 mg twice daily, which she reports taking consistently. However, she continued to experience significant pain at home. She presented again to the [place] ER last night and was evaluated for ongoing symptoms. Labs reportedly indicated that the antibiotic was working, but she was prescribed hydrocodone for pain and discharged home without any changes to her antibiotic regimen. Due to worsening discomfort today, she presented again for further evaluation. This is her second . The first was complicated by a miscarriage in March 2023, without need for surgical intervention. She has had no infections during this until now and has not undergone any OB procedures. She receives care locally w/Dr. Suzanne Jaramillo and had a follow-up scheduled for tomorrow, though that may now be deferred due to admission. She is currently taking vitamins and oral iron, which was initiated previously for -related anemia. On arrival today, she was afebrile with stable vital signs. Labs revealed a white count of 12.7 and a hemoglobin of 10 g/dL, consistent with her known anemia. Urinalysis showed 2+ ketones, 3+ leukocyte esterase, 1+ protein, and 21?50 WBCs per HPF ? concerning for persistent UTI and dehydration. She was started on IV ceftriaxone in the ED. A prior culture reportedly grew E. coli, susceptible to cefdinir; she also received morphine for pain. Review of Systems 2 General: Reports: 10 or more systems reviewed and unremarkable except in HPI and below Medications/Allergies Home Medications ?Medication ?Instructions ?Recorded ?Confirmed ?Last Taken ?Type vitamins no.121-iron 28 tab PO DAILY 01/27/25 02/19/25 Unknown History mg-folic acid 800 mcg tablet ondansetron HCl 4 mg tablet 4 mg PO DAILY #2 tabs 01/1802/19/25 Unknown Rx amoxicillin 875 mg-potassium 1 tab PO BID 7 days #14 t abs 02/19/25 02/19/25 Unknown Rx clavulanate 125 mg tablet Allergies Allergy/AdvReac Type Severity Reaction Status Date / Time No Known Allergies Allergy Verified 02/19/25 18:07 PFSH Acute 2 PFSH: Medical History (Updated 03/06/25 @ 00:00 by Mera Michelle NP) No pertinent past medical history neghx: htn, dm, thyroid, dvt/pe PCP: Sanam Kerns Surgical History H/O knee surgery Lipoma suprapatellar down to tib/fib-- benign. She had 2 surgeries w/in 2 years. Family History Denies family history of Cervical cancer Colon cancer Ovarian cancer Diabetes Breast cancer Hypertension Uterine cancer Thyroid disease Stroke Social History Smoking and tobacco/nicotine status: never used tobacco/nicotine Vitals/I&O/Wt Last Vital Signs Temp 98.1 F 03/06/25 00:44 Pulse 62 03/06/25 01:01 Resp 16 03/06/25 01:01 BP 126/66 03/06/25 01:01 Pulse Ox 96 03/06/25 01:01 O2 Del Method Room Air 03/06/25 01:01 Weight last 48 hrs Weight 127.913 kg Weight 129.274 kg Physical Exam 2 Narrative: General: Appears comfortable HEENT: NAD. CV: RRR, no m/r/g. Respiratory: Lungs CTA bilaterally, no respiratory distress. Abdomen: Soft, non-tender, non-distended. Neuro: A&O x3. Extremities: No c/c/e. Skin: Warm, dry, no rashes. Data 03/05/25 21:15 03/05/25 21:15 A&P Assessment and plan 1. Pyelonephritis affecting : Plan: Impression: 19-year-old at 16 w 2 d with persistent right-sided flank pain, nausea/vomiting, ketonuria, leukocytosis (12.7 K/?L), and active pyuria after recent discharge on oral cefdinir for MRI-confirmed pyelonephritis. Ongoing symptoms despite appropriate outpatient therapy suggest refractory or complicated acute pyelonephritis in . She is afebrile but now requires re-hospitalization for IV antibiotics, hydration, analgesia, and ob consult. otherwise uncomplicated; baseline iron-deficiency anemia persists. # Acute Right sided Pyelonephritis in The patient presents with persistent right flank pain and CVA tenderness, consistent with ongoing pyelonephritis. This is despite a recent admission and course of oral Ceftinir following an initial diagnosis via MRI. The urine culture from the outside hospital reportedly grew E. coli susceptible to Ceftinir. Current leukocytosis and UA findings support ongoing infection. Plan: Ceftriaxone IV to continue. Obtain records from the previous admission at [facility] to confirm urine culture and sensitivity results. Send new urine for culture and sensitivity to assess for antibiotic resistance or change in organism. Avoid further imaging to minimize exposure, however consider Renal US if no improvement to evaluate for abscess or obstruction. Pain management with Tylenol. Avoid opiates due to . Consult [employer] [address] SQL DEVELOPER (Dr. Suzanne Jaramillo) in the morning to coordinate care. # Iron-Deficiency Anemia of Continue vitamin # at 16w2d This is the patient's second ; the first ended in a miscarriage. No prior OB procedures. Will consult [employer] [address] [address] SQL DEVELOPER service for co-management. Avoid teratogenic medications. Prophylaxis DVT prophylaxis with SCDs. PDMP PDMP Reviewed: Not Reviewed Attestations 2 Medical Necessity Statement*: Anticipate less than 2 midnight stay Coding Level of Care Code Acute Code for Chg Fwd Diagnoses Pyelonephritis affecting O23.00
--- NOTE | 2025-03-06 03:28 | PC.NURSE ---
0310- patient resting comfortably in bed at this time. pt replaced on monitor after being unhooked by techniican to use restroom. pt in no obvious distress. VSS> pt denies further needs/complaints at this time. sig other sleeping in chair at bedside.
--- OUTSIDE RECORDS SUMMARY | 2025-03-06 08:36 | XMS_ITS | Encounter Summary ---
Author Organization [facility] Address [address] [place] [address] Care Team Providers Care Cash Management Officer Name Role Phone Unavailable Primary Care Provider Unavailabl e Encounter Details Date Type Department Care Team (Late st Contact Info) Description 03/02/2025 Results Follow-Up [facility] Emergency Medicine [address] [place] [id number] Phyllis Maldonado, RN URINE CULTURE Social History [...]
--- OUTSIDE RECORDS SUMMARY | 2025-03-06 08:36 | XMS_ITS | Encounter Summary ---
Author Organization [facility] Address [address] [place] [address] Care Team Providers Care Pan Reclaim Processor Name Role Phone Unavailable Primary Care Provider [...]
--- OUTSIDE RECORDS SUMMARY | 2025-03-06 08:36 | XMS_ITS | Encounter Summary ---
Author Organization [facility] Address [address] [place] [address] Care Team Providers Care Sprinkler Fitter Name Role Phone Unavailable Primary Care Provider [...]
--- OUTSIDE RECORDS SUMMARY | 2025-03-06 08:36 | XMS_ITS | Encounter Summary ---
Author Organization [facility] Address [address] [facility] Attn: Epic Prelude ADT [place] [address] Care Team Providers Care Computer Security Specialist Name Role Phone Unavailable Primary Care Provider [...]
--- OUTSIDE RECORDS SUMMARY | 2025-03-06 08:36 | XMS_ITS | Clinical Summary ---
Author Organization [facility] Address [address] [place] [address] Phone Care Team Providers Care Technical Coordinator Name Role Phone Unavailable Primary Care Provider Unavailabl e Allergies No known active allergies Medications vits15/iron/fo lic/dss ( VIT 56-EAHW-UOODF- DSS ORAL) Take by mouth. Active escitalopram [...] - 03/04/2025 10:10 PM CDT Emergency [address] [address] Petar Brice MD Flank pain (Primary Dx) Discharge Disposition: Home or Self Care 03/04/2025 External Device Data [facility] ABSTRACTION Provider, Abstract 03/04/2025 External Device Data [facility] ABSTRACTION Provider, Abstract 03/04/2025 Travel 03/04/2025 External Device Data [facility] ABSTRACTION Provider, Abstract 03/02/2025 Results Follow-Up [address] [phone] Phyllis Maldonado RN URINE CULTURE 03/01/2025 4:18 PM CDT - 03/03/2025 6:31 PM CDT Hospital Encounter [facility] 5B Gynecology [address] [place] [address] May Dobbins MD Patel, Taksh, MD Shah, Foram Ashwinkumar, MD Acute pyelonephritis Discharge Disposition: Home or Self Care 03/01/2025 6:56 AM CDT - 03/01/2025 10:27 AM CDT Emergency [address] [address] Alissa Winter MD Acute right flank pain (Primary Dx); Intractable vomiting with nausea; Dede-Nunes tear; 15 weeks gestation of ; Acute cystitis with hematuria Discharge Disposition: [facility] 03/01/2025 Travel 12/08/2024 4:32 PM CDT - 12/08/2024 5:17 PM CDT Emergency [address] [address] Dom Chacon MD Acute pain of left [...] - 2 /hpf 03/04/2025 8:14 PM CDT [facility] RBC UA 6-10(A) 0 - 2 /hpf 03/04/2025 8:14 PM CDT [facility] BACTERIA UA Negative Negative /hpf 03/04/2025 8:14 PM CDT [facility] EPITHELIAL CELLS, URINE 11-25(A) 0 - 5 /hpf 03/04/2025 8:14 PM [facility] Urine URINE SPECIMEN OBTAINED BY CLEAN CATCH PROCEDURE / Unknown Collection / Unknown 03/04/2025 7:48 PM CDT 03/04/2025 7:56 PM CDT [facility] - 03/04/2025 8:14 PM CDT Must recollect sample if Culture is ordered. [facility] Petar Brice MD URINE ORDERABLES Final R esult [facility] CLIA # [id number] [address] [place] [address] * (ABNORMAL) CBC WITH DIFFERENTIAL (03/04/2025 7:48 PM CDT) Only the most recent of5 resultswithin the time period is included. WBC 12.8(H) 4.0 - 10.0 K/uL 03/04/2025 8:02 PM [facility] RBC 4.03 3.93 - 5.22 M/uL 03/04/2025 8:02 PM [facility] HEMOGLOBIN 11.2 11.2 - 15.7 g/dL 03/04/2025 8:02 PM [facility] HEMATOCRIT 33.8(L) 34.1 - 44.9 % 03/04/2025 8:02 PM [facility] MCV 83.9 79.4 - 94.8 fL 03/04/2025 8:02 PM [facility] MCH 27.8 25.6 - 32.2 pg 03/04/2025 8:02 PM [facility] MCHC 33.1 32.2 - 35.5 g/dL 03/04/2025 8:02 PM [facility] RDW 18.3(H) 11.0 - 14.5 % 03/04/2025 8:02 PM [facility] RDW-STDEV 55.8 36.9 - 56.9 fL 03/04/2025 8:02 PM [facility] PLATELETS 170 163 - 337 K/uL 03/04/2025 8:02 PM [facility] MPV 11.3 10.0 - 14.8 fL 03/04/2025 8:02 PM [facility] NEUTROPHILS 77(H) 34 - 71 % 03/04/2025 8:02 PM [facility] LYMPHOCYTES 16(L) 19 - 52 % 03/04/2025 8:02 PM [facility] MONOCYTES 6 5 - 13 % 03/04/2025 8:02 PM [facility] EOSINOPHILS 0(L) 1 - 6 % 03/04/2025 8:02 PM [facility] BASOPHILS 0 0 - 1 % 03/04/2025 8:02 PM [facility] IMMATURE GRANULOCYTES 1 % 03/04/2025 8:02 PM [facility] NEUTROPHIL ABSOLUTE 9.85(H) 1.56 - 6.13 K/uL 03/04/2025 8:02 PM [facility] LYMPHOCYTE ABSOLUTE 2.03 1.20 - 3.40 K/uL 03/04/2025 8:02 PM [facility] MONOCYTE ABSOLUTE 0.73(H) 0.24 - 0.36 K/uL 03/04/2025 8:02 PM [facility] EOSINOPHIL ABSOLUTE 0.05 0.04 - 0.36 K/uL 03/04/2025 8:02 PM [facility] BASOPHILS ABSOLUTE 0.02 0.01 - 0.08 K/uL 03/04/2025 8:02 PM [facility] IMMATURE GRANULOCYTES ABSOLUTE 0.07 K/uL 03/04/2025 8:02 PM [facility] Blood Collection / Unknown 03/04/2025 7:48 PM CDT 03/04/2025 7:56 PM CDT us Petar Brice MD HEMATOLOGY ORDERABLES Fi nal Result [facility] CLIA # [id number] [address] [place] [address] * (ABNORMAL) URINALYSIS WITH REFLEX MICROSCOPIC (03/04/2025 7:48 PM CDT) Only the most recent of4 resultswithin the time period is included. COLOR UA Yellow Pale to Dark Yellow 03/04/2025 8:14 PM CDT [facility] CLARITY UA Clear Clear 03/04/2025 8:14 PM CDT [facility] SPECIFIC GRAVITY UA 1.020 1.003 - 1.035 03/04/2025 8:14 PM CDT [facility] PH UA 6.5 5.0 - 8.0 03/04/2025 8:14 PM CDT [facility] LEUKOCYTE ESTERASE UA 1+(A) Negative 03/04/2025 8:14 PM CDT [facility] NITRITE UA Negative Negative 03/04/2025 8:14 PM CDT [facility] PROTEIN UA 1+(A) Negative 03/04/2025 8:14 PM CDT [facility] GLUCOSE UA Negative Negative 03/04/2025 8:14 PM CDT [facility] KETONES UA 4+(A) Negative 03/04/2025 8:14 PM CDT [facility] UROBILINOGEN UA 0.2 <2.0 mg/dL 8:14 PM CDT [facility] BILIRUBIN UA 1+(A) Negative 03/04/2025 8:14 PM CDT [facility] BLOOD UA 2+(A) Negative 03/04/2025 8:14 PM CDT [facility] Urine URINE SPECIMEN OBTAINED BY CLEAN CATCH PROCEDURE / Unknown Collection / Unknown 03/04/2025 7:48 PM CDT 03/04/2025 7:56 PM CDT us Petar Brice MD URINE ORDERABLES Final R esult [facility] CLIA # [id number] [address] [place] [address] * (ABNORMAL) COMPREHENSIVE METABOLIC PANEL (03/04/2025 7:48 PM CDT) Only the most recent of3 resultswithin the time period is included. SODIUM 138 136 - 145 mmol/L 03/04/2025 8:14 PM [facility] POTASSIUM 3.9 3.5 - 5.1 mmol/L 03/04/2025 8:14 PM [facility] CHLORIDE 103 98 - 107 mmol/L 03/04/2025 8:14 PM [facility] CO2 21(L) 22 - 29 mmol/L 03/04/2025 8:14 PM [facility] CALCIUM 9.7 8.6 - 10.0 mg/dL 03/04/2025 8:14 PM [facility] BUN 9 6 - 20 mg/dL 03/04/2025 8:14 PM [facility] CREATININE 0.65 0.51 - 0.95 mg/dL 03/04/2025 8:14 PM [facility] GLUCOSE 81 74 - 99 mg/dL 03/04/2025 8:14 PM [facility] TOTAL PROTEIN 6.5(L) 6.6 - 8.7 g/dL 03/04/2025 8:14 PM [facility] ALBUMIN 3.6 3.5 - 5.2 g/dL 03/04/2025 8:14 PM [facility] BILIRUBIN TOTAL <0.2 0.0 - 1.2 mg/dL 03/04/2025 8:14 PM [facility] ALKALINE PHOSPHATASE 106(H) 35 - 104 U/L 03/04/2025 8:14 PM [facility] AST 26 0 - 35 U/L 03/04/2025 8:14 PM [facility] ALT 37(H) 0 - 35 U/L 03/04/2025 8:14 PM [facility] GFR >60 >=60 mL/min/1.7 3 sq meter 03/04/2025 8:14 PM [facility] Comment:eGFR calculated with 2020 CKD-EPI equation. Vegetarian diet, extremely high or low muscle mass, and may affect results. Cystatin C with Glomerular Filtration Rate is a suitable alternative for these patients. ANION GAP 14 5 - 20 mmol/L 03/04/2025 8:14 PM CDT [facility] Blood Collection / Unknown 03/04/2025 7:48 PM CDT 03/04/2025 7:56 PM CDT us Petar Brice MD CHEMISTRY ORDERABLES Fin al Result [facility] CLIA # [id number] [address] [place] [address] [id number] * TELEMETRY REPORT (03/04/2025 9:56 AM CDT) us Provider Scanning ECG ORDERABLES Final Result * (ABNORMAL) HEMOGLOBIN AND HEMATOCRIT (03/03/2025 2:12 PM CDT) HEMOGLOBIN 9.8(L) 12.0 - 16.0 g/dL 03/03/2025 2:[address] [facility] HEMATOCRIT 29.8(L) 36.0 - 46.0 % 03/03/2025 2:39 PM CDT [facility] Blood Venipuncture / Unknown 03/03/2025 2:12 PM CDT 03/03/2025 2:26 PM CDT us Mela Flores MD HEMATOLOGY ORDERABLES Final Result Performing Organization Address City/[facility]/ZIP Co de Phone Number [facility] CLIA # [id number] [address] [place] [address] * (ABNORMAL) BASIC METABOLIC PANEL (03/03/2025 4:25 AM CDT) Only the most recent of2 resultswithin the time period is included. SODIUM 136 136 - 145 mmol/L 03/03/2025 5:25 AM [facility] POTASSIUM 4.0 3.5 - 5.1 mmol/L 03/03/2025 5:25 AM T [facility] Comment:Moderate hemolysis p resent. Can cause significant falsely elevated result. Redraw if indicated. CHLORIDE 105 98 - 107 mmol/L 03/03/2025 5:25 AM T [facility] CO2 21(L) 22 - 29 mmol/L 03/03/2025 5:25 AM T [facility] CALCIUM 8.9 8.6 - 10.0 mg/dL 03/03/2025 5:25 AM T [facility] BUN 7 6 - 20 mg/dL 03/03/2025 5:25 AM [facility] CREATININE 0.62 0.51 - 0.95 mg/dL 03/03/2025 5:25 AM [facility] GLUCOSE 93 74 - 99 mg/dL 03/03/2025 5:25 AM T [facility] GFR >60 >=60 mL/min/1.7 3 sq meter 03/03/2025 5:25 AM [facility] Comment:eGFR calculated with 2020 CKD-EPI equation. Vegetarian diet, extremely high or low muscle mass, and may affect results. Cystatin C with Glomerular Filtration Rate is a suitable alternative for these patients. ANION GAP 10 9 - 20 mmol/L 03/03/2025 5:25 AM [facility] Blood Venipuncture / Unknown 03/03/2025 4:25 AM CDT 03/03/2025 4:48 AM CDT us Mela Flores MD CHEMISTRY ORDERABLES F inal Result [facility] CLIA # [id number] [address] [address] [place] [address] * MAGNESIUM LEVEL (03/02/2025 6:26 AM CDT) MAGNESIUM 1.6 1.6 - 2.6 mg/dL 03/02/2025 7:[address] [facility] [employer] [facility] Blood Venipuncture / Unknown 03/02/2025 6:26 AM CDT 03/02/2025 6:34 AM CDT us Brigido Hines MD CHEMISTRY ORDERABLES Final Resul t [facility] [employer] [facility] CLIA # [id number] [address] [address] [place] [address] * MRI ABDOMEN PELVIS WO CONTRAST (03/02/2025 [...] PM CDT Narrative 03/01/2025 9:34 PM CDT [facility] OBUS ----- Pat. Name: HEMALATHA DE LA TORRE Study Date: 03/01/2025 5:39pm Pat. NO: [id number] Referring MD: Site: [facility] Pearl Technician: Nataliia Mckeon : 2005 Age: 19 ----- INDICATION ----- Other Specified Complications of viability scan through the ER CODING ----- Diagnoses Z3A.15: Weeks of gestation Z3A.15: Weeks of gestation O26.892: Other specified related conditions Procedures 24365: Ultrasound, uterus, real time with image documentation, [...] Note Jhon Ricci II, MD - 03/01/2025 [facility] LIMITED OBUS ----- Pat. Name:Lucy DE LA TORRE Date:03/01/2025 5:39pm Pat. NO: [id number] MD: [facility]atal[facility] Mckeon :2005Age:19 ----- INDICATION ----- Other Specified Complications of viability scanthrough the ER CODING ----- Diagnoses Z3A.15: Weeks of gestation Z3A.15: Weeks of gestation O26.892: Other specified relatedconditions Procedures 08682: Ultrasound, uterus, real time withimage documentation, limited one or more fetuses HISTORY ----- OB History 2. Para 0 METHOD ----- Transabdominal ultrasound examination ----- Monge . Number of fetuses: 1 DATING ----- LMP on:10/26/2024 GA by [id number] w + 0 d MICHELL by LMP:08/02/2025 Method of dating:based on stated MICHELL GA by prior [id number] w + 5 d MICHELL by prior [...] 1.2 <=2.0 mmol/L 03/01/2025 5:[address] [facility] [employer] [facility] Blood Venipuncture / Unknown 03/01/2025 4:51 PM CDT 03/01/2025 4:57 PM CDT May Dobbins MD CHEMISTRY ORDERABLES Final Result [facility] [employer] [facility] CLIA # [id number] [address] [facility] [place] [address] * LIPASE (03/01/2025 1:53 PM CDT) Only the most recent of2 resultswithin the time period is included. LIPASE 25 13 - 60 U/L 03/01/2025 2:[address] [facility] [employer] [facility] Blood Venipuncture / Unknown 03/01/2025 1:53 PM CDT 03/01/2025 1:58 PM CDT us Bryceshannon Ybarra McTeer ADULT BASIC EDUCATION MANAGER CHEMISTRY ORDERABLES Fi nal Result [facility] [employer] [facility] CLIA # [id number] [address] [facility] [place] [address] * US RENAL AND BLADDER (03/01/2025 1:16 [...] kidneys and bladder. us Carito Ybarra McTeer ADULT BASIC EDUCATION MANAGER US ORDERABLES Final R esult * (ABNORMAL) URINE CULTURE (03/01/2025 9:14 AM CDT) CULTURE ESCHERICHIA COLI(A) CHYNA MCG/ML 03/03/2025 7:[address] [facility] Urine URINE SPECIMEN OBTAINED BY [...] ORDERABL ES Final Result Performing Organization Address [facility] Co de Phone Number [facility] CLIA # [id number] [address] [place] [address] * (ABNORMAL) OCCULT BLOOD, GASTRIC FLUID (03/01/2025 9:10 AM CDT) OCCULT BLOOD, GASTRIC FLUID Positive(A ) Negative 03/01/2025 9:43 AM CDT [facility] PH, GASTRIC FLD <1(L) 2 - 4 03/01/2025 9:43 AM CDT [facility] Body fluid ENTIRE STOMACH / Unknown Collection / Unknown 03/01/2025 9:10 AM CDT 03/01/2025 9:28 AM CDT [facility] - 03/01/2025 9:43 AM CDT Lot [id number] exp - Developer [id number] exp 0426 us Alissa Winter MD BODY FLUIDS AND STOOLS Final Re sult Performing Organization Address [facility] Co de Phone Number [facility] CLIA # [id number] [address] [place] [address]40 * (ABNORMAL) SEDIMENTATION RATE (03/01/2025 7:38 AM CDT) ESR (SEDIMENTATION RATE) 31(H) 0 - 20 mm/Hr 03/01/2025 8:52 AM CDT [facility] Blood Venipuncture / Unknown 03/01/2025 7:38 AM CDT 03/01/2025 8:27 AM CDT [facility] - 03/01/2025 8:52 AM CDT Tube Lot: #[id number] Exp Date: 08/19/2026 QC1 LOT [id number] EXP.08/24/2025 QC2 LOT [id number] EXP.08/24/2025 us Alissa Winter MD HEMATOLOGY ORDERABLES Final Res ult Performing Organization Address [facility] Co de Phone Number [facility] CLIA # [id number] [address] [place] [address] * (ABNORMAL) C-REACTIVE PROTEIN (03/01/2025 7:38 AM CDT) CRP 16.0(H) <5.0 mg/L 03/01/2025 8:51 AM CDT [facility] Blood Venipuncture / Unknown 03/01/2025 7:38 AM CDT 03/01/2025 8:27 AM CDT us Alissa Winter MD CHEMISTRY ORDERABLES Final Resu lt Performing Organization Address [facility] Co de Phone Number [facility] CLIA # [id number] [address] [place] [address] from Last 3 Months Insurance BENEFIT MANAGEMENT PPO Advance Directives For more information, please contact: [phone] * Full Code (Latest Code Status on File) Date Activated Date Inactivated Comments 03/01/2025 5:49 PM 03/03/2025 8:36 PM
--- OUTSIDE RECORDS SUMMARY | 2025-03-06 08:36 | XMS_ITS | Encounter Summary ---
Author Organization [facility] Address [address] [place] [address] Care Team Providers Care Assembler Adjuster Name Role Phone Unavailable Primary Care Provider [...]
--- OUTSIDE RECORDS SUMMARY | 2025-03-06 08:36 | XMS_ITS | Encounter Summary ---
Author Organization [facility] Address [address] [facility] Attn: Epic Prelude ADT ROOPA SERRATO [address] Care Team Providers Care Kennel Supervisor Name Role Phone Unavailable Primary Care Provider [...]
--- NOTE | 2025-03-06 14:11 | P.MISC_ITS ---
Miscellaneous Note Note: Seen this morning at the bedside. WBC count 12,000 Patient states that overnight that heart tones were checked and they were okay. She is feeling slightly better. Discussed with her we will be requesting records from [facility]. Patient recently had an MRI there and had urine culture obtained. We will continue ceftriaxone every 24 hours at this time. With evidence of pyelonephritis she will need 2 weeks of IV antibiotic. We will obtain culture from other hospital at this time. Will repeat cultures today as patient still remains to be symptomatic. Discussed with Dr. Garcia over the phone. He would like to see her as soon as she is discharge. He is okay with ceftriaxone versus Zosyn.
[2025-03-07] MEDS: cefTRIAXone 1,000 mg SDV 1000 MG IVP (00:07)
[2025-03-07 00:13] VITALS: BP 115/70; PULSE 69; RESP 18; TEMP 36.7; O2SAT 98
--- NOTE | 2025-03-07 03:29 | USR_ITS ---
PROCEDURE INFORMATION: Exam: US Retroperitoneal, Complete, Kidneys and Bladder Exam date and time: 03/07/2025 7:56 AM Age: 19 years old Clinical indication: Screening exam; Other: Assess for any hydronephrosis; TECHNIQUE: Imaging protocol: Real-time ultrasound of the retroperitoneum with image documentation. Complete exam focused on the bilateral kidneys and urinary bladder. COMPARISON: US OB transvaginal [id number] 12/30/2024 8:10 AM FINDINGS: Right kidney: The right kidney measures 4.6 x 6.1 x 5.5 cm. Mild right-sided hydronephrosis. Left kidney: The left kidney measures 10.8 x 6.3 x 4.6 cm. No left-sided hydronephrosis. Urinary bladder: Unremarkable. Uterus: Gravid uterus identified. US/US renal BI* [id number] IMPRESSION: Mild right-sided hydronephrosis. Gravid uterus.
[2025-03-07 03:49] VITALS: BP 120/72; PULSE 78; RESP 18; TEMP 36.6; O2SAT 98
[2025-03-07 04:51] LABS: Hematocrit 30.9 % (36-47); Hemoglobin 9.80 g/dL (11.27-16.99); Mean Corpuscular HGB Conc 31.7 g/dL (30-55); Mean Corpuscular Hemoglobin 28.3 pg (27-33); Mean Corpuscular Volume 89.3 fl (85-98); Nucleated Red Blood Cells % 0 %; Platelet Count 131 10^3/cmm (157-399); Red Blood Count 3.46 10^6/uL (3.85-5.65); White Blood Count 10.36 10^3/uL (3.29-11.43)
[2025-03-07 05:16] LABS: Anion Gap 18.6 (5-19); Blood Urea Nitrogen 6 mg/dL (6-20); Calcium 9.1 mg/dL (8.5-10.5); Carbon Dioxide 21 mmol/L (22-29); Chloride 101 mmol/L (98-107); Creatinine Clr Calc Pharmacy 309.6328; Glucose 85 mg/dL (65-115); Osmolality Calculated 281 mOsm/kg (285-295); Potassium 3.6 mmol/L (3.5-5.1); Sodium 137 mmol/L (136-145)
--- NOTE | 2025-03-07 06:35 | PM.PN ---
Subjective Subjective: Had renal ultrasound performed overnight. Results are pending at this time. Patient had flank pain last night however that has resolved at this time. Feels well. Sitting up in bed. States symptoms are mostly improved. Vitals/I&O/Wt Last Vital Signs Temp 97.9 F 03/07/25 03:49 Pulse 78 03/07/25 03:49 Resp 18 03/07/25 03:49 BP 120/72 03/07/25 03:49 Pulse Ox 98 03/07/25 03:49 O2 Del Method Room Air 03/06/25 16:03 03/06/25 03/06/25 03/07/25 14:59 22:59 06:59 Intake Total 1000 / 1000 1720 / 2720 Output Total 800 / 800 400 / 1200 Balance 1000 / 1000 920 / 1920 -400 / 1520 Weight last 48 hrs Weight 131.428 kg Weight 131.451 kg Weight 127.913 kg Weight 129.274 kg Physical Exam Narrative: General: Appears comfortable HEENT: NAD. CV: RRR, no m/r/g. Respiratory: Lungs CTA bilaterally, no respiratory distress. Abdomen: Soft, non-tender, non-distended. Neuro: A&O x3. Extremities: No c/c/e. Skin: Warm, dry, no rashes. Data 03/07/25 04:38 03/07/25 04:38 A&P Assessment and plan 1. Pyelonephritis affecting : Plan: Impression: 19-year-old at 16 w 2 d with persistent right-sided flank pain, nausea/vomiting, ketonuria, leukocytosis (12.7 K/?L), and active pyuria after recent discharge on oral cefdinir for MRI-confirmed pyelonephritis. Ongoing symptoms despite appropriate outpatient therapy suggest refractory or complicated acute pyelonephritis in . She is afebrile but now requires re-hospitalization for IV antibiotics, hydration, analgesia, and ob consult. otherwise uncomplicated; baseline iron-deficiency anemia persists. # Acute Right sided Pyelonephritis in The patient presents with persistent right flank pain and CVA tenderness, consistent with ongoing pyelonephritis. This is despite a recent admission and course of oral Ceftinir following an initial diagnosis via MRI. The urine culture from the outside hospital reportedly grew E. coli susceptible to Ceftinir. Current leukocytosis and UA findings support ongoing infection. Plan: Ceftriaxone IV to continue. Obtain records from the previous admission at [place] to confirm urine culture and sensitivity results. Send new urine for culture and sensitivity to assess for antibiotic resistance or change in organism. Avoid further imaging to minimize exposure, however consider Renal US if no improvement to evaluate for abscess or obstruction. Pain management with Tylenol. Avoid opiates due to . Consult [facility] (Dr. Suzanne Jaramillo) in the morning to coordinate care. # Iron-Deficiency Anemia of Continue vitamin # at 16w2d This is the patient's second ; the first ended in a miscarriage. No prior OB procedures. Will consult [facility] service for co-management. Avoid teratogenic medications. Prophylaxis DVT prophylaxis with SCDs. 03/07/2025 Continue IV antibiotics at this time. Await urine culture. E. coli susceptible to ceftriaxone. This is based on urine culture from previous hospital. She had MRI there. Which does not show any renal stone or hydronephrosis/obstruction. Will await renal ultrasound today. I will check MRI abdomen pelvis without contrast. If evidence of hydronephrosis or other acute pathology. May consider transfer to higher level of care for urology. Patient has pyelonephritis and will require IV antibiotics for at least 2 weeks. I discussed with her regarding PICC line placement and IV antibiotics at time of discharge. She is agreeable. PDMP PDMP Reviewed: Not Reviewed Attestations Medical Necessity Statement*: Continue to administer IV antibiotics. Diagnoses Pyelonephritis affecting O23.00
[2025-03-07 07:25] VITALS: BP 113/71; PULSE 53; RESP 16; TEMP 36.7; O2SAT 97
[2025-03-07] MEDS: PRENATAL VIT NO.130/IRON/FOLIC 1 EACH TABLET PO (08:55)
[2025-03-07 11:43] VITALS: BP 119/68; PULSE 68; RESP 16; TEMP 36.8; O2SAT 96
[2025-03-07 16:00] VITALS: BP 124/69; PULSE 66; RESP 16; TEMP 36.7; O2SAT 96
[2025-03-07 19:55] VITALS: BP 121/71; PULSE 75; RESP 18; TEMP 36.7; O2SAT 97
[2025-03-08] VITALS (8 sets, daily range): BP systolic 106–136; BP diastolic 62–82; PULSE 60–73; RESP 16–20; TEMP 36.4–36.8; O2SAT 95–98
[2025-03-08] MEDS: cefTRIAXone 1,000 mg SDV 1000 MG IVP (00:59)
[2025-03-08] MEDS: ondansetron 2 mg/ML SDV 2 mL 4 MG IVP (01:33)
[2025-03-08] MEDS: morphine 4 mg/mL SDV 1 mL 2 MG IVP (02:16)
[2025-03-08] MEDS: HYDROmorphone 0.5 MG/0.5 ML INJ IVP (02:55)
--- NOTE | 2025-03-08 08:21 | P.PN_ITS ---
Vitals/I&O/Wt Last Vital Signs Temp 98.2 F 03/08/25 08:07 Pulse 73 03/08/25 08:07 Resp 19 H 03/08/25 08:07 BP 107/62 03/08/25 08:07 Pulse Ox 96 03/08/25 08:07 O2 Del Method Room Air 03/08/25 08:07 03/07/25 03/08/25 03/08/25 22:59 06:59 14:59 Intake Total 240 / 1960 Output Total 75 / 75 Balance 165 / 1885 Weight last 48 hrs Weight 131.134 kg Weight 131.428 kg Weight 131.451 kg Physical Exam 2 Narrative: General: Appears comfortable HEENT: NAD. CV: RRR, no m/r/g. Respiratory: Lungs CTA bilaterally, no respiratory distress. Abdomen: Soft, non-tender, non-distended. Neuro: A&O x3. Extremities: No c/c/e. Skin: Warm, dry, no rashes. Data 03/07/25 04:38 03/07/25 04:38 A&P Assessment and plan 1. Pyelonephritis affecting : Plan: Impression: 19-year-old at 16 w 2 d with persistent right-sided flank pain, nausea/vomiting, ketonuria, leukocytosis (12.7 K/?L), and active pyuria after recent discharge on oral cefdinir for MRI-confirmed pyelonephritis. Ongoing symptoms despite appropriate outpatient therapy suggest refractory or complicated acute pyelonephritis in . She is afebrile but now requires re-hospitalization for IV antibiotics, hydration, analgesia, and ob consult. otherwise uncomplicated; baseline iron-deficiency anemia persists. # Acute Right sided Pyelonephritis in The patient presents with persistent right flank pain and CVA tenderness, consistent with ongoing pyelonephritis. This is despite a recent admission and course of oral Ceftinir following an initial diagnosis via MRI. The urine culture from the outside hospital reportedly grew E. coli susceptible to Ceftinir. Current leukocytosis and UA findings support ongoing infection. Plan: Ceftriaxone IV to continue. Obtain records from the previous admission at [place] to confirm urine culture and sensitivity results. Send new urine for culture and sensitivity to assess for antibiotic resistance or change in organism. Avoid further imaging to minimize exposure, however consider Renal US if no improvement to evaluate for abscess or obstruction. Pain management with Tylenol. Avoid opiates due to . Consult DIRECTOR PATIENT ACCOUNTING (Dr. Suzanne Jaramillo) in the morning to coordinate care. # Iron-Deficiency Anemia of Continue vitamin # at 16w2d This is the patient's second ; the first ended in a miscarriage. No prior OB procedures. Will consult DIRECTOR PATIENT ACCOUNTING service for co-management. Avoid teratogenic medications. Prophylaxis DVT prophylaxis with SCDs. 03/07/2025 Continue IV antibiotics at this time. Await urine culture. E. coli susceptible to ceftriaxone. This is based on urine culture from previous hospital. She had MRI there. Which does not show any renal stone or hydronephrosis/obstruction. Will await renal ultrasound today. I will check MRI abdomen pelvis without contrast. If evidence of hydronephrosis or other acute pathology. May consider transfer to higher level of care for urology. Patient has pyelonephritis and will require IV antibiotics for at least 2 weeks. I discussed with her regarding PICC line placement and IV antibiotics at time of discharge. She is agreeable. PDMP PDMP Reviewed: Not Reviewed Attestations 2 Medical Necessity Statement*: Continue to administer IV antibiotics. Coding Level of Care Code Acute Code for [facility] Diagnoses Pyelonephritis affecting O23.00
[2025-03-08] MEDS: PRENATAL VIT NO.130/IRON/FOLIC 1 EACH TABLET PO (09:09)
--- NOTE | 2025-03-08 14:09 | PM.OBGYCN ---
Providers/Reason for Consult Consulting Physican/Specialty*: OBGYN Reason for Consult*: -Complicated UTI/Pyelo -1st trimester <20wks Requesting Physcian: Rachel Ramon MD Attending Physician: Rachel Ramon MD [employer] Consult HPI History of Present Illness Hemalatha Le is a 19 year old female, unremarkable at 16wks based on early 5-7wk US. Present Details : 2 Para: 0 Dating criteria OB: LMP confirmed by 1st trimester US care: good care Ultrasounds: normal 1st trimester US Medical complications OB: other (BMI 47) Review of Systems General: Reports: 10 or more systems reviewed and unremarkable except in HPI and below Narrative: Denies VB LOF or uterine cramping Medications/Allergies Home Medications ?Medication ?Instructions ?Recorded ?Confirmed ?Last Taken ?Type vitamins no.121-iron 28 1 tab PO DAILY 01/27/25 03/06/25 03/05/25 History mg-folic acid 800 mcg tablet ondansetron HCl 4 mg tablet 4 mg PO DAILY #2 tabs 02/04/25 03/06/25 Unknown Rx amoxicillin 875 mg-potassium 1 tab PO BID 7 days #14 tabs 02/19/25 03/06/25 Unknown Rx clavulanate 125 mg tablet cefdinir 300 mg capsule 300 mg PO BID 03/06/25 03/06/25 03/05/25 History escitalopram oxalate 5 mg tablet 5 mg PO DAILY 03/06/25 03/06/25 03/05/25 History famotidine 20 mg tablet 20 mg PO BID 03/06/25 03/06/25 03/05/25 History hydrocodone 5 mg-acetaminophen 325 1 tab PO Q6H PRN Pain 03/06/25 03/06/25 Unknown History mg tablet Allergies Allergy/AdvReac Type Severity Reaction Status Date / Time No Known Allergies Allergy Verified 03/06/25 07:52 Current Medications Generic Name Dose Route Start Last Admin Trade Name Freq PRN Reason Stop Dose Admin Acetaminophen 650 mg 03/06/25 01:48 03/07/25 21:41 Acetaminophen 325 Mg Tablet PO 650 mg Q6H PRN Administration Mild/Mod Pain Or Temp >/= 101 Ceftriaxone Sodium 1,000 mg 03/07/25 01:00 03/08/25 00:59 Ceftriaxone 1,000 Mg Sdv IVP 1,000 mg Q24H YESSICA Administration Protocol Escitalopram Oxalate 5 mg 03/07/25 09:00 03/08/25 09:09 Escitalopram 10 Mg Tablet PO 5 mg DAILY YESSICA Administration Famotidine 20 mg 03/06/25 18:00 03/08/25 09:10 Famotidine 20 Mg Tablet PO 20 mg BID YESSICA Administration Ondansetron HCl 4 mg 03/06/25 01:48 03/08/25 01:33 Ondansetron 2 Mg/Ml Sdv 2 Ml IVP 4 mg Q8H PRN Administration vomiting, or N/V if npo Ondansetron HCl 4 mg 03/07/25 09:00 03/08/25 09:10 Ondansetron 4 Mg Tablet PO 4 mg DAILY YESSICA Administration Prenat 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 She had 2 surgeries w/in 2 years. Family History Denies family history of Cervical cancer Colon cancer Ovarian cancer Diabetes Breast cancer Hypertension Uterine cancer Thyroid disease Stroke Social History Smoking and tobacco/nicotine status: never used tobacco/nicotine Sexual History: Are you sexually active?: Yes Hx Sexually Transmitted Diseases: No Contraception: control method: None Vitals/I&O/Wt Last Vital Signs Temp 98.0 F 03/08/25 12:11 Pulse 60 03/08/25 12:11 Resp 20 H 03/08/25 12:11 BP 125/71 03/08/25 12:11 Pulse Ox 97 03/08/25 12:11 O2 Del Method Room Air 03/08/25 12:11 03/07/25 03/08/25 03/08/25 22:59 06:59 14:59 Intake Total 240 / 1960 120 / 120 Output Total 75 / 75 800 / 800 Balance 165 / 1885 -680 / -680 Weight last 48 hrs Weight 289 lb 1.6 oz Weight 289 lb 12 oz Weight 289 lb 12.8 oz Physical Exam Narrative: General: Appears comfortable HEENT: NAD. CV: RRR Respiratory: Lungs CTA bilaterally, no respiratory distress. Abdomen: Soft, non-tender, non-distended. Neuro: A&O x3. Extremities: No c/c/e. Skin: Warm, dry, no rashes. Data 03/07/25 04:38 03/07/25 04:38 Micro: Microbiology 03/05/25 22:10 Urine Culture - Final Urine,Clean Catch US: Radiologist's impression: 12/16/24 DATING US US/US OB transvaginal [id number] IMPRESSION: 1. Early intrauterine gestation with a single intrauterine gestational sac. The pole and yolk sac are not visualized at this time. Estimated gestational age of 5 weeks 4 days by ultrasound. Estimated delivery date by ultrasound is 08/14/2025. 2. Enlarged left ovary. Corpus luteum cyst in the left ovary measuring 2.8 x 1.9 x 2.1 cm. 3. Dominant follicle in the left ovary measuring 2.8 x 1.9 x 2.1 cm. Dictated By: Sheyla Moss MD Signed By: Sheyla Moss MD Signed Date/Time: 12/16/24 1638 DD/ 0851 03/07/25 RENAL US FINDINGS: Right kidney: The right kidney measures 4.6 x 6.1 x 5.5 cm. Mild right-sided hydronephrosis. Left kidney: The left kidney measures 10.8 x 6.3 x 4.6 cm. No left-sided hydronephrosis. Urinary bladder: Unremarkable. A&P Assessment and plan 1. Supervision of other normal : 2. Severe obesity due to excess calories affecting in first trimester: Encourage weight control with 3. BMI 45.0-49.9, adult: 4. Pyelonephritis during : 5. 16 weeks gestation of : Plan: - 1st trimester Accurately dated live . IUP [id number] with +FHR. No cramping,afebrile, no VB, no NV. Schedule anatomy US around 20wks -Pyelo Patient continues to be afebrile wo pain and without malaise NV. >48hr IV antibiotic treatment with adequate coverage after culture & sensitivity. Renal US: mild right hydronephrosis is a normal finding. Continue IV antibiotics and transition to PO after 24hr wo fever. Consider DH with instructions if responding to Tx. Preferred PO antibiotic= cephalexin 500mg BID [id number]. Schedule PNC visit next week with [facility], will considering suppressive therapy during . - with maternal BMI 47 weight control counseling as part of PNC. PDMP PDMP Reviewed: Not Reviewed Consult Attestations Time Spent in Patient Care: Greater than 35 minutes Coding Level of Care Code Acute Code for [facility] Diagnoses Supervision of other normal Z34.80 Severe obesity due to excess calories affecting in first trimester O99.211; E66.01 Obesity type affecting : severe obesity due to excess calories Trimester: first trimester BMI 45.0-49.9, adult Z68.42 Pyelonephritis during O23.00 16 weeks gestation of Z3A.16
--- NOTE | 2025-03-08 20:34 | PM.PN ---
Subjective Subjective: Patient seen and evaluated this morning her last pain medication was at 3 AM today and at the time I was evaluating the patient it was 11 AM and patient had 0 pain very where no l costophrenic angle tenderness. If this were renal stone patient will be in excruciating pain before 9 hours. Studies reviewed no sign of urinary tract infection supposedly had been treated no fever patient hemodynamically stable with vital signs in the blood pressure 125/79 pulse rate 66 respirations 16 temperature 97.6 ?F patient on room air at the bedside. At this point it was not the case to transfer patient as originally thought to institution that we will have urology. I at this point consulted ASSIST[employer]PORATION COUNSEL on-call here who saw the patient and agreed that the patient does not need to be transferred anywhere and did not feel that patient had pyelonephritis though with unilateral hydronephrosis Today patient had gone for 16 hours when he is now having some flank pain on that same right side with now diarrhea follow-up up with lower abdominal cramping ASSIST[employer]ATION COUNSEL informed he felt that it was from the diarrhea. Patient had only 1 stool that is running at the time of notification. Patient is being evaluated and monitored for now overnight for further neck step. Patient was given 1 mg of Dilaudid one-time dose for ongoing monitoring Vitals/I&O/Wt Last Vital Signs Temp 97.6 F 03/08/25 20:00 Pulse 66 03/08/25 20:00 Resp 16 03/08/25 20:00 BP 125/79 03/08/25 20:00 Pulse Ox 98 03/08/25 20:00 O2 Del Method Room Air 03/08/25 20:00 03/08/25 03/08/25 03/08/25 06:59 14:59 22:59 Intake Total 120 / 120 480 / 600 Output Total 800 / 800 Balance -680 / -680 480 / -200 Weight last 48 hrs Weight 131.134 kg Weight 131.428 kg Physical Exam Narrative: General the patient looks well in no apparent distress except for the current complaints of he returned right flank pain after 16 hours of pain medication given at 3 AM this morning followed by diarrhea of 1 episode of loose stool HEENT normocephalic atraumatic neck neck is supple cardiovascular heart rate is regular lungs are pretty much clear abdomen soft nontender nondistended unremarkable extremities are intact no edema has good pulses neurology has no focality lab studies lab studies reviewed and noted. Data 03/07/25 04:38 03/07/25 04:38 Micro: Microbiology 03/05/25 22:10 Urine Culture - Final Urine,Clean Catch A&P Assessment and plan 1. 16 weeks gestation of : 16-week of gestation patient in has been treated and stool for a non patient - Patient has been on antibiotics urine is clean. Patient continue intermittently to have this right flank pain even after 16 hours without any pain medication - ASSISTANT [employer]PORATION COUNSEL consulted today and saw the patient and did not feel that the patient need to be transferred - Must continue to treat and monitor l 2. Pyelonephritis during : This is an initial diagnosis with urinary tract infection. Patient had been treated since of last week today is Sunday the 03/08/2025. No pain noted no tenderness noted at an initial evaluation today at 11 AM and had been pain-free for 9 hours prior to that time and also pain-free for another 7 hours making a total of 16 hours Continue antibiotics Follow-up in a.m. 3. BMI 45.0-49.9, adult: Morbid obesity based on weight patient is 16 weeks Plan: Patient with right pyelonephritis with right hydronephrosis No kidney stone post MRI at [facility] and post ultrasound in this hospital No fever noted Patient on antibiotics day 10 from 5 days PDMP PDMP Reviewed: Last Reviewed 03/08/25 20:48 by Rachel Ramon MD Attestations Medical Necessity Statement*: Patient needed to be treated for at least 48 hours with monitoring to make sure that this patient will be with a safe discharge when ready to be discharged out of the hospital. Patient is continuing to have right flank pain now with new onset of diarrhea with lower abdominal cramping. Stool cultures be sent if diarrhea continues pain management be optimized Time Spent in Patient Care: 30 minutes Coding Level of Care Code 25706 Diagnoses 16 weeks gestation of Z3A.16 Pyelonephritis during O23.00 BMI 45.0-49.9, adult Z68.42 Comment [employer] COUNSEL consulted for this patient to continue with care.
[2025-03-08 23:01] LABS: Glucose Urine UA Negative (Normal); Nitrate Urine Negative (Negative); Specific Gravity, Urine 1.023 (1.005-1.030)
[2025-03-08 23:06] LABS: Add Urine Microscopic? YES
[2025-03-09] VITALS (7 sets, daily range): BP systolic 112–125; BP diastolic 65–80; PULSE 65–91; RESP 16–17; TEMP 36.5–36.8; O2SAT 96–97
[2025-03-09] MEDS: cefTRIAXone 1,000 mg SDV 1000 MG IVP (01:14)
--- NOTE | 2025-03-09 01:46 | PC.NURSE ---
Medication Note Pt complained of vaginal itching and discomfort. Dr. Wolff ordered UA and miconazole vaginal application that was not stocked in pyxis machine. After change in providers, Dr. Croft advised that is would be safer for her to wait for discharge to treat for yeast infection instead of diflucan. Discussed this with pt who understood and was thankful for the advocacy for her .
[2025-03-09] MEDS: PRENATAL VIT NO.130/IRON/FOLIC 1 EACH TABLET PO (09:01)
[2025-03-09] MEDS: ondansetron 2 mg/ML SDV 2 mL 4 MG IVP (09:59)
[2025-03-09 10:35] LABS: Hematocrit 33.8 % (36-47); Hemoglobin 10.40 g/dL (11.27-16.99); Mean Corpuscular HGB Conc 30.8 g/dL (30-55); Mean Corpuscular Hemoglobin 27.5 pg (27-33); Mean Corpuscular Volume 89.4 fl (85-98); Nucleated Red Blood Cells % 0 %; Platelet Count 114 10^3/cmm (157-399); Red Blood Count 3.78 10^6/uL (3.85-5.65); White Blood Count 9.75 10^3/uL (3.29-11.43)
[2025-03-09 10:53] LABS: Alanine Aminotransferase 44 U/L (0-33); Albumin Level 3.2 g/dL (3.5-5.2); Alkaline Phosphatase 103 U/L (35-105); Aspartate Amino Transferase 26 U/L (0-32); Blood Urea Nitrogen 6 mg/dL (6-20); Calcium 9.3 mg/dL (8.5-10.5); Carbon Dioxide 23 mmol/L (22-29); Chloride 100 mmol/L (98-107); Creatinine Clr Calc Pharmacy 308.6129; Globulin 3.0 g/dL (1.3-4.6); Glucose 67 mg/dL (65-115); Magnesium 1.6 mg/dL (1.7-2.3); Osmolality Calculated 276 mOsm/kg (285-295); Sodium 135 mmol/L (136-145); Total Protein 6.2 g/dL (6.6-8.7)
[2025-03-09 10:58] LABS: Anion Gap 16.0 (5-19); Potassium 4.0 mmol/L (3.5-5.1)
--- OUTSIDE RECORDS SUMMARY | 2025-03-09 15:09 | XMS_ITS | Encounter Summary ---
Author Organization [facility] Address [address] [place] [address] Care Team Providers Care Head Inspector And Center Marker Name Role Phone Unavailable Primary Care Provider [...]
--- OUTSIDE RECORDS SUMMARY | 2025-03-09 15:09 | XMS_ITS | Encounter Summary ---
Author Organization [facility] Address [address] [place] [address] Care Team Providers Care Sole Buffer Name Role Phone Unavailable Primary Care Provider Unavailabl e Encounter Details Date Type Department Care Team (Late st Contact Info) Description 03/02/2025 Results Follow-Up [facility] Emergency Medicine [address] [place] [id number] Phyllis Maldonado, RN URINE CULTURE Social History [...]
--- OUTSIDE RECORDS SUMMARY | 2025-03-09 15:09 | XMS_ITS | Clinical Summary ---
Author Organization Cyn Nuñez [facility] Address [address] [facility] [address] [place] [address] Phone Care Team Providers Care Acquisition Consultant Name Role Phone Unavailable Primary Care Provider Unavailabl e Allergies No known active allergies Medications vits15/iron/fo lic/dss ( VIT 04-ZGWP-HAYXX- DSS ORAL) Take by mouth. Active escitalopram [...] CDT - 03/04/2025 10:10 PM CDT Emergency [address] [address] Petar Brice MD Flank pain (Primary Dx) Discharge Disposition: Home or Self Care 03/04/2025 External Device Data STL ABSTRACTION Provider, Abstract 03/04/2025 External Device Data STL ABSTRACTION Provider, Abstract 03/04/2025 External Device Data STL ABSTRACTION Provider, Abstract 03/04/2025 Travel 03/04/2025 External Device Data STL ABSTRACTION Provider, Abstract 03/02/2025 Results Follow-Up [address] [address] Phyllis Maldonado RN URINE CULTURE 03/01/2025 4:18 PM CDT - 03/03/2025 6:31 PM CDT Hospital Encounter [facility] 5B Gynecology [address] [place] [address] May Dobbins MD Patel, Taksh, MD Shah, Foram Ashwinkumar, MD Acute pyelonephritis Discharge Disposition: Home or Self Care 03/01/2025 6:56 AM CDT - 03/01/2025 10:27 AM CDT Emergency [address] [address] Alissa Winter MD Acute right flank pain (Primary Dx); Intractable vomiting with nausea; Dede-Nunes tear; 15 weeks gestation of ; Acute cystitis with hematuria Discharge Disposition: [facility] 03/01/2025 Travel 12/08/2024 4:32 PM CDT - 12/08/2024 5:17 PM CDT Emergency [address] [address] Dom Chacon MD Acute pain of left [...] /hpf 03/04/2025 8:14 PM CDT [facility] RBC UA 6-10(A) 0 - 2 /hpf 03/[facility] Negative Negative /hpf 03/04/2025 8:14 [facility] EPITHELIAL CELLS, URINE 11-25(A) 0 - 5 /hpf 03/04/2025 8:14 PM [facility] Urine URINE SPECIMEN OBTAINED BY CLEAN CATCH PROCEDURE / Unknown Collection / Unknown 03/04/2025 7:48 PM CDT 03/04/2025 7:56 PM CDT [facility] - 03/04/2025 8:14 PM CDT Must recollect sample if Culture is ordered. [facility] [place] Petar Brice MD URINE ORDERABLES Final R esult [facility] CLIA # [id number] [address] [place] [address] * (ABNORMAL) CBC WITH DIFFERENTIAL (03/04/2025 7:48 PM CDT) Only the most recent of5 resultswithin the time period is included. WBC 12.8(H) 4.0 - 10.0 K/uL 03/04/2025 8:02 PM [facility] RBC 4.03 3.93 - 5.22 M/uL 03/04/2025 8:02 PM [facility] HEMOGLOBIN 11.2 11.2 - 15.7 g/dL 03/04/2025 8:02 PM [facility] HEMATOCRIT 33.8(L) 34.1 - 44.9 % 03/04/2025 8:02 PM [facility] MCV 83.9 79.4 - 94.8 fL 03/04/2025 8:02 PM [facility] MCH 27.8 25.6 - 32.2 pg 03/04/2025 8:02 PM [facility] MCHC 33.1 32.2 - 35.5 g/dL 03/04/2025 8:02 PM [facility] RDW 18.3(H) 11.0 - 14.5 % 03/04/2025 8:02 PM [facility] RDW-STDEV 55.8 36.9 - 56.9 fL 03/04/2025 8:02 PM [facility] PLATELETS 170 163 - 337 K/uL 03/04/2025 8:02 PM [facility] MPV 11.3 10.0 - 14.8 fL 03/04/2025 8:02 PM [facility] NEUTROPHILS 77(H) 34 - 71 % 03/04/2025 8:02 PM [facility] LYMPHOCYTES 16(L) 19 - 52 % 03/04/2025 8:02 PM [facility] MONOCYTES 6 5 - 13 % 03/04/2025 8:02 PM [facility] EOSINOPHILS 0(L) 1 - 6 % 03/04/2025 8:02 PM [facility] BASOPHILS 0 0 - 1 % 03/04/2025 8:02 PM [facility] IMMATURE GRANULOCYTES 1 % 03/04/2025 8:02 PM [facility] NEUTROPHIL ABSOLUTE 9.85(H) 1.56 - 6.13 K/uL 03/04/2025 8:02 PM [facility] LYMPHOCYTE ABSOLUTE 2.03 1.20 - 3.40 K/uL 03/04/2025 8:02 PM [facility] MONOCYTE ABSOLUTE 0.73(H) 0.24 - 0.36 K/uL 03/04/2025 8:02 PM [facility] EOSINOPHIL ABSOLUTE 0.05 0.04 - 0.36 K/uL 03/04/2025 8:02 PM [facility] BASOPHILS ABSOLUTE 0.02 0.01 - 0.08 K/uL 03/04/2025 8:02 PM [facility] IMMATURE GRANULOCYTES ABSOLUTE 0.07 K/uL 03/04/2025 8:02 PM [facility] Blood Collection / Unknown 03/04/2025 7:48 PM CDT 03/04/2025 7:56 PM CDT us Petar Brice MD HEMATOLOGY ORDERABLES Fi nal Result [facility] CLIA # [id number] [address] [place] [address] * (ABNORMAL) URINALYSIS WITH REFLEX MICROSCOPIC (03/04/2025 7:48 PM CDT) Only the most recent of4 resultswithin the time period is included. COLOR UA Yellow Pale to Dark Yellow 03/04/2025 8:14 PM CDT [facility] CLARITY UA Clear Clear 03/04/2025 8:14 PM CDT [facility] SPECIFIC GRAVITY UA 1.020 1.003 - 1.035 03/04/2025 8:14 PM CDT [facility] PH UA 6.5 5.0 - 8.0 03/04/2025 8:14 PM CDT [facility] LEUKOCYTE ESTERASE UA 1+(A) Negative 03/04/2025 8:14 PM CDT [facility] NITRITE UA Negative Negative 03/04/2025 8:14 PM CDT [facility] PROTEIN UA 1+(A) Negative 03/04/2025 8:14 PM CDT [facility] GLUCOSE UA Negative Negative 03/04/2025 8:14 PM T [facility] KETONES UA 4+(A) Negative 03/04/2025 8:14 PM CDT [facility] UROBILINOGEN UA 0.2 <2.0 mg/dL 8:14 PM CDT [facility] BILIRUBIN UA 1+(A) Negative 03/04/2025 8:14 PM CDT [facility] BLOOD UA 2+(A) Negative 03/04/2025 8:14 PM CDT [facility] Urine URINE SPECIMEN OBTAINED BY CLEAN CATCH PROCEDURE / Unknown Collection / Unknown 03/04/2025 7:48 PM CDT 03/04/2025 7:56 PM CDT us Petar Brice MD URINE ORDERABLES Final [facility] esult [id number] [address] [place] [address] * (ABNORMAL) COMPREHENSIVE METABOLIC PANEL (03/04/2025 7:48 PM CDT) Only the most recent of3 resultswithin the time period is included. SODIUM 138 136 - 145 mmol/L 03/04/2025 8:14 PM [facility] POTASSIUM 3.9 3.5 - 5.1 mmol/L 03/04/2025 8:14 PM [facility] CHLORIDE 103 98 - 107 mmol/L 03/04/2025 8:14 PM [facility] CO2 21(L) 22 - 29 mmol/L 03/04/2025 8:14 PM [facility] CALCIUM 9.7 8.6 - 10.0 mg/dL 03/04/2025 8:14 PM [facility] BUN 9 6 - 20 mg/dL 03/04/2025 8:14 PM [facility] CREATININE 0.65 0.51 - 0.95 mg/dL 03/04/2025 8:14 PM [facility] GLUCOSE 81 74 - 99 mg/dL 03/04/2025 8:14 PM [facility] TOTAL PROTEIN 6.5(L) 6.6 - 8.7 g/dL 03/04/2025 8:14 PM [facility] ALBUMIN 3.6 3.5 - 5.2 g/dL 03/04/2025 8:14 PM [facility] BILIRUBIN TOTAL <0.2 0.0 - 1.2 mg/dL 03/04/2025 8:14 PM [facility] ALKALINE PHOSPHATASE 106(H) 35 - 104 U/L 03/04/2025 8:14 PM CDT [facility] AST 26 0 - 35 U/L 03/04/2025 8:14 PM CDT [facility] ALT 37(H) 0 - 35 U/L 03/04/2025 8:14 PM CDT [facility] GFR >60 >=60 mL/min/1.7 3 sq meter 03/04/2025 8:14 PM CDT [facility] Comment:eGFR calculated with 2020 CKD-EPI equation. Vegetarian diet, extremely high or low muscle mass, and may affect results. Cystatin C with Glomerular Filtration Rate is a suitable alternative for these patients. ANION GAP 14 5 - 20 mmol/L 03/04/2025 8:14 PM CDT [facility] Blood Collection / Unknown 03/04/2025 7:48 PM CDT 03/04/2025 7:56 PM CDT us Petar Brice MD CHEMISTRY ORDERABLES Fin al Result Performing Organization Address City/State/[facility] Co de Phone Number [facility] CLIA # [id number] [address] [place] [address] * TELEMETRY REPORT (03/04/2025 9:56 AM CDT) us Provider Scanning ECG ORDERABLES Final Result * (ABNORMAL) HEMOGLOBIN AND HEMATOCRIT (03/03/2025 2:12 PM CDT) Pathologist [facility] HEMOGLOBIN 9.8(L) 12.0 - 16.0 g/dL 03/03/2025 2:39 PM CDT [facility] HEMATOCRIT 29.8(L) 36.0 - 46.0 % 03/03/2025 2:39 PM CDT [facility] Blood Venipuncture / Unknown 03/03/2025 2:12 PM CDT 03/03/2025 2:26 PM CDT us Mela Flores MD HEMATOLOGY ORDERABLES Final Result [facility] CLIA # [id number] [address] [address] [place] [address] * (ABNORMAL) BASIC METABOLIC PANEL (03/03/2025 4:25 AM CDT) Only the most recent of2 resultswithin the time period is included. SODIUM 136 136 - 145 mmol/L 03/03/2025 5:25 AM T [facility] POTASSIUM 4.0 3.5 - 5.1 mmol/L 03/03/2025 5:25 AM T [facility] Comment:Moderate hemolysis p resent. Can cause significant falsely elevated result. Redraw if indicated. CHLORIDE 105 98 - 107 mmol/L 03/03/2025 5:25 AM T [facility] CO2 21(L) 22 - 29 mmol/L 03/03/2025 5:25 AM T [facility] CALCIUM 8.9 8.6 - 10.0 mg/dL 03/03/2025 5:25 AM T [facility] BUN 7 6 - 20 mg/dL 03/03/2025 5:25 AM T [facility] CREATININE 0.62 0.51 - 0.95 mg/dL 03/03/2025 5:25 AM T [facility] GLUCOSE 93 74 - 99 mg/dL 03/03/2025 5:25 AM [facility] GFR >60 >=60 mL/min/1.7 3 sq meter 03/03/2025 5:25 AM T [facility] Comment:eGFR calculated with 2020 CKD-EPI equation. Vegetarian diet, extremely high or low muscle mass, and may affect results. Cystatin C with Glomerular Filtration Rate is a suitable alternative for these patients. ANION GAP 10 9 - 20 mmol/L 03/03/2025 5:25 AM [facility] Blood Venipuncture / Unknown 03/03/2025 4:25 AM CDT 03/03/2025 4:48 AM CDT us Mela Flores MD CHEMISTRY ORDERABLES F inal Result Performing Organization Address City/[facility] Co de Phone Number [facility] CLIA # [id number] [address] [place], [place] [address] * MAGNESIUM LEVEL (03/02/2025 6:26 AM CDT) MAGNESIUM 1.6 1.6 - 2.6 mg/dL 03/02/2025 7:23 AM CDT [facility] Blood Venipuncture / Unknown 03/02/2025 6:26 AM CDT 03/02/2025 6:34 AM CDT us Brigido Hines MD CHEMISTRY ORDERABLES Final Resul t Performing Organization Address [facility] Co de Phone Number [facility] CLIA # [id number] [address] [address] [place] [address] * MRI ABDOMEN PELVIS WO CONTRAST (03/02/2025 [...] us May Dobbins MD MR ORDERABLES Kerri basilio Result * US OB LTD 1 OR MORE FETUSES (03/01/2025 6:08 PM CDT) Anatomical Region Laterality Modality Pelvis Ultrasound 03/01/2025 5:39 PM CDT Narrative 03/01/2025 9:34 PM CDT [facility] OBUS ----- Pat. Name: HEMALATHA DE LA TORRE Study Date: 03/01/2025 5:39pm Pat. NO: [id number] Referring MD: Site: [facility] Cutter Inspector: Nataliia Mckeon : 2005 Age: 19 ----- INDICATION ----- Other Specified Complications of viability scan through the ER CODING ----- Diagnoses Z3A.15: Weeks of gestation Z3A.15: Weeks of gestation O26.892: Other specified related conditions Procedures 71954: Ultrasound, uterus, real time with image documentation, [...] Note Jhon Ricci II, MD - 03/01/2025 FERTILE LIMITED OBUS ----- Pat. Name:Lucy DE LA TORRE Date:03/01/2025 5:39pm Pat. NO: [id number] MD: [facility] :2005Age:19 ----- INDICATION ----- Other Specified Complications of viability scanthrough the ER CODING ----- Diagnoses Z3A.15: Weeks of gestation Z3A.15: Weeks of gestation O26.892: Other specified relatedconditions Procedures 88815: Ultrasound, uterus, real time withimage documentation, limited one or more fetuses HISTORY ----- OB History 2. Para 0 METHOD ----- Transabdominal ultrasound examination ----- Monge . Number of fetuses: 1 DATING ----- LMP on:10/26/2024 GA by [id number] w + 0 d MICHELL by LMP:08/02/2025 Method of dating:based on stated MICHELL GA by prior [id number] w + 5 d MICHELL by prior assessment:08/18/2025 Assigned:based on stated MICHELL, selected on 03/01/2025 Assigned GA15 w + 5 d Assigned MICHELL:08/18/2025 GENERAL EVALUATION ----- Cardiac activity present. FHR 149 bpm. movements: visualized.Presentation: cephalic Placenta: anterior IMPRESSION ----- Findings Comment Intrauterine Limited examination us May Dobbins MD ORDERABLES Kerri praful Result * LACTIC ACID (03/01/2025 4:51 PM CDT) Only the most recent of2 resultswithin the time period is included. Pathologist [facility] LACTIC ACID 1.2 <=2.0 mmol/L 03/01/2025 5:20 PM CDT [facility] Blood Venipuncture / Unknown 03/01/2025 4:51 PM CDT 03/01/2025 4:57 PM CDT May Dobbins MD CHEMISTRY ORDERABLES Final Result Performing Organization Address City/[facility]/ZIP Co de Phone Number [facility] CLIA # [id number] [address] [place] [address] * BLOOD CULTURE (03/01/2025 4:51 PM CDT) Only the most recent of2 resultswithin the time period is included. BLOOD CULTURE No growth 03/06/2025 6:19 PM CDT [facility] Blood (Peripheral) Venipuncture / Unknown 03/01/2025 4:51 PM CDT 03/01/2025 4:57 PM CDT May Dobbins MD MICROBIOLOGY - GENER AL ORDERABLES Final Result Performing Organization Address [facility] Co de Phone Number [facility] CLIA # [id number] [address] [facility] [place] [address] * LIPASE (03/01/2025 1:53 PM CDT) Only the most recent of2 resultswithin the time period is included. LIPASE 25 13 - 60 U/L 03/01/2025 2:34 PM CDT [facility] Blood Venipuncture / Unknown 03/01/2025 1:53 PM CDT 03/01/2025 1:58 PM CDT Carito Zapien DERRICK WORKER CHEMISTRY ORDERABLES Fi nal Result Performing Organization Address City/[facility]/ZIP Co de Phone Number [facility] CLIA # [id number] [address] [place] [address] * US RENAL AND BLADDER (03/01/2025 1:16 [...] of the kidneys and bladder. Carito Zapien DERRICK WORKER US ORDERABLES Final R esult * (ABNORMAL) URINE CULTURE (03/01/2025 9:14 AM CDT) CULTURE ESCHERICHIA COLI(A) CHYNA MCG/ML 03/03/2025 7:21 AM CDT [facility] Urine URINE SPECIMEN OBTAINED BY [...] MCG/ML 32 mcg/mL: Susceptible Escherichia coli AMPICILLIN CHYAN MCG/ML >=32 mcg/mL: Resistant Escherichia coli AMPICILLIN/ SULBACTAM CHYNA MCG/ML 16 mcg/mL: Intermediate Escherichia coli PIPERACILLIN/ TAZOBACTAM CHYNA MCG/ML <=4 mcg/mL: Susceptible Comment:Aminoglycosides shou ld not be used as monotherapy for infections outside the urinary tract. Consultation with an infectious diseases specialist is recommended. Alissa Winter MD MICROBIOLOGY - GENERAL ORDERABL ES Final Result [facility] CLIA # [id number] [address] [place] [address] * (ABNORMAL) OCCULT BLOOD, GASTRIC FLUID (03/01/2025 9:10 AM CDT) OCCULT BLOOD, GASTRIC FLUID Positive(A ) Negative 03/01/2025 9:43 AM CDT [facility] PH, GASTRIC FLD <1(L) 2 - 4 03/01/2025 9:43 AM CDT [facility] Body fluid ENTIRE STOMACH / Unknown Collection / Unknown 03/01/2025 9:10 AM CDT 03/01/2025 9:28 AM CDT [facility] - 03/01/2025 9:43 AM CDT Lot [id number] Developer [id number] exp 425 Alissa Winter MD BODY FLUIDS AND STOOLS Final Re sult [facility] CLIA # [id number] [address] [place] [address] * (ABNORMAL) SEDIMENTATION RATE (03/01/2025 7:38 AM CDT) ESR (SEDIMENTATION RATE) 31(H) 0 - 20 mm/Hr 03/01/2025 8:52 AM CDT [facility] Blood Venipuncture / Unknown 03/01/2025 7:38 AM CDT 03/01/2025 8:27 AM CDT [facility] - 03/01/2025 8:52 AM CDT Tube Lot: #[id number] Exp Date: 08/19/2026 QC1 LOT [id number] EXP.08/24/2025 QC2 LOT [id number] EXP.08/24/2025 Alissa Winter MD HEMATOLOGY ORDERABLES Final Res ult [facility] CLIA # [id number] [address] [place] [address] * (ABNORMAL) C-REACTIVE PROTEIN (03/01/2025 7:38 AM CDT) CRP 16.0(H) <5.0 mg/L 03/01/2025 8:51 AM CDT [facility] Blood Venipuncture / Unknown 03/01/2025 7:38 AM CDT 03/01/2025 8:27 AM CDT us Alissa Winter MD CHEMISTRY ORDERABLES Final Resu lt [facility] # [id number] [address] [place] [address] from Last 3 Months Insurance BENEFIT MANAGEMENT PPO [place] [id number] Advance Directives For more information, please contact: [phone] * Full Code (Latest Code Status on File) Date Activated Date Inactivated Comments 03/01/2025 5:49 PM 03/03/2025 8:36 PM
--- OUTSIDE RECORDS SUMMARY | 2025-03-09 15:09 | XMS_ITS | Encounter Summary ---
Author Organization [facility] Address [address] [place] [address] Care Team Providers Care Signal Tower Operator Name Role Phone Unavailable Primary Care [...]
--- OUTSIDE RECORDS SUMMARY | 2025-03-09 15:09 | XMS_ITS | Data Portability ---
Author Organization [facility] Paulino Castillo [facility] Address [address] [address] Care Team Providers Care Apigee Developer Name Role Phone JORGE LUIS FOSTER Primary Care Provider Assessment No assessment recorded. Plan of Treatment Reminders Order Date Submit Date Provider Last Modified By Organization Details Last Modified Time Details Appointments None recorded. Lab None recorded. Referral None recorded. Procedures None recorded. Surgeries None recorded. Imaging None recorded. Medication Orders doxycycline hyclate 100 mg capsule 2024 025 [id number], [address], [place], [place], [id number], 16:00:54 Patient TargetsNo targets recorded. Patient Instructions Encounter Date Encounter Id Patient Instructions Last Modified By Organization Details Last Modified Time 11/08/2024 [id number] Follow up for worsening dschulte6 Not available [...] % 98 % 132/80 mm[Hg] Regine Rajan [facility], [facility] 5 15:45:33 Social History None recorded. [...] SNOMED-CT Code Diagnosis ICD10 Code Diagnosis Note [id number] JENNIFER BLUE APRN [facility] ([facility]) [address] [place] [address] 11/08/2024 15:35:10 11/09/2024 07:45:54 Abscess of skin and/or subcutaneous tissue 73388198 L02.91 Health Concerns Section Related Observation LastModified by Organization Detai ls LastModified Time None Recorded Concern Status LastModified by Organization Details LastModified Time None Recorded Advance Directives Directive None Recorded Payers Insurance Date Sequence Insurance Name Policy Number Policy Guzmán Covered Member ID Guzmán Member ID Guarantor Name 11/08/2024 1 BENEFIT MANAGEMENT OSIRIS FIGUEROA (PPO) Hemalatha De La Torre [id number] 2 Richi Childers Notes Date Note Type Note Provider Name and Address Organization Details Recorded Time 11/08/2024 text/html walk in ptPt has a red and swollen area on her right upper leg for 4 days JENNIFER BLUE, QUALITY ASSURANCE SUPERVISOR [address] [place], [address], [facility], Gui 11/08/2024 16:14:15 OBGyn Episode No OBEpisode recorded.
--- OUTSIDE RECORDS SUMMARY | 2025-03-09 15:09 | XMS_ITS | Encounter Summary ---
Author Organization [facility] Address [address] Mendez: Epic Prelude ADT [place] S[place]AT[place] [address] Care Team Providers Care Center Punch Operator Name Role Phone Unavailable Primary Care [...]
--- OUTSIDE RECORDS SUMMARY | 2025-03-09 15:10 | XMS_ITS | Encounter Summary ---
Author Organization [facility] Address [address] [place] [address] Care Team Providers Care Circuit Recorder Name Role Phone Unavailable Primary Care Provider [...]
--- OUTSIDE RECORDS SUMMARY | 2025-03-09 15:10 | XMS_ITS | Encounter Summary ---
Author Organization [facility] Address [address] [place] [address] Care Team Providers Care Glass Installer Name Role Phone Unavailable Primary Care [...]
--- NOTE | 2025-03-09 18:33 | PC.NURSE ---
received to OB9 from med surg. VSS. oriented to room/call light.
--- NOTE | 2025-03-09 20:45 | P.PN_ITS ---
Subjective 2 Subjective: Patient is doing better hopefully will be going home tomorrow if no further events. Patient denies any flank pain but did have autonomic nervous system with vagal stimulation with nausea and vomiting today and diaphoresis will follow through if patient continue to do better will be able to go home tomorrow Vitals/I&O/Wt Last Vital Signs Temp 98.2 F 03/09/25 20:00 Pulse 71 03/09/25 18:25 Resp 17 03/09/25 18:25 BP 116/65 03/09/25 18:25 Pulse Ox 97 03/09/25 16:00 O2 Del Method Room Air 03/09/25 18:25 03/09/25 03/09/25 03/09/25 06:59 14:59 22:59 Intake Total 360 / 360 360 / 720 Output Total 600 / 1400 500 / 500 Balance -600 / -800 -140 / -140 360 / 220 Weight last 48 hrs Weight 130.725 kg Weight 131.134 kg Physical Exam 2 Narrative: HEENT normocephalic/atraumatic neck neck is supple cardiovascular heart rate is regular lungs are pretty much clear abdomen soft nontender nondistended unremarkable extremities intact no edema has good pulses neurology has no focality lab studies lab studies reviewed and noted. Data 03/09/25 10:29 03/09/25 10:29 A&P Assessment and plan 1. 16 weeks gestation of : 2. Pyelonephritis during : 3. BMI 45.0-49.9, adult: 4. Pyelonephritis affecting : Plan: 1. 16 weeks gestation of : 16-week of gestation patient in has been treated and stool for a non patient - Patient has been on antibiotics urine is clean. Patient continue intermittently to have this right flank pain even after 16 hours without any pain medication - BUILDING INSPECTOR consulted today and saw the patient and did not feel that the patient need to be transferred - Must continue to treat and monitor l 2. Pyelonephritis during : Urinalysis have a decrease in white cells in the urine patient showing remarkable improvement This is an initial diagnosis with urinary tract infection. Patient had been treated since of last week today is Sunday the 03/08/2025. No pain noted no tenderness noted at an initial evaluation today at 11 AM and had been pain-free for 9 hours prior to that time and also pain-free for another 7 hours making a total of 16 hours No further pain today however patient did have some nausea and vomiting with diaphoresis as though it is a vagal response Continue antibiotics Follow-up in a.m. 3. BMI 45.0-49.9, adult: Morbid obesity based on weight patient is 16 weeks Plan: Patient with right pyelonephritis with right hydronephrosis No kidney stone post MRI at [facility] and post ultrasound in this hospital No fever noted Patient on antibiotics day 10 from 5 days PDMP PDMP Reviewed: Last Reviewed 03/08/25 20:48 by Rachel Ramon MD PDMP PDMP Reviewed: Last Reviewed 03/08/25 20:48 by Rachel Ramon MD Attestations 2 Medical Necessity Statement*: Patient needs another day because of episode of autonomic nervous system displayed with nausea and vomiting and diaphoresis that came on all of a sudden and patient was fine again with no associated pain of the flank pain. Coding Level of Care Code 35144 Diagnoses 16 weeks gestation of Z3A.16 Pyelonephritis during O23.00 BMI 45.0-49.9, adult Z68.42 Pyelonephritis affecting O23.00 Time Spent (min) 30
[2025-03-10] VITALS: BP 122/84; PULSE 73; TEMP 36.6; TEMP 36.7
[2025-03-10] MEDS: cefTRIAXone 1,000 mg SDV 1000 MG IVP (01:09)
[2025-03-10 04:00] VITALS: BP 109/73; PULSE 64; TEMP 36.6
[2025-03-10] MEDS: PRENATAL VIT NO.130/IRON/FOLIC 1 EACH TABLET PO (08:56)
[2025-03-10 10:04] VITALS: BP 137/79; PULSE 69; RESP 18; TEMP 36.7; O2SAT 97
--- NOTE | 2025-03-10 11:51 | P.DS_ITS ---
Discharge Providers Date of Admission: 03/06/25 00:04 Date of Discharge: March 10, 2025 Attending Provider at Admission: Jose Alexandra Attending Provider at Discharge: Rachel Ramon MD Consults: Patient is doing well denies any complaints and asymptomatic happy to go home Primary Care Provider: Patient to follow-up with the PCP within 2 to 3 days Diagnoses at Discharge Discharge Diagnosis 1. 16 weeks gestation of : 2. Pyelonephritis during : Details from hospital stay: E. coli pyelonephritis 3. BMI 45.0-49.9, adult: Details from hospital stay: See the hospital course below 4. Pyelonephritis affecting : Details from hospital stay: See hospital course below Other Information Additional DC diagnoses/information: Hospital course dictated and very comprehensive Reason for Visit Reason for Visit: R Lower ABD Pain 16 Weeks Preg N/V Brief History: Patient infected with E. coli UTI leading to pyelonephritis patient had received IV ceftriaxone antibiotics for the first 4 days in the hospital and now being discharged on oral antibiotics Augmentin. Patient is eating well no nausea no vomiting at this time white count had resolved down to normal. Patient had never had any fever. Patient was seen by MANAGER VALIDATION in the hospital and will be following up with MANAGER VALIDATION just in 2 days on the of this month Hospital Course Hospital Course 19-year-old female at 16 weeks and 2 days gestation who presents with persistent right-sided flank pain and incomplete resolution of symptoms after recent hospitalization for pyelonephritis. Her symptoms began abruptly on Sunday morning with localized right flank pain that has remained fairly constant without radiation. She reports associated nausea, vomiting (including one episode of dark blood likely from esophageal irritation), chills, subjective fevers, and reduced oral intake. She denies dysuria, urinary frequency, urgency, or hematuria. She initially sought care at [facility] in [place] and was then transferred to [facility] for further evaluation. There, she underwent an MRI that ruled out nephrolithiasis but was consistent with pyelonephritis. She was admitted from Sunday through Sunday and received IV antibiotics and supportive care. She was discharged Sunday evening on oral cefdinir 300 mg twice daily, which she reports taking consistently. However, she continued to experience significant pain at home. She presented again to the [place] ER last night and was evaluated for ongoing symptoms. Labs reportedly indicated that the antibiotic was working, but she was prescribed hydrocodone for pain and discharged home without any changes to her antibiotic regimen. Due to worsening discomfort , she presented again for furt her evaluation. This is her second . The first was complicated by a miscarriage in March 2023, without need for surgical intervention. She has had no infections during this until now and has not undergone any OB procedures. She receives care locally w/Dr. Suzanne Jaramillo and had a follow-up scheduled for tomorrow, though that may now be deferred due to admission. She is currently taking vitamins and oral iron, which was initiated previously for -related anemia. On arrival today, she was afebrile with stable vital signs. Labs revealed a white count of 12.7 and a hemoglobin of 10 g/dL, consistent with her known anemia. Urinalysis showed 2+ ketones, 3+ leukocyte esterase, 1+ protein, and 21?50 WBCs per HPF ? concerning for persistent UTI and dehydration. She was started on IV ceftriaxone in the ED. A prior culture reportedly grew E. coli, susceptible to cefdinir; she also received morphine for pain. Patient presented with right flank pain with dysuria. Ultrasound was obtained to see if patient had stone or any other pathology. Nothing was found except for a right hydronephrosis. Urinalysis was ordered and it was with lower WBC count at 11-20 patient along Presentation was placed on ceftriaxone on 06 March. There was a concern from a primary hospitalist that we are taking care of the patient prior to my stepping in to take over since the current hospitalist was due to being off schedule. The concern was that patient may have stolen and needed to be transferred to [facility]. Upon my evaluation I found that the last time patient had pain medication was 9 hours prior to the time making I was evaluating patient at 11 AM on March 08. Patient denies any complaints of pain of the right flank still 16 hours after the pain medication patient had a recurrent right flank pain on that same day March 08. Patient received 1 mg of IV Dilaudid and this was the last time patient had pain medication except for Tylenol. Patient did not have a complaint any further right flank pain. Antibiotics were continued and patient at some point yesterday went diaphoretic and threw up blood sugar checked it was 64 with that this autonomic nervous system display was secondary to hypoglycemia, most likely. Patient was given something to eat and she verbalized that she had not been is eating because he did not feel like eating much. Since then patient had not had further episode for that reason I kept the patient overnight into today to make sure no such further episode blood sugar has stayed okay patient is doing fine at this time we will be discharging patient. Patient has been on ceftriaxone since 06 March and today is the making 4 days. Patient had E. coli UTI with pyelonephritis. Patient is symptom-free at this time I will be sending patient home with Augmentin for additional 10 days. MANAGER VALIDATION was also consulted during this hospitalization and he agreed that the patient is not to be transferred. Reason anything is going on that warrant that. Patient continued antibiotics. MANAGER VALIDATION will be seeing the patient on the of this month. Which will be exactly within 2 days of discharge today Physical Exam Narrative: Generally patient looks well sitting up in chair with cheerful disposition with the [id number] at the bedside. Patient had not had any further flank pain no nausea no vomiting no other problem. HEENT normocephalic atraumatic neck neck is supple cardiovascular heart rate is regular lungs are pretty much clear abdomen soft nontender nondistended unremarkable extremities are intact no edema has good pulses neurology has no focality lab studies lab studies reviewed and noted. Discharge Data Studies Completed and Pending Completed Studies During Hospitalization Category Date Time Status US renal BI* [id number] Routine Ultrasound 03/07/25 03:29 Completed Pending at discharge Category Date Time Status Urine Culture Routine Lab 03/08/25 20:30 Results Radiology Impressions Renal Ultrasound 03/07/25 03:29 IMPRESSION: Mild right-sided hydronephrosis. Gravid uterus. Laboratory Results WBC 9.75 10^3/uL (3.29-11.43) 03/09/25 10:29 RBC 3.78 10^6/uL (3.85-5.65) L 03/09/25 10:29 Hgb 10.40 g/dL (11.27-16.99) L 03/09/25 10:29 Hct 33.8 % (36-47) L 03/09/25 10:29 MCV 89.4 fl (85-98) 03/09/25 10:29 MCH 27.5 pg (27-33) 03/09/25 10:29 MCHC 30.8 g/dL (30-55) 03/09/25 10: RDW 17.6 % (12.1-15.1) H 03/09/25 10:29 Plt Count 114 10^3/cmm (157-399) L 03/09/25 10:29 MPV 12.2 fL (7.4-10.4) H 03/09/25 10:29 Neut % (Auto) 72.1 % 03/09/25 10:29 Lymph % (Auto) 19.3 % 03/09/25 10:29 [place] % (Auto) 7.0 % 03/09/25 10: Eos % (Auto) 0.7 % 03/09/25 10: Baso % (Auto) 0.3 % 03/09/25 10: Neut # (Auto) 7.03 10^3/uL (1.8-7.7) 03/09/25 10: Lymph # (Auto) 1.9 10^3/uL (0.8-4.8) 03/09/25 10:29 [place] # (Auto) 0.7 10^3/uL (0.2-0.9) 03/09/25 10:29 Eos # (Auto) 0.1 10^3/uL (0.0-0.8) 03/09/25 10: Baso # (Auto) 0.0 10^3/uL (0.0-0.1) 03/09/25 10: Nucleated RBC % (auto) 0 % 03/09/25 10: Nucleated RBCs # 0.0 /100WBC 03/09/25 10: Sodium 135 mmol/L (136-145) L 03/09/25 10: Potassium 4.0 mmol/L (3.5-5.1) 03/09/25 10: Chloride 100 mmol/L (98-107) 03/09/25 10: Carbon Dioxide 23 mmol/L (22-29) 03/09/25 10: Anion Gap 16.0 (5-19) 03/09/25 10:29 BUN 6 mg/dL (6-20) 03/09/25 10: Creatinine 0.4 mg/dL (0.5-0.9) L 03/09/25 10:29 GFR Calculation 201.5 mL/min (90-130) H 03/09/25 10:29 Glucose 67 mg/dL (65-115) 03/09/25 10:29 POC Glucose 79 mg/dL (70-110) 03/09/25 09:50 Calculated Osmolality 276 mOsm/kg (285-295) L 03/09/25 10:29 Calcium 9.3 mg/dL (8.5-10.5) 03/09/25 10:29 Magnesium 1.6 mg/dL (1.7-2.3) L 03/09/25 10:29 Total Bilirubin 0.2 mg/dL (0.15-1.2) 03/09/25 10: AST 26 U/L (0-32) 03/09/25 10: ALT 44 U/L (0-33) H 03/09/25 10:29 Alkaline Phosphatase 103 U/L (35-105) 03/09/25 10: Total Protein 6.2 g/dL (6.6-8.7) L 03/09/25 10:29 Albumin 3.2 g/dL (3.5-5.2) L 03/09/25 10: Globulin 3.0 g/dL (1.3-4.6) 03/09/25 10: Lipase 35 U/L (13-60) 03/05/25 21:15 Ser , Semi-Qnt 7843.00 mIU/mL 03/05/25 21:15 Urine Color Yellow (Yellow) 03/08/25 20:30 Urine Appearance Cloudy (CLEAR) A 03/08/25 20: Urine pH 6.0 (5-7) 03/08/25 20:30 Ur Specific [place] 1.023 (1.005-1.030) 03/08/25 20:30 Urine Protein Trace (Negative) A 03/08/25 20:30 Urine Glucose (UA) Negative (Normal) 03/08/25 20: Urine Ketones Negative (Negative) 03/08/25 20:30 Urine Blood 3+ (Negative) A 03/08/25 20:30 Urine Nitrate Negative (Negative) 03/08/25 20:30 Urine Bilirubin Negative (Negative) 03/08/25 20: Urine Urobilinogen 1.0 mg/dL (Negative) 03/08/25 20:30 Ur Leukocyte Esterase 1+ (Negative) A 03/08/25 20:30 Urine RBC >100 /hpf (0-2) H 03/08/25 20:30 Urine WBC 11-20 /hpf (0-5) H 03/08/25 20:30 Ur Squamous Epith Cells 0-5 /hpf (0-5) 03/08/25 20:30 Calcium Oxalate Crystal 15-25 /hpf H 03/05/25 22:10 Amorphous Sediment Not Reportable 03/08/25 20:30 Urine Bacteria None seen /hpf (NONE) 03/08/25 20:30 Hyaline Casts 0.40 /lpf 03/08/25 20:30 Urine Mucus 2+ /hpf 03/05/25 22:10 Vitals Last Vital Signs Temp 98.1 F 03/10/25 10:04 Pulse 69 03/10/25 10:04 Resp 18 03/10/25 10:04 BP 137/79 03/10/25 10:04 Pulse Ox 97 03/10/25 10:04 O2 Del Method Room Air 03/10/25 10:04 Discharge Plan Discharge Patient Disposition: Home Condition: Stable Prescriptions: Continued ondansetron HCl 4 mg tablet 4 mg PO DAILY Qty: 2 0RF PNV no.[id number] acid 28 mg iron- 800 mcg tablet 1 tab PO DAILY hydrocodone-acetaminophen 5-325 mg tablet 1 tab PO Q6H PRN (Reason: Pain) famotidine 20 mg tablet 20 mg PO BID escitalopram oxalate 5 mg tablet 5 mg PO DAILY amoxicillin-pot clavulanate 875-125 mg tablet 1 tab PO BID 10 Days Qty: 20 0RF Discontinued cefdinir 300 mg capsule 300 mg PO BID [employer] Draftsperson [place] for DC: Obstetrics/Gynecology and Family Medicine Discharge Order = DC NOW: Discharge Order (Routine); Ordered 03/10/25 Ordered By: Rachel Ramon Referrals: Kilo Goddard MD [Physician, MANAGER VALIDATION] - 03/12/25 9:15 am Discharge Diet: Regular Discharge Activity: Resume usual activity Patient Instructions: Famotidine (By mouth), Hydrocodone/Acetaminophen (By mouth), Vitamins (By mouth), Amoxicillin/Clavulanate Potassium (By mouth) (Augmentin, Augmentin..., Ondansetron (By mouth), Escitalopram (By mouth) (Lexapro), Hydronephrosis (DC), at 15 to 18 Weeks (DC), Opioid Safety, Patient Portal & Lj Instructions, Pyelonephritis Discharge Attestations Time Spent in Discharge Care*: less than 30 min Specific Discharge Activities: educating patient, documenting/other paperwork and evaluating patient/reviewing data Other discharge activites (optional): Patient know to follow-up with the PCP within 3 to 4 days and also with the MANAGER VALIDATION that saw the patient while in the hospital on the March 12 2025 Time Spent in Smoking Cessation: Patient does not smoke Quality Metrics Clinical Quality Measures [ No reported AMI, CVA or VTE this stay] Coding Level of Care Code 00633 Diagnoses 16 weeks gestation of Z3A.16 Pyelonephritis during O23.00 BMI 45.0-49.9, adult Z68.42 Pyelonephritis affecting O23.02 Trimester: second trimester
[2025-03-10] MEDS: magnesium sulfate premix 2 GM/50 ML PIGGYBACK IV (12:23)
[2025-03-10 13:20] VITALS: BP 122/73; PULSE 72; RESP 17; TEMP 36.7
== END 2025-03-10 13:15 | disposition home or self-care (01) | DRG 832 ==
LOC: ER 03-06 → ER IP 03-06 00:51 → MEDSURG 03-08 08:08 → ER IP 03-09 15:04 → OBGYN 03-09 18:32
PROVIDERS: Student in an Organized Health Care Education/Training Program; Admitting Provider Hospitalist; Emergency Provider Registered Nurse; Visit Provider Internal Medicine
DX: O23.02 Infections of kidney in pregnancy, second trimester (principal); N13.6 Pyonephrosis; B96.20 Unspecified Escherichia coli [E. coli] as the cause of diseases classified elsewhere; Z3A.16 16 weeks gestation of pregnancy; E66.01 Morbid (severe) obesity due to excess calories; O99.212 Obesity complicating pregnancy, second trimester; O99.012 Anemia complicating pregnancy, second trimester; D50.9 Iron deficiency anemia, unspecified
CPT/HCPCS: 12345; 36415; 36416; 76770; 80048; 80053; 81001; 82962; 83690; 83735; 84702; 85025; 87086; G0378; J0696; J1171; J2270; J2405; J3475; J7030; J7120; J9999; Q0162

== ENCOUNTER → 2025-03-12 09:08 | Outpatient (BNVA) | payer OTHER, SELFPAY | PROVIDERS: Visit Provider Obstetrics & Gynecology | DX: Z34.80 Encounter for supervision of other normal pregnancy, unspecified trimester (principal) | CPT/HCPCS: 84315 ==

== ENCOUNTER 2025-03-13 20:15 | Emergency (ER) | payer OTHER, SELFPAY ==
--- OUTSIDE RECORDS SUMMARY | 2025-03-13 20:19 | XMS_ITS | Encounter Summary ---
Author Organization [facility] Address [address] [place] [address] Care Team Providers Care Aircraft Fueler Name Role Phone Unavailable Primary Care Provider Unavailabl e Encounter Details Date Type Department Care Team (Late st Contact Info) Description 03/02/2025 Results Follow-Up [facility] Emergency Medicine [address] [place] [id number] Phyllis Maldonado, RN URINE CULTURE Social History [...]
--- OUTSIDE RECORDS SUMMARY | 2025-03-13 20:19 | XMS_ITS | Encounter Summary ---
Author Organization [facility] Address [address] [place] [address] Care Team Providers Care Assembler Musical Equipment Name Role Phone Unavailable Primary Care Provider [...]
--- OUTSIDE RECORDS SUMMARY | 2025-03-13 20:19 | XMS_ITS | Clinical Summary ---
Author Organization [facility] Address [address] [facility] [address] [place] [address] Phone Care Team Providers Care Shank Pinner Name Role Phone Unavailable Primary Care Provider Unavailabl e Allergies No known active allergies Medications vits15/iron/fo lic/dss ( VIT 39-YDRR-IFHDY- DSS ORAL) Take by mouth. Active escitalopram [...] CDT - 03/04/2025 10:10 PM CDT Emergency [address] [address] Petar Brice MD Flank pain (Primary Dx) Discharge Disposition: Home or Self Care 03/04/2025 External Device Data STL ABSTRACTION Provider, Abstract 03/04/2025 External Device Data STL ABSTRACTION Provider, Abstract 03/04/2025 External Device Data STL ABSTRACTION Provider, Abstract 03/04/2025 Travel 03/04/2025 External Device Data STL ABSTRACTION Provider, Abstract 03/02/2025 Results Follow-Up [address] [address] Phyllis Maldonado RN URINE CULTURE 03/01/2025 4:18 PM CDT - 03/03/2025 6:31 PM CDT Hospital Encounter [facility] Gynecology [address] [place] [address] May Dobbins MD Patel, Taksh, MD Shah, Mela Alfonso MD Acute pyelonephritis Discharge Disposition: Home or Self Care 03/01/2025 6:56 AM CDT - 03/01/2025 10:27 AM CDT Emergency [address] [phone] Alissa Winter MD Acute right flank pain (Primary Dx); Intractable vomiting with nausea; Dede-Nunes tear; 15 weeks gestation of ; Acute cystitis with hematuria Discharge Disposition: [facility] 03/01/2025 Travel from Last 3 Months Social History [...] - 2 /hpf 03/04/2025 8:14 PM CDT [facility] RBC UA 6-10(A) 0 - 2 /hpf 03/04/2025 8:14 PM CDT [facility] BACTERIA UA Negative Negative /hpf 03/04/2025 8:14 PM CDT [facility] EPITHELIAL CELLS, URINE 11-25(A) 0 - 5 /hpf 03/04/2025 8:14 PM [facility] Urine URINE SPECIMEN OBTAINED BY CLEAN CATCH PROCEDURE / Unknown Collection / Unknown 03/04/2025 7:48 PM CDT 03/04/2025 7:56 PM CDT [facility] - 03/04/2025 8:14 PM CDT Must recollect sample if Culture is ordered. [facility] Petar Brice MD URINE ORDERABLES Final R esult [facility] CLIA # [id number] [address] [place] [address] * (ABNORMAL) CBC WITH DIFFERENTIAL (03/04/2025 7:48 PM CDT) Only the most recent of5 resultswithin the time period is included. WBC 12.8(H) 4.0 - 10.0 K/uL 03/04/2025 8:02 PM [facility] RBC 4.03 3.93 - 5.22 M/uL 03/04/2025 8:02 PM [facility] HEMOGLOBIN 11.2 11.2 - 15.7 g/dL 03/04/2025 8:02 PM [facility] HEMATOCRIT 33.8(L) 34.1 - 44.9 % 03/04/2025 8:02 PM [facility] MCV 83.9 79.4 - 94.8 fL 03/04/2025 8:02 PM [facility] MCH 27.8 25.6 - 32.2 pg 03/04/2025 8:02 PM [facility] MCHC 33.1 32.2 - 35.5 g/dL 03/04/2025 8:02 PM [facility] RDW 18.3(H) 11.0 - 14.5 % 03/04/2025 8:02 PM [facility] RDW-STDEV 55.8 36.9 - 56.9 fL 03/04/2025 8:02 PM [facility] PLATELETS 170 163 - 337 K/uL 03/04/2025 8:02 PM [facility] MPV 11.3 10.0 - 14.8 fL 03/04/2025 8:02 PM [facility] NEUTROPHILS 77(H) 34 - 71 % 03/04/2025 8:02 PM [facility] LYMPHOCYTES 16(L) 19 - 52 % 03/04/2025 8:02 PM [facility] MONOCYTES 6 5 - 13 % 03/04/2025 8:02 PM [facility] EOSINOPHILS 0(L) 1 - 6 % 03/04/2025 8:02 PM [facility] BASOPHILS 0 0 - 1 % 03/04/2025 8:02 PM [facility] IMMATURE GRANULOCYTES 1 % 03/04/2025 8:02 PM [facility] NEUTROPHIL ABSOLUTE 9.85(H) 1.56 - 6.13 K/uL 03/04/2025 8:02 PM [facility] LYMPHOCYTE ABSOLUTE 2.03 1.20 - 3.40 K/uL 03/04/2025 8:02 PM [facility] MONOCYTE ABSOLUTE 0.73(H) 0.24 - 0.36 K/uL 03/04/2025 8:02 PM [facility] EOSINOPHIL ABSOLUTE 0.05 0.04 - 0.36 K/uL 03/04/2025 8:02 PM [facility] BASOPHILS ABSOLUTE 0.02 0.01 - 0.08 K/uL 03/04/2025 8:02 PM [facility] IMMATURE GRANULOCYTES ABSOLUTE 0.07 K/uL 03/04/2025 8:02 PM [facility] Blood Collection / Unknown 03/04/2025 7:48 PM CDT 03/04/2025 7:56 PM CDT us Petar Brice MD HEMATOLOGY ORDERABLES Fi nal Result [facility] CLIA # [id number] [address] [place] [address] * (ABNORMAL) URINALYSIS WITH REFLEX MICROSCOPIC (03/04/2025 7:48 PM CDT) Only the most recent of4 resultswithin the time period is included. COLOR UA Yellow Pale to Dark Yellow 03/04/2025 8:14 PM CDT [facility] CLARITY UA Clear Clear 03/04/2025 8:14 PM CDT [facility] SPECIFIC GRAVITY UA 1.020 1.003 - 1.035 03/04/2025 8:14 PM CDT [facility] PH UA 6.5 5.0 - 8.0 03/04/2025 8:14 PM CDT [facility] LEUKOCYTE ESTERASE UA 1+(A) Negative 03/04/2025 8:14 PM CDT [facility] NITRITE UA Negative Negative 03/04/2025 8:14 PM CDT [facility] PROTEIN UA 1+(A) Negative 03/04/2025 8:14 PM CDT [facility] GLUCOSE UA Negative Negative 03/04/2025 8:14 PM CDT [facility] KETONES UA 4+(A) Negative 03/04/2025 8:14 PM T [facility] UROBILINOGEN UA 0.2 <2.0 mg/dL 8:14 PM T [facility] BILIRUBIN UA 1+(A) Negative 03/04/2025 8:14 PM T [facility] BLOOD UA 2+(A) Negative 03/04/2025 8:14 PM T [facility] Urine URINE SPECIMEN OBTAINED BY CLEAN CATCH PROCEDURE / Unknown Collection / Unknown 03/04/2025 7:48 PM CDT 03/04/2025 7:56 PM CDT us Petar Brice MD URINE ORDERABLES Final [id number] [address] [place] [address] * (ABNORMAL) COMPREHENSIVE METABOLIC PANEL (03/04/2025 7:48 PM CDT) Only the most recent of3 resultswithin the time period is included. SODIUM 138 136 - 145 mmol/L 03/04/2025 8:14 PM [facility] POTASSIUM 3.9 3.5 - 5.1 mmol/L 03/04/2025 8:14 PM [facility] CHLORIDE 103 98 - 107 mmol/L 03/04/2025 8:14 PM [facility] CO2 21(L) 22 - 29 mmol/L 03/04/2025 8:14 PM [facility] CALCIUM 9.7 8.6 - 10.0 mg/dL 03/04/2025 8:14 PM [facility] BUN 9 6 - 20 mg/dL 03/04/2025 8:14 PM [facility] CREATININE 0.65 0.51 - 0.95 mg/dL 03/04/2025 8:14 PM [facility] GLUCOSE 81 74 - 99 mg/dL 03/04/2025 8:14 PM [facility] TOTAL PROTEIN 6.5(L) 6.6 - 8.7 g/dL 03/04/2025 8:14 PM [facility] ALBUMIN 3.6 3.5 - 5.2 g/dL 03/04/2025 8:14 PM [facility] BILIRUBIN TOTAL <0.2 0.0 - 1.2 mg/dL 03/04/2025 8:14 PM [facility] ALKALINE PHOSPHATASE 106(H) 35 - 104 U/L 03/04/2025 8:14 PM [facility] AST 26 0 - 35 U/L 03/04/2025 8:14 PM [facility] ALT 37(H) 0 - 35 U/L 03/04/2025 8:14 PM [facility] GFR >60 >=60 mL/min/1.7 3 sq meter 03/04/2025 8:14 PM CDT [facility] Comment:eGFR calculated with 2020 CKD-EPI equation. Vegetarian diet, extremely high or low muscle mass, and may affect results. Cystatin C with Glomerular Filtration Rate is a suitable alternative for these patients. ANION GAP 14 5 - 20 mmol/L 03/04/2025 8:14 PM CDT [facility] Blood Collection / Unknown 03/04/2025 7:48 PM CDT 03/04/2025 7:56 PM CDT us Petar Brice MD CHEMISTRY ORDERABLES Fin al Result [facility] CLIA # [id number] [address] [place] [address] * TELEMETRY REPORT (03/04/2025 9:56 AM CDT) us Provider Scanning ECG ORDERABLES Final Result * (ABNORMAL) HEMOGLOBIN AND HEMATOCRIT (03/03/2025 2:12 PM CDT) HEMOGLOBIN 9.8(L) 12.0 - 16.0 g/dL 03/03/2025 2:39 PM CDT [facility] HEMATOCRIT 29.8(L) 36.0 - 46.0 % 03/03/2025 2:39 PM CDT [facility] Blood Venipuncture / Unknown 03/03/2025 2:12 PM CDT 03/03/2025 2:26 PM CDT us Mela Flores MD HEMATOLOGY ORDERABLES Final Result Performing Organization Address City/[facility]/ZIP Co de Phone Number [facility] CLIA # [id number] [address] [address] * (ABNORMAL) BASIC METABOLIC PANEL (03/03/2025 4:25 AM CDT) Only the most recent of2 resultswithin the time period is included. SODIUM 136 136 - 145 mmol/L 03/03/2025 5:25 AM [facility] POTASSIUM 4.0 3.5 - 5.1 mmol/L 03/03/2025 5:25 AM [facility] Comment:Moderate hemolysis p resent. Can cause significant falsely elevated result. Redraw if indicated. CHLORIDE 105 98 - 107 mmol/L 03/03/2025 5:25 AM [facility] CO2 21(L) 22 - 29 mmol/L 03/03/2025 5:25 AM [facility] CALCIUM 8.9 8.6 - 10.0 mg/dL 03/03/2025 5:25 AM [facility] BUN 7 6 - 20 mg/dL 03/03/2025 5:25 AM [facility] CREATININE 0.62 0.51 - 0.95 mg/dL 03/03/2025 5:25 AM [facility] GLUCOSE 93 74 - 99 mg/dL 03/03/2025 5:25 AM [facility] GFR >60 >=60 mL/min/1.7 3 sq meter 03/03/2025 5:25 AM [facility] Comment:eGFR calculated with 2020 CKD-EPI equation. Vegetarian diet, extremely high or low muscle mass, and may affect results. Cystatin C with Glomerular Filtration Rate is a suitable alternative for these patients. ANION GAP 10 9 - 20 mmol/L 03/03/2025 5:25 AM [facility] Blood Venipuncture / Unknown 03/03/2025 4:25 AM CDT 03/03/2025 4:48 AM CDT us Mela Flores MD CHEMISTRY ORDERABLES F inal Result [facility] CLIA # [id number] [address] [address] [place] [address] * MAGNESIUM LEVEL (03/02/2025 6:26 AM CDT) MAGNESIUM 1.6 1.6 - 2.6 mg/dL 03/02/2025 7:23 AM CDT [facility] [employer] [facility] Blood Venipuncture / Unknown 03/02/2025 6:26 AM CDT 03/02/2025 6:34 AM CDT us Brigido Hines MD CHEMISTRY ORDERABLES Final Resul t [facility] [employer] [facility] CLIA # [id number] [address] [address] [place] [address] * MRI ABDOMEN PELVIS WO CONTRAST (03/02/2025 [...] completely excluded. us May Dobbins MD MR ORDERFRANCESCO basilio Result * US OB LTD 1 OR MORE FETUSES (03/01/2025 6:08 PM CDT) Anatomical Region Laterality Modality Pelvis Ultrasound 03/01/2025 5:39 PM CDT Narrative 03/01/2025 9:34 PM CDT [facility] OBUS ----- Pat. Name: HEMALATHA DE LA TORRE Study Date: 03/01/2025 5:39pm Pat. NO: [id number] Referring MD: Site: [facility] Bandoleer Packer: Nataliia Mckeon : 2005 Age: 19 ----- INDICATION ----- Other Specified Complications of viability scan through the ER CODING ----- Diagnoses Z3A.15: Weeks of gestation Z3A.15: Weeks of gestation O26.892: Other specified related conditions Procedures 29730: Ultrasound, uterus, real time with image documentation, [...] Note Jhon Ricci II, MD - 03/01/2025 [place] LIMITED OBUS ----- Pat. Name:Lucy DE LA TORRE Date:03/01/2025 5:39pm Pat. NO: [id number] MD: [facility] Mckeon :2005Age:19 ----- INDICATION ----- Other Specified Complications of viability scanthrough the ER CODING ----- Diagnoses Z3A.15: Weeks of gestation Z3A.15: Weeks of gestation O26.892: Other specified relatedconditions Procedures 10051: Ultrasound, uterus, real time withimage documentation, limited one or more fetuses HISTORY ----- OB History 2. Para 0 METHOD ----- Transabdominal ultrasound examination ----- Monge . Number of fetuses: 1 DATING ----- LMP on:10/26/2024 GA by [id number] w + 0 d MICHELL by LMP:08/02/2025 Method of dating:based on stated MICHELL GA by prior [id number] w + 5 d MICHELL by prior [...] 1.2 <=2.0 mmol/L 03/01/2025 5:20 PM CDT [facility] [employer] [facility] Blood Venipuncture / Unknown 03/01/2025 4:51 PM CDT 03/01/2025 4:57 PM CDT May Dobbins MD CHEMISTRY ORDERABLES Final Result [facility] [employer] [facility] CLIA # [id number] [address] [place] [address] * BLOOD CULTURE (03/01/2025 4:51 PM CDT) Only the most recent of2 resultswithin the time period is included. BLOOD CULTURE No growth 03/06/2025 6:19 PM CDT [facility] Blood (Peripheral) Venipuncture / Unknown 03/01/2025 4:51 PM CDT 03/01/2025 4:57 PM CDT May Dobbins MD MICROBIOLOGY - [facility] AL ORDERABLES Final Result Performing Organization Address [facility] Co de Phone Number [facility] CLIA # [id number] [facility] [address] * LIPASE (03/01/2025 1:53 PM CDT) Only the most recent of2 resultswithin the time period is included. Pathologist [facility] LIPASE 25 13 - 60 U/L 03/01/2025 2:34 PM CDT [facility] Blood Venipuncture / Unknown 03/01/2025 1:53 PM CDT 03/01/2025 1:58 PM CDT Carito Zapien [employer] CHEMISTRY ORDERABLES Fi nal Result Performing Organization Address City/[facility]/ZIP Co de Phone Number [facility] CLIA # [id number] [address] [place] [address] * US RENAL AND BLADDER (03/01/2025 1:16 [...] of the kidneys and bladder. Carito Zapien [facility] US ORDERABLES Final R esult * (ABNORMAL) URINE CULTURE (03/01/2025 9:14 AM CDT) CULTURE ESCHERICHIA COLI(A) CHYNA MCG/ML 03/03/2025 7:21 AM CDT [facility] Urine URINE SPECIMEN OBTAINED BY CLEAN [...] MICROBIOLOGY - GENERAL ORDERABL ES Final Result [facility] # [id number] [address] [place] [address] * (ABNORMAL) OCCULT BLOOD, GASTRIC FLUID (03/01/2025 9:10 AM CDT) OCCULT BLOOD, GASTRIC FLUID Positive(A ) Negative 03/01/2025 9:43 AM CDT [facility] PH, GASTRIC FLD <1(L) 2 - 4 03/01/2025 9:43 AM CDT [facility] Body fluid ENTIRE STOMACH / Unknown Collection / Unknown 03/01/2025 9:10 AM CDT 03/01/2025 9:28 AM CDT Narrative [facility] - 03/01/2025 9:43 AM CDT Lot [id number] exp 03-13 Developer [id number] exp 0426 us Alissa Winter MD BODY FLUIDS AND STOOLS Final Re sult Performing Organization Address City/[facility]/ZIP Co de Phone Number [facility] CLIA # [id number] [address] [place] [address] * (ABNORMAL) SEDIMENTATION RATE (03/01/2025 7:38 AM CDT) ESR (SEDIMENTATION RATE) 31(H) 0 - 20 mm/Hr 03/01/2025 8:52 AM CDT [facility] Blood Venipuncture / Unknown 03/01/2025 7:38 AM CDT 03/01/2025 8:27 AM CDT Narrative [facility] - 03/01/2025 8:52 AM CDT Tube Lot: #[id number] Exp Date: 08/19/2026 QC1 LOT [id number] EXP.08/24/2025 QC2 LOT [id number] EXP.08/24/2025 us Alissa Winter MD HEMATOLOGY ORDERABLES Final Res ult Performing Organization Address [facility]/ZIP Co de Phone Number [facility] CLIA # [id number] [address] [place] [address] * (ABNORMAL) C-REACTIVE PROTEIN (03/01/2025 7:38 AM CDT) CRP 16.0(H) <5.0 mg/L 03/01/2025 8:51 AM CDT [facility] Blood Venipuncture / Unknown 03/01/2025 7:38 AM CDT 03/01/2025 8:27 AM CDT us Alissa Winter MD CHEMISTRY ORDERABLES Final Resu lt [facility] CLIA # [id number] [address] [place] [address] from Last 3 Months Insurance LISET [place]OP[place] CLARKE [id number] BENEFIT MANAGEMENT PPO [place] [id number] Advance Directives For more information, please contact: [phone] * Full Code (Latest Code Status on File) Date Activated Date Inactivated Comments 03/01/2025 5:49 PM 03/03/2025 8:36 PM
[2025-03-13 20:28] VITALS: BP 140/76; PULSE 76; RESP 16; TEMP 36.7; O2SAT 98; BMI 45.1
== END 2025-03-13 23:58 | disposition left against medical advice (07) ==
LOC: ER 20:18
PROVIDERS: Emergency Provider Family Medicine
DX: Z53.21 Procedure and treatment not carried out due to patient leaving prior to being seen by health care provider (principal)

== ENCOUNTER 2025-03-17 17:37 | Emergency (ER) | payer OTHER, SELFPAY ==
--- OUTSIDE RECORDS SUMMARY | 2025-03-17 17:41 | XMS_ITS | Encounter Summary ---
Author Organization [facility] Address [address] [place] [address] Care Team Providers Care Electrical Superintendent Name Role Phone Unavailable Primary Care Provider Unavailabl e Encounter Details Date Type Department Care Team (Late st Contact Info) Description 03/02/2025 Results Follow-Up [facility] Emergency Medicine [address] [place] [id number] Phyllis Maldonado, RN URINE CULTURE Social History [...]
--- OUTSIDE RECORDS SUMMARY | 2025-03-17 17:41 | XMS_ITS | Data Portability ---
Author Organization [facility] Paulino Castillo [facility] Address [address] [address] Care Team Providers Care Athletic Trainer Name Role Phone JORGE LUIS FOSTER Primary Care Provider [phone] Assessment No assessment recorded. Plan of Treatment Reminders Order Date Submit Date Provider Last Modified By Organization Details Last Modified Time Details Appointments None recorded. Lab None recorded. Referral None recorded. Procedures None recorded. Surgeries None recorded. Imaging None recorded. Medication Orders doxycycline hyclate 100 mg capsule 2024 025 [facility][id number], [address], [place], [place], [id number], 16:00:54 Patient TargetsNo targets recorded. Patient Instructions Encounter Date Encounter Id Patient Instructions Last Modified By Organization Details Last Modified Time 11/08/2024 [id number] Follow up for worsening [id number] Not available [...] % 98 % 132/80 mm[Hg] Regine Rajan [facility], [facility] 5 15:45:33 Social History None recorded. [...] SNOMED-CT Code Diagnosis ICD10 Code Diagnosis Note [id number] JENNIFER BLUE APRN [facility] ([facility]) [address] [place] [address] 11/08/2024 15:35:10 11/09/2024 07:45:54 Abscess of skin and/or subcutaneous tissue 91413115 L02.91 Health Concerns Section Related Observation LastModified by Organization Detai ls LastModified Time None Recorded Concern Status LastModified by Organization Details LastModified Time None Recorded Advance Directives Directive None Recorded Payers Insurance Date Sequence Insurance Name Policy Number Policy Guzmán Covered Member ID Guzmán Member ID Guarantor Name 11/08/2024 1 BENEFIT MANAGEMENT OSIRIS FIGUEROA (PAUL) Hemalatha De La Torre [id number] Richi Childers OBAdam Episode No OBEpisode recorded.
--- OUTSIDE RECORDS SUMMARY | 2025-03-17 17:41 | XMS_ITS | Clinical Summary ---
Author Organization Cyn Nuñez [facility] Address [address] [place] [address] Phone Care Team Providers Care Web Master Name Role Phone Unavailable Primary Care Provider Unavailabl e Allergies No known active allergies Medications vits15/iron/fo lic/dss ( VIT 13-SNPJ-ROAWU- DSS ORAL) Take by mouth. Active escitalopram oxalate (LEXAPRO) 5 mg tablet Take 5 mg by mouth daily. Active famotidine (PEPCID) 20 mg tablet Take 1 Tablet (20 mg) by mouth 2 times daily for 14 days. 28 Tablet 5 03/17/20 25 Active HYDROcodone-ac etaminophen (NORCO) 5-325 mg tabletIndicati ons:Flank pain Take 1-2 Tablets by mouth every 6 hours as needed for Pain. Max Daily Amount: 8 Tablets 30 Tablet 5 Active cefdinir (OMNICEF) 300 mg capsule Take 1 Capsule (300 mg) by mouth every 12 hours for 10 days. 20 Capsule 5 03/03/20 25 Discontinued cefdinir (OMNICEF) 300 mg capsule Take 1 Capsule (300 mg) by mouth every 12 hours for 12 days. 24 Capsule 5 03/15/20 25 Active Problems Problem Noted Date Diagnosed Date [...] CDT - 03/04/2025 10:10 PM CDT Emergency [address] [phone] Petar Brice MD Flank pain (Primary Dx) Discharge Disposition: Home or Self Care 03/04/2025 External Device Data ST[facility] ABSTRACTION Provider, Abstract 03/04/2025 External Device Data STL ABSTRACTION Provider, Abstract 03/04/2025 External Device Data ST[place] ABSTRACTION Provider, Abstract 03/04/2025 Travel 03/04/2025 External Device Data ST[place] ABSTRACTION Provider, Abstract 03/02/2025 Results Follow-Up [address] [phone] Phyllis Maldonado RN URINE CULTURE 03/01/2025 4:18 PM CDT - 03/03/2025 6:31 PM CDT Hospital Encounter [facility] 5B Gynecology [address] [place] [address] May Dobbins MD Patel, Taksh, MD Shah, Mela Alfonso MD Acute pyelonephritis Discharge Disposition: Home or Self Care 03/01/2025 6:56 AM CDT - 03/01/2025 10:27 AM CDT Emergency [address] [id number] Alissa Winter MD Acute right flank pain (Primary Dx); Intractable vomiting with nausea; Dede-Nunes tear; 15 weeks gestation of ; Acute cystitis with hematuria Discharge Disposition: [facility] 03/01/2025 Travel from Last 3 Months Social [...] 2024 HPV/Cotest (21-29) 2024 PAP SMEAR 2024 INFLUENZA VACCINE (#1) 2025 RSV VACCINE (60+ [...] - 2 /hpf 03/04/2025 8:14 PM CDT [facility] RBC UA 6-10(A) 0 - 2 /hpf 03/04/2025 8:14 PM CDT [facility] BACTERIA UA Negative Negative /hpf 03/04/2025 8:14 PM CDT [facility] EPITHELIAL CELLS, URINE 11-25(A) 0 - 5 /hpf 03/04/2025 8:14 PM [facility] Urine URINE SPECIMEN OBTAINED BY CLEAN CATCH PROCEDURE / Unknown Collection / Unknown 03/04/2025 7:48 PM CDT 03/04/2025 7:56 PM CDT [facility] - 03/04/2025 8:14 PM CDT Must recollect sample if Culture is ordered. [facility] [place] Peatr Brice MD URINE ORDERABLES Final R esult [facility] CLIA # [id number] [address] [place] [address] * (ABNORMAL) CBC WITH DIFFERENTIAL (03/04/2025 7:48 PM CDT) Only the most recent of5 resultswithin the time period is included. WBC 12.8(H) 4.0 - 10.0 K/uL 03/04/2025 8:02 PM [facility] RBC 4.03 3.93 - 5.22 M/uL 03/04/2025 8:02 PM [facility] HEMOGLOBIN 11.2 11.2 - 15.7 g/dL 03/04/2025 8:02 PM [facility] HEMATOCRIT 33.8(L) 34.1 - 44.9 % 03/04/2025 8:02 PM [facility] MCV 83.9 79.4 - 94.8 fL 03/04/2025 8:02 PM [facility] MCH 27.8 25.6 - 32.2 pg 03/04/2025 8:02 PM [facility] MCHC 33.1 32.2 - 35.5 g/dL 03/04/2025 8:02 PM [facility] RDW 18.3(H) 11.0 - 14.5 % 03/04/2025 8:02 PM [facility] RDW-STDEV 55.8 36.9 - 56.9 fL 03/04/2025 8:02 PM [facility] PLATELETS 170 163 - 337 K/uL 03/04/2025 8:02 PM [facility] MPV 11.3 10.0 - 14.8 fL 03/04/2025 8:02 PM [facility] NEUTROPHILS 77(H) 34 - 71 % 03/04/2025 8:02 PM [facility] LYMPHOCYTES 16(L) 19 - 52 % 03/04/2025 8:02 PM [facility] MONOCYTES 6 5 - 13 % 03/04/2025 8:02 PM [facility] EOSINOPHILS 0(L) 1 - 6 % 03/04/2025 8:02 PM [facility] BASOPHILS 0 0 - 1 % 03/04/2025 8:02 PM [facility] IMMATURE GRANULOCYTES 1 % 03/04/2025 8:02 PM [facility] NEUTROPHIL ABSOLUTE 9.85(H) 1.56 - 6.13 K/uL 03/04/2025 8:02 PM [facility] LYMPHOCYTE ABSOLUTE 2.03 1.20 - 3.40 K/uL 03/04/2025 8:02 PM [facility] MONOCYTE ABSOLUTE 0.73(H) 0.24 - 0.36 K/uL 03/04/2025 8:02 PM [facility] EOSINOPHIL ABSOLUTE 0.05 0.04 - 0.36 K/uL 03/04/2025 8:02 PM [facility] BASOPHILS ABSOLUTE 0.02 0.01 - 0.08 K/uL 03/04/2025 8:02 PM [facility] IMMATURE GRANULOCYTES ABSOLUTE 0.07 K/uL 03/04/2025 8:02 PM [facility] Blood Collection / Unknown 03/04/2025 7:48 PM CDT 03/04/2025 7:56 PM CDT us Petar Brice MD HEMATOLOGY ORDERABLES Fi nal Result [facility] CLIA # [id number] [address] [address] * (ABNORMAL) URINALYSIS WITH REFLEX MICROSCOPIC (03/04/2025 7:48 PM CDT) Only the most recent of4 resultswithin the time period is included. COLOR UA Yellow Pale to Dark Yellow 03/04/2025 8:14 PM CDT [facility] CLARITY UA Clear Clear 03/04/2025 8:14 PM CDT [facility] SPECIFIC GRAVITY UA 1.020 1.003 - 1.035 03/04/2025 8:14 PM CDT [facility] PH UA 6.5 5.0 - 8.0 03/04/2025 8:14 PM CDT [facility] LEUKOCYTE ESTERASE UA 1+(A) Negative 03/04/2025 8:14 PM CDT [facility] NITRITE UA Negative Negative 03/04/2025 8:14 PM CDT [facility] PROTEIN UA 1+(A) Negative 03/04/2025 8:14 PM CDT [facility] GLUCOSE UA Negative Negative 03/04/2025 8:14 PM CDT [facility] KETONES UA 4+(A) Negative 03/04/2025 8:14 PM CDT [facility] UROBILINOGEN UA 0.2 <2.0 mg/dL 8:14 PM CDT [facility] BILIRUBIN UA 1+(A) Negative 03/04/2025 8:14 PM CDT [facility] BLOOD UA 2+(A) Negative 03/04/2025 8:14 PM CDT [facility] Urine URINE SPECIMEN OBTAINED BY CLEAN CATCH PROCEDURE / Unknown Collection / Unknown 03/04/2025 7:48 PM CDT 03/04/2025 7:56 PM CDT us Petar Brice MD URINE ORDERABLES Final R esult [facility] CLIA # [id number] [address] [address] * (ABNORMAL) COMPREHENSIVE METABOLIC PANEL (03/04/2025 7:48 PM CDT) Only the most recent of3 resultswithin the time period is included. SODIUM 138 136 - 145 mmol/L 03/04/2025 8:14 PM [facility] POTASSIUM 3.9 3.5 - 5.1 mmol/L 03/04/2025 8:14 PM [facility] CHLORIDE 103 98 - 107 mmol/L 03/04/2025 8:14 PM [facility] CO2 21(L) 22 - 29 mmol/L 03/04/2025 8:14 PM [facility] CALCIUM 9.7 8.6 - 10.0 mg/dL 03/04/2025 8:14 PM [facility] BUN 9 6 - 20 mg/dL 03/04/2025 8:14 PM [facility] CREATININE 0.65 0.51 - 0.95 mg/dL 03/04/2025 8:14 PM [facility] GLUCOSE 81 74 - 99 mg/dL 03/04/2025 8:14 PM [facility] TOTAL PROTEIN 6.5(L) 6.6 - 8.7 g/dL 03/04/2025 8:14 PM [facility] ALBUMIN 3.6 3.5 - 5.2 g/dL 03/04/2025 8:14 PM [facility] BILIRUBIN TOTAL <0.2 0.0 - 1.2 mg/dL 03/04/2025 8:14 PM [facility] ALKALINE PHOSPHATASE 106(H) 35 - 104 U/L 03/04/2025 8:14 PM [facility] AST 26 0 - 35 U/L 03/04/2025 8:14 PM [facility] ALT 37(H) 0 - 35 U/L 03/04/2025 8:14 PM [facility] GFR >60 >=60 mL/min/1.7 3 sq meter 03/04/2025 8:14 PM [facility] Comment:eGFR calculated with 2020 CKD-EPI equation. Vegetarian diet, extremely high or low muscle mass, and may affect results. Cystatin C with Glomerular Filtration Rate is a suitable alternative for these patients. ANION GAP 14 5 - 20 mmol/L 03/04/2025 8:14 PM CDT [facility] Blood Collection / Unknown 03/04/2025 7:48 PM CDT 03/04/2025 7:56 PM CDT us Petar Brice MD CHEMISTRY ORDERABLES Fin al Result [facility] CLIA # [id number] [address] [place] [address] * TELEMETRY REPORT (03/04/2025 9:56 AM CDT) us Provider Scanning ECG ORDERABLES Final Result * (ABNORMAL) HEMOGLOBIN AND HEMATOCRIT (03/03/2025 2:12 PM CDT) [facility] HEMOGLOBIN 9.8(L) 12.0 - 16.0 g/dL 03/03/2025 2:39 PM CDT [facility] LABORATORY [facility] HEMATOCRIT 29.8(L) 36.0 - 46.0 % 03/03/2025 2:[address] [facility] Blood Venipuncture / Unknown 03/03/2025 2:12 PM CDT 03/03/2025 2:26 PM CDT us Mela Flores MD HEMATOLOGY ORDERABLES Final Result Performing Organization Address City/[facility]/ZIP Co de Phone Number [facility] CLIA # [id number] [address] [place] [address] * (ABNORMAL) BASIC METABOLIC PANEL (03/03/2025 4:25 AM CDT) Only the most recent of2 resultswithin the time period is included. SODIUM 136 136 - 145 mmol/L 03/03/2025 5:25 AM [facility] POTASSIUM 4.0 3.5 - 5.1 mmol/L 03/03/2025 5:[address] [facility] Comment:Moderate hemolysis p resent. Can cause significant falsely elevated result. Redraw if indicated. CHLORIDE 105 98 - 107 mmol/L 03/03/2025 5:25 AM [facility] CO2 21(L) 22 - 29 mmol/L 03/03/2025 5:[address] [facility] CALCIUM 8.9 8.6 - 10.0 mg/dL 03/03/2025 5:25 AM [facility] BUN 7 6 - 20 mg/dL 03/03/2025 5:25 AM [facility] CREATININE 0.62 0.51 - 0.95 mg/dL 03/03/2025 5:25 AM [facility] GLUCOSE 93 74 - 99 mg/dL 03/03/2025 5:25 AM [facility] GFR >60 >=60 mL/min/1.7 3 sq meter 03/03/2025 5:25 AM [facility] Comment:eGFR calculated with 2020 CKD-EPI equation. Vegetarian diet, extremely high or low muscle mass, and may affect results. Cystatin C with Glomerular Filtration Rate is a suitable alternative for these patients. ANION GAP 10 9 - 20 mmol/L 03/03/2025 5:25 AM [facility] Blood Venipuncture / Unknown 03/03/2025 4:25 AM CDT 03/03/2025 4:48 AM CDT us Mela Flores MD CHEMISTRY ORDERABLES F inal Result [facility] CLIA # [id number] [address] [place] [address] [place] [address] * MAGNESIUM LEVEL (03/02/2025 6:26 AM CDT) MAGNESIUM 1.6 1.6 - 2.6 mg/dL 03/02/2025 7:23 AM CDT [facility] [employer] [facility] Blood Venipuncture / Unknown 03/02/2025 6:26 AM CDT 03/02/2025 6:34 AM CDT us Brigido Hines MD CHEMISTRY ORDERABLES Final Resul t [facility] CLIA # [id number] [address] [address] [place] [address] * MRI ABDOMEN PELVIS WO CONTRAST (03/02/2025 [...] TORRE Study Date: 03/01/2025 5:39pm Pat. NO: [id number] Referring MD: Site: [facility] Molder Setter: Nataliia Mckeon : 2005 Age: 19 ----- INDICATION ----- Other Specified Complications of viability scan through the ER CODING ----- Diagnoses Z3A.15: Weeks of gestation Z3A.15: Weeks of gestation O26.892: Other specified related conditions Procedures 17599: Ultrasound, uterus, real time with image documentation, [...] Note Jhon Ricci II, MD - 03/01/2025 SHOW LOW LIMITED OBUS ----- Pat. Name:Lucy DE LA TORRE Date:03/01/2025 5:39pm Pat. NO: [id number] MD: [facility]atal[facility] Mc[facility]on :2005Age:19 ----- INDICATION ----- Other Specified Complications of viability scanthrough the ER CODING ----- Diagnoses Z3A.15: Weeks of gestation Z3A.15: Weeks of gestation O26.892: Other specified relatedconditions Procedures 68437: Ultrasound, uterus, real time withimage documentation, limited one or more fetuses HISTORY ----- OB History 2. Para 0 METHOD ----- Transabdominal ultrasound examination ----- Monge . Number of fetuses: 1 DATING ----- LMP on:10/26/2024 GA by [id number] w + 0 d MICHELL by LMP:08/02/2025 Method of dating:based on stated MICHELL GA by prior [id number] w + 5 d MICHELL by prior [...] 1.2 <=2.0 mmol/L 03/01/2025 5:20 PM CDT [facility] [employer] [facility] Blood Venipuncture / Unknown 03/01/2025 4:51 PM CDT 03/01/2025 4:57 PM CDT May Dobbins MD CHEMISTRY ORDERABLES Final Result [facility] [employer] [facility] CLIA # [id number] [address] [facility] [place] [address] * BLOOD CULTURE (03/01/2025 4:51 PM CDT) Only the most recent of2 resultswithin the time period is included. BLOOD CULTURE No growth 03/06/2025 6:[address] [facility] Blood (Peripheral) Venipuncture / Unknown 03/01/2025 4:51 PM CDT 03/01/2025 4:57 PM CDT May Dobbins MD MICROBIOLOGY - [facility] AL ORDERABLES Final Result Performing Organization Address [facility] Co de Phone Number [facility] CLIA # [id number] [address] [address] * LIPASE (03/01/2025 1:53 PM CDT) Only the most recent of2 resultswithin the time period is included. Pathologist [facility] LIPASE 25 13 - 60 U/L 03/01/2025 2:[address] [facility] Blood Venipuncture / Unknown 03/01/2025 1:53 PM CDT 03/01/2025 1:58 PM CDT Carito Zapien [employer] CHEMISTRY ORDERABLES Fi nal Result Performing Organization Address City/[facility]/ZIP Co de Phone Number [facility] CLIA # [id number] [address] [address] * US RENAL AND BLADDER (03/01/2025 1:16 [...] of the kidneys and bladder. Carito Zapien [facility] US ORDERABLES Final R esult * (ABNORMAL) URINE CULTURE (03/01/2025 9:14 AM CDT) CULTURE ESCHERICHIA COLI(A) CHYNA MCG/ML 03/03/2025 7:21 AM CDT [facility] LABORATORY [facility] Urine URINE SPECIMEN OBTAINED BY CLEAN [...] MICROBIOLOGY - GENERAL ORDERABL ES Final Result [facility] LABORATORY SERVICES [facility] # [id number] [address] [place] [address] * (ABNORMAL) OCCULT BLOOD, GASTRIC FLUID (03/01/2025 9:10 AM CDT) OCCULT BLOOD, GASTRIC FLUID Positive(A ) Negative 03/01/2025 9:43 AM CDT [facility] PH, GASTRIC FLD <1(L) 2 - 4 03/01/2025 9:43 AM CDT [facility] Body fluid ENTIRE STOMACH / Unknown Collection / Unknown 03/01/2025 9:10 AM CDT 03/01/2025 9:28 AM CDT Narrative [facility] - 03/01/2025 9:43 AM CDT Lot exp 03-13 Developer [id number] exp 042 us Alissa Winter MD BODY FLUIDS AND STOOLS Final Re sult Performing Organization Address City/[facility]/ZIP Co de Phone Number [facility] CLIA # [id number] [address] [place] [phone] * (ABNORMAL) SEDIMENTATION RATE (03/01/2025 7:38 AM CDT) ESR (SEDIMENTATION RATE) 31(H) 0 - 20 mm/Hr 03/01/2025 8:52 AM CDT [facility] Blood Venipuncture / Unknown 03/01/2025 7:38 AM CDT 03/01/2025 8:27 AM CDT Narrative [facility] - 03/01/2025 8:52 AM CDT Tube Lot: #[id number] Exp Date: 08/19/2026 QC1 LOT [id number] EXP.08/24/2025 QC2 LOT [id number] EXP.08/24/2025 us Alissa Winter MD HEMATOLOGY ORDERABLES Final Res ult Performing Organization Address City/[facility]/ZIP Co de Phone Number [facility] CLIA # [id number] [address] [place] [phone] * (ABNORMAL) C-REACTIVE PROTEIN (03/01/2025 7:38 AM CDT) CRP 16.0(H) <5.0 mg/L 03/01/2025 8:51 AM CDT [facility] Blood Venipuncture / Unknown 03/01/2025 7:38 AM CDT 03/01/2025 8:27 AM CDT us Alissa Winter MD CHEMISTRY ORDERABLES Final Resu lt Performing Organization Address City/[facility]/ZIP Co de Phone Number [facility] CLIA # [id number] [address] [place] [address] [phone] from Last [address] [place] [id number] BENEFIT MANAGEMENT PPO Advance Directives For more information, please contact: [phone] * Full Code (Latest Code Status on File) Date Activated Date Inactivated Comments 03/01/2025 5:49 PM 03/03/2025 8:36 PM
[2025-03-17 18:01] VITALS: BP 134/73; PULSE 72; RESP 14; TEMP 36.7; O2SAT 98; BMI 45.1
[2025-03-17 18:15] LABS: Hematocrit 33.4 % (36-47); Hemoglobin 10.70 g/dL (11.27-16.99); Mean Corpuscular HGB Conc 32.0 g/dL (30-55); Mean Corpuscular Hemoglobin 27.9 pg (27-33); Mean Corpuscular Volume 87.0 fl (85-98); Nucleated Red Blood Cells % 0 %; Platelet Count 168 10^3/cmm (157-399); Red Blood Count 3.84 10^6/uL (3.85-5.65); White Blood Count 10.31 10^3/uL (3.29-11.43)
[2025-03-17 18:27] LABS: Alanine Aminotransferase 44 U/L (0-33); Albumin Level 3.6 g/dL (3.5-5.2); Alkaline Phosphatase 102 U/L (35-105); Anion Gap 16.9 (5-19); Aspartate Amino Transferase 24 U/L (0-32); Blood Urea Nitrogen 8 mg/dL (6-20); Calcium 9.4 mg/dL (8.5-10.5); Carbon Dioxide 22 mmol/L (22-29); Chloride 103 mmol/L (98-107); Creatinine Clr Calc Pharmacy 303.3882; Globulin 2.8 g/dL (1.3-4.6); Glucose 70 mg/dL (65-115); Osmolality Calculated 283 mOsm/kg (285-295); Potassium 3.9 mmol/L (3.5-5.1); Sodium 138 mmol/L (136-145); Total Protein 6.4 g/dL (6.6-8.7)
[2025-03-17 18:50] LABS: Glucose Urine UA Negative (Normal); Nitrate Urine Negative (Negative); Specific Gravity, Urine 1.027 (1.005-1.030)
[2025-03-17 18:56] LABS: Add Urine Microscopic? YES
[2025-03-17 19:11] LABS: UA Slide Review UA Slide Review Perf
[2025-03-17] MEDS: cefTRIAXone 1,000 mg SDV 1000 MG IVP (21:24)
--- NOTE | 2025-03-17 22:14 | W.ED.ABDPA2 ---
HPI - Abdominal Pain General: Chief Complaint: Abdominal Pain Stated Complaint: cramping(18wks preg) Time Seen by Provider: 03/17/25 19:30 History of Present Illness: 18 weeks gestation 19-year-old female presents with dysuria, bilateral flank pain. Patient was admitted last week for pyelonephritis, placed on ceftriaxone, and sent home with amoxicillin. Her primary care physician changed her to cephalexin. Patient states times last 1 day she has had ongoing symptoms. Urine bio gram shows normal urinary bairon. Associated Symptoms: Reports diarrhea and dysuria; Denies chills, constipation, fever(s), hematochezia, nausea and vomiting Related Data Home Medications ?Medication ?Instructions ?Recorded ?Confirmed vitamins no.121-iron 28 1 tab PO DAILY 01/27/25 03/13/25 mg-folic acid 800 mcg tablet famotidine 20 mg tablet 20 mg PO BID 03/06/25 03/13/25 nitrofurantoin 100 mg PO DAILY uti suppression 03/12/25 03/13/25 monohydrate/macrocrystals 100 mg capsule Previous Rx's ?Medication ?Instructions ?Recorded cephalexin 500 mg capsule 500 mg PO BID hx pyelo #20 caps 03/12/25 escitalopram oxalate 10 mg tablet 10 mg PO DAILY anxiety depression 03/12/25 #30 tabs cefdinir 300 mg capsule 300 mg PO BID 10 days #20 caps 03/17/25 Allergies Allergy/AdvReac Type Severity Reaction Status Date / Time No Known Allergies Allergy Verified 03/17/25 18:06 Review of Systems General: Reports: 10 or more systems reviewed and unremarkable except in HPI and below Const: Denies: fever(s) or chills ENMT: Denies: throat pain, ear or mastoid pain, nasal congestion or sinus pain Card: Denies: chest pain, palpitations or swelling of feet/ankles Resp: Denies: dyspnea or productive cough GI: Reports: abdominal pain and diarrhea; Denies: nausea, vomiting, constipation or hematochezia : Reports: difficulty voiding, dysuria, urinary frequency, urinary urgency, urinary hesitancy and urinary incontinence; Denies: flank pain, genital pruritis, vaginal dryness, vaginal odor, vaginal bleeding or pelvic pain Musc: Denies: back pain or extremity swelling Skin/Breast: Denies: rash Neuro: Denies: headache(s), numbness in extremities or weakness in extremities PFSH ED PFSH: Medical History (Updated 03/17/25 @ 22:51 by NICOLE Jones) Hx of pyelonephritis during BMI 45.0-49.9, adult No pertinent past medical history neghx: htn, dm, thyroid, dvt/pe PCP: Sanam Kerns Surgical History H/O knee surgery Lipoma suprapatellar down to tib/fib-- benign. She had 2 surgeries w/in 2 years. Family History Denies family history of Cervical cancer Colon cancer Ovarian cancer Diabetes Breast cancer Hypertension Uterine cancer Thyroid disease Stroke Social History Smoking and tobacco/nicotine status: never used tobacco/nicotine Physical Exam Const: COMMON NORMALS: no acute distress and patient oriented x3 GENERAL APPEARANCE: cooperative; not in distress HENMT: COMMON NORMALS: normocephalic HEAD & SCALP: normal to inspection and normocephalic MOUTH: Normal oral and palatal mucosa present and lip normal THROAT: posterior oropharynx normal and tonsils normal Neck/C-Spine: COMMON NORMALS: no lymphadenopathy, supple and no meningeal signs GENERAL: Yes normal visual inspection and Yes trachea midline Chest: COMMONS NORMALS: normal inspection of the chest Resp: COMMON NORMALS: normal respiratory effort and clear to auscultation bilaterally EFFORT & INSPECTION: Yes able to speak in complete sentences and No respiratory distress AUSCULTATION: clear to auscultation bilaterally, no rales, no rhonchi and no wheezes Cardio: COMMON NORMALS: regular rate, regular rhythm, S1 normal heart sound present, S2 normal heart sound present and No murmurs present (Cardio) RATE: regular rate RHYTHM: regular rhythm HEART SOUNDS: S1 normal heart sound present and S2 normal heart sound present GI: COMMON NORMALS: Normal to inspection, nondistended, normoactive bowel sounds present, Soft to palpation and non-tender AUSCULTATION: Yes normoactive bowel sounds PALPATION: Yes Soft to palpation, Yes Tenderness to palpation present (GI) (diffuse tenderness moderate) and No Guarding due to palpation present (GI) OTHER: gravid uterus : COMMON NORMALS: Yes no CVA tenderness BLADDER/KIDNEY EXAM: Yes no CVA tenderness Back/Pelvis: COMMON NORMALS: no CVA tenderness Extremity: COMMON NORMALS: normal to inspection and capillary refill normal Neuro: COMMON NORMALS: patient oriented x3, moves all extremities and no focal motor deficits MENINGEAL SIGNS: Yes no meningeal signs Skin: COMMON NORMALS: no rashes or lesions noted GENERAL SKIN EXAM: no rashes or lesions noted Course Vital Signs: Vital signs: Vital Signs Temperature 98.0 F 03/17/25 18:01 Pulse Rate 71 03/17/25 22:59 Respiratory Rate 14 03/17/25 18:01 Blood Pressure 125/108 03/17/25 22:59 Pulse Oximetry 97 03/17/25 22:59 Oxygen Delivery Me thod Room Air 03/17/25 18:01 MDM - Abdominal Pain Medical Decision Making Patient is a 19-year-old female with recent pyelonephritis and hospitalization. Today, she does not have any flank pain, however she does have dysuria symptoms that have increased since she has been on her cephalexin. She did tolerate Rocephin in the hospital. I have given her Rocephin x 1, asked her to contact her OB tomorrow to see if she needs IM shots in the office versus ambulatory infusion, and given her cefdinir, third-generation cephalosporin. All of her questions were answered to her satisfaction. I would have contacted hospitalist/OB if she were to have flank pain as she did before. There was no need to repeat her ultrasound. Her urine culture had too many squamous epithelial cells as per lab, and they asked for the new culture to be a new clean-catch, which patient has provided. Lab Data 03/17/25 17:51 03/17/25 17:51 Labs/Radiology: Laboratory Results WBC 10.31 10^3/uL (3.29-11.43) 03/17/25 17:51 RBC 3.84 10^6/uL (3.85-5.65) L 03/17/25 17:51 Hgb 10.70 g/dL (11.27-16.99) L 03/17/25 17:51 Hct 33.4 % (36-47) L 03/17/25 17:51 MCV 87.0 fl (85-98) 03/17/25 17:51 MCH 27.9 pg (27-33) 03/17/25 17:51 MCHC 32.0 g/dL (30-55) 03/17/25 17:51 RDW 16.4 % (12.1-15.1) H 03/17/25 17:51 Plt Count 168 10^3/cmm (157-399) 03/17/25 17:51 MPV 12.0 fL (7.4-10.4) H 03/17/25 17:51 Neut % (Auto) 68.2 % 03/17/25 17:51 Lymph % (Auto) 22.3 % 03/17/25 17:51 [place] % (Auto) 7.8 % 03/17/25 17:51 Eos % (Auto) 0.8 % 03/17/25 17:51 Baso % (Auto) 0.1 % 03/17/25 17:51 Neut # (Auto) 7.04 10^3/uL (1.8-7.7) 03/17/25 17:51 Lymph # (Auto) 2.3 10^3/uL (0.8-4.8) 03/17/25 17:51 [place] # (Auto) 0.8 10^3/uL (0.2-0.9) 03/17/25 17:51 Eos # (Auto) 0.1 10^3/uL (0.0-0.8) 03/17/25 17:51 Baso # (Auto) 0.0 10^3/uL (0.0-0.1) 03/17/25 17:51 Nucleated RBC % (auto) 0 % 03/17/25 17:51 Nucleated RBCs # 0.0 /100WBC 03/17/25 17:51 Sodium 138 mmol/L (136-145) 03/17/25 17:51 Potassium 3.9 mmol/L (3.5-5.1) 03/17/25 17:51 Chloride 103 mmol/L (98-107) 03/17/25 17:51 Carbon Dioxide 22 mmol/L (22-29) 03/17/25 17:51 Anion Gap 16.9 (5-19) 03/17/25 17:51 BUN 8 mg/dL (6-20) 03/17/25 17:51 Creatinine 0.4 mg/dL (0.5-0.9) L 03/17/25 17:51 GFR Calculation 201.5 mL/min (90-130) H 03/17/25 17:51 Glucose 70 mg/dL (65-115) 03/17/25 17:51 Calculated Osmolality 283 mOsm/kg (285-295) L 03/17/25 17:51 Calcium 9.4 mg/dL (8.5-10.5) 03/17/25 17:51 Total Bilirubin 0.2 mg/dL (0.15-1.2) 03/17/25 17:51 AST 24 U/L (0-32) 03/17/25 17:51 ALT 44 U/L (0-33) H 03/17/25 17:51 Alkaline Phosphatase 102 U/L (35-105) 03/17/25 17:51 Total Protein 6.4 g/dL (6.6-8.7) L 03/17/25 17:51 Albumin 3.6 g/dL (3.5-5.2) 03/17/25 17:51 Globulin 2.8 g/dL (1.3-4.6) 03/17/25 17:51 Urine Color Yellow (Yellow) 03/17/25 18:24 Urine Appearance Cloudy (CLEAR) A 03/17/25 18:24 Urine pH 6.0 (5-7) 03/17/25 18:24 Ur Specific [place] 1.027 (1.005-1.030) 03/17/25 18:24 Urine Protein Trace (Negative) A 03/17/25 18:24 Urine Glucose (UA) Negative (Normal) 03/17/25 18:24 Urine Ketones Trace (Negative) 03/17/25 18:24 Urine Blood 2+ (Negative) A 03/17/25 18:24 Urine Nitrate Negative (Negative) 03/17/25 18:24 Urine Bilirubin Negative (Negative) 03/17/25 18:24 Urine Urobilinogen 1.0 mg/dL (Negative) 03/17/25 18:24 Ur Leukocyte Esterase 2+ (Negative) A 03/17/25 18:24 Urine RBC 21-50 /hpf (0-2) H 03/17/25 18:24 Urine WBC >100 /hpf (0-5) H 03/17/25 18:24 Ur Squamous Epith Cells 11-20 /hpf (0-5) H 03/17/25 18:24 Calcium Oxalate Crystal 5-10 /hpf H 03/17/25 18:24 Amorphous Sediment Not Reportable 03/17/25 18:24 Urine Bacteria 2+ /hpf (NONE) H 03/17/25 18:24 Hyaline Casts 1.21 /lpf 03/17/25 18:24 No radiology studies performed this visit Discharge Plan Discharge Patient Disposition: Home Clinical Impression: UTI (urinary tract infection) in in second trimester Condition: Stable Prescriptions: New cefdinir 300 mg capsule 300 mg PO BID 10 Days Qty: 20 0RF No Action PNV no.546-whtp-[id number] acid 28 mg iron- 800 mcg tablet 1 tab PO DAILY escitalopram oxalate 10 mg tablet 10 mg PO DAILY MDD 10mg Qty: 30 5RF cephalexin 500 mg capsule 500 mg PO BID MDD 1gm Qty: 20 0RF nitrofurantoin monohyd/m-cryst 100 mg capsule 100 mg PO DAILY Rx Instructions: must administer with a meal/food START taking ONLY AFTER COMPLETING 10 day CEPHALEXIN THERAPY. famotidine 20 mg tablet 20 mg PO BID Discharge Orders: Discharge ED (Routine); Ordered 03/17/25 Ordered By: Carmen Beltre Referrals: Sanam Kerns DO [Primary Care Provider, SALES REPRESENTATIVE SALES MANAGER] Discharge Diet: Usual diet Discharge Activity: Resume usual activity Patient Instructions: Urinary Tract Infection in (ED), Patient Portal & Lj Instructions Activity Restrictions/Additional Instructions: Call your OB in a.m. to discuss your visit today, and see if he would prefer to do intramuscular injections this week. Your urine culture is pending as we discussed. match up worker your antibiotics in the morning and start them right away if your OB doctor is okay with this. Take a probiotic or eat active culture yogurt to avoid infectious diarrhea Return to ED for worsening discomfort, flank pain. You may utilize Tylenol for pain Magnesium at low dose, 250 mg at night, as we discussed Pelvic rest (no sex nothing in the vagina) until symptoms have dissipated Print Language: Turkmen Coding Level of Care Code ED Grants Administrator for Jose Solano
[2025-03-17 22:23] VITALS: BP 150/80; PULSE 74; O2SAT 99
[2025-03-17 22:30] VITALS: BP 125/108; PULSE 73; O2SAT 98
[2025-03-17 22:59] VITALS: BP 125/108; PULSE 71; O2SAT 97
== END 2025-03-17 23:01 | disposition home or self-care (01) ==
PROVIDERS: Emergency Medicine; Emergency Provider Physician Assistant; PCP Family Medicine
DX: O23.42 Unspecified infection of urinary tract in pregnancy, second trimester (principal); N39.0 Urinary tract infection, site not specified; Z3A.18 18 weeks gestation of pregnancy
CPT/HCPCS: 36415; 80053; 81001; 85025; 87086; 96374; 99284; J0696; J7030

== ENCOUNTER → 2025-03-19 10:47 | Outpatient (BNVA) | payer OTHER, SELFPAY | PROVIDERS: PCP Family Medicine; Visit Provider Obstetrics & Gynecology | DX: O23.42 Unspecified infection of urinary tract in pregnancy, second trimester (principal) | CPT/HCPCS: 81000; 87086 ==

== ENCOUNTER → 2025-03-26 10:11 | Outpatient (BNVA) | payer OTHER, SELFPAY | PROVIDERS: PCP Family Medicine; Visit Provider Obstetrics & Gynecology | DX: Z34.90 Encounter for supervision of normal pregnancy, unspecified, unspecified trimester (principal) | CPT/HCPCS: 84315 ==

== ENCOUNTER → 2025-03-30 17:43 | Outpatient (BNVA) | payer OTHER, SELFPAY | PROVIDERS: PCP Family Medicine; Visit Provider Nurse Practitioner | DX: R39.9 Unspecified symptoms and signs involving the genitourinary system (principal) | CPT/HCPCS: 81000; 87086 ==

== ENCOUNTER → 2025-04-02 09:41 | Outpatient (BNVA) | payer OTHER, SELFPAY | PROVIDERS: Visit Provider Nurse Practitioner Women's Health | DX: Z36.9 Encounter for antenatal screening, unspecified (principal) | CPT/HCPCS: 76805 ==

== ENCOUNTER → 2025-04-17 13:40 | Outpatient (BNVA) | payer OTHER, SELFPAY | PROVIDERS: Visit Provider Obstetrics & Gynecology | DX: O09.292 Supervision of pregnancy with other poor reproductive or obstetric history, second trimester (principal) | CPT/HCPCS: 84315 ==

== ENCOUNTER 2025-04-27 12:47 | Outpatient (CLI) | payer OTHER, SELFPAY ==
[2025-04-27] VITALS (8 sets, daily range): BP systolic 109–137; BP diastolic 52–87; PULSE 75–83; RESP 18; BMI 46.0
[2025-04-27 13:40] LABS: Glucose Urine UA Negative (Normal); Nitrate Urine Negative (Negative); Specific Gravity, Urine 1.017 (1.005-1.030)
== END 2025-04-27 14:52 | disposition home or self-care (01) ==
LOC: OPOB 12:51 → OBGYN 12:51
PROVIDERS: Visit Provider Family Medicine
DX: O26.859 Spotting complicating pregnancy, unspecified trimester (principal); Z3A.00 Weeks of gestation of pregnancy not specified; R25.2 Cramp and spasm
CPT/HCPCS: 81001; 87086; 87205; 87210; 99211

== ENCOUNTER 2025-05-02 04:51 | Outpatient (CLI) | payer OTHER, SELFPAY ==
[2025-05-02] VITALS (10 sets, daily range): BP systolic 106–144; BP diastolic 55–76; PULSE 65–80; RESP 16–18; BMI 46.3
--- NOTE | 2025-05-02 05:36 | USR_ITS ---
PROCEDURE INFORMATION: Exam: US Retroperitoneal, Complete, Kidneys and Bladder Exam date and time: 05/02/2025 6:34 AM Age: 19 years old Clinical indication: Pain; Other: Back, lt flank; ; Additional info: Back pain, only left side needed TECHNIQUE: Imaging protocol: Real-time ultrasound of the retroperitoneum with image documentation. Complete exam focused on the bilateral kidneys and urinary bladder. COMPARISON: US OB >= 14 weeks fetus [id number] 04/02/2025 9:52 AM FINDINGS: Right kidney: Measures 11.6 x 5.8 x 5.5 cm. Cortical thickness and echogenicity within normal limits. No hydronephrosis or evidence of a solid mass. Left kidney: Measures 2.4 x 7.6 x 6.2 cm. Cortical thickness and echogenicity within normal limits. Mild hydronephrosis. No evidence of a solid mass. Urinary bladder: Incompletely distended which limits evaluation although grossly unremarkable. Uterus: Gravid uterus. US/US renal BI* [id number] IMPRESSION: Mild left hydronephrosis.
[2025-05-02] MEDS: ondansetron 2 mg/ML SDV 2 mL 4 MG IVP (05:52)
[2025-05-02] MEDS: morphine 4 mg/mL SDV 1 mL IVP (05:52)
[2025-05-02 06:24] LABS: Glucose Urine UA Negative (Normal); Nitrate Urine Negative (Negative); Specific Gravity, Urine 1.014 (1.005-1.030)
[2025-05-02] MEDS: HYDROcodone-acetaminophen 5-325 mg Tablet 1 TAB PO (07:06)
[2025-05-02] MEDS: oxyCODONE-APAP 5-325 mg Tablet 1 TAB PO (07:22)
== END 2025-05-02 07:29 | disposition home or self-care (01) ==
LOC: OPOB 04:55 → OBGYN 04:56
PROVIDERS: Visit Provider Family Medicine
DX: O26.899 Other specified pregnancy related conditions, unspecified trimester (principal); Z3A.00 Weeks of gestation of pregnancy not specified; M54.9 Dorsalgia, unspecified
CPT/HCPCS: 76770; 81001; 87086; 96374; 99211; J2270; J2405; J7120; J9999

== ENCOUNTER 2025-05-04 13:58 | Outpatient (CLI) | payer OTHER, SELFPAY | END 2025-05-04 14:00 | disposition home or self-care (01) | LOC: OPOB 13:59 → OBGYN 13:59 | PROVIDERS: Visit Provider Family Medicine | DX: O26.899 Other specified pregnancy related conditions, unspecified trimester (principal); Z3A.00 Weeks of gestation of pregnancy not specified; R10.9 Unspecified abdominal pain | CPT/HCPCS: 59025; 99211 ==

== ENCOUNTER 2025-05-16 13:06 | Outpatient (CLI) | payer OTHER, SELFPAY ==
[2025-05-16 13:26] VITALS: BP 132/63; PULSE 81
[2025-05-16 13:29] VITALS: RESP 17; BMI 46.5
[2025-05-16 13:40] VITALS: BP 131/58; PULSE 77
[2025-05-16 13:48] VITALS: BP 131/58; PULSE 77; RESP 18
== END 2025-05-16 13:49 | disposition home or self-care (01) ==
LOC: OPOB 13:10 → OBGYN 13:11
PROVIDERS: Visit Provider Family Medicine
DX: O24.419 Gestational diabetes mellitus in pregnancy, unspecified control (principal); O14.90 Unspecified pre-eclampsia, unspecified trimester; Z3A.00 Weeks of gestation of pregnancy not specified
CPT/HCPCS: 59025; 99211

== ENCOUNTER 2025-05-26 17:11 | Outpatient (CLI) | payer OTHER, SELFPAY ==
[2025-05-26 17:24] VITALS: BP 126/70; PULSE 75
[2025-05-26 17:34] VITALS: BMI 47.2
[2025-05-26 17:45] VITALS: BP 133/62; PULSE 66
[2025-05-26 18:05] VITALS: BP 128/65; PULSE 67
== END 2025-05-26 18:25 | disposition home or self-care (01) ==
LOC: OPOB 17:17 → OBGYN 17:17
PROVIDERS: PCP Family Medicine; Visit Provider Family Medicine
DX: O36.8190 Decreased fetal movements, unspecified trimester, not applicable or unspecified (principal); Z3A.00 Weeks of gestation of pregnancy not specified
CPT/HCPCS: 59025; 99211

== ENCOUNTER 2025-06-20 16:18 | Outpatient (CLI) | payer OTHER, SELFPAY ==
[2025-06-20 16:15] VITALS: BMI 47.9
[2025-06-20 16:32] VITALS: BP 140/67; PULSE 75
[2025-06-20 16:52] VITALS: BP 145/68; PULSE 74
== END 2025-06-20 17:02 | disposition home or self-care (01) ==
LOC: OPOB 16:19 → OBGYN 16:20
PROVIDERS: PCP Family Medicine; Visit Provider Family Medicine
DX: O13.9 Gestational [pregnancy-induced] hypertension without significant proteinuria, unspecified trimester (principal); O24.419 Gestational diabetes mellitus in pregnancy, unspecified control; Z3A.00 Weeks of gestation of pregnancy not specified
CPT/HCPCS: 59025; 99211

== ENCOUNTER 2025-06-21 13:21 | Outpatient (CLI) | payer OTHER, SELFPAY ==
[2025-06-21 13:21] VITALS: BMI 47.9
[2025-06-21 13:37] VITALS: BP 119/56; PULSE 80
[2025-06-21 14:09] LABS: Glucose Urine UA Negative (Normal); Nitrate Urine Negative (Negative); Specific Gravity, Urine 1.021 (1.005-1.030)
[2025-06-21 14:10] LABS: Hematocrit 35.7 % (36-47); Hemoglobin 11.60 g/dL (11.27-16.99); Mean Corpuscular HGB Conc 32.5 g/dL (30-55); Mean Corpuscular Hemoglobin 29.4 pg (27-33); Mean Corpuscular Volume 90.6 fl (85-98); Nucleated Red Blood Cells % 0 %; Platelet Count 137 10^3/cmm (157-399); Red Blood Count 3.94 10^6/uL (3.85-5.65); White Blood Count 11.77 10^3/uL (3.29-11.43)
[2025-06-21] MEDS: betamethasone susp 6 mg/mL 5 mL 12 MG IM (14:15)
[2025-06-21 14:37] VITALS: BP 138/78; PULSE 81
--- NOTE | 2025-06-21 14:43 | PM.TDS ---
Transfer Summary Providers Date of Discharge/Transfer: 06/21/25 Attending Provider at Transfer: Ad Vega MD Primary Care Provider: Sanam Kerns DO Transfer Plans: Anticipated date of transfer: 06/21/25. Receiving Facility: [facility]. Receiving Provider: Dr. Angel. Diagnoses at Discharge Discharge Diagnosis 1. labor in third trimester without delivery: Reason for Visit Reason for Visit contractions, back pain Hospital Course Hospital Course This is a 20-year-old -0-1-0 that presented at 32 weeks 2 days with contractions every 3 to 5 minutes. The patient had noted some spotting as well. Tractions were noted to happen every 3 to 5 minutes upon arrival. Initial sterile vaginal exam showed advanced dilation to 5 cm. Patient was started on IV fluids and given terbutaline which helped slow down contractions. The patient was also started on GBS prophylaxis and given the initial dose of betamethasone. Case was discussed with laborist Dr. Angel who accepted the patient for transfer. Once the patient was determined not to be making cervical change ambulance service was notified of emergent transfer. Patient is has been complicated by gestational diabetes and gestational hypertension. Patient is on labetalol for blood pressure control and has been managing her diabetes by diet but has noted elevations as of late. Physical Exam Const: COMMON NORMALS: no acute distress, patient oriented x3 and alert Neck/C-Spine: COMMON NORMALS: no JVD Resp: COMMON NORMALS: normal respiratory effort and No retractions Cardio: COMMON NORMALS: no JVD, regular rate and regular rhythm RATE: regular rate RHYTHM: regular rhythm GI: OTHER: Gravid uterus : COMMON NORMALS: Yes no CVA tenderness BLADDER/KIDNEY EXAM: Yes no CVA tenderness Back/Pelvis: COMMON NORMALS: no CVA tenderness Extremity: GENERAL: Yes edema Neuro: COMMON NORMALS: patient oriented x3, moves all extremities, no focal motor deficits and no sensory deficits noted SENSORIUM/ORIENTATION: Yes alert Psych: COMMON NORMALS: mental status grossly normal and cooperative Skin: COMMON NORMALS: no rashes or lesions noted GENERAL SKIN EXAM: no rashes or lesions noted TS Data Studies Completed and Pending Pending at discharge Category Date Time Status Type and Screen Routine Lab 06/21/25 14:02 Received Laboratory Last Values WBC 11.77 10^3/uL (3.29-11.43) H 06/21/25 14:02 RBC 3.94 10^6/uL (3.85-5.65) 06/21/25 14:02 Hgb 11.60 g/dL (11.27-16.99) 06/21/25 14:02 Hct 35.7 % (36-47) L 06/21/25 14:02 MCV 90.6 fl (85-98) 06/21/25 14:02 MCH 29.4 pg (27-33) 06/21/25 14:02 MCHC 32.5 g/dL (30-55) 06/21/25 14:02 RDW 14.4 % (12.1-15.1) 06/21/25 14:02 Plt Count 137 10^3/cmm (157-399) L 06/21/25 14:02 MPV 12.5 fL (7.4-10.4) H 06/21/25 14:02 Neut % (Auto) 77.3 % 06/21/25 14:02 Lymph % (Auto) 14.3 % 06/21/25 14:02 [place] % (Auto) 7.1 % 06/21/25 14:02 Eos % (Auto) 0.5 % 06/21/25 14:02 Baso % (Auto) 0.1 % 06/21/25 14:02 Neut # (Auto) 9.11 10^3/uL (1.8-7.7) H 06/21/25 14:02 Lymph # (Auto) 1.7 10^3/uL (0.8-4.8) 06/21/25 14:02 [place] # (Auto) 0.8 10^3/uL (0.2-0.9) 06/21/25 14:02 Eos # (Auto) 0.1 10^3/uL (0.0-0.8) 06/21/25 14:02 Baso # (Auto) 0.0 10^3/uL (0.0-0.1) 06/21/25 14:02 Nucleated RBC % (auto) 0 % 06/21/25 14:02 Nucleated RBCs # 0.0 /100WBC 06/21/25 14:02 Urine Color Yellow (Yellow) 06/21/25 13: Urine Appearance Turbid (CLEAR) A 06/21/25 13:33 Urine pH 6.5 (5-7) 06/21/25 13:33 Ur Specific [place] 1.021 (1.005-1.030) 06/21/25 13:33 Urine Protein 1+ (Negative) A 06/21/25 13:33 Urine Glucose (UA) Negative (Normal) 06/21/25 13:33 Urine Ketones Trace (Negative) 06/21/25 13:33 Urine Blood 3+ (Negative) A 06/21/25 13:33 Urine Nitrate Negative (Negative) 06/21/25 13:33 Urine Bilirubin Negative (Negative) 06/21/25 13:33 Urine Urobilinogen 1.0 mg/dL (Negative) 06/21/25 13:33 Ur Leukocyte Esterase 3+ (Negative) A 06/21/25 13:33 Urine RBC 21-50 /hpf (0-2) H 06/21/25 13:33 Urine WBC >100 /hpf (0-5) H 06/21/25 13:33 Ur Squamous Epith Cells 11-20 /hpf (0-5) H 06/21/25 13:33 Amorphous Sediment Not Reportable 06/21/25 13:33 Urine Bacteria 4+ /hpf (NONE) H 06/21/25 13:33 Hyaline Casts 1.65 /lpf 06/21/25 13:33 Recent Clincial Data Last Vital Signs Pulse 81 06/21/25 14:37 BP 138/78 06/21/25 14:37 Vital Signs Pulse BP 06/21/25 14:37 81 06/21/25 14:37 138/78 06/21/25 13:37 80 119/56 Intake & Output/Weight 06/19/25 06/20/25 06/21/25 06/22/25 06:59 06:59 05:59 06:59 Weight 134.717 kg Vitals Last Vital Signs Pulse 81 06/21/25 14:37 BP 138/78 06/21/25 14:37 TS Medications Medications Acetaminophen (Acetaminophen 325 Mg Tablet) 650 mg PO Q6H PRN PRN Reason: Mild pain or temp > 100.4 Al Hydrox/Mg Hydrox/Simethicone (Glxt-Ecg-Rfsqcftyv-Monalisa 30 Ml Udc) 30 ml PO Q4H PRN PRN Reason: Indigestion (Use 2nd) Calcium Carbonate (Calcium Carbonate 500 Mg Chew Tablet) 1,000 mg PO Q4H PRN PRN Reason: Heartburn/Indigestion (Use 1st) Carboprost Tromethamine (Carboprost Tromethamine 250 Mcg/Ml Amp) 250 mcg IM ONCE PRN PRN Reason: 3rd line bleeding Ephedrine Sulfate (Ephedrine 50 Mg/Ml Inj) 10 mg IVP Q3M PRN PRN Reason: hypotension as directed by Hydroxyzine Pamoate (Hydroxyzine 25 Mg Capsule) 50 mg PO QID PRN PRN Reason: sleep, agitation or itching Dextrose/Lactated Ringer's (Dextrose 5%-Lactated Ringers) 1,000 mls @ 125 mls/hr IV .Q8H YESSICA Oxytocin (Pitocin) 30 unit in 500 mls @ 600 mls/hr IV .Q50M PRN; Protocol PRN Reason: After delivery of infant Tranexamic Acid (Tranexamic Acid) 1,000 mg in 100 mls @ 600 mls/hr IV Q30M PRN PRN Reason: BLEEDING Sodium Chloride (Sodium Chloride 0.9%) 1,000 mls @ 999 mls/hr IV .Q1H1M PRN PRN Reason: Per L&D Rescitation Protocol Sodium Chloride (Sodium Chloride 0.9%) 1,000 mls @ 999 mls/hr IV .Q1H1M PRN PRN Reason: BLEEDING Lactated Ringer's (Lactated Ringers) 1,000 mls @ 999 mls/hr IV .Q1H1M ONE Stop: 06/21/25 14:55 Last Admin: 06/21/25 14:12 Dose: 999 mls/hr Penicillin G Potassium () 2,500,000 unit in 50 mls @ 50 mls/hr IV Q4H [facility]; Protocol Penicillin G Potassium 5,000, (000 unit/ Sodium Chloride) 100 mls @ 100 mls/hr IV ONCE ONE; Protocol Stop: 06/21/25 15:31 Lanolin (Lanolin Oint 7 Gm) 1 applic TOPICAL PRN PRN PRN Reason: DRYNESS Lidocaine HCl (Lidocaine 2% Inj 20 Ml) 0 ml INJECTION ONCE PRN PRN Reason: perineum repair after delivery Lidocaine HCl (Lidocaine 1% Inj 20 Ml) 0.1 ml INTRADERMA PRN PRN PRN Reason: Anesthetic Prior to IV start Methylergonovine Maleate (Methylergonovine 0.2 Mg/Ml Inj 1 Ml) 0.2 mg IM Q20M PRN PRN Reason: 2nd line bleeding Metoclopramide HCl (Metoclopramide 5 Mg/Ml Sdv 2 Ml) 10 mg IV ONCE PRN PRN Reason: N/V not relieved by zofran Misoprostol (Misoprostol 200 Mcg Tablet) 800 mcg WA ONCE PRN PRN Reason: 1st line bleeding Ondansetron HCl (Ondansetron 2 Mg/Ml Sdv 2 Ml) 4 mg IVP Q4H PRN PRN Reason: NAUSEA AND VOMITING Oxytocin (Oxytocin 10 Unit/Ml Sdv 1 Ml) 20 unit IM ONCE PRN PRN Reason: 4th line bleeding Oxytocin (Oxytocin 10 Unit/Ml Sdv 1 Ml) 20 unit IV ONCE PRN PRN Reason: 4th line bleeding Discontinued Medications Betamethasone Acet/Betameth SodPhos (Betamethasone Susp 6 Mg/Ml 5 Ml) 12 mg IM ONCE ONE Stop: 06/21/25 13:55 Last Admin: 06/21/25 14:15 Dose: 12 mg Terbutaline Sulfate (Terbutaline 1 Mg/Ml Inj) 0.25 mg SUBCUT ONCE ONE Stop: 06/21/25 13:55 Last Admin: 06/21/25 14:12 Dose: 0.25 mg Allergies No Known Allergies Allergy (Verified 04/30/25 09:57) Home Medications vitamins no.121-iron 28 mg-folic acid 800 mcg tablet 1 tab PO DAILY 01/27/25 [History Confirmed 06/20/25] escitalopram oxalate 10 mg tablet 10 mg PO DAILY anxiety depression #30 tabs 03/12/25 [Rx Confirmed 06/20/25] buspirone 10 mg tablet 10 mg PO BID 05/02/25 [History Confirmed 06/20/25] labetalol 100 mg tablet 100 mg PO BID 05/26/25 [History Confirmed 06/20/25] Discharge Plan Discharge Patient Disposition: Xfer Short-Term Hosp Prescriptions: No Action PNV no.[id number] acid 28 mg iron- 800 mcg tablet 1 tab PO DAILY escitalopram oxalate 10 mg tablet 10 mg PO DAILY MDD 10mg Qty: 30 5RF buspirone [BuSpar] 10 mg Tablet 10 mg PO BID labetalol 100 mg Tablet 100 mg PO BID Discharge Order = DC NOW: Discharge Order (Routine); Ordered 06/21/25 Ordered By: Ad Vega Print Language: Lao Transfer Attestations Time Spent in Transfer Care: greater than 30 min Status at Transfer: Cognitive status at transfer: cognitively intact; Behavioral status at transfer: cooperative; Quality Metrics Clinical Quality Measures [ No reported AMI, CVA or VTE this stay] Coding Level of Care Code Acute Code for Chg Fwd Diagnoses labor in third trimester without delivery O60.03 labor delivery status: without delivery
[2025-06-21 14:57] VITALS: BP 129/60; PULSE 73
[2025-06-21] MEDS: penicillin g potassium 5,000,000 UNIT in sodium chloride 0.9% (plus) 100 ML 100 UNIT IV (15:02)
[2025-06-21 15:17] VITALS: BP 126/70; PULSE 80
[2025-06-21 15:18] VITALS: PULSE 81; O2SAT 96
--- NOTE | 2025-06-21 15:31 | PC.NURSE ---
this nurse called EMS @[id number] for transport. EMS arrived to L&D @[id number]
== END 2025-06-21 15:35 | disposition short-term general hospital (02) ==
LOC: OPOB 13:22 → OBGYN 13:23
PROVIDERS: PCP Family Medicine; Visit Provider Family Medicine
DX: O26.899 Other specified pregnancy related conditions, unspecified trimester (principal); Z3A.00 Weeks of gestation of pregnancy not specified; R10.9 Unspecified abdominal pain; M54.50 Low back pain, unspecified
CPT/HCPCS: 59025; 81001; 85025; 86850; 86900; 96372; 99211; J0702; J2540; J3105; J7120